=== PATIENT | female | born 1955 | race Caucasian/White ===

== ENCOUNTER → 2019-01-05 | Outpatient (CLI) | payer MEDICARE, OTHER ==
[2016-03-03 14:31] VITALS: BP 160/85
[~2019-01-05] MED LIST: ACET325T9 PO; ALBU2.5V8 IH; ALPR1TAB2 PO; BUSP15TA PO; CARV6.25 PO; CHOL2000 PO; CLIN300C8 PO; COLE3.753 PO; FAMO20TA5 PO; FLUT9.9S NS; FURO-68 PO; HALO0.5T PO; HALO1TAB PO; IBUP800T19 PO; INSU100I11 SQ; IRBE300T PO; IRBE300T3 PO; LANS30CA66 PO; LEVO125T5 PO; LIDO700A4 TP; MAG360OR24 PO; MAGN400T3 PO; METO10TA PO; METO2.5T PO; MIRT15TA3 PO; NEBI10TA3 PO; NYST15CR TP; OXCA300T3 PO; OXYC10TA PO; OXYC10TA46 PO; OXYC20TA35 PO; PARO20TA99 PO; POLY17PO5 PO; POTA10CA PO; POTA20LI14 PO; PROP10TA PO; SENN8.6T99 PO; TOPI100T42 PO; TRIA10.8 NS; ZIPR20CA3 PO; ZOLP10TA4 PO; ZOLP5TAB5 PO
--- NOTE | 2019-01-05 09:35 | RAD ---
Examination: CT lumbar spine without contrast HISTORY: History of low back pain COMPARISON: 06/30/2014 TECHNIQUE: Axial CT images of the lumbar spine were performed without contrast. Coronal and sagittal reformats are performed Exposure: One or more of the following individualized dose reduction techniques were utilized for this examination: 1. Automated exposure control 2. Adjustment of the mA and/or kV according to patient size 3. Use of iterative reconstruction technique FINDINGS: Gastric lap band partially visualized. Moderate intervertebral disc height loss identified throughout the visualized thoracolumbar spine likely degenerative changes. T12-L1: Diffuse disc bulge identified with posterior disc protrusion causing extending into a left paracentral spinal canal. Moderate spinal canal stenosis. Mild bilateral neural foraminal narrowing L1-L2: Diffuse disc bulge identified causing moderate spinal canal stenosis. Mild bilateral neural foraminal narrowing. L2-L3: Diffuse disc bulge identified at this level. Mild posterior disc bulge causing mild spinal canal stenosis. Mild bilateral neural foraminal narrowing. L3-L4: Diffuse disc bulge causing moderate spinal canal stenosis. Mild bilateral neural foraminal narrowing L4-L5: Diffuse disc bulge causing moderate to severe spinal canal stenosis. Moderate bilateral neural foraminal narrowing L5-S1: Diffuse disc bulge causing moderate spinal canal stenosis. Mild bilateral neural foraminal narrowing Mild retrolisthesis of L1 on L2 and L2 on L3. IMPRESSION: 1. Multilevel degenerative changes lumbar spine as described above most at L4-L5 vertebral level. If pain persists recommend MRI for further evaluation. Electronically signed by: Karthikeyan Saeed MD (01/05/2019 9:32 AM) [place] [id number]
== END | disposition home or self-care (01) ==
LOC: CT 07:50
PROVIDERS: ATTEND Family Medicine
DX: M51.27 Other intervertebral disc displacement, lumbosacral region (principal); M47.816 Spondylosis without myelopathy or radiculopathy, lumbar region; M48.07 Spinal stenosis, lumbosacral region; M51.25 Other intervertebral disc displacement, thoracolumbar region; M53.86 Other specified dorsopathies, lumbar region
CPT/HCPCS: 72131

== ENCOUNTER 2019-02-02 15:26 | Inpatient (IN) | payer MEDICARE, OTHER ==
[~2019-02-02] VITALS: Ht 176.5 cm; Wt 95.9 kg
[~2019-02-02 15:26] MED LIST changes: -MAGN400T3 PO; +MAGN400T5 PO
[2019-02-02 15:54] VITALS: BP 139/79
[2019-02-02] MEDS ORDERED: ACETAMINOPHEN 325 MG TABLET PO PRN (17:45)
[2019-02-02] MEDS ORDERED: oxyCODONE ER 10 MG TAB.ER.12H PO PRN (17:45)
[2019-02-02] MEDS ORDERED: INSULIN LISPRO 300 UNITS/3 ML VIAL. SQ PRN (17:45)
[2019-02-02] MEDS ORDERED: SENNOSIDES 8.6 MG TABLET PO PRN (17:45)
[2019-02-02] MEDS ORDERED: MAG HYDROX/AL HYDROX/SIMETH 30 ML ORAL.SUSP PO PRN (18:30)
[2019-02-02] MEDS ORDERED: DEXTROSE 50% 25 GM / 50ML DISP.SYRIN. IV PRN (18:45)
[2019-02-02] MEDS ORDERED: VANCOMYCIN 2 GM in IV NORMAL SALINE 500ML 500 ML IV ONE (19:00)
[2019-02-02 19:40] VITALS: BP 146/91
--- NOTE | 2019-02-02 19:42 | PN ---
DATE: 02/02/2019 SUBJECTIVE: The patient is a 63-year-old female patient, a long term resident, who was seen by her primary care physician, Dr. Patel who contacted me as she has had cellulitis of the anterior chest wall that apparently has not responded to oral antibiotic and was admitted directly to start her on IV antibiotic. The patient herself denied any complaint, particular denied any chest pain, denied any chills, rigors, or fever. On examining her, she has what seems to be an abscess that has already opened and surrounding erythema involving the anterior chest wall on the right side. There is no involvement of the breast itself noted in the axillary or cervical lymph nodes. PAST MEDICAL HISTORY: Significant for chronic low back pain, hypothyroidism. She has diabetes and hypothyroidism. 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 PAST SURGICAL HISTORY: Significant for cholecystectomy, hysterectomy, lap band gastric surgery, carpal tunnel syndrome, right knee surgery, and right below-knee amputation. ALLERGIES: SHE IS ALLERGIC TO PENICILLIN, SULFA DRUGS, ARIPIPRAZOLE, ASPIRIN, ATORVASTATIN, WELLBUTRIN, CELEBREX, CETIRIZINE, DIVALPROEX, HYDROCHLOROTHIAZIDE, HYDROCODONE, IRBESARTAN, IRON, METAXALONE, MONTELUKAST, PRAVASTATIN, RISPERIDONE, VIOXX, AND VENLAFAXINE. FAMILY HISTORY: Her father at age of 41 years in a motorcycle accident and mother at 64 years of breast and bone cancer. She has 4 brothers who are all healthy and 3 daughters and 1 son that are healthy. Older brother at age of 56 from cardiac arrest. SOCIAL HISTORY: The patient currently lives in a care [facility]. She apparently does not smoke, drink alcohol, or use any recreational drugs. PHYSICAL EXAMINATION: GENERAL: On examining her, the patient was resting slightly propped up in bed, in no apparent respiratory distress, slightly pale, but not jaundiced, cyanosis or thyromegaly. No jugular venous distention. No limb edema. VITAL SIGNS: Her heart rate was 73, blood pressure was 139/79, temperature was 99.4, respiratory rate 20, and oxygen saturation was 93%. HEAD, EYES, EARS, NOSE, AND THROAT: Normocephalic, atraumatic. NECK: Supple. HEART: Showed normal first and second heart sounds with no gallop, rub, or murmur. CHEST: Clear to auscultation. No crepitation or rhonchi. ABDOMEN: Distended, soft, and nontender. No guarding or rigidity. No organomegaly. All hernial orifice intact. Bowel sounds normal. NEUROLOGIC: She was awake, alert, responding appropriately. All cranial nerves intact. EXTREMITIES: She moves extremities without difficulty. She has right below-knee amputation. She has severe neuropathic arthropathy of her left ankle joint. ASSESSMENT AND PLAN: So, in summary, this is a 63-year-old female patient, a resident at [facility], who was admitted with anterior chest wall cellulitis and seemed to have an abscess opened up and she has surrounding cellulitis. Plan is to start her on IV antibiotic in the form of vancomycin. We will send blood for CBC and a CMP and resume all her medications and start her on vancomycin as per pharmacy adjustment. BJORN MORALES MD DR: ROSS/madeline JOB#: [id number] / [id number]
[2019-02-02 20:08] LABS: HEMATOCRIT 39.8 % (36.0-47.0); HEMOGLOBIN 13.3 g/dL (12.0-15.5); RED BLOOD COUNT 4.28 x10^6/uL (3.50-5.40); RED CELL DISTRIBUTION WIDTH 12.6 % (11.5-14.5); WHITE BLOOD COUNT 9.9 x10^3/uL (4.0-11.0)
[2019-02-02 20:26] LABS: ALBUMIN 3.3 g/dL (3.4-5.0); ALBUMIN/GLOBULIN RATIO 0.8 (1.0-1.7); CALCIUM 9.5 mg/dL (8.5-10.1); CREATININE 0.8 mg/dL (0.6-1.0); GFR 72.4; POTASSIUM 3.4 mmol/L (3.5-5.1); TOTAL BILIRUBIN 0.2 mg/dL (0.2-1.0); TOTAL PROTEIN 7.7 g/dL (6.4-8.2)
[2019-02-02] MEDS ORDERED: oxyCODONE ER 10 MG TAB.ER.12H PO SCH (21:00)
[2019-02-02] MEDS: FLUTICASONE 50MCG/NASAL SPRAY 16GM BOTTLE. NS SCH (21:36)
[2019-02-02] MEDS: ZIPRASIDONE 20 MG CAPSULE. PO SCH (21:36)
[2019-02-02] MEDS: POTASSIUM CHLORIDE 20 MEQ TABLET.ER. PO SCH (21:37)
[2019-02-02] MEDS: FUROSEMIDE 40 MG TABLET PO SCH (21:37)
[2019-02-02] MEDS: PARoxetine 20 MG TABLET PO SCH (21:38)
[2019-02-02] MEDS: FAMOTIDINE 20 MG TABLET PO SCH (21:38)
[2019-02-02] MEDS: METOCLOPRAMIDE 10 MG TABLET PO SCH (21:38)
[2019-02-02] MEDS: MIRTAZAPINE 7.5 MG TABLET. PO SCH (21:38)
[2019-02-02] MEDS: TOPIRAMATE 100 MG TABLET. PO SCH (21:38)
[2019-02-02] MEDS: oxyCODONE/APAP 7.5/325 1 TAB TABLET PO SCH (21:38)
[2019-02-02] MEDS: SENNOSIDES 8.6 MG TABLET PO SCH (21:38)
[2019-02-02] MEDS: ALPRAZolam 0.5 MG TABLET PO SCH (21:39)
[2019-02-02] MEDS: VANCOMYCIN PER PHARMACY MC PRN (21:59)
[2019-02-02 22:33] VITALS: BP 138/84
[2019-02-03] MEDS: LEVOTHYROXINE 100 MCG TABLET PO SCH (05:56)
[2019-02-03 06:27] VITALS: BP 117/78
[2019-02-03] MEDS: CHOLECALCIFEROL (VITAMIN D3) 1,000 UNIT TABLET PO SCH (08:17)
[2019-02-03] MEDS: INSULIN LISPRO 300 UNITS/3 ML VIAL. SQ SCH ×3 (08:17→17:00)
[2019-02-03] MEDS: FAMOTIDINE 20 MG TABLET PO SCH ×2 (08:17→21:26)
[2019-02-03] MEDS: ALPRAZolam 0.5 MG TABLET PO SCH ×3 (08:17→21:26)
[2019-02-03] MEDS: METOCLOPRAMIDE 10 MG TABLET PO SCH ×4 (08:17→21:26)
[2019-02-03] MEDS: oxyCODONE/APAP 7.5/325 1 TAB TABLET PO SCH ×3 (08:18→21:25)
[2019-02-03] MEDS: POTASSIUM CHLORIDE 20 MEQ TABLET.ER. PO SCH ×2 (08:18→21:29)
[2019-02-03] MEDS: PROPRANOLOL 10 MG TABLET. PO SCH ×2 (08:19→14:09)
[2019-02-03] MEDS: FUROSEMIDE 40 MG TABLET PO SCH ×2 (08:19→21:26)
[2019-02-03] MEDS: ZIPRASIDONE 20 MG CAPSULE. PO SCH ×2 (08:20→21:29)
[2019-02-03] MEDS: POLYETHYLENE GLYCOL 3350 17 GM PACKET. PO SCH (08:20)
[2019-02-03] MEDS: MAGNESIUM OXIDE 400 MG TABLET PO SCH (08:21)
[2019-02-03] MEDS: TOPIRAMATE 100 MG TABLET. PO SCH ×2 (08:21→21:25)
[2019-02-03] MEDS: LIDOCAINE (700MG/PATCH) PATCH. TP SCH (08:22)
[2019-02-03] MEDS: VANCOMYCIN 1.5 GM in IV NORMAL SALINE 500ML 500 ML IV SCH ×2 (08:49→21:22)
[2019-02-03 11:02] VITALS: BP 122/78
[2019-02-03] MEDS: metOLazone 2.5 MG TABLET PO SCH (12:25)
[2019-02-03 14:44] VITALS: BP 120/81
[2019-02-03 19:36] VITALS: BP 111/72
[2019-02-03] MEDS: MIRTAZAPINE 7.5 MG TABLET. PO SCH (21:25)
[2019-02-03] MEDS: LACTOBACILLUS RHAMNOSUS GG 1 CAPSULE. PO SCH (21:25)
[2019-02-03] MEDS: SENNOSIDES 8.6 MG TABLET PO SCH (21:26)
[2019-02-03] MEDS: PARoxetine 20 MG TABLET PO SCH (21:26)
[2019-02-03] MEDS: FLUTICASONE 50MCG/NASAL SPRAY 16GM BOTTLE. NS SCH (21:27)
[2019-02-03 22:22] VITALS: BP 114/74
--- NOTE | 2019-02-04 00:01 | PN ---
DATE: 02/03/2019 SUBJECTIVE: The patient is resting, slightly propped up in bed, in no apparent distress, awake, and alert. On questioning her, she denied any complaint. Nursing staff stated that the wound in her chest wall is tunneling and was packed with iodoform gauze, covered with dressing. PHYSICAL EXAMINATION: GENERAL: When I saw her this afternoon, she looked well and was clearly in no apparent respiratory distress, pale, but no jaundice, cyanosis or thyromegaly. No jugular venous distention or limb edema. VITAL SIGNS: Her heart rate was 66, blood pressure was 120/81, temperature was 97.8, respiratory rate 20, and oxygen saturation was 93%. HEAD, EYES, EARS, NOSE AND THROAT: Showed normocephalic, atraumatic. NECK: Supple. HEART: Showed normal first and second heart sounds. No gallop or murmur. CHEST: Clear to auscultation. No crepitation or rhonchi. ABDOMEN: Distended, soft, nontender. NEUROLOGIC: She is awake, alert, and responding appropriately. All cranial nerves intact. She moves upper extremities without difficulty. She has right below knee amputation, has marked neuropathic arthropathy, her left ankle joint. The wound in the right-sided chest wall is covered with dressing. Her intake was 1280, no output was recorded. LABORATORY DATA: Showed a white cell count 9900, hemoglobin 13, hematocrit 39, MCV 93, and platelet count 289,000. Serum sodium 137, potassium 3.4, chloride 101, bicarbonate 24, anion gap of 8, BUN 8, and creatinine 0.8. ASSESSMENT: 1. A 63-year-old female patient, a resident of [facility], who was admitted with anterior chest wall cellulitis/with an abscess that opened up spontaneously. 2. The patient has multiple other medical problems including: A. Type 2 diabetes mellitus. B. Hypothyroidism. C. Chronic low back pain and the neuropathic arthropathy involving both ankle joints. PLAN: To continue with wound care. Continue with IV vancomycin. Continue with pain management. Continue to monitor her blood sugar and adjust insulin as needed. BJORN MORALES MD DR: ROSS/madeline JOB#: [id number] / [id number]
[2019-02-04 05:17] VITALS: BP 120/78
[2019-02-04] MEDS: LEVOTHYROXINE 100 MCG TABLET PO SCH (06:23)
[2019-02-04] MEDS: INSULIN LISPRO 300 UNITS/3 ML VIAL. SQ SCH ×3 (08:00→17:00)
[2019-02-04 08:27] LABS: HEMATOCRIT 40.6 % (36.0-47.0); HEMOGLOBIN 13.4 g/dL (12.0-15.5); RED BLOOD COUNT 4.31 x10^6/uL (3.50-5.40); WHITE BLOOD COUNT 6.3 x10^3/uL (4.0-11.0)
[2019-02-04] MEDS: LIDOCAINE (700MG/PATCH) PATCH. TP SCH (08:33)
[2019-02-04] MEDS: POLYETHYLENE GLYCOL 3350 17 GM PACKET. PO SCH (08:33)
[2019-02-04] MEDS: POTASSIUM CHLORIDE 20 MEQ TABLET.ER. PO SCH ×2 (08:34→20:57)
[2019-02-04] MEDS: LACTOBACILLUS RHAMNOSUS GG 1 CAPSULE. PO SCH ×2 (08:34→20:48)
[2019-02-04] MEDS: VANCOMYCIN 1.5 GM in IV NORMAL SALINE 500ML 500 ML IV SCH (08:34)
[2019-02-04] MEDS: MAGNESIUM OXIDE 400 MG TABLET PO SCH (08:34)
[2019-02-04] MEDS: METOCLOPRAMIDE 10 MG TABLET PO SCH ×4 (08:34→20:48)
[2019-02-04] MEDS: CHOLECALCIFEROL (VITAMIN D3) 1,000 UNIT TABLET PO SCH (08:34)
[2019-02-04] MEDS: FAMOTIDINE 20 MG TABLET PO SCH ×2 (08:34→20:48)
[2019-02-04] MEDS: TOPIRAMATE 100 MG TABLET. PO SCH ×2 (08:35→20:53)
[2019-02-04] MEDS: oxyCODONE/APAP 7.5/325 1 TAB TABLET PO SCH ×3 (08:35→20:53)
[2019-02-04] MEDS: ALPRAZolam 0.5 MG TABLET PO SCH ×3 (08:35→20:48)
[2019-02-04] MEDS: FUROSEMIDE 40 MG TABLET PO SCH ×2 (08:35→20:48)
[2019-02-04] MEDS: ZIPRASIDONE 20 MG CAPSULE. PO SCH (08:37)
[2019-02-04] MEDS: PROPRANOLOL 10 MG TABLET. PO SCH ×2 (08:38→14:00)
[2019-02-04 08:40] LABS: ALBUMIN 3.1 g/dL (3.4-5.0); ALBUMIN/GLOBULIN RATIO 0.8 (1.0-1.7); CALCIUM 9.3 mg/dL (8.5-10.1); CREATININE 0.8 mg/dL (0.6-1.0); GFR 72.4; TOTAL BILIRUBIN 0.2 mg/dL (0.2-1.0); TOTAL PROTEIN 7.1 g/dL (6.4-8.2)
[2019-02-04 08:59] LABS: VANC TR 29.4 mcg/mL (10.0-20.0)
[2019-02-04 09:03] LABS: POTASSIUM 2.8 mmol/L (3.5-5.1)
[2019-02-04] MEDS: POTASSIUM BICARB 20 MEQ EFFERVESCENT TABLET. FT SCH ×2 (09:54→13:16)
[2019-02-04 10:37] VITALS: BP 119/77
[2019-02-04] MEDS: VANCOMYCIN PER PHARMACY MC PRN (11:18)
--- NOTE | 2019-02-04 12:37 | PN ---
DATE: 02/04/2019 SUBJECTIVE: The patient is resting, slightly propped up in bed, in no apparent respiratory distress. She is awake and alert. On questioning her, she denied any complaint. Nursing staff did not voice any concern except that her potassium is low at 2.8 and her vancomycin trough level was high at 29.4. OBJECTIVE GENERAL: On examining her, she looked pale, but no jaundice, cyanosis or thyromegaly. No jugular venous distention. No limb edema. VITAL SIGNS: Her heart rate was 55, blood pressure was 120/78, and temperature was . HEAD, EYES, EARS, NOSE AND THROAT: Showed normocephalic, atraumatic. NECK: Supple. HEART: Showed normal first and second heart sounds. No gallop or murmur. CHEST: Clear to auscultation. No crepitation or rhonchi. ABDOMEN: Distended, soft, and nontender. NEUROLOGIC: She is awake, alert, has very flat affect, but all her cranial nerves are intact. She moves upper extremities without difficulty. She has right below knee amputation, left robotic arthropathy. Her wounds in the anterior chest wall are covered with dressing. Her intake was 1300, no output was recorded. LABORATORY DATA: Her white cell count was 6300, hemoglobin 13, hematocrit 40, MCV 94 and platelet count 253,000. Her chemistry showed a serum sodium 139, potassium 3.8, chloride 101, bicarbonate 29, anion gap of 9, BUN 10, and creatinine 0.8. ASSESSMENT: A 63-year-old female patient, resident at [facility], who was admitted due to chest wall cellulitis with an abscess that has opened up spontaneously. 1. The patient has multiple other medical problems including: A. Type 2 diabetes mellitus. B. Diabetic peripheral neuropathy and neuropathic arthropathy. C. Hypothyroidism. D. Chronic low back pain. PLAN: Continue with wound care. Continue IV vancomycin. Continue pain management. Continue to monitor blood sugar and adjust insulin as needed. BJORN MORALES MD DR: ROSS/madeline JOB#: [id number] / [id number]
[2019-02-04 15:55] VITALS: BP 112/79
[2019-02-04 19:00] VITALS: BP 96/67
[2019-02-04] MEDS: MIRTAZAPINE 7.5 MG TABLET. PO SCH (20:48)
[2019-02-04] MEDS: PARoxetine 20 MG TABLET PO SCH (20:49)
[2019-02-04] MEDS: SENNOSIDES 8.6 MG TABLET PO SCH (20:49)
[2019-02-04] MEDS: FLUTICASONE 50MCG/NASAL SPRAY 16GM BOTTLE. NS SCH (20:54)
[2019-02-04] MEDS: ZIPRASIDONE 60 MG CAPSULE. PO SCH (20:55)
[2019-02-05] MEDS: LEVOTHYROXINE 100 MCG TABLET PO SCH (05:44)
[2019-02-05 06:32] LABS: CALCIUM 9.4 mg/dL (8.5-10.1); CREATININE 0.8 mg/dL (0.6-1.0); GFR 72.4; POTASSIUM 3.2 mmol/L (3.5-5.1)
[2019-02-05 06:54] VITALS: BP 124/70
[2019-02-05] MEDS ORDERED: VANCOMYCIN RANDOM LEVEL. MC ONE (07:30)
[2019-02-05] MEDS: INSULIN LISPRO 300 UNITS/3 ML VIAL. SQ SCH ×3 (08:00→17:00)
[2019-02-05] MEDS: LIDOCAINE (700MG/PATCH) PATCH. TP SCH (08:47)
[2019-02-05] MEDS: POLYETHYLENE GLYCOL 3350 17 GM PACKET. PO SCH (08:47)
[2019-02-05] MEDS: LACTOBACILLUS RHAMNOSUS GG 1 CAPSULE. PO SCH ×2 (08:47→20:44)
[2019-02-05] MEDS: POTASSIUM CHLORIDE 20 MEQ TABLET.ER. PO SCH ×2 (08:48→20:44)
[2019-02-05] MEDS: FAMOTIDINE 20 MG TABLET PO SCH ×2 (08:48→20:44)
[2019-02-05] MEDS: oxyCODONE/APAP 7.5/325 1 TAB TABLET PO SCH ×3 (08:48→20:43)
[2019-02-05] MEDS: ALPRAZolam 0.5 MG TABLET PO SCH ×3 (08:48→20:44)
[2019-02-05] MEDS: CHOLECALCIFEROL (VITAMIN D3) 1,000 UNIT TABLET PO SCH (08:49)
[2019-02-05] MEDS: MAGNESIUM OXIDE 400 MG TABLET PO SCH (08:49)
[2019-02-05] MEDS: METOCLOPRAMIDE 10 MG TABLET PO SCH ×4 (08:49→20:44)
[2019-02-05] MEDS: FUROSEMIDE 40 MG TABLET PO SCH ×2 (08:49→20:44)
[2019-02-05] MEDS: TOPIRAMATE 100 MG TABLET. PO SCH ×2 (08:49→20:43)
[2019-02-05] MEDS: PROPRANOLOL 20 MG TABLET. PO SCH ×2 (08:50→16:21)
[2019-02-05] MEDS: ZIPRASIDONE 60 MG CAPSULE. PO SCH ×2 (08:51→20:44)
[2019-02-05] MEDS ORDERED: POTASSIUM CHLORIDE 20 MEQ TABLET.ER. PO ONE (09:00)
[2019-02-05] MEDS ORDERED: VANCOMYCIN 1.25 GM in IV NORMAL SALINE 250ML 250 ML IV SCH (10:00)
--- NOTE | 2019-02-05 10:01 | HP ---
ADMIT DATE: 02/02/2019 SUBJECTIVE: The patient is a 63-year-old female patient, a correction resident, who was seen by her primary care physician, Dr. Patel who contacted me as she has had cellulitis of the anterior chest wall that apparently has not responded to oral antibiotic and was admitted directly to start her on IV antibiotic. The patient herself denied any complaint, particular denied any chest pain, denied any chills, rigors, or fever. On examining her, she has what seems to be an abscess that has already opened and surrounding erythema involving the anterior chest wall on the right side. There is no involvement of the breast itself noted in the axillary or cervical lymph nodes. PAST MEDICAL HISTORY: Significant for chronic low back pain, hypothyroidism. She has diabetes and hypothyroidism. 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 PAST SURGICAL HISTORY: Significant for cholecystectomy, hysterectomy, lap band gastric surgery, carpal tunnel syndrome, right knee surgery, and right below-knee amputation. ALLERGIES: SHE IS ALLERGIC TO PENICILLIN, SULFA DRUGS, ARIPIPRAZOLE, ASPIRIN, ATORVASTATIN, WELLBUTRIN, CELEBREX, CETIRIZINE, DIVALPROEX, HYDROCHLOROTHIAZIDE, HYDROCODONE, IRBESARTAN, IRON, METAXALONE, MONTELUKAST, PRAVASTATIN, RISPERIDONE, VIOXX, AND VENLAFAXINE. FAMILY HISTORY: Her father at age of 41 years in a motorcycle accident and mother at 64 years of breast and bone cancer. She has 4 brothers who are all healthy and 3 daughters and 1 son that are healthy. Older brother at age of 56 from cardiac arrest. SOCIAL HISTORY: The patient currently [facility] a [facility] She apparently does not smoke, drink alcohol, or use any recreational drugs. PHYSICAL EXAMINATION: GENERAL: On examining her, the patient was resting slightly propped up in bed, in no apparent respiratory distress, slightly pale, but not jaundiced, cyanosis or thyromegaly. No jugular venous distention. No limb edema. VITAL SIGNS: Her heart rate was 73, blood pressure was 139/79, temperature was 99.4, respiratory rate 20, and oxygen saturation was 93%. HEAD, EYES, EARS, NOSE, AND THROAT: Normocephalic, atraumatic. NECK: Supple. HEART: Showed normal first and second heart sounds with no gallop, rub, or murmur. CHEST: Clear to auscultation. No crepitation or rhonchi. ABDOMEN: Distended, soft, and nontender. No guarding or rigidity. No organomegaly. All hernial orifice intact. Bowel sounds normal. NEUROLOGIC: She was awake, alert, responding appropriately. All cranial nerves intact. EXTREMITIES: She moves extremities without difficulty. She has right below-knee amputation. She has severe neuropathic arthropathy of her left ankle joint. ASSESSMENT AND PLAN: So, in summary, this is a 63-year-old female patient, a resident at [facility], who was admitted with anterior chest wall cellulitis and seemed to have an abscess opened up and she has surrounding cellulitis. Plan is to start her on IV antibiotic in the form of vancomycin. We will send blood for CBC and a CMP and resume all her medications and start her on vancomycin as per pharmacy adjustment. BJORN MORALES MD DR: ROSS/madeline JOB#: [id number] / [id number]
[2019-02-05] MEDS: VANCOMYCIN PER PHARMACY MC PRN (10:11)
[2019-02-05] MEDS ORDERED: ONDANSETRON PF 4 MG/2 ML VIAL. IVP PRN (13:00)
[2019-02-05 18:34] VITALS: BP 123/77
[2019-02-05] MEDS: FLUTICASONE 50MCG/NASAL SPRAY 16GM BOTTLE. NS SCH (20:42)
[2019-02-05] MEDS: SENNOSIDES 8.6 MG TABLET PO SCH (20:42)
[2019-02-05] MEDS: PARoxetine 20 MG TABLET PO SCH (20:43)
[2019-02-05] MEDS: MIRTAZAPINE 7.5 MG TABLET. PO SCH (20:44)
--- NOTE | 2019-02-05 21:39 | PN ---
DATE: SUBJECTIVE: The patient is resting flat, sleeping comfortably, in no apparent distress. On questioning her, denied any complaint. Erythema around her wound is much improved as well as the swelling. PHYSICAL EXAMINATION: GENERAL: When I examined her, she was pale, but no jaundice, cyanosis or thyromegaly. No jugular venous distention. No limb edema. VITAL SIGNS: Her heart rate was 55, blood pressure was 124/70, temperature was 97.9, respiratory rate was 16, and oxygen saturation was 93% on room air. The rest of clinical exam stable, has not really changed. Her intake was 1200, no output was recorded. LABORATORY DATA: As of yesterday, her white cell count was 6300, hemoglobin 13, hematocrit 40, MCV 94 and platelet count 253,000. Her chemistry showed a serum sodium 139, potassium 3.2, chloride 98, bicarbonate 33, anion gap of 8, BUN 9, creatinine 0.8, estimated GFR was 72 mL per minute. Her glucose 110, calcium was 9.4. Tox screen yesterday showed vancomycin trough level was high at 29.4. So far, the wound culture results are still pending. ASSESSMENT: 1. Chest wall cellulitis and abscess that has opened up spontaneously. Erythema and swelling has almost completely subsided. 2. The patient has multiple other medical problems including: A. Type 2 diabetes mellitus, seems to be well controlled. B. Diabetic peripheral neuropathy and neuropathic arthropathy. C. Hypothyroidism. D. Chronic low back pain. PLAN: To continue with wound care. Continue with IV vancomycin. Continue pain management. Continue to monitor blood sugar and adjust insulin as needed. BJORN MORALES MD DR: ROSS/madeline JOB#: [id number] / [id number]
[2019-02-06] MEDS: LEVOTHYROXINE 100 MCG TABLET PO SCH (06:15)
[2019-02-06 06:30] VITALS: BP 134/78
[2019-02-06] MEDS: ZIPRASIDONE 60 MG CAPSULE. PO SCH (07:46)
[2019-02-06] MEDS: FAMOTIDINE 20 MG TABLET PO SCH (07:46)
[2019-02-06] MEDS: MAGNESIUM OXIDE 400 MG TABLET PO SCH (07:46)
[2019-02-06] MEDS: PROPRANOLOL 20 MG TABLET. PO SCH ×2 (07:46→13:45)
[2019-02-06] MEDS: POTASSIUM CHLORIDE 20 MEQ TABLET.ER. PO SCH (07:46)
[2019-02-06] MEDS: FUROSEMIDE 40 MG TABLET PO SCH (07:47)
[2019-02-06] MEDS: CHOLECALCIFEROL (VITAMIN D3) 1,000 UNIT TABLET PO SCH (07:47)
[2019-02-06] MEDS: oxyCODONE/APAP 7.5/325 1 TAB TABLET PO SCH ×2 (07:47→13:45)
[2019-02-06] MEDS: ALPRAZolam 0.5 MG TABLET PO SCH ×2 (07:47→13:45)
[2019-02-06] MEDS: TOPIRAMATE 100 MG TABLET. PO SCH (07:47)
[2019-02-06] MEDS: METOCLOPRAMIDE 10 MG TABLET PO SCH ×3 (07:48→16:39)
[2019-02-06] MEDS: POLYETHYLENE GLYCOL 3350 17 GM PACKET. PO SCH (07:48)
[2019-02-06] MEDS: LACTOBACILLUS RHAMNOSUS GG 1 CAPSULE. PO SCH (07:48)
[2019-02-06] MEDS: LIDOCAINE (700MG/PATCH) PATCH. TP SCH (07:48)
[2019-02-06] MEDS: INSULIN LISPRO 300 UNITS/3 ML VIAL. SQ SCH ×3 (08:00→17:15)
[2019-02-06 11:37] LABS: CALCIUM 9.7 mg/dL (8.5-10.1); CREATININE 0.8 mg/dL (0.6-1.0); GFR 72.4; POTASSIUM 3.3 mmol/L (3.5-5.1)
[2019-02-06 11:42] LABS: VANC TR 12.5 mcg/mL (10.0-20.0)
[2019-02-06] MEDS: metOLazone 2.5 MG TABLET PO SCH (11:59)
--- NOTE | 2019-02-06 13:15 | DISCH ---
DISCHARGE ORDERS DISCHARGE DATE: Feb 06, 2019 FINAL DIAGNOSIS CHEST WALL CELLULITIS CONDITION AT DISCHARGE: Stable Code Status: Full SNF STAY <30 DAYS: Yes POST DISCHARGE ORDERS: ACTIVITY ORDERS: Resume previous activity DIET AFTER DISCHARGE: ADA DISCHARGE MEDICATIONS: Home Meds Reported Medications Fluticasone Propionate (Flonase Allergy Relief) 9.9 Ml [place].susp, 2 SPRAYS NS HS, BOTTLE 02/28/16 Sennosides (SENOKOT) 8.6 Mg Tablet, 2 TAB PO Q12HR PRN for CONSTIPATION 02/28/16 Sennosides (SENOKOT) 8.6 Mg Tablet, 8.6 MG PO HS for constipation 02/28/16 Oxycodone Hcl (OXYCONTIN) 10 Mg Tab.er.12h, 5 MG PO BID PRN for PAIN, TAB 02/28/16 Mirtazapine (MIRTAZAPINE) 15 Mg Tablet, 0.5 TAB PO QHS for major depressive disorder, #30 TAB 3 Refills 02/28/16 Metoclopramide Hcl (METOCLOPRAMIDE HCL) 10 Mg Tablet, 10 MG PO QIDACHS for esop hagitis 02/28/16 Lidocaine (LIDODERM) 700 Mg Adh..patch, 1 PATCH TP DAILY for PAIN, #30 PATCH 02/28/16 Insulin Lispro (HUMALOG) 100 Unit/1 Ml Insuln.pen, 100 UNIT SQ TIDAC PRN for hyperglycemia Sliding scale 151-200 = 4 units 201-250 = 6 units 251-300 = 10 units 301-350 = 12 units 351-400 = 16 units 02/28/16 Famotidine (FAMOTIDINE) 20 Mg Tablet, 1 TAB PO BID for acid Reflux, #60 TAB 5 Refills 02/28/16 Mag Hydrox/Al Hydrox/Simeth (ALUM-MAG HYDROXIDE-SIMETH LIQ) 360 Ml Oral.susp, 30 ML PO Q4HRS PRN for INDIGESTION 02/28/16 Acetaminophen (TYLENOL) 325 Mg Tablet, 2 TAB PO Q8HRS PRN for PAIN, #30 TAB 02/28/16 Polyethylene Glycol 3350 (MIRALAX) 17 Gm Powd.pack, 1 PACKET PO DAILY 01/10/16 Oxycodone Hcl (OXYCODONE HCL EXTEND.RELEASE ) 10 Mg Tablet, 1 TAB PO BID for PAIN 01/10/16 Propranolol Hcl (PROPRANOLOL HCL) 10 Mg Tablet, 2 TAB PO BID92 01/10/16 Ziprasidone Hcl (ZIPRASIDONE HCL) 20 Mg Capsule, 60 MG PO BID 01/10/16 Potassium Chloride (POTASSIUM CHLORIDE ORAL LIQUID) 20 Meq/15 Ml Liquid, 40 MEQ PO BID 01/10/16 Metolazone (METOLAZONE) 2.5 Mg Tablet, 2.5 MG PO m, w, f at noon for htn 02/24/15 Furosemide (LASIX) 40 Mg Tablet, 1 TAB PO BID 11/05/14 Magnesium Oxide (MAGNESIUM OXIDE) 400 Mg Tablet, 400 MG PO DAILY for supplement 11/05/14 Cholecalciferol (Vitamin D3) (VITAMIN D) 2,000 Unit Capsule, 0.5 CAP PO DAILY for Supplement 11/05/14 Alprazolam (XANAX) 1 Mg Tablet, 0.5 MG PO TID for ANXIETY 08/08/14 Topiramate (TOPAMAX) 100 Mg Tablet, 1 TAB PO BID for bipolar 08/08/14 Paroxetine Hcl (PAXIL) 20 Mg Tablet, 20 MG PO HS for major depressive disorder 08/08/14 Levothyroxine Sodium (LEVOTHYROXINE SODIUM) 125 Mcg Tablet, 100 MCG PO DAILY06 for THYROID SUPPLEMENT 08/08/14 BJORN MORALES MD Feb 06, 2019 13:15
[2019-02-06 13:45] VITALS: BP 134/78
--- NOTE | 2019-02-06 21:39 | DS ---
DATE OF DISCHARGE: 02/06/2019 HOSPITAL COURSE: The patient is a 63-year-old female patient, a resident at [facility], who was admitted for treatment of her chest wall cellulitis that has failed outpatient oral treatment. She was started on IV vancomycin and did very well that most of the erythema and swelling has largely subsided. She continued to have wound that is packed with iodoform gauze and getting smaller. A decision was made to discharge her back to [facility] to continue with oral Zyvox. Continue with wound care. On questioning her today, she denied any complaint. The nursing staff did not voice any concerns that she had an uneventful night. PHYSICAL EXAMINATION: GENERAL: When I examined her, she looked pale, but no jaundice, cyanosis or thyromegaly. No jugular venous distension. No lower limb edema. VITAL SIGNS: His heart rate was 54, blood pressure was 134/78, temperature was 97.4, respiratory rate was 16, and oxygen saturation was 97%. HEAD, EYES, EARS, NOSE AND THROAT: Showed normocephalic, atraumatic. NECK: Supple. HEART: Showed normal first and second heart sounds. No gallop or murmur. CHEST: Clear to auscultation. No crepitation or rhonchi. ABDOMEN: Distended, soft, tender. No guarding or rigidity. No organomegaly. All hernial orifice intact. Bowel sounds normal. NEUROLOGIC: She was awake, alert, responding appropriately. All cranial nerves intact. She moves upper extremities without difficulty. She has right below-knee amputation. She has severe neuropathic arthropathy of her left ankle joint. She is mostly bedbound, chair bound. She does have a prosthesis. Her intake over the last 24 hours was 900, no output was recorded. LABORATORY DATA: White cell count was 6300, hemoglobin 13, hematocrit 41, MCV 94 and platelet count 253,000. His serum sodium this morning was 141, potassium 3.3, chloride 100, bicarbonate 34, anion gap of 7, BUN 14, creatinine 0.8, estimated GFR was 72 mL per minute. Her glucose was 133 and calcium was 9.7. So far the wound culture has showed no growth. DISCHARGE MEDICATIONS: The patient will be discharged back to [facility] to continue on oral Zyvox 600 mg twice a day for 7 more days. Continue with Tylenol 650 mg every 8 hours, alprazolam 0.5 mg 3 times a day, ergocalciferol vitamin D3 2000 international unit once a day, famotidine 20 mg twice a day, Flonase 2 sprays to each nostril once a day, furosemide 40 mg twice a day, Humalog insulin as insulin sliding scale before meals, levothyroxine sodium 100 mcg once a day, Lidoderm patch 1 patch topically on for 12 hours and off for 12 hours, milk of magnesia 30 mL p.o. daily p.r.n. for constipation, magnesium oxide 400 mg daily, metoclopramide 10 mg before meals and bedtime, metolazone 2.5 mg once a day, mirtazapine 7.5 mg at bedtime, oxycodone extended release 10 mg twice a day, paroxetine for Paxil 20 mg at bedtime, polyethylene glycol 17 grams daily, potassium chloride 20 mEq in 15 mL liquid, 40 mEq twice a day, propranolol 20 mg twice a day, senna 1 tablet once a day, topiramate for Topamax 100 mg twice a day and ziprasidone 60 mg twice a day. FINAL DISCHARGE DIAGNOSES: 1. Chest wall abscess and cellulitis, resolving. The erythema and redness has disappeared. 2. The patient has multiple other medical problems including: A. Type 2 diabetes mellitus, seems to be well controlled. B. Diabetic peripheral neuropathy and neuropathic arthropathy. C. Hypothyroidism. D. Chronic low back pain. BJORN MORALES MD DR: ROSS/madeline JOB#: [id number] / [id number]
== END 2019-02-06 17:30 | DRG 603 ==
LOC: 1 SOUTH 15:26
PROVIDERS: ADMIT Internal Medicine; ATTEND Internal Medicine
DX: L03.313 Cellulitis of chest wall (principal); E44.0 Moderate protein-calorie malnutrition; E11.42 Type 2 diabetes mellitus with diabetic polyneuropathy; E11.610 Type 2 diabetes mellitus with diabetic neuropathic arthropathy; E03.9 Hypothyroidism, unspecified; G89.29 Other chronic pain; Z90.710 Acquired absence of both cervix and uterus; Z90.49 Acquired absence of other specified parts of digestive tract; Z89.511 Acquired absence of right leg below knee; Z88.0 Allergy status to penicillin; Z88.8 Allergy status to other drugs, medicaments and biological substances; Z82.41 Family history of sudden cardiac death; L02.213 Cutaneous abscess of chest wall; K59.00 Constipation, unspecified; Z68.30 Body mass index [BMI] 30.0-30.9, adult
CPT/HCPCS: 36415; 36600; 80048; 80053; 80202; 82947; 84132; 85027; 87070; 87186; 87641; J1815; J3370; J7040; J7050; J8597

== ENCOUNTER → 2019-04-04 | Outpatient (CLI) | payer MEDICARE, OTHER ==
--- NOTE | 2019-04-05 16:54 | RAD ---
Bone Densitometry -left forearm Clinical history: 63-year-old female with history of tobacco smoking and thyroid disease presents for bone density screening. History of prior fractures during adult life. Dual energy x-ray absorptiometry of the forearm at the distal radius reveals a bone mineral density of 0.624 gm/cm2. This value is 99 % of the bone density which would have been predicted for this 63-year-old female , based on age and weight regression equations. Today's measurement is also 87 % of the peak bone density usually attained by the third decade. It is 1.3 standard deviations below the expected young adult normal value (T-score = -1.3 ). At this bone density level, there is osteopenia of the forearm. Impression: 1. Osteopenia of the forearm. Note: Definitions established by the World Health Organization: 1. Normal: T-score is -1.0 or above. 2. Osteopenia: T-score is between -1.0 and -2.5. 3. Osteoporosis: T-score is -2.5 or below. Electronically signed by: Sukumar Galan MD (04/05/2019 4:51 PM) [id number]
== END | disposition home or self-care (01) ==
LOC: DXRAD 11:29
PROVIDERS: ATTEND Family Medicine
DX: Z13.820 Encounter for screening for osteoporosis (principal); M85.88 Other specified disorders of bone density and structure, other site; Z87.891 Personal history of nicotine dependence
CPT/HCPCS: 77081

== ENCOUNTER 2020-08-16 10:37 | Emergency (ER) | payer MEDICARE, OTHER ==
[~2020-08-16] VITALS: Ht 175.3 cm; Wt 100.9 kg
[~2020-08-16 10:37] MED LIST changes: -CLIN300C8 PO; +CLIN300C9 PO; +IRBE300T23 PO; -IRBE300T3 PO
--- NOTE | 2020-08-16 10:44 | PHYS DOC ---
Past History Past Medical History: Depression, Hypothyroid, Other Additional Past Medical Histor: chronic hyponatremia Past Surgical History: Cholecystectomy, , Hysterectomy, Other Smoking: Less than 1pk/day Alcohol Use: Sober Drug Use: None Adult General Chief Complaint Chief Complaint: ABDOMINAL PAIN HPI HPI Patient is a 64-year-old female who presents with lower abdominal/pelvic pain and low back pain. She reports the pain began several months ago and acutely worsened today. She reports that the onset of pain she has had trouble starting her urination and reports that once she starts urinating does not have a consistent stream and consistently dribbles throughout the day. She reports no pain on urination/no burning or stinging on urination and denies foul odor upon urination, her PCP recently performed a urinalysis and it was unremarkable for acute infection. She reports she feels like there is something in between her legs and it is uncomfortable. She reports past hysterectomy with ovary removal however denies previous bladder sling surgery or previous prolapse surgery. She denies fevers, nausea, vomiting, diarrhea, vaginal discharge, and being sexually active. Review of Systems Review of Systems Fourteen body systems of review of systems have been reviewed. See HPI for pertinent positives and negative responses, other ugalde all other systems are negative, non-pertinent or non-contributory Allergies Allergies Allergies Coded Allergies Type Severity Reaction Last Updated Verified Penicillins Allergy Intermediate Hives 11/06/14 Yes Sulfa (Sulfonamide Antibiotics) Allergy Intermediate 11/06/14 Yes aripiprazole Allergy Intermediate 11/06/14 Yes aspirin Allergy Intermediate 11/06/14 Yes atorvastatin Allergy Intermediate 11/06/14 Yes bupropion Allergy Intermediate 11/06/14 Yes celecoxib Allergy Intermediate 11/06/14 Yes cetirizine Allergy Intermediate 11/06/14 Yes divalproex sodium Allergy Intermediate 11/06/14 Yes hydrochlorothiazide Allergy Intermediate 11/06/14 Yes hydrocodone Allergy Intermediate 11/06/14 Yes irbesartan Allergy Intermediate 11/06/14 Yes iron Allergy Intermediate 11/06/14 Yes metaxalone Allergy Intermediate 11/06/14 Yes montelukast Allergy Intermediate 11/06/14 Yes pravastatin Allergy Intermediate 11/06/14 Yes risperidone Allergy Intermediate 11/06/14 Yes rofecoxib Allergy Intermediate 11/06/14 Yes venlafaxine Allergy Intermediate 11/06/14 Yes Physical Exam Physical Exam Constitutional: Well developed, well nourished, no acute distress, non-toxic appearance. HENT: Normocephalic, atraumatic, bilateral external ears normal, oropharynx moist, no oral exudates, nose normal. Eyes: PERRLA, EOMI, conjunctiva normal, no discharge. Neck: Normal range of motion, no tenderness, supple, no stridor. Cardiovascular: Heart rate regular, sinus rhythm, no murmurs rubs or gallops Lungs & Thorax: Bilateral breath sounds clear to auscultation Abdomen: Bowel sounds normal, soft, no tenderness, no masses, no pulsatile masses. Nonsurgical abdomen, no peritoneal signs : No extravaginal sores or rash, pelvic exam revealed scant yellow discharge in the vaginal vault, no erythema in the vaginal vault, concern for nonobstructing prolapse of bladder on examination Skin: Warm, dry, no erythema, no rash. Back: No tenderness, no CVA tenderness. Extremities: No tenderness, no cyanosis, no clubbing, ROM intact, no edema. Neurologic: Alert and oriented X 3, grossly normal motor & sensory function, no focal deficits noted. Psychologic: Flat affect, depressed mood Current Patient Data Vital Signs Vital Signs Date Time Temp Pulse Resp B/P (MAP) Pulse Ox O2 Delivery O2 Flow Rate FiO2 08/16/20 10:40 98.2 86 16 128/73 (91) 98 Room Air Vital Signs Date Time Temp Pulse Resp B/P (MAP) Pulse Ox O2 Delivery O2 Flow Rate FiO2 08/16/20 10:40 98.2 86 16 128/73 (91) 98 Room Air Lab Results Microbiology 08/16/20 Wet Prep - Final, Complete Current Medications Medications (Trade) Dose Ordered Sig/Mathieu Route PRN Reason Start Time Stop Time Status Last Admin Dose Admin Acetaminophen (Tylenol) 500 mg 1X ONCE PO 08/16/20 11:30 08/16/20 11:31 EKG EKG [] Radiology/Procedures Radiology/Procedures [] Heart Score C/O Chest Pain: No HEART Score for Chest Pain: HEART Score for Chest Pain Response (Comments) Value History Slighlty/Non-Suspicious 0 Age >45 - < 65 1 Risk Factors >3 Risk Factors or Hx CAD 2 Total 3 Risk Factors: Risk Factors: DM, Current or recent (<one month) smoker, HTN, HLP, family histo ry of CAD, obesity. Risk Scores: Risk Factors: DM, Current or recent (<one month) smoker, HTN, HLP, family history of CAD, obesity. Course & Med Decision Making Course & Med Decision Making Patient is a 64-year-old female presenting for concerns of bladder prolapse. Vitals were normal on exam, pelvic exam revealed scant nonodorous discharge within the vaginal vault and findings of suspect bladder prolapse. Gonorrhea, chlamydia, wet mount swabs were sent to lab, negative wet prep, pending gonorrhea and chlamydia. Patient adamantly denies any sexual activity or risk for gonorrhea or chlamydia, as such, joint decision was made to defer prophylactic treatment and instead wait for results to pend. I am fine with this as patient is HPI and physical exam most consistent with symptomatic bladder prolapse. Patient has good access to care with primary care physician on discharge home back to retirement, physician will be notified results of recent gonorrhea and Chlamydia testing today. Patient also advised to follow-up with [facility] regarding concern for bladder prolapse, this is not emergent and so, continued outpatient work-up is advised. Patient was advised to continue supportive care for pain management, she is currently on routine narcotics at retirement. Patient was given return precautions and vocalized agreement with the plan of care and understanding of the return cautions provided, all questions and concerns addressed prior to your departure Dragon Disclaimer Dragon Disclaimer This electronic medical record was generated, in whole or in part, using a voice recognition dictation system. Departure Departure: Impression: Primary Impression: Prolapse of bladder Disposition: MD HOME SELF CARE/HOMELESS Condition: STABLE Referrals: FATOUMATA FORD MD (PCP) Additional Instructions: As discussed prior to ER departure, there was no emergent or surgical findings. Your vitals were within normal limits, pelvic examination showed scant discharge that was tested and noninfectious. As disclose, we tested you for gonorrhea and chlamydia despite your sexual and activity, these results will pend and be communicated to your retirement physician. Your presenting symptoms and physical exam is likely due to bladder prolapse. I advise you to seek outpatient follow-up with [facility] for further assessment and intervention as indicated. There is no need for further diagnostic work-up or transfer to other facility from our ER today. If any concerning signs or symptoms present please do not hesitate to raise your concerns to nurses at your home, your PCP and/or request to come back for repeat evaluation. It was a pleasure to take care of you and I wish you the best going forward VIRIDIANA MOULTON DO Aug 16, 2020 10:44
[2020-08-16] MEDS ORDERED: ACETAMINOPHEN 500 MG TABLET PO ONE (11:30)
[2020-08-16] MEDS ORDERED: oxyCODONE/APAP 7.5/325 1 TAB TABLET PO ONE (11:45)
[2020-08-16 12:00] VITALS: BP 151/72
[2020-08-19 19:16] LABS: CHLAMYDIA PROBE Negative (Negative)
== END 2020-08-16 12:02 | disposition home or self-care (01) ==
LOC: ER 10:37
DX: N81.10 Cystocele, unspecified (principal); E03.9 Hypothyroidism, unspecified; F17.200 Nicotine dependence, unspecified, uncomplicated; Z90.49 Acquired absence of other specified parts of digestive tract; Z90.710 Acquired absence of both cervix and uterus; Z88.0 Allergy status to penicillin; Z88.2 Allergy status to sulfonamides; Z88.5 Allergy status to narcotic agent; Z88.6 Allergy status to analgesic agent; Z88.8 Allergy status to other drugs, medicaments and biological substances
CPT/HCPCS: 87491; 87591; 99284; Q0111

== ENCOUNTER 2020-09-26 14:02 | Inpatient (IN) | payer MEDICARE, OTHER ==
[~2020-09-26] VITALS: Ht 176.5 cm; Wt 104.9 kg
[~2020-09-26 14:02] MED LIST changes: +MIRT-7 PO; -MIRT15TA3 PO
--- NOTE | 2020-09-26 14:14 | PHYS DOC ---
Past History Past Medical History: Anxiety, Bipolar, Diabetes, Hypothyroid, Other Additional Past Medical Histor: COVID [place] 04/28, MDD (PALMER ALLAN MD) Past Surgical History: , Hysterectomy, Other Additional Past Surgical Histo: R BKA, CTR BILAT (PALMER ALLAN MD) Smoking: Less than 1pk/day Alcohol Use: Sober Drug Use: None (PALMER ALLAN MD) General Adult EDM: Chief Complaint: CHEST PAIN HPI: HPI: Patient is a 64-year-old female brought in by EMS from nursing facility for sharp substernal chest pain. Patient also states she feels sweaty. Has a history of MD, but states this pain is different. States she otherwise has been feeling well off today but denies any cough, shortness of breath, vomiting or diarrhea. Per EMS pain started after she was told he needed to consult [facility]. Patient had Covid approximately 6 months ago and received her vaccines a couple of months ago, patient unsure of exactly what month (PALMER ALLAN MD) Review of Systems: Review of Systems: Constitutional: Denies fever or chills Eyes: Denies change in visual acuity HENT: Denies nasal congestion or sore throat Respiratory: Denies cough or shortness of breath Cardiovascular: Denies chest pain or edema GI: Denies abdominal pain, nausea, vomiting, bloody stools or diarrhea : Denies dysuria Musculoskeletal: Denies back pain or joint pain Integument: Denies rash Neurologic: Denies headache, focal weakness or sensory changes Endocrine: Denies polyuria or polydipsia Lymphatic: Denies swollen glands Psychiatric: Denies depression or anxiety (PALMER ALLAN MD) Allergies: Allergies: Allergies Coded Allergies Type Severity Reaction Last Updated Verified Penicillins Allergy Intermediate Hives 11/06/14 Yes Sulfa (Sulfonamide Antibiotics) Allergy Intermediate 11/06/14 Yes aripiprazole Allergy Intermediate 11/06/14 Yes aspirin Allergy Intermediate 11/06/14 Yes atorvastatin Allergy Intermediate 11/06/14 Yes bupropion Allergy Intermediate 11/06/14 Yes celecoxib Allergy Intermediate 11/06/14 Yes cetirizine Allergy Intermediate 11/06/14 Yes divalproex sodium Allergy Intermediate 11/06/14 Yes hydrochlorothiazide Allergy Intermediate 11/06/14 Yes hydrocodone Allergy Intermediate 11/06/14 Yes irbesartan Allergy Intermediate 11/06/14 Yes iron Allergy Intermediate 11/06/14 Yes metaxalone Allergy Intermediate 11/06/14 Yes montelukast Allergy Intermediate 11/06/14 Yes pravastatin Allergy Intermediate 11/06/14 Yes risperidone Allergy Intermediate 11/06/14 Yes rofecoxib Allergy Intermediate 11/06/14 Yes venlafaxine Allergy Intermediate 11/06/14 Yes (PALMER ALLAN MD) Physical Exam: PE: Constitutional: Well developed, well nourished, no acute distress, non-toxic appearance. [] HENT: Normocephalic, atraumatic, bilateral external ears normal, oropharynx moist, no oral exudates, nose normal. [] Eyes: PERRLA, EOMI, conjunctiva normal, no discharge. [] Neck: Normal range of motion, no tenderness, supple, no stridor. [] Cardiovascular:Heart rate regular rhythm, no murmur [] Lungs & Thorax: Bilateral breath sounds clear to auscultation [] Abdomen: Bowel sounds normal, soft, no tenderness, no masses, no pulsatile masses. [] Skin: Warm, dry, no erythema, no rash. [] Back: No tenderness, no CVA tenderness. [] Extremities: No tenderness, no cyanosis, no clubbing, ROM intact, no edema. [] Neurologic: Alert and oriented X 3, normal motor function, normal sensory function, no focal deficits noted. [] Psychologic: Affect normal, judgement normal, mood normal. [] (PALMER ALLAN MD) EKG: EKG: Sinus rhythm, heart rate 80 beats per minute, normal axis, no ST elevation or depression, no ectopy. Normal intervals. [] (PALMER ALLAN MD) Radiology/Procedures: Radiology/Procedures: [] (PALMER ALLAN MD) Heart Score: C/O Chest Pain: Yes HEART Score for Chest Pain: HEART Score for Chest Pain Response (Comments) Value History Slighlty/Non-Suspicious 0 ECG Normal 0 Age >45 - < 65 1 Risk Factors 1 or 2 Risk Factors 1 Troponin < Normal Limit 0 Total 2 Risk Factors: Risk Factors: DM, Current or recent (<one month) smoker, HTN, HLP, family history of CAD, obesity. Risk Scores: Score 0 - 3: 2.5% MACE over next 6 weeks - Discharge Home Score 4 - 6: 20.3% MACE over next 6 weeks - Admit for Clinical Observation Score 7 - 10: 72.7% MACE over next 6 weeks - Early Invasive Strategies (PALMER ALLAN MD) Course & Med Decision Making: Course & Med Decision Making Pertinent Labs and Imaging studies reviewed. (See chart for details) Chest pain resolves approximately 30-45 min after arrival Patient is made statements that she wants to kill herself, does not have a plan. PAT consult initiated, pending PAT evaluation and repeat troponin at shift change. (PALMER ALLAN MD) Course & Med Decision Making The patient's labs are essentially unremarkable. EKG does not show any ST elevation or other concerning findings. Initial troponin is negative. Repeat troponin is negative. The patient has expressed some suicidal ideation. She will be evaluated by behavioral health professional. The patient does meet criteria for behavioral admission. She is willing to be admitted. There was a long drawn out discussion about power of assistant county attorney and whether not the patient can agree to admission herself. After several hours, it was finally determined that the patient could be admitted. (JACKELYN RYAN DO) Dragon Disclaimer: Dragon Disclaimer: This electronic medical record was generated, in whole or in part, using a voice recognition dictation system. (PALMER ALLAN MD) Departure Departure: Impression: Primary Impression: Chest pain Additional Impressions: Suicidal ideations Medical clearance for psychiatric admission Disposition: ADMITTED INPATIENT Condition: STABLE Referrals: FATOUMATA FORD MD (PCP) PALMER ALLAN MD September 26, 2020 14:14 JACKELYN RYAN DO September 26, 2020 18:35
[2020-09-26 14:49] LABS: BASO # 0.1 x10^3/uL (0.0-0.2); BASO % 1 % (0-3); EOS % 0 % (0-3); HEMATOCRIT 39.6 % (36.0-47.0); HEMOGLOBIN 13.7 g/dL (12.0-15.5); LYMPH # 2.1 x10^3/uL (1.0-4.8); LYMPH % 23 % (24-48); MEAN CORPUSCULAR HEMOGLOBIN 33 pg (25-35); MEAN CORPUSCULAR HGB CONC 35 g/dL (31-37); MEAN CORPUSCULAR VOLUME 94 fL (79-100); MONO # 0.7 x10^3/uL (0.0-1.1); MONO % 7 % (0-9); NEUT # 6.5 x10^3uL (1.8-7.7); NEUT % 69 % (31-73); PLATELET COUNT 417 x10^3/uL (140-400); RED CELL DISTRIBUTION WIDTH 12.4 % (11.5-14.5); WHITE BLOOD COUNT 9.4 x10^3/uL (4.0-11.0)
[2020-09-26] MEDS ORDERED: oxyCODONE/APAP 5/325 1 TAB TABLET PO ONE (15:00)
[2020-09-26 15:37] LABS: CALCIUM 10.1 mg/dL (8.5-10.1); CREATININE 0.8 mg/dL (0.6-1.0); GFR 72.2; POTASSIUM 4.1 mmol/L (3.5-5.1)
--- NOTE | 2020-09-26 15:40 | RAD ---
EXAMINATION: XR CHEST 1V CLINICAL HISTORY: Chest pain EXAM DATE/TIME: 09/26/2020 3:28 PM COMPARISON: 01/13/2016 FINDINGS: Lines, Tubes, and Devices: None. Cardiomediastinal Silhouette: Normal heart size. Aortic atherosclerotic calcification. Lungs and Pleura: No evidence of focal airspace consolidation or pleural effusion. Pulmonary vasculat ure unremarkable. Bones and Soft Tissues: No acute osseous abnormality. Cholecystectomy clips. IMPRESSION: No evidence of acute cardiopulmonary abnormality or significant interval change. Electronically signed by: Alonzo Moreno DO (09/26/2020 3:38 PM) AMY
[2020-09-26 15:50] LABS: ALBUMIN 3.1 g/dL (3.4-5.0); ALBUMIN/GLOBULIN RATIO 0.7 (1.0-1.7); TOTAL BILIRUBIN 0.2 mg/dL (0.2-1.0); TOTAL PROTEIN 7.4 g/dL (6.4-8.2)
--- NOTE | 2020-09-26 16:48 | EKG ---
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
[2020-09-26] MEDS ORDERED: diphenhydrAMINE 50 MG/ML VIAL ONE (19:41)
[2020-09-26] MEDS ORDERED: diphenhydrAMINE 50 MG/ML VIAL IVP ONE (19:45)
[2020-09-26] MEDS ORDERED: MORPHINE SULFATE 4 MG/ML DISP.SYRIN. IV ONE (19:45)
[2020-09-26 23:05] LABS: BACTERIA,URINE QNS /HPF (0-FEW); BILIRUBIN,URINE NEG (NEG); CLARITY,URINE HAZY; COLOR,URINE YELLOW; GLUCOSE,URINE NEG (NEG); NITRITE,URINE NEG (NEG); SQUAMOUS EPITHELIAL CELL,UR QNS /LPF; UROBILINOGEN,URINE 0.2 mg/dL (0.2 mg/dL); WBC,URINE QNS /HPF (0-4)
[2020-09-26 23:06] LABS: RBC,URINE QNS /HPF (0-2)
[2020-09-27] MEDS ORDERED: diphenhydrAMINE 50 MG/ML VIAL IVP ONE (01:00)
[2020-09-27] MEDS ORDERED: MAG HYDROX/AL HYDROX/SIMETH 30 ML ORAL.SUSP PO PRN (01:30)
[2020-09-27] MEDS ORDERED: MAGNESIUM HYDROXIDE 2,400 MG/30 ML ORAL.SUSP. PO PRN (01:30)
[2020-09-27] MEDS ORDERED: ACETAMINOPHEN 325 MG TABLET PO PRN (01:30)
[2020-09-27 01:45] VITALS: BP 125/65
[2020-09-27] MEDS ORDERED: LOPERAMIDE 2 MG CAPSULE PO PRN (01:45)
[2020-09-27] MEDS ORDERED: SENNOSIDES 8.6 MG TABLET PO PRN (01:45)
[2020-09-27] MEDS ORDERED: DEXTROSE ORAL GEL 15 GM TUBE. PO PRN (01:45)
[2020-09-27] MEDS ORDERED: NON FORMULARY ITEM (Mag Hydrox/Al Hydrox/Simeth (Alum-Mag Hydroxide-Simeth Liq) 30 ML) PO PRN (01:45)
[2020-09-27] MEDS ORDERED: POTA20TA4 PO (01:54)
[2020-09-27] MEDS ORDERED: PARO25TA4 PO (01:54)
[2020-09-27] MEDS ORDERED: CALC500T31 PO (02:08)
[2020-09-27] MEDS ORDERED: OXYC1TAB15 PO (02:08)
[2020-09-27] MEDS ORDERED: GABA-586 PO (02:08)
[2020-09-27] MEDS ORDERED: ROPI1TAB4 PO (02:08)
[2020-09-27] MEDS ORDERED: ACET500T68 PO (02:08)
[2020-09-27] MEDS ORDERED: HYDR25TA PO (02:08)
[2020-09-27] MEDS ORDERED: TROL35.4 TP (02:08)
[2020-09-27] MEDS ORDERED: LOPE-101 PO (02:08)
[2020-09-27] MEDS ORDERED: DOCU100C28 PO (02:08)
[2020-09-27] MEDS ORDERED: GABA-585 PO (02:08)
[2020-09-27] MEDS ORDERED: SPIR25TA5 PO (02:08)
[2020-09-27] MEDS ORDERED: OXYC5TAB4 PO (02:08)
[2020-09-27] MEDS ORDERED: GLUC1KIT IM (02:08)
[2020-09-27] MEDS ORDERED: DEXT38GE2 PO (02:08)
[2020-09-27] MEDS ORDERED: METF500T16 PO (02:08)
[2020-09-27] MEDS ORDERED: MULT-114 PO (02:08)
[2020-09-27] MEDS ORDERED: HYDR25CA PO (02:15)
[2020-09-27] MEDS ORDERED: CALCIUM CARBONATE 500 MG TAB.CHEW PO PRN (02:30)
--- NOTE | 2020-09-27 02:41 | NUR ---
Admission Note with Justification for Admission to [facility] Patient admitted to [facility] for protective oversight for emergency stabilization of acute psychiatric crisis. Pt admitted from: [facility] Facility Mode of arrival: EMS Accompanied By: [facility] Staff Precipitating behaviors that initiated intake and admission: Pt was yelling at staff cussing and throwing things. Description of failure of out patient attempts at stabilization in previous setting list behavior and medication trials: Med adjustments and 1-1 Behaviors and assessment findings upon admission: Pt complains of back pain, states that the NH doesn't take good care of their residents. States she gets mad because she has significant back pain. Plan: Admit for protective oversight for adjustment and stabilization of medications, behaviors and mood. Intense treatment regimen including groups, medication adjustments, therapy, consistent regimen for ADL's, self care, and sleep hygiene. Daily monitoring by Inpatient staff, Psychiatry, and Medical Physician.
[2020-09-27] MEDS ORDERED: GLUCAGON,HUMAN RECOMBINANT 1 MG KIT. IM PRN (02:45)
[2020-09-27] MEDS ORDERED: METHYL SALICYLATE/MENTHOL TOPICAL OINTMENT 57GM TUBE. TP PRN (02:45)
[2020-09-27] MEDS: oxyCODONE/APAP 5/325 1 TAB TABLET PO PRN (02:56)
[2020-09-27] MEDS: ACETAMINOPHEN 500 MG TABLET PO PRN (02:57)
[2020-09-27] MEDS: ALPRAZolam 0.5 MG TABLET PO SCH ×4 (03:40→20:48)
[2020-09-27] MEDS: oxyCODONE IR 5 MG TABLET PO SCH ×4 (03:41→20:50)
[2020-09-27] MEDS: POTASSIUM CHLORIDE 20 MEQ TABLET.ER. PO SCH ×3 (03:41→20:48)
[2020-09-27] MEDS ORDERED: LEVOTHYROXINE 125 MCG TABLET PO SCH (06:00)
[2020-09-27 06:09] VITALS: BP 128/75
[2020-09-27] MEDS: GABAPENTIN 100 MG CAPSULE. PO SCH ×2 (08:00→10:35)
[2020-09-27] MEDS: MAGNESIUM OXIDE 400 MG TABLET PO SCH (09:00)
[2020-09-27] MEDS ORDERED: POTASSIUM CHLORIDE 20 MEQ TABLET.ER. PO SCH (09:00)
[2020-09-27] MEDS: LIDOCAINE (700MG/PATCH) PATCH. TP SCH (09:00)
[2020-09-27] MEDS ORDERED: oxyCODONE IR 5 MG TABLET PO SCH (09:00)
[2020-09-27] MEDS ORDERED: ALPRAZolam 0.5 MG TABLET PO SCH (09:00)
[2020-09-27] MEDS: POLYETHYLENE GLYCOL 3350 17 GM PACKET. PO SCH (09:00)
[2020-09-27] MEDS: SPIRONOLACTONE 25 MG TABLET PO SCH ×2 (10:33→20:50)
[2020-09-27] MEDS: TOPIRAMATE 100 MG TABLET. PO SCH ×2 (10:34→20:49)
[2020-09-27] MEDS: PROPRANOLOL 10 MG TABLET. PO SCH ×2 (10:34→17:39)
[2020-09-27] MEDS: CHOLECALCIFEROL (VITAMIN D3) 1,000 UNIT TABLET PO SCH (10:34)
[2020-09-27] MEDS: ZIPRASIDONE 20 MG CAPSULE. PO SCH ×2 (10:35→20:50)
[2020-09-27] MEDS: MULTIVITAMIN with MINERAL TABLET. PO SCH (10:35)
[2020-09-27] MEDS: metFORMIN 500 MG TABLET PO SCH (10:35)
[2020-09-27] MEDS: DOCUSATE SODIUM 100 MG CAPSULE PO SCH (10:35)
[2020-09-27] MEDS: PARoxetine 20 MG TABLET PO SCH (10:36)
--- NOTE | 2020-09-27 11:10 | NUR ---
ACTIVITY THERAPY ASSESSMENT completed based on notes, observation and interview. Pt was sitting in her wheelchair in the hallway by the [facility] nurse's station. Pt was looking out the window. During time of assessment pt appears to be paranoid of staff and reluctant to answer questions. AT introduced self and pt stared at AT and did not respond. AT asked pt what activities she enjoyed and pt said "I don't like doing anything." With prompting from AT pt said that she likes to watch TV. Pt does not like exercise, spirituality, or music. Pt is aware and oriented, she is able to recall her birthday, year and location. Pt said that she was admitted here for chest pain and back pain. Pt then said that her legs and arms are asleep and numb. AT said that she would report this to her nurse. AT then asked pt if she was and had children. Pt said that she was not and had four children but does not have contact with any of her family. AT asked pt where she came from prior to admission and she said [place]. AT asked pt if she came from home or a facility and pt said that she came from her own home. Per notes pt lives in [facility]. Pt then stated "I wish the doctors would listen." Pt then spoke about her pain again and said that her face was so numb she could pinch is and not feel it. Pt proceeded to show AT by pinching her face. AT said that she would go report this to her nurse. AT reported this with RN and she is aware of pt's pain. Pt reported pain to nurse but then declined a pain patch. Initial goal aimed to increase time management and relaxation skills. Pt will participate in at least three individual or group Activity Therapy sessions before discharge.
--- NOTE | 2020-09-27 11:28 | NUR ---
Pt began the day late, sleeping in until after breakfast d/t a late admission onto the unit around 0100. Upon waking PT/OT attempted to work with pt with difficulty; pt had multiple somatic complaints (back pain, leg numbness, arms unable to move, arms and legs feeling weak, face/arms feeling tingly). Per PT/OT, pt's facility states that pt is able to perform most if not all ADLs independent/min assist when behaviors are not impacting ability. Pt is compliant with medications whole. Absent of SI/HI/VH/AH at this time. She reports 10/10 pain in the lower back, but denies offers of scheduled Lidocaine patch when offered. Pt appears suspicious of staff, not answering some questions and being distant in her interactions. Plan of care continues, will pass to next shift.
[2020-09-27 15:44] VITALS: BP 117/79
[2020-09-27] MEDS: metOLazone 2.5 MG TABLET PO SCH (17:40)
[2020-09-27 20:06] LABS: THYROID STIM HORMONE (TSH) 1.034 uIU/mL (0.358-3.740)
[2020-09-27] MEDS: GABAPENTIN 300 MG CAPSULE. PO SCH (20:47)
[2020-09-27] MEDS: SENNOSIDES 8.6 MG TABLET PO SCH (20:48)
[2020-09-27] MEDS: rOPINIRole 1 MG TABLET. PO SCH (20:49)
[2020-09-27] MEDS: FLUTICASONE 50MCG/NASAL SPRAY 16GM BOTTLE. NS SCH (20:50)
[2020-09-27] MEDS: PATCH REMOVAL. MC SCH (20:51)
--- NOTE | 2020-09-27 23:57 | PSYEV ---
DATE OF SERVICE: 09/27/2020 REASON FOR ADMISSION: This 64-year-old single female was admitted [facility] from [facility] because of increasing behavior problems, seeing beach balls everywhere. Also, she hears people calling her name, disorganized with her thinking. The patient apparently has been throwing things. The patient apparently failed outpatient treatment. The patient mainly focused on her back pain and also not feeling any sensation on her extremities. The patient admits she is irritable, crespo because of the chronic pain. The patient also made statement that she wanted to and the patient did not have any plans. The patient admits she had problems with depression in the past including suicidal thoughts, but never attempted suicide. The patient admits she thought about cutting her wrist. HISTORY OF PRESENT ILLNESS: The patient has been at the [facility] for the past 3 years. The patient apparently had a below-knee amputation on the right lower extremity and she was not able to take care of herself. The patient also admits she had problems with alcohol, started drinking at the age of 18, became a problem when she was 23 years, she was averaging more than a fifth of whiskey a day and apparently she stopped drinking about 20 years ago because her third told her that she cannot drink. The patient admits she has been in treatment for the past 25 years, but denies of being hospitalized and she has been taking medications for her bipolar disorder. The patient also admits she has seen a therapist in the past. PAST MEDICAL HISTORY: The patient has a history of spinal stenosis, radiculopathy, history of cellulitis. The patient also has diabetes mellitus type 2, cardiovascular disease, hypothyroidism, GERD. The patient apparently had an MRA of the lumbar spine in the past. PAST PSYCHIATRIC HISTORY: The patient denies of any inpatient treatment. She has been all in the outpatient treatment. She has been tried on several medications. ALLERGIES: The patient also states she is allergic to some medications, but she cannot remember the name. CURRENT MEDICATIONS: Include ropinirole 1 mg at night; Flonase 2 sprays at night; gabapentin 300 mg at night; Zaroxolyn 2.5 mg on Wednesday, Wednesday and Wednesday p.o.; Paxil 50 mg daily; Zyprexa 60 mg b.i.d.; vitamin D 1000 units daily; Topamax 100 mg twice a day; spironolactone 25 mg twice a day; propranolol 20 mg twice a day; metformin 500 mg daily; lidocaine patch daily; gabapentin 100 mg twice a day; levothyroxine 100 mcg daily; potassium chloride 40 mEq twice a day; oxycodone 5 mg t.i.d.; Xanax 0.5 mg t.i.d. She is also on glucagon, also on oxycodone 1 tablet q. 6 hours p.r.n. for pain. PSYCHOSOCIAL HISTORY: The patient has adult ____ education. The patient was 3 times, has 4 children. 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 The patient went on disability. The patient denies of any physical, emotional, or sexual abuse. The patient admits she had problems with alcohol, started drinking at the age of 18, became a problem at age 23 and was drinking daily more than fifth of whiskey and stopped drinking about 20 years ago. The patient denies of any DTs or seizures following withdrawal in the past, but admits to having had 2 seizures while coming off the alcohol in the past. The patient also admits to smoking marijuana. Denies of any intravenous use of drugs. MENTAL STATUS EXAMINATION: The patient appeared to be of her stated age, withdrawn, mainly focusing on a chronic pain. The patient has difficulty with ambulation because of right below-knee amputation. The patient uses wheelchair. The patient since admission has been irritable, crespo, focusing on chronic pain, wanting to get help. The patient able to make eye contact, but she appeared to be confused while she was talking. Speech clear, monosyllabic, hesitant, but coherent. Affect and mood showed she is depressed. Also admits to angry at times. Admits to having thoughts of suicide, including thought about cutting her wrist. The patient states all of her problems stemming from her chronic pain. The patient also admits to visual hallucinations, seeing beach balls all over the place moving around. The patient also hear her name being called. The patient also appeared to be suspicious, paranoid and exhibiting disorganized thinking and also some thought blocking. The patient denies of any other psychotic symptoms. The patient is known to have aggressive behaviors in the past. She is oriented to time, place and person. Her memory is fairly intact for both past and present. The patient's judgment impaired. Insight limited. The patient appears to be functioning on an average level of intelligence. STRENGTH: The patient seems to be motivated for treatment. WEAKNESSES: The patient has chronic pain and also a long history of alcoholism and also bipolar disorder and apparently she is having problems with the medications. DIAGNOSTIC IMPRESSION: AXIS I: 1. Bipolar disorder, mixed with psychotic symptoms. 2. History of alcohol dependence. 3. Generalized anxiety disorder. AXIS II: None. AXIS III: As listed above. INITIAL TREATMENT PLAN: The patient is [facility]. The patient will be seen by the psychiatrist daily and also will be seen by primary care doctor. The patient also had a lab work, part of the admission, the patient's blood alcohol level was 121, alkaline phosphatase is 127. Sodium 131. Urinalysis was within normal range. The patient will be involved with the program including individual therapy, group therapy and activity therapy. The patient will continue on her current medications. We will consider changing the dose because she is taking fairly high dose of Paxil 50 mg. Apparently, she is also dependent on Xanax. ESTIMATED LENGTH OF STAY: 10 to [address]: Chip TID: [id number]
--- NOTE | 2020-09-27 23:59 | NUR ---
Patient is located in her room on assumption of care, awake in bed. She flat, depressed. Compliant with medications whole. Compliant with assessment, though she will only answer questions with one word responses. Rates lower back pain at a 10/10, scheduled pain medication given. No agitation. Patient denies SI. Has not voiced any delusions or hallucinations so far this shift. Patient appears to be sleeping comfortably at present time. Will continue to monitor.
[2020-09-28 00:14] LABS: HEMOGLOBIN A1C 5.7 % (4.8-5.6)
[2020-09-28] MEDS: LEVOTHYROXINE 100 MCG TABLET PO SCH (06:07)
[2020-09-28 06:17] VITALS: BP 118/68
[2020-09-28] MEDS: LIDOCAINE (700MG/PATCH) PATCH. TP SCH (08:42)
[2020-09-28] MEDS: POLYETHYLENE GLYCOL 3350 17 GM PACKET. PO SCH (08:42)
[2020-09-28] MEDS: metFORMIN 500 MG TABLET PO SCH (08:43)
[2020-09-28] MEDS: MULTIVITAMIN with MINERAL TABLET. PO SCH (08:43)
[2020-09-28] MEDS: ZIPRASIDONE 20 MG CAPSULE. PO SCH ×2 (08:43→20:33)
[2020-09-28] MEDS: SPIRONOLACTONE 25 MG TABLET PO SCH ×2 (08:44→20:32)
[2020-09-28] MEDS: DOCUSATE SODIUM 100 MG CAPSULE PO SCH (08:44)
[2020-09-28] MEDS: PROPRANOLOL 10 MG TABLET. PO SCH ×2 (08:44→12:52)
[2020-09-28] MEDS: PARoxetine 20 MG TABLET PO SCH (08:45)
[2020-09-28] MEDS: CHOLECALCIFEROL (VITAMIN D3) 1,000 UNIT TABLET PO SCH (08:45)
[2020-09-28] MEDS: ALPRAZolam 0.5 MG TABLET PO SCH ×3 (08:45→20:32)
[2020-09-28] MEDS: POTASSIUM CHLORIDE 20 MEQ TABLET.ER. PO SCH ×2 (08:45→20:30)
[2020-09-28] MEDS: GABAPENTIN 100 MG CAPSULE. PO SCH ×2 (08:46→12:50)
[2020-09-28] MEDS: oxyCODONE IR 5 MG TABLET PO SCH ×3 (08:46→20:31)
[2020-09-28] MEDS: MAGNESIUM OXIDE 400 MG TABLET PO SCH (08:46)
[2020-09-28] MEDS: TOPIRAMATE 100 MG TABLET. PO SCH ×2 (08:46→20:32)
--- NOTE | 2020-09-28 11:06 | NUR ---
Patient is calm and cooperative during medication pass. patient yelling an frustrated when she is encouraged to stay out of bed until lunch. Patient will be laid down after lunch per her request but morning mobility is encouraged at this time.
[2020-09-28 16:14] VITALS: BP 111/73
[2020-09-28] MEDS: PATCH REMOVAL. MC SCH (20:30)
[2020-09-28] MEDS: SENNOSIDES 8.6 MG TABLET PO SCH (20:32)
[2020-09-28] MEDS: rOPINIRole 1 MG TABLET. PO SCH (20:32)
[2020-09-28] MEDS: GABAPENTIN 300 MG CAPSULE. PO SCH (20:32)
[2020-09-28] MEDS: FLUTICASONE 50MCG/NASAL SPRAY 16GM BOTTLE. NS SCH (20:33)
--- NOTE | 2020-09-28 22:52 | CONS ---
DATE OF CONSULTATION: 09/28/2020 HISTORY OF PRESENT ILLNESS: The patient is a 64-year-old who was [facility] because of increasing behavioral problems. She apparently has been seeing Beat [employer]alls everywhere. She hears people calling her name, disorganized with her thinking. The patient apparently has been too intense. She has failed outpatient treatment. She also has been focused in her back pain and also not feeling any sensation in her extremities. The patient admits that she is very irritable and crespo because of chronic pain. She has also made statements that she wanted to and the patient did not have any plans. However, she does admit that she had problems with depression in the past including suicidal thoughts, but never attempted suicide. She admits that she has thoughts about cutting her wrist. She apparently has been at [facility] in the past 3 years and does have right below-knee amputation and was not able to take care of herself. The patient stated that she is able to feed herself, can wheel herself around, but uses mostly a Cash lift. She did admit that she has a problem with alcohol, started drinking at the age of 18, and became a problem when she was 23 years old. She was averaging more than a fifth of whiskey a day, apparently she had stopped drinking about 20 years ago because her third told her that she cannot drink. PAST MEDICAL HISTORY: Significant for spinal stenosis, radiculopathy, type 2 diabetes mellitus, hypothyroidism, gastroesophageal reflux disease. She stated that she did have an MRI of the lumbar spine in the past. PAST PSYCHIATRIC HISTORY: The patient denied any inpatient treatment before. PAST SURGICAL HISTORY: Significant for right below-knee amputation. She also had cholecystectomy, hysterectomy, lap band gastric surgery, carpal tunnel syndrome release, right knee surgery and right below-knee amputation. ALLERGIES: SHE IS ALLERGIC TO PENICILLIN, SULFA DRUGS, ARIPIPRAZOLE, ASPIRIN, ATORVASTATIN, WELLBUTRIN, CELEBREX, CETIRIZINE, DIVALPROEX, HYDROCHLOROTHIAZIDE, HYDROCODONE, IRBESARTAN, IRON, METAXALONE, MONTELUKAST, PRAVASTATIN, RISPERIDONE, VIOXX, AND VENLAFAXINE. FAMILY HISTORY: Her father at age of 41 years in a motorcycle accident. Her mother at age of 64-year-old with breast and bone cancer. She has 4 brothers who are all healthy and 3 daughters and 1 son that are healthy. Older brother at the age of 56 from cardiac arrest. SOCIAL HISTORY: The patient is [facility]. She does not smoke, drink alcohol or use recreational drugs. PHYSICAL EXAMINATION: GENERAL: When I saw her this afternoon, she was resting flat in bed, in no apparent respiratory distress. On questioning her, she stated that she is feeling numb from head to toe, did not describe any particular radicular pain and on objective testing there is no evidence of any anesthesia or spinal cord level. When I examined her, she looked well and was clearly in no apparent respiratory distress. There was no pallor, jaundice, or cyanosis from thyromegaly. No jugular distention. No limb edema. VITAL SIGNS: Her heart rate was 54, blood pressure is 134/78, temperature was 97.4, respiratory rate was 16, and oxygen saturation was 97% on room air. HEENT: Examination of the head, eyes, ears, nose, and throat: Normocephalic, atraumatic. NECK: Supple. HEART: Showed normal first and second heart sounds, no gallop or murmur. CHEST: Clear to auscultation. No crepitation or rhonchi. ABDOMEN: Distended, soft, nontender. NEUROLOGIC: She is awake, alert, responding appropriately. All cranial nerves intact. She moves upper extremities without difficulty. She has right below-knee amputation. LABORATORY DATA: On admission showed a white cell count of 9400, hemoglobin 14, hematocrit 39, MCV 94 and platelet count 417,000 with normal manual differential. His serum sodium 131, potassium 4.1, chloride 98, bicarbonate 23, anion gap of 10, BUN 10, creatinine 0.8. Estimated GFR was 72 mL per minute. His glucose was 121, calcium was 10.1. Total bilirubin, AST, ALT were normal. Alkaline phosphatase slightly elevated. Her BNP was 92, total protein 7.4, albumin was 3.1. Her serum lipase was 88. His magnesium was 1.7. Serum iron 81, TIBC was 308, and iron saturation was 26%. Her triglycerides was 66, total cholesterol 193, LDL cholesterol 124, VLDL was 13, and HDL cholesterol was 56, ratio was 3. Her TSH was 1.034. Her total T4 and total T3 were within normal range. Her vitamin B12 was 476 picograms per mL and 25-hydroxy vitamin D was 40, which is well within normal range. Her D-dimer was 1.23. Urinalysis was essentially unremarkable and her Treponema pallidum antibodies were nonreactive and her coronavirus by PCR was negative. ASSESSMENT AND PLAN: In summary, this is a 64-year-old female patient who was admitted because she is hearing people calling her names, markedly disorganized with her thinking. She has been throwing things, and apparently failed outpatient treatment. She is focused in her low back pain, although her complaint does not make any sense as she is stating that she is numb from head to toe. There was no sensory deficit or perhaps a spinal cord level that the patient feeling numb. She stated that she has had an MRI done and unless it is done in another hospital I do not see any evidence of it done here in the [facility]. My recommendation is to consult Dr. Hadley as to help us with the management of her low back pain due to spinal stenosis. However, from medical point of view, the patient seems to be all in all stable. Thank you again for allowing me to participate in the care of this patient. EBENEZER FRIEDMAN: Aguilar TID: [id number]
--- NOTE | 2020-09-28 22:54 | PN ---
DATE: 09/28/2020 SUBJECTIVE: The patient was seen today, met with the staff, chart was reviewed, and also covering for Dr. Burch. The patient continues to have problems staying in bed, multiple physical complaints. The patient is also complaining of generalized numbness from head to toes. The patient apparently not participating in activities and likes to be left alone. OBSERVATION: VITAL SIGNS: Temperature 97.9, blood pressure 118/68, pulse 70, respirations 14, O2 sat 96%. GENERAL: Slept about 8 hours last night. Her appetite has improved. CURRENT MEDICATIONS: The patient's medications reviewed, not having any side effects. LABORATORY DATA: Reviewed. ASSESSMENT: 1. Bipolar disorder, mixed with psychotic symptoms. 2. History of alcohol dependence. 3. Generalized anxiety disorder. PLAN: Continue with the current treatment plan. LENGTH OF STAY: Eight to ten days. PAULA DR: Chip TID: [id number]
--- NOTE | 2020-09-28 23:11 | NUR ---
Patient is located in her room on assumption of care, awake in bed. She is flat, depressed. Compliant with medications whole. Compliant with assessment, though she will only answer questions with one word responses. Rates lower back pain at a 10/10, scheduled pain medication given. No agitation. Patient denies SI. Has not voiced any delusions or hallucinations so far this shift. Patient appears to be sleeping comfortably at present time. Will continue to monitor.
[2020-09-29] MEDS: LEVOTHYROXINE 100 MCG TABLET PO SCH (05:40)
[2020-09-29 06:01] VITALS: BP 122/79
[2020-09-29] MEDS: oxyCODONE/APAP 5/325 1 TAB TABLET PO PRN (06:27)
[2020-09-29] MEDS: POLYETHYLENE GLYCOL 3350 17 GM PACKET. PO SCH (08:15)
[2020-09-29] MEDS: LIDOCAINE (700MG/PATCH) PATCH. TP SCH (08:15)
[2020-09-29] MEDS: ZIPRASIDONE 20 MG CAPSULE. PO SCH ×2 (08:15→20:22)
[2020-09-29] MEDS: CHOLECALCIFEROL (VITAMIN D3) 1,000 UNIT TABLET PO SCH (08:15)
[2020-09-29] MEDS: DOCUSATE SODIUM 100 MG CAPSULE PO SCH (08:15)
[2020-09-29] MEDS: ALPRAZolam 0.5 MG TABLET PO SCH ×3 (08:16→20:23)
[2020-09-29] MEDS: PARoxetine 20 MG TABLET PO SCH (08:16)
[2020-09-29] MEDS: SPIRONOLACTONE 25 MG TABLET PO SCH ×2 (08:16→20:22)
[2020-09-29] MEDS: POTASSIUM CHLORIDE 20 MEQ TABLET.ER. PO SCH ×2 (08:16→20:23)
[2020-09-29] MEDS: TOPIRAMATE 100 MG TABLET. PO SCH ×2 (08:17→20:23)
[2020-09-29] MEDS: MULTIVITAMIN with MINERAL TABLET. PO SCH (08:17)
[2020-09-29] MEDS: GABAPENTIN 100 MG CAPSULE. PO SCH ×2 (08:17→12:13)
[2020-09-29] MEDS: oxyCODONE IR 5 MG TABLET PO SCH ×3 (08:17→20:24)
[2020-09-29] MEDS: metFORMIN 500 MG TABLET PO SCH (08:17)
[2020-09-29] MEDS: PROPRANOLOL 10 MG TABLET. PO SCH ×2 (08:17→12:14)
[2020-09-29] MEDS: MAGNESIUM OXIDE 400 MG TABLET PO SCH (08:18)
--- NOTE | 2020-09-29 09:09 | NUR ---
Patient is calm and cooperative during medication pass. patient willing to wait till luch before lying down.
[2020-09-29 15:28] VITALS: BP 107/72
[2020-09-29] MEDS: SENNOSIDES 8.6 MG TABLET PO SCH (20:23)
[2020-09-29] MEDS: rOPINIRole 1 MG TABLET. PO SCH (20:23)
[2020-09-29] MEDS: GABAPENTIN 300 MG CAPSULE. PO SCH (20:24)
[2020-09-29] MEDS: PATCH REMOVAL. MC SCH (20:24)
[2020-09-29] MEDS: FLUTICASONE 50MCG/NASAL SPRAY 16GM BOTTLE. NS SCH (20:24)
[2020-09-30] MEDS: oxyCODONE/APAP 5/325 1 TAB TABLET PO PRN (00:27)
--- NOTE | 2020-09-30 01:04 | PN ---
DATE: 09/29/2020 SUBJECTIVE: The patient was seen today, met with the staff, and chart reviewed. Staff reports she is very needy, helpless, stays in bed most of the time, not motivated and also focused on her chronic pain. She was seen by Dr. Hadley today. OBSERVATION: VITAL SIGNS: Temperature 97.9, blood pressure 122/79, pulse 66, respirations 16, O2 sat 100 percent. GENERAL: Slept about 7 hours last night. The patient's appetite good. MEDICATIONS: Patient is not showing any side effects to medications. LABORATORY DATA: The patient's lab reviewed. ASSESSMENT: 1. Bipolar disorder, mixed with psychotic symptoms. 2. History of alcohol dependence. 3. Generalized anxiety disorder. PLAN: To continue with the treatment. LENGTH OF STAY: Seven to ten days. DYAN DR: ULISES/madeline TID: [id number]
--- NOTE | 2020-09-30 04:54 | NUR ---
Nursing Note Pt complains of pain with or without pain meds. Makes gun signs with her hands over her head. When I asked what that was she states "I'm in pain and I would blow my head off if I could." I asked her if she were truly SI, she said she was just in pain. Very somatic in her complaints. Irritable angry and depressed.
[2020-09-30 05:39] VITALS: BP 107/71
[2020-09-30] MEDS: LEVOTHYROXINE 100 MCG TABLET PO SCH (05:52)
[2020-09-30] MEDS: MULTIVITAMIN with MINERAL TABLET. PO SCH (08:23)
[2020-09-30] MEDS: PARoxetine 20 MG TABLET PO SCH (08:24)
[2020-09-30] MEDS: DOCUSATE SODIUM 100 MG CAPSULE PO SCH (08:24)
[2020-09-30] MEDS: oxyCODONE IR 5 MG TABLET PO SCH ×3 (08:24→20:56)
[2020-09-30] MEDS: ZIPRASIDONE 20 MG CAPSULE. PO SCH ×2 (08:24→20:55)
[2020-09-30] MEDS: metFORMIN 500 MG TABLET PO SCH (08:25)
[2020-09-30] MEDS: CHOLECALCIFEROL (VITAMIN D3) 1,000 UNIT TABLET PO SCH (08:25)
[2020-09-30] MEDS: SPIRONOLACTONE 25 MG TABLET PO SCH ×2 (08:25→20:55)
[2020-09-30] MEDS: PROPRANOLOL 10 MG TABLET. PO SCH ×2 (08:25→14:00)
[2020-09-30] MEDS: POTASSIUM CHLORIDE 20 MEQ TABLET.ER. PO SCH ×2 (08:26→20:56)
[2020-09-30] MEDS: POLYETHYLENE GLYCOL 3350 17 GM PACKET. PO SCH (08:26)
[2020-09-30] MEDS: ALPRAZolam 0.5 MG TABLET PO SCH ×3 (08:26→20:55)
[2020-09-30] MEDS: GABAPENTIN 100 MG CAPSULE. PO SCH ×2 (08:26→12:55)
[2020-09-30] MEDS: MAGNESIUM OXIDE 400 MG TABLET PO SCH (08:26)
[2020-09-30] MEDS: TOPIRAMATE 100 MG TABLET. PO SCH ×2 (08:26→20:56)
[2020-09-30] MEDS: LIDOCAINE (700MG/PATCH) PATCH. TP SCH (08:27)
[2020-09-30] MEDS: metOLazone 2.5 MG TABLET PO SCH (08:27)
--- NOTE | 2020-09-30 10:21 | NUR ---
Pt is visible on the unit today and has been appropriate with her interactions with others. She does not engage in conversation with others, and will only answer assessment questions with one word answers (barely above a whisper). She reports 10/10 pain in the lower back, she accepted scheduled pain medications and Lidocaine patch. Pt confirms SI, but will not answer followup questions concerning a plan or intensity of SI. She is absent of SI/HI behaviors this shift, absent VH/AH/delusions at this time. A&0x4. Plan of care continues, will pass to next shift.
--- NOTE | 2020-09-30 13:38 | NUR ---
WEEKLY ACTIVITY THERAPY NOTE Date of Admission:09/27/20 Date of AT Assessment: TBD Precipitating behaviors that initiated intake and admission:agitation, pulling hair and hitting staff, yelling, grabbed peer's arm, name calling Goal aimed:TBD Initial Goal: TBD Weekly progress towards goal: NA Group participation level: NA Weekly highlights: arrived on [facility] Behaviors observed: Plan: meet/assess pt Beneficial adaptations:
[2020-09-30 15:42] VITALS: BP 95/62
[2020-09-30] MEDS: PATCH REMOVAL. MC SCH (20:54)
[2020-09-30] MEDS: GABAPENTIN 300 MG CAPSULE. PO SCH (20:55)
[2020-09-30] MEDS: rOPINIRole 1 MG TABLET. PO SCH (20:55)
[2020-09-30] MEDS: FLUTICASONE 50MCG/NASAL SPRAY 16GM BOTTLE. NS SCH (20:56)
[2020-09-30] MEDS: SENNOSIDES 8.6 MG TABLET PO SCH (20:56)
[2020-09-30] MEDS: NYSTATIN TOPICAL POWDER 15GM BOTTLE. TP SCH (20:57)
--- NOTE | 2020-09-30 21:59 | PDOC ---
Exam Note: [place] Note: Please also refer to the separate dictated note~for this date of service dictated separately.~Patient seen individually. Discussed the patient with Nursing staff reviewed the chart.~Reviewed interim history and current functioning. Reviewed vital signs,~Labs/ Radiology~and current medications noted below. Continue current treatment with the changes noted in the dictated addendum note Assessment: Vital Signs/I&O: Vital Signs Date Time Temp Pulse Resp B/P (MAP) Pulse Ox O2 Delivery O2 Flow Rate FiO2 09/30/20 20:56 98 09/30/20 16:10 Room Air 09/30/20 15:42 96.7 75 18 95/62 (73) I & O 09/29/20 09/29/20 09/30/20 15:00 23:00 07:00 Intake Total 880 ml 360 ml Balance 880 ml 360 ml Labs: Laboratory Tests Test 09/30/20 07:36 Glucose (Fingerstick) 125 mg/dL (70-99) H Current Medications: Meds: Laboratory Tests Test 09/30/20 07:36 Glucose (Fingerstick) 125 mg/dL Current Medications Medications (Trade) Dose Ordered Sig/Mathieu Route PRN Reason Start Time Stop Time Status Last Admin Dose Admin Oxycodone/ Acetaminophen (Percocet 5/325) 1 tab 1X ONCE PO 09/26/20 15:00 09/26/20 15:01 DC 09/26/20 15:25 Morphine Sulfate (Morphine 4mg Syringe) 4 mg 1X ONCE IV 09/26/20 19:45 09/26/20 19:46 DC 09/26/20 19:44 Diphenhydramine HCl (Benadryl) 25 mg 1X ONCE IVP 09/26/20 19:45 09/26/20 19:46 DC 09/26/20 19:47 Diphenhydramine HCl (Benadryl) 50 mg STK-MED ONCE .ROUTE 09/26/20 19:41 09/26/20 19:42 DC Fentanyl Citrate (Fentanyl 2ml Vial) 75 mcg 1X ONCE IVP 09/27/20 00:15 09/27/20 00:21 DC 09/27/20 00:17 Diphenhydramine HCl (Benadryl) 50 mg 1X ONCE IVP 09/27/20 01:00 09/27/20 01:01 DC 09/27/20 00:40 Acetaminophen (Tylenol) 650 mg PRN Q6HRS PRN PO MILD PAIN / TEMP > 100.3'F 09/27/20 01:30 09/28/20 07:34 DC Al Hydroxide/Mg Hydroxide (Mylanta Plus Xs) 15 ml PRN AFTMEALHC PRN PO 2ND CHOICE DYSPEPSIA 09/27/20 01:30 Magnesium Hydroxide (Milk Of Magnesia) 2,400 mg PRN QHS PRN PO 1st choice CONSTIPATION 09/27/20 01:30 Acetaminophen (Tylenol) 500 mg PRN Q8HRS PRN PO mild PAIN 09/27/20 01:45 09/27/20 02:57 Calcium Carbonate/ Glycine (Tums) 500 mg PRN Q3HRS PRN PO 1ST CHOICE DYSPEPSIA 09/27/20 02:30 Glucose (Insta-Glucose) 15 gm PRN Q1HR PRN PO LOW BLOOD SUGAR 09/27/20 01:45 Docusate Sodium (Colace) 100 mg DAILY PO 09/27/20 09:00 09/30/20 08:24 Gabapentin (Neurontin) 100 mg BIDWBKFT/CHERYL PO 09/27/20 08:00 09/30/20 12:55 Gabapentin (Neurontin) 300 mg HS PO 09/27/20 21:00 09/30/20 20:55 Levothyroxine Sodium (Synthroid) 100 mcg DAILY06 PO 09/27/20 06:00 09/28/20 03:07 DC 09/27/20 05:52 Lidocaine (Lidoderm) 1 patch DAILY TP 09/27/20 09:00 09/30/20 08:27 Loperamide HCl (Imodium) 2 mg PRN Q6HRS PRN PO DIARRHEA 09/27/20 01:45 Magnesium Oxide (Magnesium Oxide) 400 mg DAILY PO 09/27/20 09:00 09/30/20 08:26 Metformin HCl (Glucophage) 500 mg DAILY PO 09/27/20 09:00 09/30/20 08:25 Metolazone (Zaroxolyn) 2.5 mg QMWF PO 09/27/20 16:00 09/30/20 08:27 Oxycodone HCl (Roxicodone) 5 mg TID PO 09/27/20 09:00 09/27/20 03:06 DC Oxycodone/ Acetaminophen (Percocet 5/325) 1 tab PRN Q6HRS PRN PO MOD-SEV PAIN 09/27/20 01:45 09/30/20 00:27 Polyethylene Glycol (miraLAX) 17 gm DAILY PO 09/27/20 09:00 09/30/20 08:26 Potassium Chloride (Klor-Con) 40 meq BID PO 09/27/20 09:00 09/27/20 03:06 DC Propranolol HCl (Inderal) 20 mg BID92 PO 09/27/20 09:00 09/30/20 08:25 Sennosides (Senna) 17.2 mg PRN Q12HR PRN PO 2nd choice CONSTIPATION 09/27/20 01:45 Sennosides (Senna) 8.6 mg HS PO 09/27/20 21:00 09/30/20 20:56 Spironolactone (Aldactone) 25 mg BID PO 09/27/20 09:00 09/30/20 20:55 Topiramate (Topamax) 100 mg BID PO 09/27/20 09:00 09/30/20 20:56 Vitamin D (Vitamin D3) 1,000 unit DAILY PO 09/27/20 09:00 09/30/20 08:25 Fluticasone Propionate (Flonase) 2 spray HS NS 09/27/20 21:00 09/30/20 20:56 Glucagon (Glucagen Kit) 1 mg 1X PRN PRN IM LOW BLOOD SUGAR 09/27/20 02:45 Non-Formulary Medication (Mag Hydrox/Al Hydrox/Simeth (Alum-Mag Hydroxide-Simeth Liq)) 30 ml Q4HRS PRN PO INDIGESTION 09/27/20 01:45 09/27/20 02:34 DC Multivitamins/ Calcium (Thera-M Plus) 1 tab DAILY PO 09/27/20 09:00 09/30/20 08:23 Multi-Ingredient Ointment (Analgesic Turpin) 1 mello PRN Q4HRS PRN TP MUSCLE PAIN 09/27/20 02:45 Hydroxyzine Pamoate (Vistaril) 25 mg PRN Q6HRS PRN PO ITCHING 09/27/20 02:15 Ropinirole HCl (Requip) 1 mg HS PO 09/27/20 21:00 09/30/20 20:55 Ziprasidone (Geodon) 60 mg BID PO 09/27/20 09:00 09/30/20 20:55 Alprazolam (Xanax) 0.5 mg TID PO 09/27/20 09:00 09/27/20 03:06 DC Paroxetine HCl (Paxil) 50 mg DAILY PO 09/27/20 09:00 09/30/20 13:56 DC 09/30/20 08:24 Miscellaneous (Lidoderm Patch Removal) 1 ea QHS MC 09/27/20 21:00 09/30/20 20:54 Alprazolam (Xanax) 0.5 mg TID PO 09/27/20 03:15 09/30/20 20:55 Oxycodone HCl (Roxicodone) 5 mg TID PO 09/27/20 03:15 09/30/20 20:56 Potassium Chloride (Klor-Con) 40 meq BID PO 09/27/20 03:15 09/30/20 20:56 Levothyroxine Sodium (Synthroid) 100 mcg DAILY06 PO 09/28/20 06:00 09/30/20 05:52 Duloxetine HCl (Cymbalta) 30 mg DAILY PO 10/01/20 09:00 10/02/20 21:00 Duloxetine HCl (Cymbalta) 60 mg DAILY PO 10/03/20 09:00 Nystatin (Nystop) 1 mello BID TP 09/30/20 21:00 09/30/20 20:57 Current Medications Medications (Trade) Dose Ordered Sig/Mathieu Route PRN Reason Start Time Stop Time Status Last Admin Dose Admin Nystatin (Nystop) 1 mello BID TP 09/30/20 21:00 09/30/20 20:57 I have reviewed the current psychotropics carefully including drug interactions. Risk benefit ratio favors no change other than as noted in my dictated progress note. Diagnosis: Problems: (1) Bipolar disorder, curr episode mixed, severe, with psychotic features (2) Anxiety disorder, unspecified PAMELA RAMOS MD September 30, 2020 21:59
--- NOTE | 2020-09-30 23:50 | NUR ---
Nursing Note Pt answers in one word responses, stares at staff with a strange look. Very strange affect blunted and slow to respond. Denies SI but states pain is never less than 10/10. Asks for pain meds at all interactions, has scheduled pain meds. Depressed and withdrawn in general.
[2020-10-01] MEDS: LEVOTHYROXINE 100 MCG TABLET PO SCH (05:16)
[2020-10-01 05:44] VITALS: BP 106/72
[2020-10-01] MEDS: oxyCODONE/APAP 5/325 1 TAB TABLET PO PRN ×2 (06:43→12:14)
[2020-10-01] MEDS: POTASSIUM CHLORIDE 20 MEQ TABLET.ER. PO SCH ×2 (08:06→20:24)
[2020-10-01] MEDS: ALPRAZolam 0.5 MG TABLET PO SCH ×3 (08:06→20:22)
[2020-10-01] MEDS: oxyCODONE IR 5 MG TABLET PO SCH ×3 (08:07→20:23)
[2020-10-01] MEDS: LIDOCAINE (700MG/PATCH) PATCH. TP SCH ×2 (08:08→12:15)
[2020-10-01] MEDS: DULoxetine HCL 30 MG CAPSULE.DR PO SCH (08:15)
[2020-10-01] MEDS: metFORMIN 500 MG TABLET PO SCH (08:15)
[2020-10-01] MEDS: GABAPENTIN 100 MG CAPSULE. PO SCH ×2 (08:16→12:14)
[2020-10-01] MEDS: ZIPRASIDONE 20 MG CAPSULE. PO SCH (08:17)
[2020-10-01] MEDS: SPIRONOLACTONE 25 MG TABLET PO SCH ×2 (09:00→20:23)
[2020-10-01] MEDS: DOCUSATE SODIUM 100 MG CAPSULE PO SCH (09:00)
[2020-10-01] MEDS: CHOLECALCIFEROL (VITAMIN D3) 1,000 UNIT TABLET PO SCH (09:00)
[2020-10-01] MEDS: POLYETHYLENE GLYCOL 3350 17 GM PACKET. PO SCH ×2 (09:00→12:12)
[2020-10-01] MEDS: TOPIRAMATE 100 MG TABLET. PO SCH ×2 (09:00→20:24)
[2020-10-01] MEDS: PROPRANOLOL 10 MG TABLET. PO SCH ×2 (09:00→14:00)
[2020-10-01] MEDS: MULTIVITAMIN with MINERAL TABLET. PO SCH (09:00)
[2020-10-01] MEDS: MAGNESIUM OXIDE 400 MG TABLET PO SCH (09:00)
--- NOTE | 2020-10-01 09:32 | CONS ---
DATE OF CONSULTATION: 09/29/2020 NEURO CONSULT REFERRING PHYSICIAN: Ansley Parra MD REASON FOR CONSULTATION: Numbness and paresthesia of the arms and hands. HISTORY OF PRESENT ILLNESS: This is a 64-year-old right-handed female who was admitted to [facility] on 09/27/2020 on account of increased symptoms of depression and recurrent suicidal ideations. The patient was transferred from [facility] because of behavioral disturbances. The patient has had a longstanding history of depression complicated with recurrent suicidal thoughts, but never had any suicidal attempt over the last 3 years. She also complains of localized neck pain and weakness of the upper extremities. She is confined to a wheelchair due to a right below-knee amputation. Neuro consult was requested because the patient had intermittent numbness and paresthesia of the upper extremities and she concerns about having stroke or TIA. PAST MEDICAL HISTORY: Significant for spinal stenosis and radiculopathy, diabetes mellitus type 2, GERD, hypothyroidism. PAST SURGICAL HISTORY: Significant for a right below-knee amputation, cholecystectomy, hysterectomy, gastric surgery, lap band, carpal tunnel syndrome release, right knee surgery. FAMILY HISTORY: Father at age of 41 secondary to myocardial infarction. Mother at age of 64 with breast cancer and bone metastasis. She has about four healthy brothers, the oldest brother of coronary artery disease and myocardial infarction at age of 56. SOCIAL HISTORY: The patient is a [facility] at [facility]. She denies smoking. She used to be a heavy drinker, but she quit drinking 20 years ago. CURRENT MEDICATIONS: Include Cymbalta, Synthroid, allopurinol 1 mg at bedtime, Flonase nasal spray, ____ for anxiety, gabapentin 300 mg at bedtime, ____ 60 mg b.i.d., multivitamin and calcium, vitamin D, topiramate 100 mg twice daily, spironolactone 25 mg twice daily, propranolol 25 mg twice daily, metformin 500 mg p.o. daily, lidocaine patch for chronic low back pain, potassium chloride and oxycodone, alprazolam, multivitamins, glucagon, calcium, ____. ALLERGIES: PENICILLIN, SULFA DRUGS, ARIPIPRAZOLE, ASPIRIN, LIPITOR, BUPROPION, CELECOXIB, CETIRIZINE, VALPROIC ACID, HYDROCHLOROTHIAZIDE, HYDROCODONE, IRON, METAXALONE, SINGULAIR, PRAVASTATIN, RISPERIDONE. REVIEW OF SYSTEMS: A 12-point review of system was performed as mentioned above, history of present illness, otherwise unremarkable. PHYSICAL EXAMINATION: GENERAL: Obese female in no acute distress. She weighs 100.9 kilos. VITAL SIGNS: Blood pressure 122/79, respiratory rate 20, pulse is 66, temperature is afebrile, oxygen saturation is 100% on room air. HEENT: Normocephalic, atraumatic, otherwise unremarkable. NECK: Supple. Negative for carotid bruit, lymphadenopathy or thyromegaly. LUNGS: Diminished breath sounds, but no wheezing or rales. CARDIOVASCULAR: Regular rate and rhythm, normal S1, S2. There is no S3, S4 or murmur. ABDOMEN: Soft. Bowel sounds positive. EXTREMITIES: Right below-knee amputation and swelling of the left ankle and foot in general. NEUROLOGICAL: Mental status: The patient is alert and oriented x2. The speech is fluent. There is no language dysfunction. Memory, judgment and abstracting thinkings are fair. The patient denies hallucination at this time. Cranial nerves: Visual hussein are full. The pupils are reactive to light and accommodation. The extraocular movements are intact. There is no nystagmus. There is no facial motor or sensory deficit. Hearing appeared to be intact. The palate is elevated symmetrically. Sternocleidomastoid muscles are powerful bilaterally. The patient shrugs her shoulders symmetrically, protrudes her tongue in the midline without fasciculation or atrophy. Motor: No focal muscle bulk was seen. The tone is normal. The strength is 4/5 throughout. However, the patient is confined to a wheelchair. The patient has a postural and kinetic tremors of both upper extremities. Sensory examination: Revealed a diminished pinprick and light touch senses in patchy distributions in both upper extremities. Deep tendon reflexes were symmetric and hypoactive with absent Achilles responses. GAIT: Not tested. LABORATORY DATA: From 09/26/2020 reveal white blood cells of 9.4 thousand, hemoglobin is 13.7, hematocrit 39.6, platelet count 417,000. Chemistry reveals a sodium of 131, potassium 4.1, chloride 98, CO2 23, BUN 10, creatinine 0.8, glucose 125 and hemoglobin A1c is 5.7. Lactic acid is normal at 1.7. Calcium is 10.1. Iron is normal. Troponin level is normal. C-reactive protein is high at 9.5. Lipid profile revealed a high LDL at 124 with HDL is high at 137. Normal vitamin B12 and lipase. Normal thyroid profile. Urinalysis showed trace urinary leukocyte esterase. DIAGNOSTIC DATA: Chest x-ray revealed no evidence of acute cardiopulmonary process. IMPRESSION: 1. Numbness and paresthesia of the upper extremities probably due to peripheral neuropathy versus entrapment neuropathy versus cervical radiculopathy. 2. Chronic lower back pain, probably due to a lumbosacral radiculopathy. 3. Multiple medical problems including obesity, diabetes mellitus, hypothyroidism, chronic low back pain due to spinal stenosis and degenerative disk disease, GERD, and hypothyroidism. 4. Multiple psychiatric problems, rule out bipolar disorder with psychotic symptoms, history of alcohol dependency, generalized anxiety disorder. RECOMMENDATION: 1. We will arrange for EMG/NCS of the upper and lower extremities to rule out entrapment neuropathy versus peripheral neuropathy versus radiculopathy. 2. Continue with current medical and psychiatric care. 3. We will continue with current home medications. ESVIN/ASHLEY/EGNIE DR: ESVIN/madeline TID: [id number]
[2020-10-01] MEDS: NYSTATIN TOPICAL POWDER 15GM BOTTLE. TP SCH ×2 (09:46→20:23)
[2020-10-01 15:43] VITALS: BP 98/62
--- NOTE | 2020-10-01 17:17 | NUR ---
Wound Care: Patient seen per wound care consult. There are no open wounds at this time. Patient has scab to left BKA but this area is not open. Skin prep applied for protection. Wound care will sign off at this time. Please re consult regarding any changes per wound care.
--- NOTE | 2020-10-01 17:25 | NUR ---
[facility] NOTE; SHIFT SUMMARY JADA CAME TO THE DINING ROOM THIS AM IN HER W/C. SHE NEEDS THE GWYN FOR TRANSFERS. SHE WOULD LOOK AT ME INTENTLY WITH NARROWED EYES WHEN I WOULD ASK HER QUESTIONS OR TRY TO TALK TO HER. SHE WOULD SOMETIMES ANSWER WITH ONE WORD, BUT MOSTLY REFUSED TO ANSWER. SHE WAS CONTROLLING WITH HER MEDS TODAY, ONLY TAKING SELECT MEDS. I WAS ABLE TO ABLE TO HIDE SEVERAL OF HER AM MEDS IN FOOD. SHE COMPLAINS OF 02/16 O Addendum: 10/01/20 at 1733 by GRUPO HORTON RN 10/10 CHONIC LOWER BACK PAIN FOR WHICH SHE GETS SCHEDULED AND PRN MEDS. ON REASSESSMENT, HER PAIN IS STILL 10/10. SHE ALSO REFUSED THE LIDODERM PATCH AND GABAPENTIN. SHE DID TAKE THE MIRALAX AFTER I EXPLAINED THE NEED FOR IT BECAUSE OF THE OPIOID PAIN MEDS BUT REFUSED THE COLACE. SHE WAS IN HER W/C ALL MORNING UNTIL AFTER LUNCH, AND DEMANDED TO BE PUT TO BED. AT ONE POINT THIS AFTERNOON, SHE REMOVED HER BRIEF THEN URINATED ALL OVER THE BED. SHE REFUSED TO COME TO THE DINING ROOM FOR DINNER STATING THAT SHE IS TIRED. Addendum: 10/01/20 at [address] by [address] RAMOS WAS INFORMED OF PT'S REFUSAL TO TAKE SOME OF HER MEDS. NO ORDERS RECEIVED
[2020-10-01] MEDS: FLUTICASONE 50MCG/NASAL SPRAY 16GM BOTTLE. NS SCH (20:23)
[2020-10-01] MEDS: GABAPENTIN 300 MG CAPSULE. PO SCH (20:23)
[2020-10-01] MEDS: rOPINIRole 1 MG TABLET. PO SCH (20:23)
[2020-10-01] MEDS: SENNOSIDES 8.6 MG TABLET PO SCH (20:23)
[2020-10-01] MEDS: PATCH REMOVAL. MC SCH (20:24)
[2020-10-01] MEDS ORDERED: ZIPRASIDONE 60 MG CAPSULE. PO SCH (21:00)
--- NOTE | 2020-10-01 21:44 | PDOC ---
Exam Note: [place] Note: Please also refer to the separate dictated note~for this date of service dictated separately.~Patient seen individually. Discussed the patient with Nursing staff reviewed the chart.~Reviewed interim history and current functioning. Reviewed vital signs,~Labs/ Radiology~and current medications noted below. Continue current treatment with the changes noted in the dictated addendum note Assessment: Vital Signs/I&O: Vital Signs Date Time Temp Pulse Resp B/P (MAP) Pulse Ox O2 Delivery O2 Flow Rate FiO2 10/01/20 20:23 96 10/01/20 15:43 96.8 93 16 98/62 (74) 09/30/20 16:10 Room Air I & O 09/30/20 09/30/20 10/01/20 15:00 23:00 07:00 Intake Total 720 ml 320 ml Balance 720 ml 320 ml Labs: Laboratory Tests Test 10/01/20 07:16 Glucose (Fingerstick) 119 mg/dL (70-99) H Current Medications: Meds: Laboratory Tests Test 10/01/20 07:16 Glucose (Fingerstick) 119 mg/dL Current Medications Medications (Trade) Dose Ordered Sig/Mathieu Route PRN Reason Start Time Stop Time Status Last Admin Dose Admin Oxycodone/ Acetaminophen (Percocet 5/325) 1 tab 1X ONCE PO 09/26/20 15:00 09/26/20 15:01 DC 09/26/20 15:25 Morphine Sulfate (Morphine 4mg Syringe) 4 mg 1X ONCE IV 09/26/20 19:45 09/26/20 19:46 DC 09/26/20 19:44 Diphenhydramine HCl (Benadryl) 25 mg 1X ONCE IVP 09/26/20 19:45 09/26/20 19:46 DC 09/26/20 19:47 Diphenhydramine HCl (Benadryl) 50 mg STK-MED ONCE .ROUTE 09/26/20 19:41 09/26/20 19:42 DC Fentanyl Citrate (Fentanyl 2ml Vial) 75 mcg 1X ONCE IVP 09/27/20 00:15 09/27/20 00:21 DC 09/27/20 00:17 Diphenhydramine HCl (Benadryl) 50 mg 1X ONCE IVP 09/27/20 01:00 09/27/20 01:01 DC 09/27/20 00:40 Acetaminophen (Tylenol) 650 mg PRN Q6HRS PRN PO MILD PAIN / TEMP > 100.3'F 09/27/20 01:30 09/28/20 07:34 DC Al Hydroxide/Mg Hydroxide (Mylanta Plus Xs) 15 ml PRN AFTMEALHC PRN PO 2ND CHOICE DYSPEPSIA 09/27/20 01:30 Magnesium Hydroxide (Milk Of Magnesia) 2,400 mg PRN QHS PRN PO 1st choice CONSTIPATION 09/27/20 01:30 Acetaminophen (Tylenol) 500 mg PRN Q8HRS PRN PO mild PAIN 09/27/20 01:45 09/27/20 02:57 Calcium Carbonate/ Glycine (Tums) 500 mg PRN Q3HRS PRN PO 1ST CHOICE DYSPEPSIA 09/27/20 02:30 Glucose (Insta-Glucose) 15 gm PRN Q1HR PRN PO LOW BLOOD SUGAR 09/27/20 01:45 Docusate Sodium (Colace) 100 mg DAILY PO 09/27/20 09:00 09/30/20 08:24 Gabapentin (Neurontin) 100 mg BIDWBKFT/CHERYL PO 09/27/20 08:00 10/01/20 12:14 Gabapentin (Neurontin) 300 mg HS PO 09/27/20 21:00 10/01/20 20:23 Levothyroxine Sodium (Synthroid) 100 mcg DAILY06 PO 09/27/20 06:00 09/28/20 03:07 DC 09/27/20 05:52 Lidocaine (Lidoderm) 1 patch DAILY TP 09/27/20 09:00 09/30/20 08:27 Loperamide HCl (Imodium) 2 mg PRN Q6HRS PRN PO DIARRHEA 09/27/20 01:45 Magnesium Oxide (Magnesium Oxide) 400 mg DAILY PO 09/27/20 09:00 09/30/20 08:26 Metformin HCl (Glucophage) 500 mg DAILY PO 09/27/20 09:00 10/01/20 08:15 Metolazone (Zaroxolyn) 2.5 mg QMWF PO 09/27/20 16:00 09/30/20 08:27 Oxycodone HCl (Roxicodone) 5 mg TID PO 09/27/20 09:00 09/27/20 03:06 DC Oxycodone/ Acetaminophen (Percocet 5/325) 1 tab PRN Q6HRS PRN PO MOD-SEV PAIN 09/27/20 01:45 10/01/20 12:14 Polyethylene Glycol (miraLAX) 17 gm DAILY PO 09/27/20 09:00 10/01/20 12:12 Potassium Chloride (Klor-Con) 40 meq BID PO 09/27/20 09:00 09/27/20 03:06 DC Propranolol HCl (Inderal) 20 mg BID92 PO 09/27/20 09:00 09/30/20 08:25 Sennosides (Senna) 17.2 mg PRN Q12HR PRN PO 2nd choice CONSTIPATION 09/27/20 01:45 Sennosides (Senna) 8.6 mg HS PO 09/27/20 21:00 10/01/20 20:23 Spironolactone (Aldactone) 25 mg BID PO 09/27/20 09:00 10/01/20 20:23 Topiramate (Topamax) 100 mg BID PO 09/27/20 09:00 10/01/20 20:24 Vitamin D (Vitamin D3) 1,000 unit DAILY PO 09/27/20 09:00 09/30/20 08:25 Fluticasone Propionate (Flonase) 2 spray HS NS 09/27/20 21:00 10/01/20 20:23 Glucagon (Glucagen Kit) 1 mg 1X PRN PRN IM LOW BLOOD SUGAR 09/27/20 02:45 Non-Formulary Medication (Mag Hydrox/Al Hydrox/Simeth (Alum-Mag Hydroxide-Simeth Liq)) 30 ml Q4HRS PRN PO INDIGESTION 09/27/20 01:45 09/27/20 02:34 DC Multivitamins/ Calcium (Thera-M Plus) 1 tab DAILY PO 09/27/20 09:00 09/30/20 08:23 Multi-Ingredient Ointment (Analgesic [place]) 1 mello PRN Q4HRS PRN TP MUSCLE PAIN 09/27/20 02:45 Hydroxyzine Pamoate (Vistaril) 25 mg PRN Q6HRS PRN PO ITCHING 09/27/20 02:15 Ropinirole HCl (Requip) 1 mg HS PO 09/27/20 21:00 10/01/20 20:23 Ziprasidone (Geodon) 60 mg BID PO 09/27/20 09:00 10/01/20 16:52 DC 10/01/20 08:17 Alprazolam (Xanax) 0.5 mg TID PO 09/27/20 09:00 09/27/20 03:06 DC Paroxetine HCl (Paxil) 50 mg DAILY PO 09/27/20 09:00 09/30/20 13:56 DC 09/30/20 08:24 Miscellaneous (Lidoderm Patch Removal) 1 ea QHS 09/27/20 21:00 10/01/20 20:24 Alprazolam (Xanax) 0.5 mg TID PO 09/27/20 03:15 10/01/20 20:22 Oxycodone HCl (Roxicodone) 5 mg TID PO 09/27/20 03:15 10/01/20 20:23 Potassium Chloride (Klor-Con) 40 meq BID PO 09/27/20 03:15 10/01/20 20:24 Levothyroxine Sodium (Synthroid) 100 mcg DAILY06 PO 09/28/20 06:00 10/01/20 05:16 Duloxetine HCl (Cymbalta) 30 mg DAILY PO 10/01/20 09:00 10/02/20 21:00 10/01/20 08:15 Duloxetine HCl (Cymbalta) 60 mg DAILY PO 10/03/20 09:00 Nystatin (Nystop) 1 mello BID TP 09/30/20 21:00 10/01/20 20:23 Ziprasidone (Geodon) 80 mg BID PO 10/02/20 09:00 Ziprasidone (Geodon) 60 mg BID PO 10/01/20 21:00 10/01/20 21:01 DC 10/01/20 20:24 Current Medications Medications (Trade) Dose Ordered Sig/Mathieu Route PRN Reason Start Time Stop Time Status Last Admin Dose Admin Duloxetine HCl (Cymbalta) 30 mg DAILY PO 10/01/20 09:00 10/02/20 21:00 10/01/20 08:15 Ziprasidone (Geodon) 60 mg BID PO 10/01/20 21:00 10/01/20 21:01 DC 10/01/20 20:24 I have reviewed the current psychotropics carefully including drug interactions. Risk benefit ratio favors no change other than as noted in my dictated progress note. Diagnosis: Problems: (1) Bipolar disorder, curr episode mixed, severe, with psychotic features (2) Anxiety disorder, unspecified PAMELA RAMOS MD October 01, 2020 21:44
--- NOTE | 2020-10-02 00:16 | NUR ---
Pt withdrawn to her room, lying in bed awake when approached. Pt with a flat affect, slow to respond to questions giving only short, one word answers. Pt cooperative with assessment but resistive with medications. Pt attempted to refuse to take her Geodon and Neurontin this evening by removing them from the medication cup and sitting them on her chest. When I asked her why she had sone that, pt stated "'cause I'm not taking those". I then told pt that she needed to take all of her medications or none of them, but that she cannot pick and choose what she is going to take. I took the medication cup from her and told her that she could have all of her medications, including her pain meds, when she is agreeable to taking those that she was trying to refuse. After a brief moment, pt said, "Okay, I'll take 'em". Pt then compliant with all of her medications administered whole.
[2020-10-02] MEDS: LEVOTHYROXINE 100 MCG TABLET PO SCH (05:17)
[2020-10-02 05:31] VITALS: BP 138/81
[2020-10-02] MEDS: oxyCODONE/APAP 5/325 1 TAB TABLET PO PRN ×2 (06:32→17:08)
--- NOTE | 2020-10-02 08:25 | PDOC ---
Exam Note: [place] Note: This note is a late entry for 09/30/2020 covers elements not covered in my initial note. Subjective: The patient was reviewed in the morning of 09/30/2020 for a treatment team meeting with Shea Garcia, Juanita Sepulveda and Kamila (social work therapist), Shira, activity therapy and Alisa ROYAL, discussed and reviewed the chart. The patient slept 6 hours previous night. She has been needy, helpless, compliant with medications, somewhat somatically preoccupied. She is complaining of tingling in her face and has made statements in the recent past of wanting to shoot herself. 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 Review of Systems: Ambulation impaired in wheelchair and has vague somatic symptoms as noted above. No CV, , pulmonary, eye system symptoms on review. Mental Status Exam: The patient is oriented to herself and situation. Speech has some latency, often response is monosyllabic. Abstraction is fair. Computation impaired. Language function intact. Mood and affect somewhat anxious, labile. Laboratory Data: Reviewed. Impression: Bipolar disorder mixed with psychotic features. Anxiety disorder unspecified. Mild cognitive impairment. Plan: I have carefully reviewed the patients current psychotropics and reviewed information with Dr. Reilly who had covered for me for the past 2 weeks. Change Paxil 50 mg a day to Cymbalta 30 mg a day for 2 days, then 60 mg a day. Maintain rest of the psychotropics unchanged. We will check an EKG if this is unremarkable. We will increase Geodon from 60 mg b.i.d. to 80 mg b.i.d. Adjust further as clinically indicated. Assessment: Vital Signs/I&O: Vital Signs Date Time Temp Pulse Resp B/P (MAP) Pulse Ox O2 Delivery O2 Flow Rate FiO2 10/02/20 05:31 97.1 96 16 138/81 (100) 97 Room Air I & O 10/01/20 10/01/20 10/02/20 14:59 22:59 06:59 Intake Total 560 ml 120 ml Balance 560 ml 120 ml Labs: Laboratory Tests Test 10/02/20 07:57 Glucose (Fingerstick) 134 mg/dL (70-99) H Current Medications: Meds: Laboratory Tests Test 10/02/20 07:57 Glucose (Fingerstick) 134 mg/dL Current Medications Medications (Trade) Dose Ordered Sig/Mathieu Route PRN Reason Start Time Stop Time Status Last Admin Dose Admin Oxycodone/ Acetaminophen (Percocet 5/325) 1 tab 1X ONCE PO 09/26/20 15:00 09/26/20 15:01 DC 09/26/20 15:25 Morphine Sulfate (Morphine 4mg Syringe) 4 mg 1X ONCE IV 09/26/20 19:45 09/26/20 19:46 DC 09/26/20 19:44 Diphenhydramine HCl (Benadryl) 25 mg 1X ONCE IVP 09/26/20 19:45 09/26/20 19:46 DC 09/26/20 19:47 Diphenhydramine HCl (Benadryl) 50 mg STK-MED ONCE .ROUTE 09/26/20 19:41 09/26/20 19:42 DC Fentanyl Citrate (Fentanyl 2ml Vial) 75 mcg 1X ONCE IVP 09/27/20 00:15 09/27/20 00:21 DC 09/27/20 00:17 Diphenhydramine HCl (Benadryl) 50 mg 1X ONCE IVP 09/27/20 01:00 09/27/20 01:01 DC 09/27/20 00:40 Acetaminophen (Tylenol) 650 mg PRN Q6HRS PRN PO MILD PAIN / TEMP > 100.3'F 09/27/20 01:30 09/28/20 07:34 DC Al Hydroxide/Mg Hydroxide (Mylanta Plus Xs) 15 ml PRN AFTMEALHC PRN PO 2ND CHOICE DYSPEPSIA 09/27/20 01:30 Magnesium Hydroxide (Milk Of Magnesia) 2,400 mg PRN QHS PRN PO 1st choice CONSTIPATION 09/27/20 01:30 Acetaminophen (Tylenol) 500 mg PRN Q8HRS PRN PO mild PAIN 09/27/20 01:45 09/27/20 02:57 Calcium Carbonate/ Glycine (Tums) 500 mg PRN Q3HRS PRN PO 1ST CHOICE DYSPEPSIA 09/27/20 02:30 Glucose (Insta-Glucose) 15 gm PRN Q1HR PRN PO LOW BLOOD SUGAR 09/27/20 01:45 Docusate Sodium (Colace) 100 mg DAILY PO 09/27/20 09:00 09/30/20 08:24 Gabapentin (Neurontin) 100 mg BIDWBKFT/CHERYL PO 09/27/20 08:00 10/01/20 12:14 Gabapentin (Neurontin) 300 mg HS PO 09/27/20 21:00 10/01/20 20:23 Levothyroxine Sodium (Synthroid) 100 mcg DAILY06 PO 09/27/20 06:00 09/28/20 03:07 DC 09/27/20 05:52 Lidocaine (Lidoderm) 1 patch DAILY TP 09/27/20 09:00 09/30/20 08:27 Loperamide HCl (Imodium) 2 mg PRN Q6HRS PRN PO DIARRHEA 09/27/20 01:45 Magnesium Oxide (Magnesium Oxide) 400 mg DAILY PO 09/27/20 09:00 09/30/20 08:26 Metformin HCl (Glucophage) 500 mg DAILY PO 09/27/20 09:00 10/01/20 08:15 Metolazone (Zaroxolyn) 2.5 mg QMWF PO 09/27/20 16:00 09/30/20 08:27 Oxycodone HCl (Roxicodone) 5 mg TID PO 09/27/20 09:00 09/27/20 03:06 DC Oxycodone/ Acetaminophen (Percocet 5/325) 1 tab PRN Q6HRS PRN PO MOD-SEV PAIN 09/27/20 01:45 10/02/20 06:32 Polyethylene Glycol (miraLAX) 17 gm DAILY PO 09/27/20 09:00 10/01/20 12:12 Potassium Chloride (Klor-Con) 40 meq BID PO 09/27/20 09:00 09/27/20 03:06 DC Propranolol HCl (Inderal) 20 mg BID92 PO 09/27/20 09:00 09/30/20 08:25 Sennosides (Senna) 17.2 mg PRN Q12HR PRN PO 2nd choice CONSTIPATION 09/27/20 01:45 Sennosides (Senna) 8.6 mg HS PO 09/27/20 21:00 10/01/20 20:23 Spironolactone (Aldactone) 25 mg BID PO 09/27/20 09:00 10/01/20 20:23 Topiramate (Topamax) 100 mg BID PO 09/27/20 09:00 10/01/20 20:24 Vitamin D (Vitamin D3) 1,000 unit DAILY PO 09/27/20 09:00 09/30/20 08:25 Fluticasone Propionate (Flonase) 2 spray HS NS 09/27/20 21:00 10/01/20 20:23 Glucagon (Glucagen Kit) 1 mg 1X PRN PRN IM LOW BLOOD SUGAR 09/27/20 02:45 Non-Formulary Medication (Mag Hydrox/Al Hydrox/Simeth (Alum-Mag Hydroxide-Simeth Liq)) 30 ml Q4HRS PRN PO INDIGESTION 09/27/20 01:45 09/27/20 02:34 DC Multivitamins/ Calcium (Thera-M Plus) 1 tab DAILY PO 09/27/20 09:00 09/30/20 08:23 Multi-Ingredient Ointment (Analgesic [place]) 1 mello PRN Q4HRS PRN TP MUSCLE PAIN 09/27/20 02:45 Hydroxyzine Pamoate (Vistaril) 25 mg PRN Q6HRS PRN PO ITCHING 09/27/20 02:15 Ropinirole HCl (Requip) 1 mg HS PO 09/27/20 21:00 10/01/20 20:23 Ziprasidone (Geodon) 60 mg BID PO 09/27/20 09:00 10/01/20 16:52 DC 10/01/20 08:17 Alprazolam (Xanax) 0.5 mg TID PO 09/27/20 09:00 09/27/20 03:06 DC Paroxetine HCl (Paxil) 50 mg DAILY PO 09/27/20 09:00 09/30/20 13:56 DC 09/30/20 08:24 Miscellaneous (Lidoderm Patch Removal) 1 ea QHS MC 09/27/20 21:00 10/01/20 20:24 Alprazolam (Xanax) 0.5 mg TID PO 09/27/20 03:15 10/01/20 20:22 Oxycodone HCl (Roxicodone) 5 mg TID PO 09/27/20 03:15 10/01/20 20:23 Potassium Chloride (Klor-Con) 40 meq BID PO 09/27/20 03:15 10/01/20 20:24 Levothyroxine Sodium (Synthroid) 100 mcg DAILY06 PO 09/28/20 06:00 10/02/20 05:17 Duloxetine HCl (Cymbalta) 30 mg DAILY PO 10/01/20 09:00 10/02/20 21:00 10/01/20 08:15 Duloxetine HCl (Cymbalta) 60 mg DAILY PO 10/03/20 09:00 Nystatin (Nystop) 1 mello BID TP 09/30/20 21:00 10/01/20 20:23 Ziprasidone (Geodon) 80 mg BID PO 10/02/20 09:00 Ziprasidone (Geodon) 60 mg BID PO 10/01/20 21:00 10/01/20 21:01 DC 10/01/20 20:24 Current Medications Medications (Trade) Dose Ordered Sig/Mathieu Route PRN Reason Start Time Stop Time Status Last Admin Dose Admin Duloxetine HCl (Cymbalta) 30 mg DAILY PO 10/01/20 09:00 10/02/20 21:00 10/01/20 08:15 Ziprasidone (Geodon) 60 mg BID PO 10/01/20 21:00 10/01/20 21:01 DC 10/01/20 20:24 I have reviewed the current psychotropics carefully including drug interactions. Risk benefit ratio favors no change other than as noted in my dictated progress note. Diagnosis: Problems: (1) Bipolar disorder, curr episode mixed, severe, with psychotic features (2) Anxiety disorder, unspecified (3) Mild cognitive impairment PAMELA RAMOS MD October 02, 2020 08:25
[2020-10-02] MEDS: GABAPENTIN 100 MG CAPSULE. PO SCH ×2 (08:40→12:09)
[2020-10-02] MEDS: ZIPRASIDONE 80 MG CAPSULE. PO SCH ×2 (08:40→19:58)
[2020-10-02] MEDS: CHOLECALCIFEROL (VITAMIN D3) 1,000 UNIT TABLET PO SCH (08:40)
[2020-10-02] MEDS: ALPRAZolam 0.5 MG TABLET PO SCH ×3 (08:40→19:58)
[2020-10-02] MEDS: oxyCODONE IR 5 MG TABLET PO SCH ×3 (08:41→19:58)
[2020-10-02] MEDS: POTASSIUM CHLORIDE 20 MEQ TABLET.ER. PO SCH ×2 (08:41→19:58)
[2020-10-02] MEDS: DULoxetine HCL 30 MG CAPSULE.DR PO SCH (08:42)
[2020-10-02] MEDS: PROPRANOLOL 10 MG TABLET. PO SCH ×2 (08:42→14:21)
[2020-10-02] MEDS: TOPIRAMATE 100 MG TABLET. PO SCH ×2 (08:42→19:59)
[2020-10-02] MEDS: metFORMIN 500 MG TABLET PO SCH (08:42)
[2020-10-02] MEDS: DOCUSATE SODIUM 100 MG CAPSULE PO SCH (08:42)
[2020-10-02] MEDS: MULTIVITAMIN with MINERAL TABLET. PO SCH (08:42)
[2020-10-02] MEDS: SPIRONOLACTONE 25 MG TABLET PO SCH ×2 (08:42→19:59)
[2020-10-02] MEDS: NYSTATIN TOPICAL POWDER 15GM BOTTLE. TP SCH ×2 (08:43→19:59)
[2020-10-02] MEDS: MAGNESIUM OXIDE 400 MG TABLET PO SCH (08:43)
--- NOTE | 2020-10-02 08:52 | PDOC ---
Exam Note: [place] Note: This note is a late entry for 10/01/2020 covers elements not covered in my initial note. Subjective: The patient was seen individually in the evening of 10/01/2020 with Marisa ROYAL, discussed and reviewed the chart. The patient slept 7 hours previous night. She remains somewhat withdrawn, paranoid, glaring at staff, not very verbal. She took off her brief today and urinated in her beds. She is very selective of what medication she takes. She refused her BP medications. We are checking her EKG and if QTC is unremarkable we will increase the Geodon from 60 mg b.i.d. to 80 mg b.i.d. given her ongoing psychosis. Continue rest of the psychotropics unchanged. Review of Systems: Ambulation impaired in wheelchair and has vague somatic symptoms as noted above. No CV, , pulmonary, eye system symptoms on review. Mental Status Exam: The patient is oriented to herself and situation. Speech has some latency, often response is monosyllabic. Abstraction is fair. Computation impaired. Language function intact. Mood and affect somewhat anxious, labile. Laboratory Data: Reviewed. Impression: Bipolar disorder mixed with psychotic features. Anxiety disorder unspecified. Mild cognitive impairment. Plan: Continue as mentioned above. Assessment: Vital Signs/I&O: Vital Signs Date Time Temp Pulse Resp B/P (MAP) Pulse Ox O2 Delivery O2 Flow Rate FiO2 10/02/20 08:42 96 138/81 10/02/20 08:41 NonRebreather Mask 10/02/20 05:31 97.1 16 97 I & O 10/01/20 10/01/20 10/02/20 15:00 23:00 07:00 Intake Total 560 ml 120 ml Balance 560 ml 120 ml Labs: Laboratory Tests Test 10/02/20 07:57 Glucose (Fingerstick) 134 mg/dL (70-99) H Current Medications: Meds: Laboratory Tests Test 10/02/20 07:57 Glucose (Fingerstick) 134 mg/dL Current Medications Medications (Trade) Dose Ordered Sig/Mathieu Route PRN Reason Start Time Stop Time Status Last Admin Dose Admin Oxycodone/ Acetaminophen (Percocet 5/325) 1 tab 1X ONCE PO 09/26/20 15:00 09/26/20 15:01 DC 09/26/20 15:25 Morphine Sulfate (Morphine 4mg Syringe) 4 mg 1X ONCE IV 09/26/20 19:45 09/26/20 19:46 DC 09/26/20 19:44 Diphenhydramine HCl (Benadryl) 25 mg 1X ONCE IVP 09/26/20 19:45 09/26/20 19:46 DC 09/26/20 19:47 Diphenhydramine HCl (Benadryl) 50 mg STK-MED ONCE .ROUTE 09/26/20 19:41 09/26/20 19:42 DC Fentanyl Citrate (Fentanyl 2ml Vial) 75 mcg 1X ONCE IVP 09/27/20 00:15 09/27/20 00:21 DC 09/27/20 00:17 Diphenhydramine HCl (Benadryl) 50 mg 1X ONCE IVP 09/27/20 01:00 09/27/20 01:01 DC 09/27/20 00:40 Acetaminophen (Tylenol) 650 mg PRN Q6HRS PRN PO MILD PAIN / TEMP > 100.3'F 09/27/20 01:30 09/28/20 07:34 DC Al Hydroxide/Mg Hydroxide (Mylanta Plus Xs) 15 ml PRN AFTMEALHC PRN PO 2ND CHOICE DYSPEPSIA 09/27/20 01:30 Magnesium Hydroxide (Milk Of Magnesia) 2,400 mg PRN QHS PRN PO 1st choice CONSTIPATION 09/27/20 01:30 Acetaminophen (Tylenol) 500 mg PRN Q8HRS PRN PO mild PAIN 09/27/20 01:45 09/27/20 02:57 Calcium Carbonate/ Glycine (Tums) 500 mg PRN Q3HRS PRN PO 1ST CHOICE DYSPEPSIA 09/27/20 02:30 Glucose (Insta-Glucose) 15 gm PRN Q1HR PRN PO LOW BLOOD SUGAR 09/27/20 01:45 Docusate Sodium (Colace) 100 mg DAILY PO 09/27/20 09:00 10/02/20 08:42 Gabapentin (Neurontin) 100 mg BIDWBKFT/CHERYL PO 09/27/20 08:00 10/02/20 08:40 Gabapentin (Neurontin) 300 mg HS PO 09/27/20 21:00 10/01/20 20:23 Levothyroxine Sodium (Synthroid) 100 mcg DAILY06 PO 09/27/20 06:00 09/28/20 03:07 DC 09/27/20 05:52 Lidocaine (Lidoderm) 1 patch DAILY TP 09/27/20 09:00 09/30/20 08:27 Loperamide HCl (Imodium) 2 mg PRN Q6HRS PRN PO DIARRHEA 09/27/20 01:45 Magnesium Oxide (Magnesium Oxide) 400 mg DAILY PO 09/27/20 09:00 10/02/20 08:43 Metformin HCl (Glucophage) 500 mg DAILY PO 09/27/20 09:00 10/02/20 08:42 Metolazone (Zaroxolyn) 2.5 mg QMWF PO 09/27/20 16:00 09/30/20 08:27 Oxycodone HCl (Roxicodone) 5 mg TID PO 09/27/20 09:00 09/27/20 03:06 DC Oxycodone/ Acetaminophen (Percocet 5/325) 1 tab PRN Q6HRS PRN PO MOD-SEV PAIN 09/27/20 01:45 10/02/20 06:32 Polyethylene Glycol (miraLAX) 17 gm DAILY PO 09/27/20 09:00 10/01/20 12:12 Potassium Chloride (Klor-Con) 40 meq BID PO 09/27/20 09:00 09/27/20 03:06 DC Propranolol HCl (Inderal) 20 mg BID92 PO 09/27/20 09:00 10/02/20 08:42 Sennosides (Senna) 17.2 mg PRN Q12HR PRN PO 2nd choice CONSTIPATION 09/27/20 01:45 Sennosides (Senna) 8.6 mg HS PO 09/27/20 21:00 10/01/20 20:23 Spironolactone (Aldactone) 25 mg BID PO 09/27/20 09:00 10/02/20 08:42 Topiramate (Topamax) 100 mg BID PO 09/27/20 09:00 10/02/20 08:42 Vitamin D (Vitamin D3) 1,000 unit DAILY PO 09/27/20 09:00 10/02/20 08:40 Fluticasone Propionate (Flonase) 2 spray HS NS 09/27/20 21:00 10/01/20 20:23 Glucagon (Glucagen Kit) 1 mg 1X PRN PRN IM LOW BLOOD SUGAR 09/27/20 02:45 Non-Formulary Medication (Mag Hydrox/Al Hydrox/Simeth (Alum-Mag Hydroxide-Simeth Liq)) 30 ml Q4HRS PRN PO INDIGESTION 09/27/20 01:45 09/27/20 02:34 DC Multivitamins/ Calcium (Thera-M Plus) 1 tab DAILY PO 09/27/20 09:00 10/02/20 08:42 Multi-Ingredient Ointment (Analgesic [place]) 1 mello PRN Q4HRS PRN TP MUSCLE PAIN 09/27/20 02:45 Hydroxyzine Pamoate (Vistaril) 25 mg PRN Q6HRS PRN PO ITCHING 09/27/20 02:15 Ropinirole HCl (Requip) 1 mg HS PO 09/27/20 21:00 10/01/20 20:23 Ziprasidone (Geodon) 60 mg BID PO 09/27/20 09:00 10/01/20 16:52 DC 10/01/20 08:17 Alprazolam (Xanax) 0.5 mg TID PO 09/27/20 09:00 09/27/20 03:06 DC Paroxetine HCl (Paxil) 50 mg DAILY PO 09/27/20 09:00 09/30/20 13:56 DC 09/30/20 08:24 Miscellaneous (Lidoderm Patch Removal) 1 ea QHS MC 09/27/20 21:00 10/01/20 20:24 Alprazolam (Xanax) 0.5 mg TID PO 09/27/20 03:15 10/02/20 08:40 Oxycodone HCl (Roxicodone) 5 mg TID PO 09/27/20 03:15 10/02/20 08:41 Potassium Chloride (Klor-Con) 40 meq BID PO 09/27/20 03:15 10/02/20 08:41 Levothyroxine Sodium (Synthroid) 100 mcg DAILY06 PO 09/28/20 06:00 10/02/20 05:17 Duloxetine HCl (Cymbalta) 30 mg DAILY PO 10/01/20 09:00 10/02/20 21:00 10/02/20 08:42 Duloxetine HCl (Cymbalta) 60 mg DAILY PO 10/03/20 09:00 Nystatin (Nystop) 1 mello BID TP 09/30/20 21:00 10/02/20 08:43 Ziprasidone (Geodon) 80 mg BID PO 10/02/20 09:00 10/02/20 08:40 Ziprasidone (Geodon) 60 mg BID PO 10/01/20 21:00 10/01/20 21:01 DC 10/01/20 20:24 Current Medications Medications (Trade) Dose Ordered Sig/Mathieu Route PRN Reason Start Time Stop Time Status Last Admin Dose Admin Duloxetine HCl (Cymbalta) 30 mg DAILY PO 10/01/20 09:00 10/02/20 21:00 10/02/20 08:42 Ziprasidone (Geodon) 80 mg BID PO 10/02/20 09:00 10/02/20 08:40 Ziprasidone (Geodon) 60 mg BID PO 10/01/20 21:00 10/01/20 21:01 DC 10/01/20 20:24 I have reviewed the current psychotropics carefully including drug interactions. Risk benefit ratio favors no change other than as noted in my dictated progress note. Diagnosis: Problems: (1) Bipolar disorder, curr episode mixed, severe, with psychotic features (2) Anxiety disorder, unspecified (3) Mild cognitive impairment PAMELA RAMOS MD October 02, 2020 08:52
[2020-10-02 09:20] LABS: BASO % 1 % (0-3); EOS % 1 % (0-3); HEMATOCRIT 43.1 % (36.0-47.0); HEMOGLOBIN 14.3 g/dL (12.0-15.5); LYMPH # 1.5 x10^3/uL (1.0-4.8); LYMPH % 19 % (24-48); MEAN CORPUSCULAR HEMOGLOBIN 32 pg (25-35); MEAN CORPUSCULAR HGB CONC 33 g/dL (31-37); MEAN CORPUSCULAR VOLUME 96 fL (79-100); MONO # 0.4 x10^3/uL (0.0-1.1); MONO % 5 % (0-9); NEUT # 5.9 x10^3uL (1.8-7.7); NEUT % 75 % (31-73); PLATELET COUNT 381 x10^3/uL (140-400); RED BLOOD COUNT 4.48 x10^6/uL (3.50-5.40); RED CELL DISTRIBUTION WIDTH 12.8 % (11.5-14.5); WHITE BLOOD COUNT 7.8 x10^3/uL (4.0-11.0)
[2020-10-02 09:46] LABS: ALBUMIN 3.6 g/dL (3.4-5.0); ALBUMIN/GLOBULIN RATIO 0.8 (1.0-1.7); CALCIUM 10.2 mg/dL (8.5-10.1); GFR 55.8; TOTAL BILIRUBIN 0.4 mg/dL (0.2-1.0); TOTAL PROTEIN 8.1 g/dL (6.4-8.2)
--- NOTE | 2020-10-02 13:56 | NUR ---
ZAIN received a call from pt dtr, Brittany, who wanted to schedule a visit for pt tomorrow. ZAIN was able to get her on the schedule for [id number]. Brittany reports that she has attempted to talk to pt over the phone; however, she wonders if she would talk more or be more interactive in person. ZAIN confirmed with Brittany that she will call her on Wednesday for treatment team as discussed with GENNY Cuellar.
--- NOTE | 2020-10-02 15:26 | NUR ---
Shift Summary Patient has been withdrawn from peers and staff, takes medications with encouragement. Patient answers questions with one word answers and has poor eye contact.
[2020-10-02 16:00] VITALS: BP 88/61
[2020-10-02] MEDS: metOLazone 2.5 MG TABLET PO SCH (16:32)
[2020-10-02] MEDS: SENNOSIDES 8.6 MG TABLET PO SCH (19:58)
[2020-10-02] MEDS: CYPROHEPTADINE 4 MG TABLET. PO SCH (19:58)
[2020-10-02] MEDS: rOPINIRole 1 MG TABLET. PO SCH (19:58)
[2020-10-02] MEDS: GABAPENTIN 300 MG CAPSULE. PO SCH (19:58)
[2020-10-02] MEDS: PATCH REMOVAL. MC SCH (19:59)
[2020-10-02] MEDS: FLUTICASONE 50MCG/NASAL SPRAY 16GM BOTTLE. NS SCH (19:59)
--- NOTE | 2020-10-02 22:08 | PDOC ---
Exam Note: [place] Note: Please also refer to the separate dictated note~for this date of service dictated separately.~Patient seen individually. Discussed the patient with Nursing staff reviewed the chart.~Reviewed interim history and current functioning. Reviewed vital signs,~Labs/ Radiology~and current medications noted below. Continue current treatment with the changes noted in the dictated addendum note Assessment: Vital Signs/I&O: Vital Signs Date Time Temp Pulse Resp B/P (MAP) Pulse Ox O2 Delivery O2 Flow Rate FiO2 10/02/20 20:28 94 10/02/20 16:00 97.0 65 18 88/61 (70) 10/02/20 08:41 NonRebreather Mask I & O0 10/01/20 10/01/20 10/02/20 15:00 23:00 07:00 Intake Total 560 ml 120 ml Balance 560 ml 120 ml Labs: Laboratory Tests Test 10/02/20 07:57 10/02/20 09:10 Glucose (Fingerstick) 134 mg/dL (70-99) H White Blood Count 7.8 x10^3/uL (4.0-11.0) Red Blood Count 4.48 x10^6/uL (3.50-5.40) Hemoglobin 14.3 g/dL (12.0-15.5) Hematocrit 43.1 % (36.0-47.0) Mean Corpuscular Volume 96 fL (79-100) Mean Corpuscular Hemoglobin 32 pg (25-35) Mean Corpuscular Hemoglobin Concent 33 g/dL (31-37) Red Cell Distribution Width 12.8 % (11.5-14.5) Platelet Count 381 x10^3/uL (140-400) Neutrophils (%) (Auto) 75 % (31-73) H Lymphocytes (%) (Auto) 19 % (24-48) L Monocytes (%) (Auto) 5 % (0-9) Eosinophils (%) (Auto) 1 % (0-3) Basophils (%) (Auto) 1 % (0-3) Neutrophils # (Auto) 5.9 x10^3uL (1.8-7.7) Lymphocytes # (Auto) 1.5 x10^3/uL (1.0-4.8) Monocytes # (Auto) 0.4 x10^3/uL (0.0-1.1) Eosinophils # (Auto) 0.0 x10^3/uL (0.0-0.7) Basophils # (Auto) 0.0 x10^3/uL (0.0-0.2) Sodium Level 140 mmol/L (136-145) Potassium Level 4.0 mmol/L (3.5-5.1) Chloride Level 101 mmol/L (98-107) Carbon Dioxide Level 26 mmol/L (21-32) Anion Gap 13 (6-14) Blood Urea Nitrogen 21 mg/dL (7-20) H Creatinine 1.0 mg/dL (0.6-1.0) Estimated GFR (Cockcroft-Gault) 55.8 BUN/Creatinine Ratio 21 (6-20) H Glucose Level 182 mg/dL (70-99) H Calcium Level 10.2 mg/dL (8.5-10.1) H Total Bilirubin 0.4 mg/dL (0.2-1.0) Aspartate Amino Transferase (AST) 15 U/L (15-37) Alanine Aminotransferase (ALT) 21 U/L (14-59) Alkaline Phosphatase 135 U/L (46-116) H Total Protein 8.1 g/dL (6.4-8.2) Albumin 3.6 g/dL (3.4-5.0) Albumin/Globulin Ratio 0.8 (1.0-1.7) L Current Medications: Meds: Laboratory Tests Test 10/02/20 07:57 10/02/20 09:10 Glucose (Fingerstick) 134 mg/dL White Blood Count 7.8 x10^3/uL Red Blood Count 4.48 x10^6/uL Hemoglobin 14.3 g/dL Hematocrit 43.1 % Mean Corpuscular Volume 96 fL Mean Corpuscular Hemoglobin 32 pg Mean Corpuscular Hemoglobin Concent 33 g/dL Red Cell Distribution Width 12.8 % Platelet Count 381 x10^3/uL Neutrophils (%) (Auto) 75 % Lymphocytes (%) (Auto) 19 % Monocytes (%) (Auto) 5 % Eosinophils (%) (Auto) 1 % Basophils (%) (Auto) 1 % Neutrophils # (Auto) 5.9 x10^3uL Lymphocytes # (Auto) 1.5 x10^3/uL Monocytes # (Auto) 0.4 x10^3/uL Eosinophils # (Auto) 0.0 x10^3/uL Basophils # (Auto) 0.0 x10^3/uL Sodium Level 140 mmol/L Potassium Level 4.0 mmol/L Chloride Level 101 mmol/L Carbon Dioxide Level 26 mmol/L Anion Gap 13 Blood Urea Nitrogen 21 mg/dL Creatinine 1.0 mg/dL Estimated GFR (Cockcroft-Gault) 55.8 BUN/Creatinine Ratio 21 Glucose Level 182 mg/dL Calcium Level 10.2 mg/dL Total Bilirubin 0.4 mg/dL Aspartate Amino Transf (AST/SGOT) 15 U/L Alanine Aminotransferase (ALT/SGPT) 21 U/L Alkaline Phosphatase 135 U/L Total Protein 8.1 g/dL Albumin 3.6 g/dL Albumin/Globulin Ratio 0.8 Current Medications Medications (Trade) Dose Ordered Sig/Mathieu Route PRN Reason Start Time Stop Time Status Last Admin Dose Admin Oxycodone/ Acetaminophen (Percocet 5/325) 1 tab 1X ONCE PO 09/26/20 15:00 09/26/20 15:01 DC 09/26/20 15:25 Morphine Sulfate (Morphine 4mg Syringe) 4 mg 1X ONCE IV 09/26/20 19:45 09/26/20 19:46 DC 09/26/20 19:44 Diphenhydramine HCl (Benadryl) 25 mg 1X ONCE IVP 09/26/20 19:45 09/26/20 19:46 DC 09/26/20 19:47 Diphenhydramine HCl (Benadryl) 50 mg STK-MED ONCE .ROUTE 09/26/20 19:41 09/26/20 19:42 DC Fentanyl Citrate (Fentanyl 2ml Vial) 75 mcg 1X ONCE IVP 09/27/20 00:15 09/27/20 00:21 DC 09/27/20 00:17 Diphenhydramine HCl (Benadryl) 50 mg 1X ONCE IVP 09/27/20 01:00 09/27/20 01:01 DC 09/27/20 00:40 Acetaminophen (Tylenol) 650 mg PRN Q6HRS PRN PO MILD PAIN / TEMP > 100.3'F 09/27/20 01:30 09/28/20 07:34 DC Al Hydroxide/Mg Hydroxide (Mylanta Plus Xs) 15 ml PRN AFTMEALHC PRN PO 2ND CHOICE DYSPEPSIA 09/27/20 01:30 Magnesium Hydroxide (Milk Of Magnesia) 2,400 mg PRN QHS PRN PO 1st choice CONSTIPATION 09/27/20 01:30 Acetaminophen (Tylenol) 500 mg PRN Q8HRS PRN PO mild PAIN 09/27/20 01:45 09/27/20 02:57 Calcium Carbonate/ Glycine (Tums) 500 mg PRN Q3HRS PRN PO 1ST CHOICE DYSPEPSIA 09/27/20 02:30 Glucose (Insta-Glucose) 15 gm PRN Q1HR PRN PO LOW BLOOD SUGAR 09/27/20 01:45 Docusate Sodium (Colace) 100 mg DAILY PO 09/27/20 09:00 10/02/20 08:42 Gabapentin (Neurontin) 100 mg BIDWBKFT/CHERYL PO 09/27/20 08:00 10/02/20 12:09 Gabapentin (Neurontin) 300 mg HS PO 09/27/20 21:00 10/02/20 19:58 Levothyroxine Sodium (Synthroid) 100 mcg DAILY06 PO 09/27/20 06:00 09/28/20 03:07 DC 09/27/20 05:52 Lidocaine (Lidoderm) 1 patch DAILY TP 09/27/20 09:00 09/30/20 08:27 Loperamide HCl (Imodium) 2 mg PRN Q6HRS PRN PO DIARRHEA 09/27/20 01:45 Magnesium Oxide (Magnesium Oxide) 400 mg DAILY PO 09/27/20 09:00 10/02/20 08:43 Metformin HCl (Glucophage) 500 mg DAILY PO 09/27/20 09:00 10/02/20 08:42 Metolazone (Zaroxolyn) 2.5 mg QMWF PO 09/27/20 16:00 10/02/20 16:32 Oxycodone HCl (Roxicodone) 5 mg TID PO 09/27/20 09:00 09/27/20 03:06 DC Oxycodone/ Acetaminophen (Percocet 5/325) 1 tab PRN Q6HRS PRN PO MOD-SEV PAIN 09/27/20 01:45 10/02/20 17:08 Polyethylene Glycol (miraLAX) 17 gm DAILY PO 09/27/20 09:00 10/01/20 12:12 Potassium Chloride (Klor-Con) 40 meq BID PO 09/27/20 09:00 09/27/20 03:06 DC Propranolol HCl (Inderal) 20 mg BID92 PO 09/27/20 09:00 10/02/20 14:21 Sennosides (Senna) 17.2 mg PRN Q12HR PRN PO 2nd choice CONSTIPATION 09/27/20 01:45 Sennosides (Senna) 8.6 mg HS PO 09/27/20 21:00 10/02/20 19:58 Spironolactone (Aldactone) 25 mg BID PO 09/27/20 09:00 10/02/20 19:59 Topiramate (Topamax) 100 mg BID PO 09/27/20 09:00 10/02/20 19:59 Vitamin D (Vitamin D3) 1,000 unit DAILY PO 09/27/20 09:00 10/02/20 08:40 Fluticasone Propionate (Flonase) 2 spray HS NS 09/27/20 21:00 10/01/20 20:23 Glucagon (Glucagen Kit) 1 mg 1X PRN PRN IM LOW BLOOD SUGAR 09/27/20 02:45 Non-Formulary Medication (Mag Hydrox/Al Hydrox/Simeth (Alum-Mag Hydroxide-Simeth Liq)) 30 ml Q4HRS PRN PO INDIGESTION 09/27/20 01:45 09/27/20 02:34 DC Multivitamins/ Calcium (Thera-M Plus) 1 tab DAILY PO 09/27/20 09:00 10/02/20 08:42 Multi-Ingredient Ointment (Analgesic [place]) 1 mello PRN Q4HRS PRN TP MUSCLE PAIN 09/27/20 02:45 Hydroxyzine Pamoate (Vistaril) 25 mg PRN Q6HRS PRN PO ITCHING 09/27/20 02:15 Ropinirole HCl (Requip) 1 mg HS PO 09/27/20 21:00 10/02/20 19:58 Ziprasidone (Geodon) 60 mg BID PO 09/27/20 09:00 10/01/20 16:52 DC 10/01/20 08:17 Alprazolam (Xanax) 0.5 mg TID PO 09/27/20 09:00 09/27/20 03:06 DC Paroxetine HCl (Paxil) 50 mg DAILY PO 09/27/20 09:00 09/30/20 13:56 DC 09/30/20 08:24 Miscellaneous (Lidoderm Patch Removal) 1 ea QHS 09/27/20 21:00 10/01/20 20:24 Alprazolam (Xanax) 0.5 mg TID PO 09/27/20 03:15 10/02/20 19:58 Oxycodone HCl (Roxicodone) 5 mg TID PO 09/27/20 03:15 10/02/20 19:58 Potassium Chloride (Klor-Con) 40 meq BID PO 09/27/20 03:15 10/02/20 19:58 Levothyroxine Sodium (Synthroid) 100 mcg DAILY06 PO 09/28/20 06:00 10/02/20 05:17 Duloxetine HCl (Cymbalta) 30 mg DAILY PO 10/01/20 09:00 10/02/20 21:01 DC 10/02/20 08:42 Duloxetine HCl (Cymbalta) 60 mg DAILY PO 10/03/20 09:00 Nystatin (Nystop) 1 mello BID TP 09/30/20 21:00 10/02/20 19:59 Ziprasidone (Geodon) 80 mg BID PO 10/02/20 09:00 10/02/20 19:58 Ziprasidone (Geodon) 60 mg BID PO 10/01/20 21:00 10/01/20 21:01 DC 10/01/20 20:24 Cyproheptadine HCl (Periactin) 2 mg HS PO 10/02/20 21:00 10/02/20 19:58 Current Medications Medications (Trade) Dose Ordered Sig/Mathieu Route PRN Reason Start Time Stop Time Status Last Admin Dose Admin Ziprasidone (Geodon) 80 mg BID PO 10/02/20 09:00 10/02/20 19:58 Cyproheptadine HCl (Periactin) 2 mg HS PO 10/02/20 21:00 10/02/20 19:58 I have reviewed the current psychotropics carefully including drug interactions. Risk benefit ratio favors no change other than as noted in my dictated progress note. Diagnosis: Problems: (1) Mild cognitive impairment (2) Bipolar disorder, curr episode mixed, severe, with psychotic features (3) Anxiety disorder, unspecified PAMELA RAMOS MD October 02, 2020 22:08
--- NOTE | 2020-10-03 03:03 | NUR ---
Pt sitting up in w/c in the day room when approached. Pt with a flat affect, withdrawn to herself but does answer questions with short, one word answers. Pt cooperative with assessment and compliant with medications administered whole.
[2020-10-03] MEDS: LEVOTHYROXINE 100 MCG TABLET PO SCH (05:51)
[2020-10-03 06:18] VITALS: BP 99/65
[2020-10-03] MEDS: oxyCODONE/APAP 5/325 1 TAB TABLET PO PRN (06:35)
--- NOTE | 2020-10-03 06:50 | PDOC ---
Exam Note: [place] Note: This note is a late entry for 10/02/2020 covers elements not covered in my initial note. Subjective: The patient was seen individually in the evening of 10/02/2020 with Gordon ROYAL, discussed and reviewed the chart. The patient slept 7-1/4 hours previous night. Overall the patient remains somewhat paranoid, suspicious. Verbal responses are monosyllabic. She is compliant with medications. Appetite is very poor. Dietary consult is looking at options around this. She is on Topamax and this could be suppressing her appetite. We will check with Dr. Otero/Dr. Álvarez. Review of Systems: Ambulation impaired in wheelchair. No CV, , pulmonary, eye system symptoms on review. Mental Status Exam: The patient is oriented to herself and situation. She was somewhat staring as I met with her. Speech verbal response is monosyllabic and she has rather tense expression about her face, quite paranoid. Abstraction is fair. Computation impaired. Attention span short. Language function intact. Mood and affect somewhat paranoid. No active suicidal or homicidal ideation. Laboratory Data: Reviewed. Impression: Bipolar disorder mixed with psychotic features. Anxiety disorder unspecified. Mild cognitive impairment. Plan: Continue as mentioned above. Start Periactin 2 mg h.s. to help stimulate appetite. Check with Dr. Otero/Dr. Álvarez about tapering Topamax which could be suppressing her appetite. Maintain Geodon at current dosage along with Neuron tin, Cymbalta and Vistaril. Assessment: Vital Signs/I&O: Vital Signs Date Time Temp Pulse Resp B/P (MAP) Pulse Ox O2 Delivery O2 Flow Rate FiO2 10/03/20 06:35 96 10/03/20 06:18 96.5 69 18 99/65 (76) Room Air I & O 10/02/20 10/02/20 10/03/20 15:00 23:00 07:00 Intake Total 360 ml 920 ml Balance 360 ml 920 ml Labs: Laboratory Tests Test 10/02/20 07:57 10/02/20 09:10 Glucose (Fingerstick) 134 mg/dL (70-99) H White Blood Count 7.8 x10^3/uL (4.0-11.0) Red Blood Count 4.48 x10^6/uL (3.50-5.40) Hemoglobin 14.3 g/dL (12.0-15.5) Hematocrit 43.1 % (36.0-47.0) Mean Corpuscular Volume 96 fL (79-100) Mean Corpuscular Hemoglobin 32 pg (25-35) Mean Corpuscular Hemoglobin Concent 33 g/dL (31-37) Red Cell Distribution Width 12.8 % (11.5-14.5) Platelet Count 381 x10^3/uL (140-400) Neutrophils (%) (Auto) 75 % (31-73) H Lymphocytes (%) (Auto) 19 % (24-48) L Monocytes (%) (Auto) 5 % (0-9) Eosinophils (%) (Auto) 1 % (0-3) Basophils (%) (Auto) 1 % (0-3) Neutrophils # (Auto) 5.9 x10^3uL (1.8-7.7) Lymphocytes # (Auto) 1.5 x10^3/uL (1.0-4.8) Monocytes # (Auto) 0.4 x10^3/uL (0.0-1.1) Eosinophils # (Auto) 0.0 x10^3/uL (0.0-0.7) Basophils # (Auto) 0.0 x10^3/uL (0.0-0.2) Sodium Level 140 mmol/L (136-145) Potassium Level 4.0 mmol/L (3.5-5.1) Chloride Level 101 mmol/L (98-107) Carbon Dioxide Level 26 mmol/L (21-32) Anion Gap 13 (6-14) Blood Urea Nitrogen 21 mg/dL (7-20) H Creatinine 1.0 mg/dL (0.6-1.0) Estimated GFR (Cockcroft-Gault) 55.8 BUN/Creatinine Ratio 21 (6-20) H Glucose Level 182 mg/dL (70-99) H Calcium Level 10.2 mg/dL (8.5-10.1) H Total Bilirubin 0.4 mg/dL (0.2-1.0) Aspartate Amino Transferase (AST) 15 U/L (15-37) Alanine Aminotransferase (ALT) 21 U/L (14-59) Alkaline Phosphatase 135 U/L (46-116) H Total Protein 8.1 g/dL (6.4-8.2) Albumin 3.6 g/dL (3.4-5.0) Albumin/Globulin Ratio 0.8 (1.0-1.7) L Current Medications: Meds: Laboratory Tests Test 10/02/20 07:57 10/02/20 09:10 Glucose (Fingerstick) 134 mg/dL White Blood Count 7.8 x10^3/uL Red Blood Count 4.48 x10^6/uL Hemoglobin 14.3 g/dL Hematocrit 43.1 % Mean Corpuscular Volume 96 fL Mean Corpuscular Hemoglobin 32 pg Mean Corpuscular Hemoglobin Concent 33 g/dL Red Cell Distribution Width 12.8 % Platelet Count 381 x10^3/uL Neutrophils (%) (Auto) 75 % Lymphocytes (%) (Auto) 19 % Monocytes (%) (Auto) 5 % Eosinophils (%) (Auto) 1 % Basophils (%) (Auto) 1 % Neutrophils # (Auto) 5.9 x10^3uL Lymphocytes # (Auto) 1.5 x10^3/uL Monocytes # (Auto) 0.4 x10^3/uL Eosinophils # (Auto) 0.0 x10^3/uL Basophils # (Auto) 0.0 x10^3/uL Sodium Level 140 mmol/L Potassium Level 4.0 mmol/L Chloride Level 101 mmol/L Carbon Dioxide Level 26 mmol/L Anion Gap 13 Blood Urea Nitrogen 21 mg/dL Creatinine 1.0 mg/dL Estimated GFR (Cockcroft-Gault) 55.8 BUN/Creatinine Ratio 21 Glucose Level 182 mg/dL Calcium Level 10.2 mg/dL Total Bilirubin 0.4 mg/dL Aspartate Amino Transf (AST/SGOT) 15 U/L Alanine Aminotransferase (ALT/SGPT) 21 U/L Alkaline Phosphatase 135 U/L Total Protein 8.1 g/dL Albumin 3.6 g/dL Albumin/Globulin Ratio 0.8 Current Medications Medications (Trade) Dose Ordered Sig/Mathieu Route PRN Reason Start Time Stop Time Status Last Admin Dose Admin Oxycodone/ Acetaminophen (Percocet 5/325) 1 tab 1X ONCE PO 09/26/20 15:00 09/26/20 15:01 DC 09/26/20 15:25 Morphine Sulfate (Morphine 4mg Syringe) 4 mg 1X ONCE IV 09/26/20 19:45 09/26/20 19:46 DC 09/26/20 19:44 Diphenhydramine HCl (Benadryl) 25 mg 1X ONCE IVP 09/26/20 19:45 09/26/20 19:46 DC 09/26/20 19:47 Diphenhydramine HCl (Benadryl) 50 mg STK-MED ONCE .ROUTE 09/26/20 19:41 09/26/20 19:42 DC Fentanyl Citrate (Fentanyl 2ml Vial) 75 mcg 1X ONCE IVP 09/27/20 00:15 09/27/20 00:21 DC 09/27/20 00:17 Diphenhydramine HCl (Benadryl) 50 mg 1X ONCE IVP 09/27/20 01:00 09/27/20 01:01 DC 09/27/20 00:40 Acetaminophen (Tylenol) 650 mg PRN Q6HRS PRN PO MILD PAIN / TEMP > 100.3'F 09/27/20 01:30 09/28/20 07:34 DC Al Hydroxide/Mg Hydroxide (Mylanta Plus Xs) 15 ml PRN AFTMEALHC PRN PO 2ND CHOICE DYSPEPSIA 09/27/20 01:30 Magnesium Hydroxide (Milk Of Magnesia) 2,400 mg PRN QHS PRN PO 1st choice CONSTIPATION 09/27/20 01:30 Acetaminophen (Tylenol) 500 mg PRN Q8HRS PRN PO mild PAIN 09/27/20 01:45 09/27/20 02:57 Calcium Carbonate/ Glycine (Tums) 500 mg PRN Q3HRS PRN PO 1ST CHOICE DYSPEPSIA 09/27/20 02:30 Glucose (Insta-Glucose) 15 gm PRN Q1HR PRN PO LOW BLOOD SUGAR 09/27/20 01:45 Docusate Sodium (Colace) 100 mg DAILY PO 09/27/20 09:00 10/02/20 08:42 Gabapentin (Neurontin) 100 mg BIDWBKFT/CHERYL PO 09/27/20 08:00 10/02/20 12:09 Gabapentin (Neurontin) 300 mg HS PO 09/27/20 21:00 10/02/20 19:58 Levothyroxine Sodium (Synthroid) 100 mcg DAILY06 PO 09/27/20 06:00 09/28/20 03:07 DC 09/27/20 05:52 Lidocaine (Lidoderm) 1 patch DAILY TP 09/27/20 09:00 09/30/20 08:27 Loperamide HCl (Imodium) 2 mg PRN Q6HRS PRN PO DIARRHEA 09/27/20 01:45 Magnesium Oxide (Magnesium Oxide) 400 mg DAILY PO 09/27/20 09:00 10/02/20 08:43 Metformin HCl (Glucophage) 500 mg DAILY PO 09/27/20 09:00 10/02/20 08:42 Metolazone (Zaroxolyn) 2.5 mg QMWF PO 09/27/20 16:00 10/02/20 16:32 Oxycodone HCl (Roxicodone) 5 mg TID PO 09/27/20 09:00 09/27/20 03:06 DC Oxycodone/ Acetaminophen (Percocet 5/325) 1 tab PRN Q6HRS PRN PO MOD-SEV PAIN 09/27/20 01:45 10/03/20 06:35 Polyethylene Glycol (miraLAX) 17 gm DAILY PO 09/27/20 09:00 10/01/20 12:12 Potassium Chloride (Klor-Con) 40 meq BID PO 09/27/20 09:00 09/27/20 03:06 DC Propranolol HCl (Inderal) 20 mg BID92 PO 09/27/20 09:00 10/02/20 14:21 Sennosides (Senna) 17.2 mg PRN Q12HR PRN PO 2nd choice CONSTIPATION 09/27/20 01:45 Sennosides (Senna) 8.6 mg HS PO 09/27/20 21:00 10/02/20 19:58 Spironolactone (Aldactone) 25 mg BID PO 09/27/20 09:00 10/02/20 19:59 Topiramate (Topamax) 100 mg BID PO 09/27/20 09:00 10/02/20 19:59 Vitamin D (Vitamin D3) 1,000 unit DAILY PO 09/27/20 09:00 10/02/20 08:40 Fluticasone Propionate (Flonase) 2 spray HS NS 09/27/20 21:00 10/01/20 20:23 Glucagon (Glucagen Kit) 1 mg 1X PRN PRN IM LOW BLOOD SUGAR 09/27/20 02:45 Non-Formulary Medication (Mag Hydrox/Al Hydrox/Simeth (Alum-Mag Hydroxide-Simeth Liq)) 30 ml Q4HRS PRN PO INDIGESTION 09/27/20 01:45 09/27/20 02:34 DC Multivitamins/ Calcium (Thera-M Plus) 1 tab DAILY PO 09/27/20 09:00 10/02/20 08:42 Multi-Ingredient Ointment (Analgesic [place]) 1 mello PRN Q4HRS PRN TP MUSCLE PAIN 09/27/20 02:45 Hydroxyzine Pamoate (Vistaril) 25 mg PRN Q6HRS PRN PO ITCHING 09/27/20 02:15 Ropinirole HCl (Requip) 1 mg HS PO 09/27/20 21:00 10/02/20 19:58 Ziprasidone (Geodon) 60 mg BID PO 09/27/20 09:00 10/01/20 16:52 DC 10/01/20 08:17 Alprazolam (Xanax) 0.5 mg TID PO 09/27/20 09:00 09/27/20 03:06 DC Paroxetine HCl (Paxil) 50 mg DAILY PO 09/27/20 09:00 09/30/20 13:56 DC 09/30/20 08:24 Miscellaneous (Lidoderm Patch Removal) 1 ea QHS MC 09/27/20 21:00 10/01/20 20:24 Alprazolam (Xanax) 0.5 mg TID PO 09/27/20 03:15 10/02/20 19:58 Oxycodone HCl (Roxicodone) 5 mg TID PO 09/27/20 03:15 10/02/20 19:58 Potassium Chloride (Klor-Con) 40 meq BID PO 09/27/20 03:15 10/02/20 19:58 Levothyroxine Sodium (Synthroid) 100 mcg DAILY06 PO 09/28/20 06:00 10/03/20 05:51 Duloxetine HCl (Cymbalta) 30 mg DAILY PO 10/01/20 09:00 10/02/20 21:01 DC 10/02/20 08:42 Duloxetine HCl (Cymbalta) 60 mg DAILY PO 10/03/20 09:00 Nystatin (Nystop) 1 mello BID TP 09/30/20 21:00 10/02/20 19:59 Ziprasidone (Geodon) 80 mg BID PO 10/02/20 09:00 10/02/20 19:58 Ziprasidone (Geodon) 60 mg BID PO 10/01/20 21:00 10/01/20 21:01 DC 10/01/20 20:24 Cyproheptadine HCl (Periactin) 2 mg HS PO 10/02/20 21:00 10/02/20 19:58 Current Medications Medications (Trade) Dose Ordered Sig/Mathieu Route PRN Reason Start Time Stop Time Status Last Admin Dose Admin Ziprasidone (Geodon) 80 mg BID PO 10/02/20 09:00 10/02/20 19:58 Cyproheptadine HCl (Periactin) 2 mg HS PO 10/02/20 21:00 10/02/20 19:58 I have reviewed the current psychotropics carefully including drug interactions. Risk benefit ratio favors no change other than as noted in my dictated progress note. Diagnosis: Problems: (1) Bipolar disorder, curr episode mixed, severe, with psychotic features (2) Anxiety disorder, unspecified (3) Mild cognitive impairment PAMELA RAMOS MD October 03, 2020 06:50
--- NOTE | 2020-10-03 06:51 | EKG ---
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
[2020-10-03] MEDS: MULTIVITAMIN with MINERAL TABLET. PO SCH (08:26)
[2020-10-03] MEDS: oxyCODONE IR 5 MG TABLET PO SCH ×3 (08:26→20:11)
[2020-10-03] MEDS: SPIRONOLACTONE 25 MG TABLET PO SCH ×2 (08:26→20:10)
[2020-10-03] MEDS: ZIPRASIDONE 80 MG CAPSULE. PO SCH ×2 (08:26→20:11)
[2020-10-03] MEDS: ALPRAZolam 0.5 MG TABLET PO SCH ×3 (08:26→20:10)
[2020-10-03] MEDS: DOCUSATE SODIUM 100 MG CAPSULE PO SCH (08:26)
[2020-10-03] MEDS: DULoxetine HCL 60 MG CAPSULE.DR PO SCH (08:26)
[2020-10-03] MEDS: GABAPENTIN 100 MG CAPSULE. PO SCH ×2 (08:27→13:35)
[2020-10-03] MEDS: TOPIRAMATE 100 MG TABLET. PO SCH ×2 (08:27→20:10)
[2020-10-03] MEDS: CHOLECALCIFEROL (VITAMIN D3) 1,000 UNIT TABLET PO SCH (08:27)
[2020-10-03] MEDS: POTASSIUM CHLORIDE 20 MEQ TABLET.ER. PO SCH ×2 (08:27→20:11)
[2020-10-03] MEDS: metFORMIN 500 MG TABLET PO SCH (08:27)
[2020-10-03] MEDS: POLYETHYLENE GLYCOL 3350 17 GM PACKET. PO SCH (08:27)
[2020-10-03] MEDS: MAGNESIUM OXIDE 400 MG TABLET PO SCH (08:27)
[2020-10-03] MEDS: FLUTICASONE 50MCG/NASAL SPRAY 16GM BOTTLE. NS SCH (08:28)
[2020-10-03] MEDS: LIDOCAINE (700MG/PATCH) PATCH. TP SCH (08:28)
[2020-10-03] MEDS: PROPRANOLOL 10 MG TABLET. PO SCH ×2 (08:31→13:34)
[2020-10-03] MEDS: NYSTATIN TOPICAL POWDER 15GM BOTTLE. TP SCH ×2 (09:00→20:14)
[2020-10-03 15:52] VITALS: BP 98/56
--- NOTE | 2020-10-03 17:51 | NUR ---
Patient withdrawn very quiet and soft spoken, she is slightly resistive with medication administration however after handing patient her med cup and advising her what all her pills were for she took them all. Patient does complain of chronic pain anywhere from 7-10 which she has scheduled pain meds and was given a prn just before the start of the shift this morning. Patient does request to be put in bed after every meal and staff gets her up to the dining room table for meals. Patient alert and oriented but just does not speak much however she is able to voice her needs and wants. Patient does have swelling on her left foot and leg per patient she is unable to self propel to the dining room or around the unit and requires assistance. Patient incontinent of both bowel and bladder. Patient vitals stable and wnl of baseline, patient daughter came to visit at dinner tonight. Will continue to monitor patient.
[2020-10-03 18:03] VITALS: BP 109/76
[2020-10-03] MEDS: rOPINIRole 1 MG TABLET. PO SCH (20:11)
[2020-10-03] MEDS: SENNOSIDES 8.6 MG TABLET PO SCH (20:11)
[2020-10-03] MEDS: GABAPENTIN 300 MG CAPSULE. PO SCH (20:11)
[2020-10-03] MEDS: CYPROHEPTADINE 4 MG TABLET. PO SCH (20:12)
[2020-10-03] MEDS: PATCH REMOVAL. MC SCH (20:13)
--- NOTE | 2020-10-03 22:02 | PDOC ---
Exam Note: [place] Note: Please also refer to the separate dictated note~for this date of service dictated separately.~Patient seen individually. Discussed the patient with Nursing staff reviewed the chart.~Reviewed interim history and current functioning. Reviewed vital signs,~Labs/ Radiology~and current medications noted below. Continue current treatment with the changes noted in the dictated addendum note Assessment: Vital Signs/I&O: Vital Signs Date Time Temp Pulse Resp B/P (MAP) Pulse Ox O2 Delivery O2 Flow Rate FiO2 10/03/20 20:41 95 10/03/20 18:03 78 109/76 (87) 10/03/20 15:52 97.0 20 10/03/20 07:27 Room Air I & O 10/02/20 10/02/20 10/03/20 15:00 23:00 07:00 Intake Total 360 ml 920 ml Balance 360 ml 920 ml Labs: Laboratory Tests Test 10/03/20 07:26 Glucose (Fingerstick) 125 mg/dL (70-99) H Current Medications: Meds: Laboratory Tests Test 10/03/20 07:26 Glucose (Fingerstick) 125 mg/dL Current Medications Medications (Trade) Dose Ordered Sig/Mathieu Route PRN Reason Start Time Stop Time Status Last Admin Dose Admin Oxycodone/ Acetaminophen (Percocet 5/325) 1 tab 1X ONCE PO 09/26/20 15:00 09/26/20 15:01 DC 09/26/20 15:25 Morphine Sulfate (Morphine 4mg Syringe) 4 mg 1X ONCE IV 09/26/20 19:45 09/26/20 19:46 DC 09/26/20 19:44 Diphenhydramine HCl (Benadryl) 25 mg 1X ONCE IVP 09/26/20 19:45 09/26/20 19:46 DC 09/26/20 19:47 Diphenhydramine HCl (Benadryl) 50 mg STK-MED ONCE .ROUTE 09/26/20 19:41 09/26/20 19:42 DC Fentanyl Citrate (Fentanyl 2ml Vial) 75 mcg 1X ONCE IVP 09/27/20 00:15 09/27/20 00:21 DC 09/27/20 00:17 Diphenhydramine HCl (Benadryl) 50 mg 1X ONCE IVP 09/27/20 01:00 09/27/20 01:01 DC 09/27/20 00:40 Acetaminophen (Tylenol) 650 mg PRN Q6HRS PRN PO MILD PAIN / TEMP > 100.3'F 09/27/20 01:30 09/28/20 07:34 DC Al Hydroxide/Mg Hydroxide (Mylanta Plus Xs) 15 ml PRN AFTMEALHC PRN PO 2ND CHOICE DYSPEPSIA 09/27/20 01:30 Magnesium Hydroxide (Milk Of Magnesia) 2,400 mg PRN QHS PRN PO 1st choice CONSTIPATION 09/27/20 01:30 Acetaminophen (Tylenol) 500 mg PRN Q8HRS PRN PO mild PAIN 09/27/20 01:45 09/27/20 02:57 Calcium Carbonate/ Glycine (Tums) 500 mg PRN Q3HRS PRN PO 1ST CHOICE DYSPEPSIA 09/27/20 02:30 Glucose (Insta-Glucose) 15 gm PRN Q1HR PRN PO LOW BLOOD SUGAR 09/27/20 01:45 Docusate Sodium (Colace) 100 mg DAILY PO 09/27/20 09:00 10/03/20 08:26 Gabapentin (Neurontin) 100 mg BIDWBKFT/CHERYL PO 09/27/20 08:00 10/03/20 13:35 Gabapentin (Neurontin) 300 mg HS PO 09/27/20 21:00 10/03/20 20:11 Levothyroxine Sodium (Synthroid) 100 mcg DAILY06 PO 09/27/20 06:00 09/28/20 03:07 DC 09/27/20 05:52 Lidocaine (Lidoderm) 1 patch DAILY TP 09/27/20 09:00 10/03/20 08:28 Loperamide HCl (Imodium) 2 mg PRN Q6HRS PRN PO DIARRHEA 09/27/20 01:45 Magnesium Oxide (Magnesium Oxide) 400 mg DAILY PO 09/27/20 09:00 10/03/20 08:27 Metformin HCl (Glucophage) 500 mg DAILY PO 09/27/20 09:00 10/03/20 08:27 Metolazone (Zaroxolyn) 2.5 mg QMWF PO 09/27/20 16:00 10/02/20 16:32 Oxycodone HCl (Roxicodone) 5 mg TID PO 09/27/20 09:00 09/27/20 03:06 DC Oxycodone/ Acetaminophen (Percocet 5325) 1 tab PRN Q6HRS PRN PO MOD-SEV PAIN 09/27/20 01:45 10/03/20 06:35 Polyethylene Glycol (miraLAX) 17 gm DAILY PO 09/27/20 09:00 10/03/20 08:27 Potassium Chloride (Klor-Con) 40 meq BID PO 09/27/20 09:00 09/27/20 03:06 DC Propranolol HCl (Inderal) 20 mg BID92 PO 09/27/20 09:00 10/03/20 13:34 Sennosides (Senna) 17.2 mg PRN Q12HR PRN PO 2nd choice CONSTIPATION 09/27/20 01:45 Sennosides (Senna) 8.6 mg HS PO 09/27/20 21:00 10/03/20 20:11 Spironolactone (Aldactone) 25 mg BID PO 09/27/20 09:00 10/03/20 20:10 Topiramate (Topamax) 100 mg BID PO 09/27/20 09:00 10/03/20 20:10 Vitamin D (Vitamin D3) 1,000 unit DAILY PO 09/27/20 09:00 10/03/20 08:27 Fluticasone Propionate (Flonase) 2 spray HS NS 09/27/20 21:00 10/03/20 08:28 Glucagon (Glucagen Kit) 1 mg 1X PRN PRN IM LOW BLOOD SUGAR 09/27/20 02:45 Non-Formulary Medication (Mag Hydrox/Al Hydrox/Simeth (Alum-Mag Hydroxide-Simeth Liq)) 30 ml Q4HRS PRN PO INDIGESTION 09/27/20 01:45 09/27/20 02:34 DC Multivitamins/ Calcium (Thera-M Plus) 1 tab DAILY PO 09/27/20 09:00 10/03/20 08:26 Multi-Ingredient Ointment (Analgesic [place]) 1 mello PRN Q4HRS PRN TP MUSCLE PAIN 09/27/20 02:45 Hydroxyzine Pamoate (Vistaril) 25 mg PRN Q6HRS PRN PO ITCHING 09/27/20 02:15 Ropinirole HCl (Requip) 1 mg HS PO 09/27/20 21:00 10/03/20 20:11 Ziprasidone (Geodon) 60 mg BID PO 09/27/20 09:00 10/01/20 16:52 DC 10/01/20 08:17 Alprazolam (Xanax) 0.5 mg TID PO 09/27/20 09:00 09/27/20 03:06 DC Paroxetine HCl (Paxil) 50 mg DAILY PO 09/27/20 09:00 09/30/20 13:56 DC 09/30/20 08:24 Miscellaneous (Lidoderm Patch Removal) 1 ea QHS MC 09/27/20 21:00 10/03/20 20:13 Alprazolam (Xanax) 0.5 mg TID PO 09/27/20 03:15 10/03/20 20:10 Oxycodone HCl (Roxicodone) 5 mg TID PO 09/27/20 03:15 10/03/20 20:11 Potassium Chloride (Klor-Con) 40 meq BID PO 09/27/20 03:15 10/03/20 20:11 Levothyroxine Sodium (Synthroid) 100 mcg DAILY06 PO 09/28/20 06:00 10/03/20 05:51 Duloxetine HCl (Cymbalta) 30 mg DAILY PO 10/01/20 09:00 10/02/20 21:01 DC 10/02/20 08:42 Duloxetine HCl (Cymbalta) 60 mg DAILY PO 10/03/20 09:00 10/03/20 08:26 Nystatin (Nystop) 1 mello BID TP 09/30/20 21:00 10/03/20 20:14 Ziprasidone (Geodon) 80 mg BID PO 10/02/20 09:00 10/03/20 20:11 Ziprasidone (Geodon) 60 mg BID PO 10/01/20 21:00 10/01/20 21:01 DC 10/01/20 20:24 Cyproheptadine HCl (Periactin) 2 mg HS PO 10/02/20 21:00 10/03/20 20:12 Current Medications Medications (Trade) Dose Ordered Sig/Mathieu Route PRN Reason Start Time Stop Time Status Last Admin Dose Admin Duloxetine HCl (Cymbalta) 60 mg DAILY PO 10/03/20 09:00 10/03/20 08:26 I have reviewed the current psychotropics carefully including drug interactions. Risk benefit ratio favors no change other than as noted in my dictated progress note. Diagnosis: Problems: (1) Mild cognitive impairment (2) Suicidal ideations (3) Bipolar disorder, curr episode mixed, severe, with psychotic features (4) Anxiety disorder, unspecified PAMELA RAMOS MD October 03, 2020 22:02
--- NOTE | 2020-10-03 22:44 | NUR ---
Pt sitting up in w/c in the day room when approached. Pt calm with flat affect, minimal interaction but answers with one/two word answers. Pt cooperative with assessment and compliant with medications administered whole. No yelling out or AH/VH noted thus far this shift.
[2020-10-04] MEDS: oxyCODONE/APAP 5/325 1 TAB TABLET PO PRN (05:40)
[2020-10-04] MEDS: LEVOTHYROXINE 100 MCG TABLET PO SCH (05:40)
[2020-10-04 06:13] VITALS: BP 127/67
[2020-10-04] MEDS: MULTIVITAMIN with MINERAL TABLET. PO SCH (08:29)
[2020-10-04] MEDS: CHOLECALCIFEROL (VITAMIN D3) 1,000 UNIT TABLET PO SCH (08:29)
[2020-10-04] MEDS: TOPIRAMATE 100 MG TABLET. PO SCH ×2 (08:29→20:50)
[2020-10-04] MEDS: LIDOCAINE (700MG/PATCH) PATCH. TP SCH (08:29)
[2020-10-04] MEDS: SPIRONOLACTONE 25 MG TABLET PO SCH ×2 (08:29→20:52)
[2020-10-04] MEDS: metFORMIN 500 MG TABLET PO SCH (08:29)
[2020-10-04] MEDS: ALPRAZolam 0.5 MG TABLET PO SCH ×3 (08:30→20:50)
[2020-10-04] MEDS: GABAPENTIN 100 MG CAPSULE. PO SCH ×2 (08:30→12:34)
[2020-10-04] MEDS: ZIPRASIDONE 80 MG CAPSULE. PO SCH ×2 (08:30→20:53)
[2020-10-04] MEDS: oxyCODONE IR 5 MG TABLET PO SCH ×3 (08:30→20:51)
[2020-10-04] MEDS: PROPRANOLOL 10 MG TABLET. PO SCH ×2 (08:30→12:35)
[2020-10-04] MEDS: POTASSIUM CHLORIDE 20 MEQ TABLET.ER. PO SCH ×2 (08:30→20:53)
[2020-10-04] MEDS: POLYETHYLENE GLYCOL 3350 17 GM PACKET. PO SCH (08:30)
[2020-10-04] MEDS: MAGNESIUM OXIDE 400 MG TABLET PO SCH (08:30)
[2020-10-04] MEDS: DOCUSATE SODIUM 100 MG CAPSULE PO SCH (08:30)
[2020-10-04] MEDS: NYSTATIN TOPICAL POWDER 15GM BOTTLE. TP SCH ×2 (08:31→20:52)
[2020-10-04] MEDS: DULoxetine HCL 60 MG CAPSULE.DR PO SCH (08:31)
--- NOTE | 2020-10-04 10:24 | PDOC ---
Exam Note: [place] Note: This note is a late entry for 10/03/2020 covers elements not covered in my initial note. Subjective: The patient was seen individually in the evening of 10/03/2020 with Sunil ROYAL, discussed and reviewed the chart. The patient slept 7-3/4 hours previous night. She refused meds in the morning, took it later, somewhat quiet, purses her lips when talking to her otherwise, soft spoken. No active hallucinations. She was being taken to the shower, stated she was not well, hurting all over. We will defer to Dr. Álvarez. Review of Systems: Ambulation impaired in wheelchair. No CV, , pulmonary, eye, ENT system symptoms on review. She does have vague somatic symptoms. Mental Status Exam: The patient is oriented to herself and situation. Speech verbal response is monosyllabic. Abstraction is fair. Computation impaired. Attention span short. Language function intact. Mood and affect somewhat paranoid. No active suicidal or homicidal ideation. Laboratory Data: Reviewed. Impression: Bipolar disorder mixed with psychotic features. Anxiety disorder unspecified. Mild cognitive impairment. Plan: No change from initial note. Assessment: Vital Signs/I&O: Vital Signs Date Time Temp Pulse Resp B/P (MAP) Pulse Ox O2 Delivery O2 Flow Rate FiO2 10/04/20 08:30 98 10/04/20 08:30 70 127/67 10/04/20 06:13 96.7 16 10/03/20 07:27 Room Air I & O 10/03/20 10/03/20 10/04/20 15:00 23:00 07:00 Intake Total 560 ml 520 ml Balance 560 ml 520 ml Labs: Laboratory Tests Test 10/04/20 07:46 Glucose (Fingerstick) 96 mg/dL (70-99) Current Medications: Meds: Laboratory Tests Test 10/04/20 07:46 Glucose (Fingerstick) 96 mg/dL Current Medications Medications (Trade) Dose Ordered Sig/Mathieu Route PRN Reason Start Time Stop Time Status Last Admin Dose Admin Oxycodone/ Acetaminophen (Percocet 5/325) 1 tab 1X ONCE PO 09/26/20 15:00 09/26/20 15:01 DC 09/26/20 15:25 Morphine Sulfate (Morphine 4mg Syringe) 4 mg 1X ONCE IV 09/26/20 19:45 09/26/20 19:46 DC 09/26/20 19:44 Diphenhydramine HCl (Benadryl) 25 mg 1X ONCE IVP 09/26/20 19:45 09/26/20 19:46 DC 09/26/20 19:47 Diphenhydramine HCl (Benadryl) 50 mg STK-MED ONCE .ROUTE 09/26/20 19:41 09/26/20 19:42 DC Fentanyl Citrate (Fentanyl 2ml Vial) 75 mcg 1X ONCE IVP 09/27/20 00:15 09/27/20 00:21 DC 09/27/20 00:17 Diphenhydramine HCl (Benadryl) 50 mg 1X ONCE IVP 09/27/20 01:00 09/27/20 01:01 DC 09/27/20 00:40 Acetaminophen (Tylenol) 650 mg PRN Q6HRS PRN PO MILD PAIN / TEMP > 100.3'F 09/27/20 01:30 09/28/20 07:34 DC Al Hydroxide/Mg Hydroxide (Mylanta Plus Xs) 15 ml PRN AFTMEALHC PRN PO 2ND CHOICE DYSPEPSIA 09/27/20 01:30 Magnesium Hydroxide (Milk Of Magnesia) 2,400 mg PRN QHS PRN PO 1st choice CONSTIPATION 09/27/20 01:30 Acetaminophen (Tylenol) 500 mg PRN Q8HRS PRN PO mild PAIN 09/27/20 01:45 09/27/20 02:57 Calcium Carbonate/ Glycine (Tums) 500 mg PRN Q3HRS PRN PO 1ST CHOICE DYSPEPSIA 09/27/20 02:30 Glucose (Insta-Glucose) 15 gm PRN Q1HR PRN PO LOW BLOOD SUGAR 09/27/20 01:45 Docusate Sodium (Colace) 100 mg DAILY PO 09/27/20 09:00 10/04/20 08:30 Gabapentin (Neurontin) 100 mg BIDWBKFT/CHERYL PO 09/27/20 08:00 10/04/20 08:30 Gabapentin (Neurontin) 300 mg HS PO 09/27/20 21:00 10/03/20 20:11 Levothyroxine Sodium (Synthroid) 100 mcg DAILY06 PO 09/27/20 06:00 09/28/20 03:07 DC 09/27/20 05:52 Lidocaine (Lidoderm) 1 patch DAILY TP 09/27/20 09:00 10/04/20 08:29 Loperamide HCl (Imodium) 2 mg PRN Q6HRS PRN PO DIARRHEA 09/27/20 01:45 Magnesium Oxide (Magnesium Oxide) 400 mg DAILY PO 09/27/20 09:00 10/04/20 08:30 Metformin HCl (Glucophage) 500 mg DAILY PO 09/27/20 09:00 10/04/20 08:29 Metolazone (Zaroxolyn) 2.5 mg QMWF PO 09/27/20 16:00 10/02/20 16:32 Oxycodone HCl (Roxicodone) 5 mg TID PO 09/27/20 09:00 09/27/20 03:06 DC Oxycodone/ Acetaminophen (Percocet 5/325) 1 tab PRN Q6HRS PRN PO MOD-SEV PAIN 09/27/20 01:45 10/04/20 05:40 Polyethylene Glycol (miraLAX) 17 gm DAILY PO 09/27/20 09:00 10/04/20 08:30 Potassium Chloride (Klor-Con) 40 meq BID PO 09/27/20 09:00 09/27/20 03:06 DC Propranolol HCl (Inderal) 20 mg BID92 PO 09/27/20 09:00 10/04/20 08:30 Sennosides (Senna) 17.2 mg PRN Q12HR PRN PO 2nd choice CONSTIPATION 09/27/20 01:45 Sennosides (Senna) 8.6 mg HS PO 09/27/20 21:00 10/03/20 20:11 Spironolactone (Aldactone) 25 mg BID PO 09/27/20 09:00 10/04/20 08:29 Topiramate (Topamax) 100 mg BID PO 09/27/20 09:00 10/04/20 08:29 Vitamin D (Vitamin D3) 1,000 unit DAILY PO 09/27/20 09:00 10/04/20 08:29 Fluticasone Propionate (Flonase) 2 spray HS NS 09/27/20 21:00 10/03/20 08:28 Glucagon (Glucagen Kit) 1 mg 1X PRN PRN IM LOW BLOOD SUGAR 09/27/20 02:45 Non-Formulary Medication (Mag Hydrox/Al Hydrox/Simeth (Alum-Mag Hydroxide-Simeth Liq)) 30 ml Q4HRS PRN PO INDIGESTION 09/27/20 01:45 09/27/20 02:34 DC Multivitamins/ Calcium (Thera-M Plus) 1 tab DAILY PO 09/27/20 09:00 10/04/20 08:29 Multi-Ingredient Ointment (Analgesic [place]) 1 mello PRN Q4HRS PRN TP MUSCLE PAIN 09/27/20 02:45 Hydroxyzine Pamoate (Vistaril) 25 mg PRN Q6HRS PRN PO ITCHING 09/27/20 02:15 Ropinirole HCl (Requip) 1 mg HS PO 09/27/20 21:00 10/03/20 20:11 Ziprasidone (Geodon) 60 mg BID PO 09/27/20 09:00 10/01/20 16:52 DC 10/01/20 08:17 Alprazolam (Xanax) 0.5 mg TID PO 09/27/20 09:00 09/27/20 03:06 DC Paroxetine HCl (Paxil) 50 mg DAILY PO 09/27/20 09:00 09/30/20 13:56 DC 09/30/20 08:24 Miscellaneous (Lidoderm Patch Removal) 1 ea QHS MC 09/27/20 21:00 10/03/20 20:13 Alprazolam (Xanax) 0.5 mg TID PO 09/27/20 03:15 10/04/20 08:30 Oxycodone HCl (Roxicodone) 5 mg TID PO 09/27/20 03:15 10/04/20 08:30 Potassium Chloride (Klor-Con) 40 meq BID PO 09/27/20 03:15 10/04/20 08:30 Levothyroxine Sodium (Synthroid) 100 mcg DAILY06 PO 09/28/20 06:00 10/04/20 05:40 Duloxetine HCl (Cymbalta) 30 mg DAILY PO 10/01/20 09:00 10/02/20 21:01 DC 10/02/20 08:42 Duloxetine HCl (Cymbalta) 60 mg DAILY PO 10/03/20 09:00 10/04/20 08:31 Nystatin (Nystop) 1 mello BID TP 09/30/20 21:00 10/04/20 08:31 Ziprasidone (Geodon) 80 mg BID PO 10/02/20 09:00 10/04/20 08:30 Ziprasidone (Geodon) 60 mg BID PO 10/01/20 21:00 10/01/20 21:01 DC 10/01/20 20:24 Cyproheptadine HCl (Periactin) 2 mg HS PO 10/02/20 21:00 10/03/20 20:12 I have reviewed the current psychotropics carefully including drug interactions. Risk benefit ratio favors no change other than as noted in my dictated progress note. Diagnosis: Problems: (1) Bipolar disorder, curr episode mixed, severe, with psychotic features (2) Mild cognitive impairment (3) Anxiety disorder, unspecified PAMELA RAMOS MD October 04, 2020 10:24
--- NOTE | 2020-10-04 14:09 | NUR ---
Nurse note Patient has had an uneventful shift, taking medications well. No acute events, still answers questions one wordingly. Patient withdrawn to self/room throughout shift.
[2020-10-04 16:02] VITALS: BP 104/69
[2020-10-04] MEDS: metOLazone 2.5 MG TABLET PO SCH (17:00)
[2020-10-04] MEDS: rOPINIRole 1 MG TABLET. PO SCH (20:50)
[2020-10-04] MEDS: SENNOSIDES 8.6 MG TABLET PO SCH (20:51)
[2020-10-04] MEDS: CYPROHEPTADINE 4 MG TABLET. PO SCH (20:51)
[2020-10-04] MEDS: GABAPENTIN 300 MG CAPSULE. PO SCH (20:52)
[2020-10-04] MEDS: FLUTICASONE 50MCG/NASAL SPRAY 16GM BOTTLE. NS SCH (20:53)
[2020-10-04] MEDS: PATCH REMOVAL. MC SCH (20:54)
--- NOTE | 2020-10-04 21:52 | PDOC ---
Exam Note: [place] Note: Please also refer to the separate dictated note~for this date of service dictated separately.~Patient seen individually. Discussed the patient with Nursing staff reviewed the chart.~Reviewed interim history and current functioning. Reviewed vital signs,~Labs/ Radiology~and current medications noted below. Continue current treatment with the changes noted in the dictated addendum note Assessment: Vital Signs/I&O: Vital Signs Date Time Temp Pulse Resp B/P (MAP) Pulse Ox O2 Delivery O2 Flow Rate FiO2 10/04/20 20:51 Room Air 10/04/20 16:02 97.2 64 18 104/69 (81) 99 I & O 10/03/20 10/03/20 10/04/20 15:00 23:00 07:00 Intake Total 560 ml 520 ml Balance 560 ml 520 ml Labs: Laboratory Tests Test 10/04/20 07:46 Glucose (Fingerstick) 96 mg/dL (70-99) Current Medications: Meds: Laboratory Tests Test 10/04/20 07:46 Glucose (Fingerstick) 96 mg/dL Current Medications Medications (Trade) Dose Ordered Sig/Mathieu Route PRN Reason Start Time Stop Time Status Last Admin Dose Admin Oxycodone/ Acetaminophen (Percocet 5/325) 1 tab 1X ONCE PO 09/26/20 15:00 09/26/20 15:01 DC 09/26/20 15:25 Morphine Sulfate (Morphine 4mg Syringe) 4 mg 1X ONCE IV 09/26/20 19:45 09/26/20 19:46 DC 09/26/20 19:44 Diphenhydramine HCl (Benadryl) 25 mg 1X ONCE IVP 09/26/20 19:45 09/26/20 19:46 DC 09/26/20 19:47 Diphenhydramine HCl (Benadryl) 50 mg STK-MED ONCE .ROUTE 09/26/20 19:41 09/26/20 19:42 DC Fentanyl Citrate (Fentanyl 2ml Vial) 75 mcg 1X ONCE IVP 09/27/20 00:15 09/27/20 00:21 DC 09/27/20 00:17 Diphenhydramine HCl (Benadryl) 50 mg 1X ONCE IVP 09/27/20 01:00 09/27/20 01:01 DC 09/27/20 00:40 Acetaminophen (Tylenol) 650 mg PRN Q6HRS PRN PO MILD PAIN / TEMP > 100.3'F 09/27/20 01:30 09/28/20 07:34 DC Al Hydroxide/Mg Hydroxide (Mylanta Plus Xs) 15 ml PRN AFTMEALHC PRN PO 2ND CHOICE DYSPEPSIA 09/27/20 01:30 Magnesium Hydroxide (Milk Of Magnesia) 2,400 mg PRN QHS PRN PO 1st choice CONSTIPATION 09/27/20 01:30 Acetaminophen (Tylenol) 500 mg PRN Q8HRS PRN PO mild PAIN 09/27/20 01:45 09/27/20 02:57 Calcium Carbonate/ Glycine (Tums) 500 mg PRN Q3HRS PRN PO 1ST CHOICE DYSPEPSIA 09/27/20 02:30 Glucose (Insta-Glucose) 15 gm PRN Q1HR PRN PO LOW BLOOD SUGAR 09/27/20 01:45 Docusate Sodium (Colace) 100 mg DAILY PO 09/27/20 09:00 10/04/20 08:30 Gabapentin (Neurontin) 100 mg BIDWBKFT/CHERYL PO 09/27/20 08:00 10/04/20 12:34 Gabapentin (Neurontin) 300 mg HS PO 09/27/20 21:00 10/04/20 20:52 Levothyroxine Sodium (Synthroid) 100 mcg DAILY06 PO 09/27/20 06:00 09/28/20 03:07 DC 09/27/20 05:52 Lidocaine (Lidoderm) 1 patch DAILY TP 09/27/20 09:00 10/04/20 08:29 Loperamide HCl (Imodium) 2 mg PRN Q6HRS PRN PO DIARRHEA 09/27/20 01:45 Magnesium Oxide (Magnesium Oxide) 400 mg DAILY PO 09/27/20 09:00 10/04/20 08:30 Metformin HCl (Glucophage) 500 mg DAILY PO 09/27/20 09:00 10/04/20 08:29 Metolazone (Zaroxolyn) 2.5 mg QMWF PO 09/27/20 16:00 10/04/20 17:00 Oxycodone HCl (Roxicodone) 5 mg TID PO 09/27/20 09:00 09/27/20 03:06 DC Oxycodone/ Acetaminophen (Percocet 5/325) 1 tab PRN Q6HRS PRN PO MOD-SEV PAIN 09/27/20 01:45 10/04/20 05:40 Polyethylene Glycol (miraLAX) 17 gm DAILY PO 09/27/20 09:00 10/04/20 08:30 Potassium Chloride (Klor-Con) 40 meq BID PO 09/27/20 09:00 09/27/20 03:06 DC Propranolol HCl (Inderal) 20 mg BID92 PO 09/27/20 09:00 10/04/20 12:35 Sennosides (Senna) 17.2 mg PRN Q12HR PRN PO 2nd choice CONSTIPATION 09/27/20 01:45 Sennosides (Senna) 8.6 mg HS PO 09/27/20 21:00 10/04/20 20:51 Spironolactone (Aldactone) 25 mg BID PO 09/27/20 09:00 10/04/20 20:52 Topiramate (Topamax) 100 mg BID PO 09/27/20 09:00 10/04/20 20:50 Vitamin D (Vitamin D3) 1,000 unit DAILY PO 09/27/20 09:00 10/04/20 08:29 Fluticasone Propionate (Flonase) 2 spray HS NS 09/27/20 21:00 10/04/20 20:53 Glucagon (Glucagen Kit) 1 mg 1X PRN PRN IM LOW BLOOD SUGAR 09/27/20 02:45 Non-Formulary Medication (Mag Hydrox/Al Hydrox/Simeth (Alum-Mag Hydroxide-Simeth Liq)) 30 ml Q4HRS PRN PO INDIGESTION 09/27/20 01:45 09/27/20 02:34 DC Multivitamins/ Calcium (Thera-M Plus) 1 tab DAILY PO 09/27/20 09:00 10/04/20 08:29 Multi-Ingredient Ointment (Analgesic [place]) 1 mello PRN Q4HRS PRN TP MUSCLE PAIN 09/27/20 02:45 Hydroxyzine Pamoate (Vistaril) 25 mg PRN Q6HRS PRN PO ITCHING 09/27/20 02:15 Ropinirole HCl (Requip) 1 mg HS PO 09/27/20 21:00 10/04/20 20:50 Ziprasidone (Geodon) 60 mg BID PO 09/27/20 09:00 10/01/20 16:52 DC 10/01/20 08:17 Alprazolam (Xanax) 0.5 mg TID PO 09/27/20 09:00 09/27/20 03:06 DC Paroxetine HCl (Paxil) 50 mg DAILY PO 09/27/20 09:00 09/30/20 13:56 DC 09/30/20 08:24 Miscellaneous (Lidoderm Patch Removal) 1 ea QHS MC 09/27/20 21:00 10/04/20 20:54 Alprazolam (Xanax) 0.5 mg TID PO 09/27/20 03:15 10/04/20 20:50 Oxycodone HCl (Roxicodone) 5 mg TID PO 09/27/20 03:15 10/04/20 20:51 Potassium Chloride (Klor-Con) 40 meq BID PO 09/27/20 03:15 10/04/20 20:53 Levothyroxine Sodium (Synthroid) 100 mcg DAILY06 PO 09/28/20 06:00 10/04/20 05:40 Duloxetine HCl (Cymbalta) 30 mg DAILY PO 10/01/20 09:00 10/02/20 21:01 DC 10/02/20 08:42 Duloxetine HCl (Cymbalta) 60 mg DAILY PO 10/03/20 09:00 10/04/20 08:31 Nystatin (Nystop) 1 mello BID TP 09/30/20 21:00 10/04/20 20:52 Ziprasidone (Geodon) 80 mg BID PO 10/02/20 09:00 10/04/20 20:53 Ziprasidone (Geodon) 60 mg BID PO 10/01/20 21:00 10/01/20 21:01 DC 10/01/20 20:24 Cyproheptadine HCl (Periactin) 2 mg HS PO 10/02/20 21:00 10/04/20 20:51 I have reviewed the current psychotropics carefully including drug interactions. Risk benefit ratio favors no change other than as noted in my dictated progress note. Diagnosis: Problems: (1) Bipolar disorder, curr episode mixed, severe, with psychotic features (2) Anxiety disorder, unspecified (3) Mild cognitive impairment RACHEL,MAN M MD October 04, 2020 21:52
--- NOTE | 2020-10-05 02:14 | NUR ---
Pt has been in her bed tonight she took HS meds whole without difficulty. She is very slow to respond to questions with a brief response. When asked why she is here she raised her left arm and with her right index made a cutting motion across her wrist.. When asked about SI she nodded yes. When asked if she has a plan she said yes but she would not discuss what it is. A USER SUPPORT ANALYST SUPERVISOR reported that last evening when asked if she needed anything she asked him to kill her.
[2020-10-05] MEDS: LEVOTHYROXINE 100 MCG TABLET PO SCH (05:41)
[2020-10-05 06:12] VITALS: BP 100/68
[2020-10-05] MEDS: DOCUSATE SODIUM 100 MG CAPSULE PO SCH (08:33)
[2020-10-05] MEDS: CHOLECALCIFEROL (VITAMIN D3) 1,000 UNIT TABLET PO SCH (08:34)
[2020-10-05] MEDS: POLYETHYLENE GLYCOL 3350 17 GM PACKET. PO SCH (08:34)
[2020-10-05] MEDS: LIDOCAINE (700MG/PATCH) PATCH. TP SCH (08:34)
[2020-10-05] MEDS: MULTIVITAMIN with MINERAL TABLET. PO SCH (08:34)
[2020-10-05] MEDS: TOPIRAMATE 100 MG TABLET. PO SCH ×2 (08:34→20:47)
[2020-10-05] MEDS: GABAPENTIN 100 MG CAPSULE. PO SCH ×2 (08:35→12:43)
[2020-10-05] MEDS: ZIPRASIDONE 80 MG CAPSULE. PO SCH ×2 (08:35→20:47)
[2020-10-05] MEDS: ALPRAZolam 0.5 MG TABLET PO SCH ×3 (08:35→20:47)
[2020-10-05] MEDS: MAGNESIUM OXIDE 400 MG TABLET PO SCH (08:35)
[2020-10-05] MEDS: SPIRONOLACTONE 25 MG TABLET PO SCH ×2 (08:35→20:48)
[2020-10-05] MEDS: oxyCODONE IR 5 MG TABLET PO SCH ×3 (08:35→20:48)
[2020-10-05] MEDS: DULoxetine HCL 60 MG CAPSULE.DR PO SCH (08:35)
[2020-10-05] MEDS: metFORMIN 500 MG TABLET PO SCH (08:35)
[2020-10-05] MEDS: PROPRANOLOL 10 MG TABLET. PO SCH ×2 (08:36→13:50)
[2020-10-05] MEDS: NYSTATIN TOPICAL POWDER 15GM BOTTLE. TP SCH ×2 (08:36→20:46)
[2020-10-05] MEDS: POTASSIUM CHLORIDE 20 MEQ TABLET.ER. PO SCH ×2 (08:36→20:47)
--- NOTE | 2020-10-05 10:25 | NUR ---
At 0830 patient was in the dining room at the table with her breakfast in front of her, I stood beside her and was preparing her morning medication when I saw the patient take the plastic knife with her right and and press firmly against the inside of her left wrist. I removed the knife from her hand and assessed the left inner wrist which was red-blood tinged indentation non-draining top layer of skin broken injury was left open to air. I asked patient was the intent to harm herself with the action she shook her head yes, I asked why she wanted to harm herself and she did not answer verbally or non-verbally. Notified charge nurse Elizabeth, yard warehouse worker Chasity, Dr Burch and Patient daughter Christine. Patient daughter stated that when she was her visiting her mother stated she just wished she was but did not report that statement to the nursing staff. Dr Burch ordered patient to be a 1:1. Patient did not complain or pain or discomfort from the injury. Verge form completed. Addendum: 10/05/20 at 1834 by JOSHUA ROJAS RN Patient complained of back pain and was given prn percocet which was slightly effective, patient in the dining room for lunch and dinner and had a good appetite new orders for wellbutrin XL 150mg daily starting tomorrow am. Patient continues to be quiet with fixed look on face, patient left wrist still red no draining from site or swelling. Vitals stable and wnl of baseline will continue to monitor patient.
[2020-10-05 15:51] VITALS: BP 111/78
[2020-10-05] MEDS: oxyCODONE/APAP 5/325 1 TAB TABLET PO PRN (17:35)
[2020-10-05] MEDS: FLUTICASONE 50MCG/NASAL SPRAY 16GM BOTTLE. NS SCH (20:46)
[2020-10-05] MEDS: CYPROHEPTADINE 4 MG TABLET. PO SCH (20:47)
[2020-10-05] MEDS: SENNOSIDES 8.6 MG TABLET PO SCH (20:47)
[2020-10-05] MEDS: rOPINIRole 1 MG TABLET. PO SCH (20:48)
[2020-10-05] MEDS: GABAPENTIN 300 MG CAPSULE. PO SCH (20:48)
[2020-10-05] MEDS: PATCH REMOVAL. MC SCH (20:52)
--- NOTE | 2020-10-05 22:18 | PDOC ---
Exam Note: [place] Note: Please also refer to the separate dictated note~for this date of service dictated separately.~Patient seen individually. Discussed the patient with Nursing staff reviewed the chart.~Reviewed interim history and current functioning. Reviewed vital signs,~Labs/ Radiology~and current medications noted below. Continue current treatment with the changes noted in the dictated addendum note Assessment: Vital Signs/I&O: Vital Signs Date Time Temp Pulse Resp B/P (MAP) Pulse Ox O2 Delivery O2 Flow Rate FiO2 10/05/20 20:48 Room Air 10/05/20 18:47 18 10/05/20 15:51 97.3 77 111/78 (89) 97 I & O 10/04/20 10/04/20 10/05/20 15:00 23:00 07:00 Intake Total 480 ml 240 ml Balance 480 ml 240 ml Labs: Laboratory Tests Test 10/05/20 08:10 Glucose (Fingerstick) 96 mg/dL (70-99) Current Medications: Meds: Laboratory Tests Test 10/05/20 08:10 Glucose (Fingerstick) 96 mg/dL Current Medications Medications (Trade) Dose Ordered Sig/Mathieu Route PRN Reason Start Time Stop Time Status Last Admin Dose Admin Oxycodone/ Acetaminophen (Percocet 5/325) 1 tab 1X ONCE PO 09/26/20 15:00 09/26/20 15:01 DC 09/26/20 15:25 Morphine Sulfate (Morphine 4mg Syringe) 4 mg 1X ONCE IV 09/26/20 19:45 09/26/20 19:46 DC 09/26/20 19:44 Diphenhydramine HCl (Benadryl) 25 mg 1X ONCE IVP 09/26/20 19:45 09/26/20 19:46 DC 09/26/20 19:47 Diphenhydramine HCl (Benadryl) 50 mg STK-MED ONCE .ROUTE 09/26/20 19:41 09/26/20 19:42 DC Fentanyl Citrate (Fentanyl 2ml Vial) 75 mcg 1X ONCE IVP 09/27/20 00:15 09/27/20 00:21 DC 09/27/20 00:17 Diphenhydramine HCl (Benadryl) 50 mg 1X ONCE IVP 09/27/20 01:00 09/27/20 01:01 DC 09/27/20 00:40 Acetaminophen (Tylenol) 650 mg PRN Q6HRS PRN PO MILD PAIN / TEMP > 100.3'F 09/27/20 01:30 09/28/20 07:34 DC Al Hydroxide/Mg Hydroxide (Mylanta Plus Xs) 15 ml PRN AFTMEALHC PRN PO 2ND CHOICE DYSPEPSIA 09/27/20 01:30 Magnesium Hydroxide (Milk Of Magnesia) 2,400 mg PRN QHS PRN PO 1st choice CONSTIPATION 09/27/20 01:30 Acetaminophen (Tylenol) 500 mg PRN Q8HRS PRN PO mild PAIN 09/27/20 01:45 09/27/20 02:57 Calcium Carbonate/ Glycine (Tums) 500 mg PRN Q3HRS PRN PO 1ST CHOICE DYSPEPSIA 09/27/20 02:30 Glucose (Insta-Glucose) 15 gm PRN Q1HR PRN PO LOW BLOOD SUGAR, 1ST CHOICE 09/27/20 01:45 Docusate Sodium (Colace) 100 mg DAILY PO 09/27/20 09:00 10/05/20 08:33 Gabapentin (Neurontin) 100 mg BIDWBKFT/CHERYL PO 09/27/20 08:00 10/05/20 12:43 Gabapentin (Neurontin) 300 mg HS PO 09/27/20 21:00 10/05/20 20:48 Levothyroxine Sodium (Synthroid) 100 mcg DAILY06 PO 09/27/20 06:00 09/28/20 03:07 DC 09/27/20 05:52 Lidocaine (Lidoderm) 1 patch DAILY TP 09/27/20 09:00 10/05/20 08:34 Loperamide HCl (Imodium) 2 mg PRN Q6HRS PRN PO DIARRHEA 09/27/20 01:45 Magnesium Oxide (Magnesium Oxide) 400 mg DAILY PO 09/27/20 09:00 10/05/20 08:35 Metformin HCl (Glucophage) 500 mg DAILY PO 09/27/20 09:00 10/05/20 08:35 Metolazone (Zaroxolyn) 2.5 mg QMWF PO 09/27/20 16:00 10/04/20 17:00 Oxycodone HCl (Roxicodone) 5 mg TID PO 09/27/20 09:00 09/27/20 03:06 DC Oxycodone/ Acetaminophen (Percocet 5/325) 1 tab PRN Q6HRS PRN PO MOD-SEV PAIN 09/27/20 01:45 10/05/20 17:35 Polyethylene Glycol (miraLAX) 17 gm DAILY PO 09/27/20 09:00 10/05/20 08:34 Potassium Chloride (Klor-Con) 40 meq BID PO 09/27/20 09:00 09/27/20 03:06 DC Propranolol HCl (Inderal) 20 mg BID92 PO 09/27/20 09:00 10/05/20 13:50 Sennosides (Senna) 17.2 mg PRN Q12HR PRN PO 2nd choice CONSTIPATION 09/27/20 01:45 Sennosides (Senna) 8.6 mg HS PO 09/27/20 21:00 10/05/20 20:47 Spironolactone (Aldactone) 25 mg BID PO 09/27/20 09:00 10/05/20 20:48 Topiramate (Topamax) 100 mg BID PO 09/27/20 09:00 10/05/20 20:47 Vitamin D (Vitamin D3) 1,000 unit DAILY PO 09/27/20 09:00 10/05/20 08:34 Fluticasone Propionate (Flonase) 2 spray HS NS 09/27/20 21:00 10/05/20 20:46 Glucagon (Glucagen Kit) 1 mg 1X PRN PRN IM LOW BLOOD SUGAR, 2ND CHOICE 09/27/20 02:45 Non-Formulary Medication (Mag Hydrox/Al Hydrox/Simeth (Alum-Mag Hydroxide-Simeth Liq)) 30 ml Q4HRS PRN PO INDIGESTION 09/27/20 01:45 09/27/20 02:34 DC Multivitamins/ Calcium (Thera-M Plus) 1 tab DAILY PO 09/27/20 09:00 10/05/20 08:34 Multi-Ingredient Ointment (Analgesic [place]) 1 mello PRN Q4HRS PRN TP MUSCLE PAIN 09/27/20 02:45 Hydroxyzine Pamoate (Vistaril) 25 mg PRN Q6HRS PRN PO ITCHING 09/27/20 02:15 Ropinirole HCl (Requip) 1 mg HS PO 09/27/20 21:00 10/05/20 20:48 Ziprasidone (Geodon) 60 mg BID PO 09/27/20 09:00 10/01/20 16:52 DC 10/01/20 08:17 Alprazolam (Xanax) 0.5 mg TID PO 09/27/20 09:00 09/27/20 03:06 DC Paroxetine HCl (Paxil) 50 mg DAILY PO 09/27/20 09:00 09/30/20 13:56 DC 09/30/20 08:24 Miscellaneous (Lidoderm Patch Removal) 1 ea QHS MC 09/27/20 21:00 10/05/20 20:52 Alprazolam (Xanax) 0.5 mg TID PO 09/27/20 03:15 10/05/20 20:47 Oxycodone HCl (Roxicodone) 5 mg TID PO 09/27/20 03:15 10/05/20 20:48 Potassium Chloride (Klor-Con) 40 meq BID PO 09/27/20 03:15 10/05/20 20:47 Levothyroxine Sodium (Synthroid) 100 mcg DAILY06 PO 09/28/20 06:00 10/05/20 05:41 Duloxetine HCl (Cymbalta) 30 mg DAILY PO 10/01/20 09:00 10/02/20 21:01 DC 10/02/20 08:42 Duloxetine HCl (Cymbalta) 60 mg DAILY PO 10/03/20 09:00 10/05/20 08:35 Nystatin (Nystop) 1 mello BID TP 09/30/20 21:00 10/05/20 20:46 Ziprasidone (Geodon) 80 mg BID PO 10/02/20 09:00 10/05/20 20:47 Ziprasidone (Geodon) 60 mg BID PO 10/01/20 21:00 10/01/20 21:01 DC 10/01/20 20:24 Cyproheptadine HCl (Periactin) 2 mg HS PO 10/02/20 21:00 10/05/20 20:47 Bupropion HCl (Wellbutrin Xl) 150 mg DAILY PO 10/06/20 09:00 I have reviewed the current psychotropics carefully including drug interactions. Risk benefit ratio favors no change other than as noted in my dictated progress note. Diagnosis: Problems: (1) Mild cognitive impairment (2) Bipolar disorder, curr episode mixed, severe, with psychotic features (3) Anxiety disorder, unspecified PAMELA RAMOS MD October 05, 2020 22:18
--- NOTE | 2020-10-06 02:29 | NUR ---
Last evening pt sat quietly in dayroom with 1:1 observation. She was cooperative with cares and took meds whole. When asked questions she would just stare at speaker and not speak. Since going to bed she has been sleeping.
[2020-10-06] MEDS: LEVOTHYROXINE 100 MCG TABLET PO SCH (05:12)
[2020-10-06] MEDS: oxyCODONE/APAP 5/325 1 TAB TABLET PO PRN ×2 (05:12→12:08)
--- NOTE | 2020-10-06 05:14 | NUR ---
PRN med given for c/o back pain.
[2020-10-06 05:34] VITALS: BP 110/77
[2020-10-06] MEDS: LIDOCAINE (700MG/PATCH) PATCH. TP SCH (08:28)
[2020-10-06] MEDS: SPIRONOLACTONE 25 MG TABLET PO SCH ×2 (08:29→20:49)
[2020-10-06] MEDS: POLYETHYLENE GLYCOL 3350 17 GM PACKET. PO SCH (08:29)
[2020-10-06] MEDS: buPROPion XL 150 MG TAB.ER.24H PO SCH (08:29)
[2020-10-06] MEDS: DOCUSATE SODIUM 100 MG CAPSULE PO SCH (08:29)
[2020-10-06] MEDS: ZIPRASIDONE 80 MG CAPSULE. PO SCH ×2 (08:30→20:50)
[2020-10-06] MEDS: TOPIRAMATE 100 MG TABLET. PO SCH ×2 (08:30→20:49)
[2020-10-06] MEDS: GABAPENTIN 100 MG CAPSULE. PO SCH ×2 (08:30→12:08)
[2020-10-06] MEDS: ALPRAZolam 0.5 MG TABLET PO SCH ×3 (08:30→20:50)
[2020-10-06] MEDS: metFORMIN 500 MG TABLET PO SCH (08:30)
[2020-10-06] MEDS: MULTIVITAMIN with MINERAL TABLET. PO SCH (08:30)
[2020-10-06] MEDS: oxyCODONE IR 5 MG TABLET PO SCH ×3 (08:30→20:49)
[2020-10-06] MEDS: CHOLECALCIFEROL (VITAMIN D3) 1,000 UNIT TABLET PO SCH (08:30)
[2020-10-06] MEDS: DULoxetine HCL 60 MG CAPSULE.DR PO SCH (08:30)
[2020-10-06] MEDS: POTASSIUM CHLORIDE 20 MEQ TABLET.ER. PO SCH ×2 (08:31→20:50)
[2020-10-06] MEDS: PROPRANOLOL 10 MG TABLET. PO SCH ×2 (08:31→13:47)
[2020-10-06] MEDS: MAGNESIUM OXIDE 400 MG TABLET PO SCH (08:34)
[2020-10-06] MEDS: NYSTATIN TOPICAL POWDER 15GM BOTTLE. TP SCH ×2 (08:35→20:47)
--- NOTE | 2020-10-06 09:01 | PDOC ---
Exam Note: [place] Note: This note is a late entry for 10/04/2020 covers elements not covered in my initial note. Subjective: The patient was seen individually in the evening of 10/04/2020 with Gordon ROYAL, discussed and reviewed the chart. The patient slept 7 hours previous night. She remains withdrawn. Verbal response is one word answers. She is compliant with medications. Appetite is fair. She is trying to kick out her prosthetic leg. Review of Systems: Ambulation impaired in wheelchair. No CV, , pulmonary, eye, ENT system symptoms on review. Mental Status Exam: The patient is oriented to herself and situation. She has a glaring look about her and purses her lips as she talks, paranoid. Speech ve rbal response is monosyllabic. Abstraction is fair. Computation impaired. Attention span short. Language function intact. Mood and affect somewhat paranoid. No active suicidal or homicidal ideation. Laboratory Data: Reviewed. Impression: Bipolar disorder mixed with psychotic features. Anxiety disorder unspecified. Mild cognitive impairment. Plan: No change from initial note. Assessment: Vital Signs/I&O: Vital Signs Date Time Temp Pulse Resp B/P (MAP) Pulse Ox O2 Delivery O2 Flow Rate FiO2 10/06/20 08:31 69 110/77 10/06/20 08:30 18 10/06/20 05:54 Room Air 10/06/20 05:34 96.9 98 I & O 10/05/20 10/05/20 10/06/20 15:00 23:00 07:00 Intake Total 680 ml 480 ml Balance 680 ml 480 ml Labs: Laboratory Tests Test 10/06/20 07:24 Glucose (Fingerstick) 105 mg/dL (70-99) H Current Medications: Meds: Laboratory Tests Test 10/06/20 07:24 Glucose (Fingerstick) 105 mg/dL Current Medications Medications (Trade) Dose Ordered Sig/Mathieu Route PRN Reason Start Time Stop Time Status Last Admin Dose Admin Oxycodone/ Acetaminophen (Percocet 5/325) 1 tab 1X ONCE PO 09/26/20 15:00 09/26/20 15:01 DC 09/26/20 15:25 Morphine Sulfate (Morphine 4mg Syringe) 4 mg 1X ONCE IV 09/26/20 19:45 09/26/20 19:46 DC 09/26/20 19:44 Diphenhydramine HCl (Benadryl) 25 mg 1X ONCE IVP 09/26/20 19:45 09/26/20 19:46 DC 09/26/20 19:47 Diphenhydramine HCl (Benadryl) 50 mg STK-MED ONCE .ROUTE 09/26/20 19:41 09/26/20 19:42 DC Fentanyl Citrate (Fentanyl 2ml Vial) 75 mcg 1X ONCE IVP 09/27/20 00:15 09/27/20 00:21 DC 09/27/20 00:17 Diphenhydramine HCl (Benadryl) 50 mg 1X ONCE IVP 09/27/20 01:00 09/27/20 01:01 DC 09/27/20 00:40 Acetaminophen (Tylenol) 650 mg PRN Q6HRS PRN PO MILD PAIN / TEMP > 100.3'F 09/27/20 01:30 09/28/20 07:34 DC Al Hydroxide/Mg Hydroxide (Mylanta Plus Xs) 15 ml PRN AFTMEALHC PRN PO 2ND CHOICE DYSPEPSIA 09/27/20 01:30 Magnesium Hydroxide (Milk Of Magnesia) 2,400 mg PRN QHS PRN PO 1st choice CONSTIPATION 09/27/20 01:30 Acetaminophen (Tylenol) 500 mg PRN Q8HRS PRN PO mild PAIN 09/27/20 01:45 09/27/20 02:57 Calcium Carbonate/ Glycine (Tums) 500 mg PRN Q3HRS PRN PO 1ST CHOICE DYSPEPSIA 09/27/20 02:30 Glucose (Insta-Glucose) 15 gm PRN Q1HR PRN PO LOW BLOOD SUGAR, 1ST CHOICE 09/27/20 01:45 Docusate Sodium (Colace) 100 mg DAILY PO 09/27/20 09:00 10/06/20 08:29 Gabapentin (Neurontin) 100 mg BIDWBKFT/CHERYL PO 09/27/20 08:00 10/06/20 08:30 Gabapentin (Neurontin) 300 mg HS PO 09/27/20 21:00 10/05/20 20:48 Levothyroxine Sodium (Synthroid) 100 mcg DAILY06 PO 09/27/20 06:00 09/28/20 03:07 DC 09/27/20 05:52 Lidocaine (Lidoderm) 1 patch DAILY TP 09/27/20 09:00 10/06/20 08:28 Loperamide HCl (Imodium) 2 mg PRN Q6HRS PRN PO DIARRHEA 09/27/20 01:45 Magnesium Oxide (Magnesium Oxide) 400 mg DAILY PO 09/27/20 09:00 10/06/20 08:34 Metformin HCl (Glucophage) 500 mg DAILY PO 09/27/20 09:00 10/06/20 08:30 Metolazone (Zaroxolyn) 2.5 mg QMWF PO 09/27/20 16:00 10/04/20 17:00 Oxycodone HCl (Roxicodone) 5 mg TID PO 09/27/20 09:00 09/27/20 03:06 DC Oxycodone/ Acetaminophen (Percocet 5/325) 1 tab PRN Q6HRS PRN PO MOD-SEV PAIN 09/27/20 01:45 10/06/20 05:12 Polyethylene Glycol (miraLAX) 17 gm DAILY PO 09/27/20 09:00 10/06/20 08:29 Potassium Chloride (Klor-Con) 40 meq BID PO 09/27/20 09:00 09/27/20 03:06 DC Propranolol HCl (Inderal) 20 mg BID92 PO 09/27/20 09:00 10/06/20 08:31 Sennosides (Senna) 17.2 mg PRN Q12HR PRN PO 2nd choice CONSTIPATION 09/27/20 01:45 Sennosides (Senna) 8.6 mg HS PO 09/27/20 21:00 10/05/20 20:47 Spironolactone (Aldactone) 25 mg BID PO 09/27/20 09:00 10/06/20 08:29 Topiramate (Topamax) 100 mg BID PO 09/27/20 09:00 10/06/20 08:30 Vitamin D (Vitamin D3) 1,000 unit DAILY PO 09/27/20 09:00 10/06/20 08:30 Fluticasone Propionate (Flonase) 2 spray HS NS 09/27/20 21:00 10/05/20 20:46 Glucagon (Glucagen Kit) 1 mg 1X PRN PRN IM LOW BLOOD SUGAR, 2ND CHOICE 09/27/20 02:45 Non-Formulary Medication (Mag Hydrox/Al Hydrox/Simeth (Alum-Mag Hydroxide-Simeth Liq)) 30 ml Q4HRS PRN PO INDIGESTION 09/27/20 01:45 09/27/20 02:34 DC Multivitamins/ Calcium (Thera-M Plus) 1 tab DAILY PO 09/27/20 09:00 10/06/20 08:30 Multi-Ingredient Ointment (Analgesic [place]) 1 mello PRN Q4HRS PRN TP MUSCLE PAIN 09/27/20 02:45 Hydroxyzine Pamoate (Vistaril) 25 mg PRN Q6HRS PRN PO ITCHING 09/27/20 02:15 Ropinirole HCl (Requip) 1 mg HS PO 09/27/20 21:00 10/05/20 20:48 Ziprasidone (Geodon) 60 mg BID PO 09/27/20 09:00 10/01/20 16:52 DC 10/01/20 08:17 Alprazolam (Xanax) 0.5 mg TID PO 09/27/20 09:00 09/27/20 03:06 DC Paroxetine HCl (Paxil) 50 mg DAILY PO 09/27/20 09:00 09/30/20 13:56 DC 09/30/20 08:24 Miscellaneous (Lidoderm Patch Removal) 1 ea QHS MC 09/27/20 21:00 10/05/20 20:52 Alprazolam (Xanax) 0.5 mg TID PO 09/27/20 03:15 10/06/20 08:30 Oxycodone HCl (Roxicodone) 5 mg TID PO 09/27/20 03:15 10/06/20 08:30 Potassium Chloride (Klor-Con) 40 meq BID PO 09/27/20 03:15 10/06/20 08:31 Levothyroxine Sodium (Synthroid) 100 mcg DAILY06 PO 09/28/20 06:00 10/06/20 05:12 Duloxetine HCl (Cymbalta) 30 mg DAILY PO 10/01/20 09:00 10/02/20 21:01 DC 10/02/20 08:42 Duloxetine HCl (Cymbalta) 60 mg DAILY PO 10/03/20 09:00 10/06/20 08:30 Nystatin (Nystop) 1 mello BID TP 09/30/20 21:00 10/06/20 08:35 Ziprasidone (Geodon) 80 mg BID PO 10/02/20 09:00 10/06/20 08:30 Ziprasidone (Geodon) 60 mg BID PO 10/01/20 21:00 10/01/20 21:01 DC 10/01/20 20:24 Cyproheptadine HCl (Periactin) 2 mg HS PO 10/02/20 21:00 10/05/20 20:47 Bupropion HCl (Wellbutrin Xl) 150 mg DAILY PO 10/06/20 09:00 10/06/20 08:29 Current Medications Medications (Trade) Dose Ordered Sig/Mathieu Route PRN Reason Start Time Stop Time Status Last Admin Dose Admin Bupropion HCl (Wellbutrin Xl) 150 mg DAILY PO 10/06/20 09:00 10/06/20 08:29 I have reviewed the current psychotropics carefully including drug interactions. Risk benefit ratio favors no change other than as noted in my dictated progress note. Diagnosis: Problems: (1) Mild cognitive impairment (2) Bipolar disorder, curr episode mixed, severe, with psychotic features (3) Anxiety disorder, unspecified PAMELA RAMOS MD October 06, 2020 09:01
--- NOTE | 2020-10-06 09:23 | PDOC ---
Exam Note: [place] Note: This note is a late entry for 10/05/2020 covers elements not covered in my initial note. Subjective: The patient was seen individually in the evening of 10/05/2020 with Sunil ROYAL, discussed and reviewed the chart. The patient slept 7 hours previous night. I had been called as an emergency in the morning. While in the dining room, the patient had tried to cut her wrist with a plastic fork. She has been placed on one-on-one status since then. She admits to being depressed, wanting to . Denies active suicidal ideation as I questioned her closely this evening. Review of Systems: Ambulation impaired in wheelchair. No CV, , pulmonary, eye, ENT system symptoms on review. Mental Status Exam: The patient is oriented to herself and situation, still continues to glare and has a paranoid presentation. Abstraction is fair. Computation impaired. Attention span short. Language function intact. Mood and affect depressed. No active suicidal or homicidal ideation. Laboratory Data: Reviewed. Impression: Bipolar disorder mixed with psychotic features. Anxiety disorder unspecified. Mild cognitive impairment. Plan: Appetite is better. She remains depressed. We will add Wellbutrin XL 150 mg in the morning. Continue one-on-one status. Assessment: Vital Signs/I&O: Vital Signs Date Time Temp Pulse Resp B/P (MAP) Pulse Ox O2 Delivery O2 Flow Rate FiO2 10/06/20 09:07 18 10/06/20 08:31 69 110/77 10/06/20 05:54 Room Air 10/06/20 05:34 96.9 98 I & O 10/05/20 10/05/20 10/06/20 15:00 23:00 07:00 Intake Total 680 ml 480 ml Balance 680 ml 480 ml Labs: Laboratory Tests Test 10/06/20 07:24 Glucose (Fingerstick) 105 mg/dL (70-99) H Current Medications: Meds: Laboratory Tests Test 10/06/20 07:24 Glucose (Fingerstick) 105 mg/dL Current Medications Medications (Trade) Dose Ordered Sig/Mathieu Route PRN Reason Start Time Stop Time Status Last Admin Dose Admin Oxycodone/ Acetaminophen (Percocet 5/325) 1 tab 1X ONCE PO 09/26/20 15:00 09/26/20 15:01 DC 09/26/20 15:25 Morphine Sulfate (Morphine 4mg Syringe) 4 mg 1X ONCE IV 09/26/20 19:45 09/26/20 19:46 DC 09/26/20 19:44 Diphenhydramine HCl (Benadryl) 25 mg 1X ONCE IVP 09/26/20 19:45 09/26/20 19:46 DC 09/26/20 19:47 Diphenhydramine HCl (Benadryl) 50 mg STK-MED ONCE .ROUTE 09/26/20 19:41 09/26/20 19:42 DC Fentanyl Citrate (Fentanyl 2ml Vial) 75 mcg 1X ONCE IVP 09/27/20 00:15 09/27/20 00:21 DC 09/27/20 00:17 Diphenhydramine HCl (Benadryl) 50 mg 1X ONCE IVP 09/27/20 01:00 09/27/20 01:01 DC 09/27/20 00:40 Acetaminophen (Tylenol) 650 mg PRN Q6HRS PRN PO MILD PAIN / TEMP > 100.3'F 09/27/20 01:30 09/28/20 07:34 DC Al Hydroxide/Mg Hydroxide (Mylanta Plus Xs) 15 ml PRN AFTMEALHC PRN PO 2ND CHOICE DYSPEPSIA 09/27/20 01:30 Magnesium Hydroxide (Milk Of Magnesia) 2,400 mg PRN QHS PRN PO 1st choice CONSTIPATION 09/27/20 01:30 Acetaminophen (Tylenol) 500 mg PRN Q8HRS PRN PO mild PAIN 09/27/20 01:45 09/27/20 02:57 Calcium Carbonate/ Glycine (Tums) 500 mg PRN Q3HRS PRN PO 1ST CHOICE DYSPEPSIA 09/27/20 02:30 Glucose (Insta-Glucose) 15 gm PRN Q1HR PRN PO LOW BLOOD SUGAR, 1ST CHOICE 09/27/20 01:45 Docusate Sodium (Colace) 100 mg DAILY PO 09/27/20 09:00 10/06/20 08:29 Gabapentin (Neurontin) 100 mg BIDWBKFT/CHERYL PO 09/27/20 08:00 10/06/20 08:30 Gabapentin (Neurontin) 300 mg HS PO 09/27/20 21:00 10/05/20 20:48 Levothyroxine Sodium (Synthroid) 100 mcg DAILY06 PO 09/27/20 06:00 09/28/20 03:07 DC 09/27/20 05:52 Lidocaine (Lidoderm) 1 patch DAILY TP 09/27/20 09:00 10/06/20 08:28 Loperamide HCl (Imodium) 2 mg PRN Q6HRS PRN PO DIARRHEA 09/27/20 01:45 Magnesium Oxide (Magnesium Oxide) 400 mg DAILY PO 09/27/20 09:00 10/06/20 08:34 Metformin HCl (Glucophage) 500 mg DAILY PO 09/27/20 09:00 10/06/20 08:30 Metolazone (Zaroxolyn) 2.5 mg QMWF PO 09/27/20 16:00 10/04/20 17:00 Oxycodone HCl (Roxicodone) 5 mg TID PO 09/27/20 09:00 09/27/20 03:06 DC Oxycodone/ Acetaminophen (Percocet 5/325) 1 tab PRN Q6HRS PRN PO MOD-SEV PAIN 09/27/20 01:45 10/06/20 05:12 Polyethylene Glycol (miraLAX) 17 gm DAILY PO 09/27/20 09:00 10/06/20 08:29 Potassium Chloride (Klor-Con) 40 meq BID PO 09/27/20 09:00 09/27/20 03:06 DC Propranolol HCl (Inderal) 20 mg BID92 PO 09/27/20 09:00 10/06/20 08:31 Sennosides (Senna) 17.2 mg PRN Q12HR PRN PO 2nd choice CONSTIPATION 09/27/20 01:45 Sennosides (Senna) 8.6 mg HS PO 09/27/20 21:00 10/05/20 20:47 Spironolactone (Aldactone) 25 mg BID PO 09/27/20 09:00 10/06/20 08:29 Topiramate (Topamax) 100 mg BID PO 09/27/20 09:00 10/06/20 08:30 Vitamin D (Vitamin D3) 1,000 unit DAILY PO 09/27/20 09:00 10/06/20 08:30 Fluticasone Propionate (Flonase) 2 spray HS NS 09/27/20 21:00 10/05/20 20:46 Glucagon (Glucagen Kit) 1 mg 1X PRN PRN IM LOW BLOOD SUGAR, 2ND CHOICE 09/27/20 02:45 Non-Formulary Medication (Mag Hydrox/Al Hydrox/Simeth (Alum-Mag Hydroxide-Simeth Liq)) 30 ml Q4HRS PRN PO INDIGESTION 09/27/20 01:45 09/27/20 02:34 DC Multivitamins/ Calcium (Thera-M Plus) 1 tab DAILY PO 09/27/20 09:00 10/06/20 08:30 Multi-Ingredient Ointment (Analgesic [place]) 1 mello PRN Q4HRS PRN TP MUSCLE PAIN 09/27/20 02:45 Hydroxyzine Pamoate (Vistaril) 25 mg PRN Q6HRS PRN PO ITCHING 09/27/20 02:15 Ropinirole HCl (Requip) 1 mg HS PO 09/27/20 21:00 10/05/20 20:48 Ziprasidone (Geodon) 60 mg BID PO 09/27/20 09:00 10/01/20 16:52 DC 10/01/20 08:17 Alprazolam (Xanax) 0.5 mg TID PO 09/27/20 09:00 09/27/20 03:06 DC Paroxetine HCl (Paxil) 50 mg DAILY PO 09/27/20 09:00 09/30/20 13:56 DC 09/30/20 08:24 Miscellaneous (Lidoderm Patch Removal) 1 ea QHS MC 09/27/20 21:00 10/05/20 20:52 Alprazolam (Xanax) 0.5 mg TID PO 09/27/20 03:15 10/06/20 08:30 Oxycodone HCl (Roxicodone) 5 mg TID PO 09/27/20 03:15 10/06/20 08:30 Potassium Chloride (Klor-Con) 40 meq BID PO 09/27/20 03:15 10/06/20 08:31 Levothyroxine Sodium (Synthroid) 100 mcg DAILY06 PO 09/28/20 06:00 10/06/20 05:12 Duloxetine HCl (Cymbalta) 30 mg DAILY PO 10/01/20 09:00 10/02/20 21:01 DC 10/02/20 08:42 Duloxetine HCl (Cymbalta) 60 mg DAILY PO 10/03/20 09:00 10/06/20 08:30 Nystatin (Nystop) 1 mello BID TP 09/30/20 21:00 10/06/20 08:35 Ziprasidone (Geodon) 80 mg BID PO 10/02/20 09:00 10/06/20 08:30 Ziprasidone (Geodon) 60 mg BID PO 10/01/20 21:00 10/01/20 21:01 DC 10/01/20 20:24 Cyproheptadine HCl (Periactin) 2 mg HS PO 10/02/20 21:00 10/05/20 20:47 Bupropion HCl (Wellbutrin Xl) 150 mg DAILY PO 10/06/20 09:00 10/06/20 08:29 Current Medications Medications (Trade) Dose Ordered Sig/Mathieu Route PRN Reason Start Time Stop Time Status Last Admin Dose Admin Bupropion HCl (Wellbutrin Xl) 150 mg DAILY PO 10/06/20 09:00 10/06/20 08:29 I have reviewed the current psychotropics carefully including drug interactions. Risk benefit ratio favors no change other than as noted in my dictated progress note. Diagnosis: Problems: (1) Mild cognitive impairment (2) Bipolar disorder, curr episode mixed, severe, with psychotic features (3) Anxiety disorder, unspecified PAMELA RAMOS MD October 06, 2020 09:23
[2020-10-06 15:44] VITALS: BP 95/65
--- NOTE | 2020-10-06 17:27 | NUR ---
Patient continues on 1:1 when asked if she is having any thoughts of harming herself she stated no, patient is more verbal she is able to make needs known but she is very slow to speak. Patient complained of lower back pain after breakfast and was given a prn which was effective. Patient alert and oriented vitals stable and wnl of baseline. Patient layed down in bed after lunch with legs elevated with 1:1 sitter present. Patient appetite good she is in the dining room table for all meals eating close to 100% of meals. Patient continues to appear withdrawn and quiet, med compliant and cooperative with cares. Patient would like me to discuss with Dr Burch taking her off the 1:1 I advised it has only been 24 hours and we must observe longer than 24 hours but I will discuss with Dr Burch. Patient tray does not include plastic knives or forks or spoons. Will continue to monitor patient.
[2020-10-06] MEDS: FLUTICASONE 50MCG/NASAL SPRAY 16GM BOTTLE. NS SCH (20:48)
[2020-10-06] MEDS: CYPROHEPTADINE 4 MG TABLET. PO SCH (20:49)
[2020-10-06] MEDS: rOPINIRole 1 MG TABLET. PO SCH (20:49)
[2020-10-06] MEDS: PATCH REMOVAL. MC SCH (20:50)
[2020-10-06] MEDS: SENNOSIDES 8.6 MG TABLET PO SCH (20:50)
[2020-10-06] MEDS: GABAPENTIN 300 MG CAPSULE. PO SCH (20:50)
--- NOTE | 2020-10-06 22:14 | PDOC ---
Exam Note: [place] Note: Please also refer to the separate dictated note~for this date of service dictated separately.~Patient seen individually. Discussed the patient with Nursing staff reviewed the chart.~Reviewed interim history and current functioning. Reviewed vital signs,~Labs/ Radiology~and current medications noted below. Continue current treatment with the changes noted in the dictated addendum note Assessment: Vital Signs/I&O: Vital Signs Date Time Temp Pulse Resp B/P (MAP) Pulse Ox O2 Delivery O2 Flow Rate FiO2 10/06/20 21:30 Room Air 10/06/20 16:03 18 10/06/20 15:44 97.6 61 95/65 (75) 98 I & O 10/05/20 10/05/20 10/06/20 15:00 23:00 07:00 Intake Total 680 ml 480 ml Balance 680 ml 480 ml Labs: Laboratory Tests Test 10/06/20 07:24 Glucose (Fingerstick) 105 mg/dL (70-99) H Current Medications: Meds: Laboratory Tests Test 10/06/20 07:24 Glucose (Fingerstick) 105 mg/dL Current Medications Medications (Trade) Dose Ordered Sig/Mathieu Route PRN Reason Start Time Stop Time Status Last Admin Dose Admin Oxycodone/ Acetaminophen (Percocet 5/325) 1 tab 1X ONCE PO 09/26/20 15:00 09/26/20 15:01 DC 09/26/20 15:25 Morphine Sulfate (Morphine 4mg Syringe) 4 mg 1X ONCE IV 09/26/20 19:45 09/26/20 19:46 DC 09/26/20 19:44 Diphenhydramine HCl (Benadryl) 25 mg 1X ONCE IVP 09/26/20 19:45 09/26/20 19:46 DC 09/26/20 19:47 Diphenhydramine HCl (Benadryl) 50 mg STK-MED ONCE .ROUTE 09/26/20 19:41 09/26/20 19:42 DC Fentanyl Citrate (Fentanyl 2ml Vial) 75 mcg 1X ONCE IVP 09/27/20 00:15 09/27/20 00:21 DC 09/27/20 00:17 Diphenhydramine HCl (Benadryl) 50 mg 1X ONCE IVP 09/27/20 01:00 09/27/20 01:01 DC 09/27/20 00:40 Acetaminophen (Tylenol) 650 mg PRN Q6HRS PRN PO MILD PAIN / TEMP > 100.3'F 09/27/20 01:30 09/28/20 07:34 DC Al Hydroxide/Mg Hydroxide (Mylanta Plus Xs) 15 ml PRN AFTMEALHC PRN PO 2ND CHOICE DYSPEPSIA 09/27/20 01:30 Magnesium Hydroxide (Milk Of Magnesia) 2,400 mg PRN QHS PRN PO 1st choice CONSTIPATION 09/27/20 01:30 Acetaminophen (Tylenol) 500 mg PRN Q8HRS PRN PO mild PAIN 09/27/20 01:45 09/27/20 02:57 Calcium Carbonate/ Glycine (Tums) 500 mg PRN Q3HRS PRN PO 1ST CHOICE DYSPEPSIA 09/27/20 02:30 Glucose (Insta-Glucose) 15 gm PRN Q1HR PRN PO LOW BLOOD SUGAR, 1ST CHOICE 09/27/20 01:45 Docusate Sodium (Colace) 100 mg DAILY PO 09/27/20 09:00 10/06/20 08:29 Gabapentin (Neurontin) 100 mg BIDWBKFT/CHERYL PO 09/27/20 08:00 10/06/20 12:08 Gabapentin (Neurontin) 300 mg HS PO 09/27/20 21:00 10/06/20 20:50 Levothyroxine Sodium (Synthroid) 100 mcg DAILY06 PO 09/27/20 06:00 09/28/20 03:07 DC 09/27/20 05:52 Lidocaine (Lidoderm) 1 patch DAILY TP 09/27/20 09:00 10/06/20 08:28 Loperamide HCl (Imodium) 2 mg PRN Q6HRS PRN PO DIARRHEA 09/27/20 01:45 Magnesium Oxide (Magnesium Oxide) 400 mg DAILY PO 09/27/20 09:00 10/06/20 08:34 Metformin HCl (Glucophage) 500 mg DAILY PO 09/27/20 09:00 10/06/20 08:30 Metolazone (Zaroxolyn) 2.5 mg QMWF PO 09/27/20 16:00 10/04/20 17:00 Oxycodone HCl (Roxicodone) 5 mg TID PO 09/27/20 09:00 09/27/20 03:06 DC Oxycodone/ Acetaminophen (Percocet 5/325) 1 tab PRN Q6HRS PRN PO MOD-SEV PAIN 09/27/20 01:45 10/06/20 12:08 Polyethylene Glycol (miraLAX) 17 gm DAILY PO 09/27/20 09:00 10/06/20 08:29 Potassium Chloride (Klor-Con) 40 meq BID PO 09/27/20 09:00 09/27/20 03:06 DC Propranolol HCl (Inderal) 20 mg BID92 PO 09/27/20 09:00 10/06/20 13:47 Sennosides (Senna) 17.2 mg PRN Q12HR PRN PO 2nd choice CONSTIPATION 09/27/20 01:45 Sennosides (Senna) 8.6 mg HS PO 09/27/20 21:00 10/06/20 20:50 Spironolactone (Aldactone) 25 mg BID PO 09/27/20 09:00 10/06/20 20:49 Topiramate (Topamax) 100 mg BID PO 09/27/20 09:00 10/06/20 20:49 Vitamin D (Vitamin D3) 1,000 unit DAILY PO 09/27/20 09:00 10/06/20 08:30 Fluticasone Propionate (Flonase) 2 spray HS NS 09/27/20 21:00 10/06/20 20:48 Glucagon (Glucagen Kit) 1 mg 1X PRN PRN IM LOW BLOOD SUGAR, 2ND CHOICE 09/27/20 02:45 Non-Formulary Medication (Mag Hydrox/Al Hydrox/Simeth (Alum-Mag Hydroxide-Simeth Liq)) 30 ml Q4HRS PRN PO INDIGESTION 09/27/20 01:45 09/27/20 02:34 DC Multivitamins/ Calcium (Thera-M Plus) 1 tab DAILY PO 09/27/20 09:00 10/06/20 08:30 Multi-Ingredient Ointment (Analgesic [place]) 1 mello PRN Q4HRS PRN TP MUSCLE PAIN 09/27/20 02:45 Hydroxyzine Pamoate (Vistaril) 25 mg PRN Q6HRS PRN PO ITCHING 09/27/20 02:15 Ropinirole HCl (Requip) 1 mg HS PO 09/27/20 21:00 10/06/20 20:49 Ziprasidone (Geodon) 60 mg BID PO 09/27/20 09:00 10/01/20 16:52 DC 10/01/20 08:17 Alprazolam (Xanax) 0.5 mg TID PO 09/27/20 09:00 09/27/20 03:06 DC Paroxetine HCl (Paxil) 50 mg DAILY PO 09/27/20 09:00 09/30/20 13:56 DC 09/30/20 08:24 Miscellaneous (Lidoderm Patch Removal) 1 ea QHS 09/27/20 21:00 10/06/20 20:50 Alprazolam (Xanax) 0.5 mg TID PO 09/27/20 03:15 10/06/20 20:50 Oxycodone HCl (Roxicodone) 5 mg TID PO 09/27/20 03:15 10/06/20 20:49 Potassium Chloride (Klor-Con) 40 meq BID PO 09/27/20 03:15 10/06/20 20:50 Levothyroxine Sodium (Synthroid) 100 mcg DAILY06 PO 09/28/20 06:00 10/06/20 05:12 Duloxetine HCl (Cymbalta) 30 mg DAILY PO 10/01/20 09:00 10/02/20 21:01 DC 10/02/20 08:42 Duloxetine HCl (Cymbalta) 60 mg DAILY PO 10/03/20 09:00 10/06/20 08:30 Nystatin (Nystop) 1 mello BID TP 09/30/20 21:00 10/06/20 20:47 Ziprasidone (Geodon) 80 mg BID PO 10/02/20 09:00 10/06/20 20:50 Ziprasidone (Geodon) 60 mg BID PO 10/01/20 21:00 10/01/20 21:01 DC 10/01/20 20:24 Cyproheptadine HCl (Periactin) 2 mg HS PO 10/02/20 21:00 10/06/20 20:49 Bupropion HCl (Wellbutrin Xl) 150 mg DAILY PO 10/06/20 09:00 10/06/20 08:29 Current Medications Medications (Trade) Dose Ordered Sig/Mathieu Route PRN Reason Start Time Stop Time Status Last Admin Dose Admin Bupropion HCl (Wellbutrin Xl) 150 mg DAILY PO 10/06/20 09:00 10/06/20 08:29 I have reviewed the current psychotropics carefully including drug interactions. Risk benefit ratio favors no change other than as noted in my dictated progress note. Diagnosis: Problems: (1) Anxiety disorder, unspecified (2) Bipolar disorder, curr episode mixed, severe, with psychotic features (3) Mild cognitive impairment PAMELA RAMOS MD October 06, 2020 22:14
[2020-10-07] MEDS: LEVOTHYROXINE 100 MCG TABLET PO SCH (05:35)
[2020-10-07 06:25] VITALS: BP 115/78
--- NOTE | 2020-10-07 07:15 | PDOC ---
Exam Note: [place] Note: This note is a late entry for 10/06/2020 covers elements not covered in my initial note. Subjective: The patient was seen individually in the evening of 10/06/2020 with Sunil ROYAL, discussed and reviewed the chart. The patient slept 7 hours previous night. QTC on EKG is 454 unremarkable. She is compliant with her medications. Denies suicidal ideation this evening as i questioned her. Review of Systems: Ambulation impaired in wheelchair. No CV, , pulmonary, eye, ENT system symptoms on review. Mental Status Exam: The patient is oriented to herself and situation. Speech has some latency. Often response is monosyllabic. She has a rather ferrara paranoid expression about her. Abstraction is fair. Computation impaired. Attention span short. Mood and affect depressed. No active suicidal or homicidal ideation. Laboratory Data: Reviewed. Impression: Bipolar disorder mixed with psychotic features. Anxiety disorder unspecified. Mild cognitive impairment. Plan: We have added Wellbutrin XL 150 mg a day to augment Cymbalta 60 mg a day. Appetite is improved on Periactin 2 mg h.s. Rest unchanged for now. Assessment: Vital Signs/I&O: Vital Signs Date Time Temp Pulse Resp B/P (MAP) Pulse Ox O2 Delivery O2 Flow Rate FiO2 10/07/20 06:25 96.8 68 16 115/78 (90) 97 10/06/20 21:30 Room Air I & O 10/06/20 10/06/20 10/07/20 15:00 23:00 07:00 Intake Total 480 ml 480 ml Balance 480 ml 480 ml Labs: Laboratory Tests Test 10/06/20 07:24 Glucose (Fingerstick) 105 mg/dL (70-99) H Current Medications: Meds: Laboratory Tests Test 10/06/20 07:24 Glucose (Fingerstick) 105 mg/dL Current Medications Medications (Trade) Dose Ordered Sig/Mathieu Route PRN Reason Start Time Stop Time Status Last Admin Dose Admin Oxycodone/ Acetaminophen (Percocet 5/325) 1 tab 1X ONCE PO 09/26/20 15:00 09/26/20 15:01 DC 09/26/20 15:25 Morphine Sulfate (Morphine 4mg Syringe) 4 mg 1X ONCE IV 09/26/20 19:45 09/26/20 19:46 DC 09/26/20 19:44 Diphenhydramine HCl (Benadryl) 25 mg 1X ONCE IVP 09/26/20 19:45 09/26/20 19:46 DC 09/26/20 19:47 Diphenhydramine HCl (Benadryl) 50 mg STK-MED ONCE .ROUTE 09/26/20 19:41 09/26/20 19:42 DC Fentanyl Citrate (Fentanyl 2ml Vial) 75 mcg 1X ONCE IVP 09/27/20 00:15 09/27/20 00:21 DC 09/27/20 00:17 Diphenhydramine HCl (Benadryl) 50 mg 1X ONCE IVP 09/27/20 01:00 09/27/20 01:01 DC 09/27/20 00:40 Acetaminophen (Tylenol) 650 mg PRN Q6HRS PRN PO MILD PAIN / TEMP > 100.3'F 09/27/20 01:30 09/28/20 07:34 DC Al Hydroxide/Mg Hydroxide (Mylanta Plus Xs) 15 ml PRN AFTMEALHC PRN PO 2ND CHOICE DYSPEPSIA 09/27/20 01:30 Magnesium Hydroxide (Milk Of Magnesia) 2,400 mg PRN QHS PRN PO 1st choice CONSTIPATION 09/27/20 01:30 Acetaminophen (Tylenol) 500 mg PRN Q8HRS PRN PO mild PAIN 09/27/20 01:45 09/27/20 02:57 Calcium Carbonate/ Glycine (Tums) 500 mg PRN Q3HRS PRN PO 1ST CHOICE DYSPEPSIA 09/27/20 02:30 Glucose (Insta-Glucose) 15 gm PRN Q1HR PRN PO LOW BLOOD SUGAR, 1ST CHOICE 09/27/20 01:45 Docusate Sodium (Colace) 100 mg DAILY PO 09/27/20 09:00 10/06/20 08:29 Gabapentin (Neurontin) 100 mg BIDWBKFT/CHERYL PO 09/27/20 08:00 10/06/20 12:08 Gabapentin (Neurontin) 300 mg HS PO 09/27/20 21:00 10/06/20 20:50 Levothyroxine Sodium (Synthroid) 100 mcg DAILY06 PO 09/27/20 06:00 09/28/20 03:07 DC 09/27/20 05:52 Lidocaine (Lidoderm) 1 patch DAILY TP 09/27/20 09:00 10/06/20 08:28 Loperamide HCl (Imodium) 2 mg PRN Q6HRS PRN PO DIARRHEA 09/27/20 01:45 Magnesium Oxide (Magnesium Oxide) 400 mg DAILY PO 09/27/20 09:00 10/06/20 08:34 Metformin HCl (Glucophage) 500 mg DAILY PO 09/27/20 09:00 10/06/20 08:30 Metolazone (Zaroxolyn) 2.5 mg QMWF PO 09/27/20 16:00 10/04/20 17:00 Oxycodone HCl (Roxicodone) 5 mg TID PO 09/27/20 09:00 09/27/20 03:06 DC Oxycodone/ Acetaminophen (Percocet 5/325) 1 tab PRN Q6HRS PRN PO MOD-SEV PAIN 09/27/20 01:45 10/06/20 12:08 Polyethylene Glycol (miraLAX) 17 gm DAILY PO 09/27/20 09:00 10/06/20 08:29 Potassium Chloride (Klor-Con) 40 meq BID PO 09/27/20 09:00 09/27/20 03:06 DC Propranolol HCl (Inderal) 20 mg BID92 PO 09/27/20 09:00 10/06/20 13:47 Sennosides (Senna) 17.2 mg PRN Q12HR PRN PO 2nd choice CONSTIPATION 09/27/20 01:45 Sennosides (Senna) 8.6 mg HS PO 09/27/20 21:00 10/06/20 20:50 Spironolactone (Aldactone) 25 mg BID PO 09/27/20 09:00 10/06/20 20:49 Topiramate (Topamax) 100 mg BID PO 09/27/20 09:00 10/06/20 20:49 Vitamin D (Vitamin D3) 1,000 unit DAILY PO 09/27/20 09:00 10/06/20 08:30 Fluticasone Propionate (Flonase) 2 spray HS NS 09/27/20 21:00 10/06/20 20:48 Glucagon (Glucagen Kit) 1 mg 1X PRN PRN IM LOW BLOOD SUGAR, 2ND CHOICE 09/27/20 02:45 Non-Formulary Medication (Mag Hydrox/Al Hydrox/Simeth (Alum-Mag Hydroxide-Simeth Liq)) 30 ml Q4HRS PRN PO INDIGESTION 09/27/20 01:45 09/27/20 02:34 DC Multivitamins/ Calcium (Thera-M Plus) 1 tab DAILY PO 09/27/20 09:00 10/06/20 08:30 Multi-Ingredient Ointment (Analgesic [place]) 1 mello PRN Q4HRS PRN TP MUSCLE PAIN 09/27/20 02:45 Hydroxyzine Pamoate (Vistaril) 25 mg PRN Q6HRS PRN PO ITCHING 09/27/20 02:15 Ropinirole HCl (Requip) 1 mg HS PO 09/27/20 21:00 10/06/20 20:49 Ziprasidone (Geodon) 60 mg BID PO 09/27/20 09:00 10/01/20 16:52 DC 10/01/20 08:17 Alprazolam (Xanax) 0.5 mg TID PO 09/27/20 09:00 09/27/20 03:06 DC Paroxetine HCl (Paxil) 50 mg DAILY PO 09/27/20 09:00 09/30/20 13:56 DC 09/30/20 08:24 Miscellaneous (Lidoderm Patch Removal) 1 ea QHS MC 09/27/20 21:00 10/06/20 20:50 Alprazolam (Xanax) 0.5 mg TID PO 09/27/20 03:15 10/06/20 20:50 Oxycodone HCl (Roxicodone) 5 mg TID PO 09/27/20 03:15 10/06/20 20:49 Potassium Chloride (Klor-Con) 40 meq BID PO 09/27/20 03:15 10/06/20 20:50 Levothyroxine Sodium (Synthroid) 100 mcg DAILY06 PO 09/28/20 06:00 10/07/20 05:35 Duloxetine HCl (Cymbalta) 30 mg DAILY PO 10/01/20 09:00 10/02/20 21:01 DC 10/02/20 08:42 Duloxetine HCl (Cymbalta) 60 mg DAILY PO 10/03/20 09:00 5/30/21 08:30 Nystatin (Nystop) 1 mello BID TP 09/30/20 21:00 10/06/20 20:47 Ziprasidone (Geodon) 80 mg BID PO 10/02/20 09:00 10/06/20 20:50 Ziprasidone (Geodon) 60 mg BID PO 10/01/20 21:00 10/01/20 21:01 DC 10/01/20 20:24 Cyproheptadine HCl (Periactin) 2 mg HS PO 10/02/20 21:00 10/06/20 20:49 Bupropion HCl (Wellbutrin Xl) 150 mg DAILY PO 10/06/20 09:00 10/06/20 08:29 Current Medications Medications (Trade) Dose Ordered Sig/Mathieu Route PRN Reason Start Time Stop Time Status Last Admin Dose Admin Bupropion HCl (Wellbutrin Xl) 150 mg DAILY PO 10/06/20 09:00 10/06/20 08:29 I have reviewed the current psychotropics carefully including drug interactions. Risk benefit ratio favors no change other than as noted in my dictated progress note. Diagnosis: Problems: (1) Mild cognitive impairment (2) Bipolar disorder, curr episode mixed, severe, with psychotic features (3) Anxiety disorder, unspecified PAMELA RAMOS MD October 07, 2020 07:15
[2020-10-07] MEDS: oxyCODONE IR 5 MG TABLET PO SCH ×3 (08:04→20:00)
[2020-10-07] MEDS: buPROPion XL 150 MG TAB.ER.24H PO SCH (08:04)
[2020-10-07] MEDS: ALPRAZolam 0.5 MG TABLET PO SCH ×3 (08:05→20:00)
[2020-10-07] MEDS: LIDOCAINE (700MG/PATCH) PATCH. TP SCH (08:05)
[2020-10-07] MEDS: NYSTATIN TOPICAL POWDER 15GM BOTTLE. TP SCH ×2 (08:05→20:01)
[2020-10-07] MEDS: TOPIRAMATE 100 MG TABLET. PO SCH ×2 (08:06→19:59)
[2020-10-07] MEDS: DOCUSATE SODIUM 100 MG CAPSULE PO SCH (08:06)
[2020-10-07] MEDS: CHOLECALCIFEROL (VITAMIN D3) 1,000 UNIT TABLET PO SCH (08:06)
[2020-10-07] MEDS: DULoxetine HCL 60 MG CAPSULE.DR PO SCH (08:06)
[2020-10-07] MEDS: SPIRONOLACTONE 25 MG TABLET PO SCH ×2 (08:06→20:00)
[2020-10-07] MEDS: POTASSIUM CHLORIDE 20 MEQ TABLET.ER. PO SCH ×2 (08:06→20:00)
[2020-10-07] MEDS: PROPRANOLOL 10 MG TABLET. PO SCH ×2 (08:07→14:38)
[2020-10-07] MEDS: GABAPENTIN 100 MG CAPSULE. PO SCH ×2 (08:07→14:37)
[2020-10-07] MEDS: metFORMIN 500 MG TABLET PO SCH (08:07)
[2020-10-07] MEDS: ZIPRASIDONE 80 MG CAPSULE. PO SCH ×2 (08:07→20:00)
[2020-10-07] MEDS: POLYETHYLENE GLYCOL 3350 17 GM PACKET. PO SCH (08:08)
[2020-10-07] MEDS: MAGNESIUM OXIDE 400 MG TABLET PO SCH (08:08)
[2020-10-07] MEDS: MULTIVITAMIN with MINERAL TABLET. PO SCH (08:08)
[2020-10-07 16:08] VITALS: BP 110/62
[2020-10-07] MEDS: metOLazone 2.5 MG TABLET PO SCH (17:15)
--- NOTE | 2020-10-07 17:46 | NUR ---
NSG NOTE; SHIFT SUMMARY Varsha has been more compliant today, taking all her meds without resistance. She states her pain level is 10/10, even one hour after a pain med. According to the PAINAD pain scale, her pain level is lower. She has stayed in the dayroom between meals, sitting in a wheelchair. After cutting her wrist with a plastic knife on 10/05/20, she remains a one-on-one sitter to maintain her safety.
[2020-10-07] MEDS: SENNOSIDES 8.6 MG TABLET PO SCH (20:00)
[2020-10-07] MEDS: GABAPENTIN 300 MG CAPSULE. PO SCH (20:00)
[2020-10-07] MEDS: CYPROHEPTADINE 4 MG TABLET. PO SCH (20:01)
[2020-10-07] MEDS: rOPINIRole 1 MG TABLET. PO SCH (20:01)
[2020-10-07] MEDS: PATCH REMOVAL. MC SCH (20:41)
[2020-10-07] MEDS: FLUTICASONE 50MCG/NASAL SPRAY 16GM BOTTLE. NS SCH (20:41)
--- NOTE | 2020-10-07 22:16 | PDOC ---
Exam Note: [place] Note: Please also refer to the separate dictated note~for this date of service dictated separately.~Patient seen individually. Discussed the patient with Nursing staff reviewed the chart.~Reviewed interim history and current functioning. Reviewed vital signs,~Labs/ Radiology~and current medications noted below. Continue current treatment with the changes noted in the dictated addendum note Assessment: Vital Signs/I&O: Vital Signs Date Time Temp Pulse Resp B/P (MAP) Pulse Ox O2 Delivery O2 Flow Rate FiO2 10/07/20 20:30 98 10/07/20 16:08 97.2 74 22 110/62 (78) 10/06/20 21:30 Room Air I & O 10/06/20 10/06/20 10/07/20 15:00 23:00 07:00 Intake Total 480 ml 480 ml Balance 480 ml 480 ml Labs: Laboratory Tests Test 10/07/20 08:00 Glucose (Fingerstick) 112 mg/dL (70-99) H Current Medications: Meds: Laboratory Tests Test 10/07/20 08:00 Glucose (Fingerstick) 112 mg/dL Current Medications Medications (Trade) Dose Ordered Sig/Mathieu Route PRN Reason Start Time Stop Time Status Last Admin Dose Admin Oxycodone/ Acetaminophen (Percocet 5/325) 1 tab 1X ONCE PO 09/26/20 15:00 09/26/20 15:01 DC 09/26/20 15:25 Morphine Sulfate (Morphine 4mg Syringe) 4 mg 1X ONCE IV 09/26/20 19:45 09/26/20 19:46 DC 09/26/20 19:44 Diphenhydramine HCl (Benadryl) 25 mg 1X ONCE IVP 09/26/20 19:45 09/26/20 19:46 DC 09/26/20 19:47 Diphenhydramine HCl (Benadryl) 50 mg STK-MED ONCE .ROUTE 09/26/20 19:41 09/26/20 19:42 DC Fentanyl Citrate (Fentanyl 2ml Vial) 75 mcg 1X ONCE IVP 09/27/20 00:15 09/27/20 00:21 DC 09/27/20 00:17 Diphenhydramine HCl (Benadryl) 50 mg 1X ONCE IVP 09/27/20 01:00 09/27/20 01:01 DC 09/27/20 00:40 Acetaminophen (Tylenol) 650 mg PRN Q6HRS PRN PO MILD PAIN / TEMP > 100.3'F 09/27/20 01:30 09/28/20 07:34 DC Al Hydroxide/Mg Hydroxide (Mylanta Plus Xs) 15 ml PRN AFTMEALHC PRN PO 2ND CHOICE DYSPEPSIA 09/27/20 01:30 Magnesium Hydroxide (Milk Of Magnesia) 2,400 mg PRN QHS PRN PO 1st choice CONSTIPATION 09/27/20 01:30 Acetaminophen (Tylenol) 500 mg PRN Q8HRS PRN PO mild PAIN 09/27/20 01:45 09/27/20 02:57 Calcium Carbonate/ Glycine (Tums) 500 mg PRN Q3HRS PRN PO 1ST CHOICE DYSPEPSIA 09/27/20 02:30 Glucose (Insta-Glucose) 15 gm PRN Q1HR PRN PO LOW BLOOD SUGAR, 1ST CHOICE 09/27/20 01:45 Docusate Sodium (Colace) 100 mg DAILY PO 09/27/20 09:00 10/07/20 08:06 Gabapentin (Neurontin) 100 mg BIDWBKFT/CHERYL PO 09/27/20 08:00 10/07/20 14:37 Gabapentin (Neurontin) 300 mg HS PO 09/27/20 21:00 10/07/20 20:00 Levothyroxine Sodium (Synthroid) 100 mcg DAILY06 PO 09/27/20 06:00 09/28/20 03:07 DC 09/27/20 05:52 Lidocaine (Lidoderm) 1 patch DAILY TP 09/27/20 09:00 10/07/20 08:05 Loperamide HCl (Imodium) 2 mg PRN Q6HRS PRN PO DIARRHEA 09/27/20 01:45 Magnesium Oxide (Magnesium Oxide) 400 mg DAILY PO 09/27/20 09:00 10/07/20 08:08 Metformin HCl (Glucophage) 500 mg DAILY PO 09/27/20 09:00 10/07/20 08:07 Metolazone (Zaroxolyn) 2.5 mg QMWF PO 09/27/20 16:00 10/07/20 17:15 Oxycodone HCl (Roxicodone) 5 mg TID PO 09/27/20 09:00 09/27/20 03:06 DC Oxycodone/ Acetaminophen (Percocet 5/325) 1 tab PRN Q6HRS PRN PO MOD-SEV PAIN 09/27/20 01:45 10/06/20 12:08 Polyethylene Glycol (miraLAX) 17 gm DAILY PO 09/27/20 09:00 10/07/20 08:08 Potassium Chloride (Klor-Con) 40 meq BID PO 09/27/20 09:00 09/27/20 03:06 DC Propranolol HCl (Inderal) 20 mg BID92 PO 09/27/20 09:00 10/07/20 14:38 Sennosides (Senna) 17.2 mg PRN Q12HR PRN PO 2nd choice CONSTIPATION 09/27/20 01:45 Sennosides (Senna) 8.6 mg HS PO 09/27/20 21:00 10/07/20 20:00 Spironolactone (Aldactone) 25 mg BID PO 09/27/20 09:00 10/07/20 20:00 Topiramate (Topamax) 100 mg BID PO 09/27/20 09:00 10/07/20 19:59 Vitamin D (Vitamin D3) 1,000 unit DAILY PO 09/27/20 09:00 10/07/20 08:06 Fluticasone Propionate (Flonase) 2 spray HS NS 09/27/20 21:00 10/06/20 20:48 Glucagon (Glucagen Kit) 1 mg 1X PRN PRN IM LOW BLOOD SUGAR, 2ND CHOICE 09/27/20 02:45 Non-Formulary Medication (Mag Hydrox/Al Hydrox/Simeth (Alum-Mag Hydroxide-Simeth Liq)) 30 ml Q4HRS PRN PO INDIGESTION 09/27/20 01:45 09/27/20 02:34 DC Multivitamins/ Calcium (Thera-M Plus) 1 tab DAILY PO 09/27/20 09:00 10/07/20 08:08 Multi-Ingredient Ointment (Analgesic [place]) 1 mello PRN Q4HRS PRN TP MUSCLE PAIN 09/27/20 02:45 Hydroxyzine Pamoate (Vistaril) 25 mg PRN Q6HRS PRN PO ITCHING 09/27/20 02:15 Ropinirole HCl (Requip) 1 mg HS PO 09/27/20 21:00 10/07/20 20:01 Ziprasidone (Geodon) 60 mg BID PO 09/27/20 09:00 10/01/20 16:52 DC 10/01/20 08:17 Alprazolam (Xanax) 0.5 mg TID PO 09/27/20 09:00 09/27/20 03:06 DC Paroxetine HCl (Paxil) 50 mg DAILY PO 09/27/20 09:00 09/30/20 13:56 DC 09/30/20 08:24 Miscellaneous (Lidoderm Patch Removal) 1 ea QHS 09/27/20 21:00 10/07/20 20:41 Alprazolam (Xanax) 0.5 mg TID PO 09/27/20 03:15 10/07/20 20:00 Oxycodone HCl (Roxicodone) 5 mg TID PO 09/27/20 03:15 10/07/20 20:00 Potassium Chloride (Klor-Con) 40 meq BID PO 09/27/20 03:15 10/07/20 20:00 Levothyroxine Sodium (Synthroid) 100 mcg DAILY06 PO 09/28/20 06:00 10/07/20 05:35 Duloxetine HCl (Cymbalta) 30 mg DAILY PO 10/01/20 09:00 10/02/20 21:01 DC 10/02/20 08:42 Duloxetine HCl (Cymbalta) 60 mg DAILY PO 10/03/20 09:00 10/07/20 08:06 Nystatin (Nystop) 1 mello BID TP 09/30/20 21:00 10/07/20 20:01 Ziprasidone (Geodon) 80 mg BID PO 10/02/20 09:00 10/07/20 20:00 Ziprasidone (Geodon) 60 mg BID PO 10/01/20 21:00 10/01/20 21:01 DC 10/01/20 20:24 Cyproheptadine HCl (Periactin) 2 mg HS PO 10/02/20 21:00 10/07/20 20:01 Bupropion HCl (Wellbutrin Xl) 150 mg DAILY PO 10/06/20 09:00 10/07/20 08:04 I have reviewed the current psychotropics carefully including drug interactions. Risk benefit ratio favors no change other than as noted in my dictated progress note. Diagnosis: Problems: (1) Anxiety disorder, unspecified (2) Bipolar disorder, curr episode mixed, severe, with psychotic features (3) Mild cognitive impairment PAMELA RAMOS MD October 07, 2020 22:16
--- NOTE | 2020-10-07 23:46 | NUR ---
Pt sitting in day room when approached. Pt calm with a flat, depressed affect. Pt denies SI when asked. Pt cooperative with assessment and compliant with medications administered whole.
[2020-10-08] MEDS: LEVOTHYROXINE 100 MCG TABLET PO SCH (05:16)
[2020-10-08] MEDS: oxyCODONE/APAP 5/325 1 TAB TABLET PO PRN (05:17)
--- NOTE | 2020-10-08 06:31 | NUR ---
Pt sitting up in day room at the table. Pt remains 1:1 for safety. Pt has been re-directed several times after staff observed her to push herself away from the table and at one point slid herself down in her chair and onto the floor. Staff unable to prevent her from putting herself on the floor. Pt refused to answer when asked why she slid down to the floor. Pt assisted back into her hair using the Cash lift. 1:1 staff remains at her side and personal alarm placed on chair and staff re-educated. Pt has attempted to push herself away from the table several times but staff has been able to stop her.
[2020-10-08 07:00] VITALS: BP 107/71
[2020-10-08] MEDS: DOCUSATE SODIUM 100 MG CAPSULE PO SCH (08:37)
[2020-10-08] MEDS: GABAPENTIN 100 MG CAPSULE. PO SCH ×2 (08:38→13:52)
[2020-10-08] MEDS: POTASSIUM CHLORIDE 20 MEQ TABLET.ER. PO SCH ×2 (08:38→21:06)
[2020-10-08] MEDS: oxyCODONE IR 5 MG TABLET PO SCH ×3 (08:38→21:06)
[2020-10-08] MEDS: ALPRAZolam 0.5 MG TABLET PO SCH ×3 (08:38→21:05)
[2020-10-08] MEDS: PROPRANOLOL 10 MG TABLET. PO SCH ×2 (08:39→13:50)
[2020-10-08] MEDS: MULTIVITAMIN with MINERAL TABLET. PO SCH (08:39)
[2020-10-08] MEDS: TOPIRAMATE 100 MG TABLET. PO SCH ×2 (08:39→21:05)
[2020-10-08] MEDS: DULoxetine HCL 60 MG CAPSULE.DR PO SCH (08:39)
[2020-10-08] MEDS: SPIRONOLACTONE 25 MG TABLET PO SCH ×2 (08:39→21:05)
[2020-10-08] MEDS: CHOLECALCIFEROL (VITAMIN D3) 1,000 UNIT TABLET PO SCH (08:39)
[2020-10-08] MEDS: buPROPion XL 150 MG TAB.ER.24H PO SCH (08:39)
[2020-10-08] MEDS: POLYETHYLENE GLYCOL 3350 17 GM PACKET. PO SCH (08:40)
[2020-10-08] MEDS: metFORMIN 500 MG TABLET PO SCH (08:40)
[2020-10-08] MEDS: ZIPRASIDONE 80 MG CAPSULE. PO SCH ×2 (08:40→21:04)
[2020-10-08] MEDS: NYSTATIN TOPICAL POWDER 15GM BOTTLE. TP SCH ×2 (08:41→21:06)
[2020-10-08] MEDS: LIDOCAINE (700MG/PATCH) PATCH. TP SCH (08:41)
[2020-10-08] MEDS: MAGNESIUM OXIDE 400 MG TABLET PO SCH (08:41)
--- NOTE | 2020-10-08 13:11 | NUR ---
WEEKLY ACTIVITY THERAPY NOTE Date of Admission:09/27/20 Date of AT Assessment: 09/27 Precipitating behaviors that initiated intake and admission:Pt was yelling at staff cussing and throwing things. Goal aimed:increase time management and relaxation skills Initial Goal:Pt will participate in at least three individual or group Activity Therapy sessions before discharge. Weekly progress towards goal: on track (09/30-flexibility and music) Group participation level: 1 min Weekly highlights: participated in one exercise Wednesday Behaviors observed: limited interest in groups, does not speak to respond but just shakes her head Plan: no change to goal Beneficial adaptations:
[2020-10-08 15:57] VITALS: BP 83/54
--- NOTE | 2020-10-08 17:59 | NUR ---
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 she required a jonathan lift to get her back in to her w/c upon which she retreated in to her room. she refused breakfast but took all her meds today without difficulty. she did not say a single word to me today, just glaring at me when i asked her questions. she states her pain is always 10/10 by showing all ten fingers, even after pain medications.
[2020-10-08] MEDS: PATCH REMOVAL. MC SCH (21:00)
[2020-10-08] MEDS: FLUTICASONE 50MCG/NASAL SPRAY 16GM BOTTLE. NS SCH (21:00)
[2020-10-08] MEDS: SENNOSIDES 8.6 MG TABLET PO SCH (21:04)
[2020-10-08] MEDS: rOPINIRole 1 MG TABLET. PO SCH (21:05)
[2020-10-08] MEDS: CYPROHEPTADINE 4 MG TABLET. PO SCH (21:05)
[2020-10-08] MEDS: GABAPENTIN 300 MG CAPSULE. PO SCH (21:05)
[2020-10-08] MEDS: lamoTRIgine 25 MG TABLET. PO SCH (21:05)
--- NOTE | 2020-10-08 21:57 | PDOC ---
Exam Note: [place] Note: Please also refer to the separate dictated note~for this date of service dictated separately.~Patient seen individually. Discussed the patient with Nursing staff reviewed the chart.~Reviewed interim history and current functioning. Reviewed vital signs,~Labs/ Radiology~and current medications noted below. Continue current treatment with the changes noted in the dictated addendum note Assessment: Vital Signs/I&O: Vital Signs Date Time Temp Pulse Resp B/P (MAP) Pulse Ox O2 Delivery O2 Flow Rate FiO2 10/08/20 21:06 95 10/08/20 15:57 97.1 78 20 83/54 (64) 10/06/20 21:30 Room Air I & O 10/07/20 10/07/20 10/08/20 15:00 23:00 07:00 Intake Total 480 ml 360 ml Balance 480 ml 360 ml Labs: Laboratory Tests Test 10/08/20 07:25 Glucose (Fingerstick) 102 mg/dL (70-99) H Current Medications: Meds: Laboratory Tests Test 10/08/20 07:25 Glucose (Fingerstick) 102 mg/dL Current Medications Medications (Trade) Dose Ordered Sig/Mathieu Route PRN Reason Start Time Stop Time Status Last Admin Dose Admin Oxycodone/ Acetaminophen (Percocet 5/325) 1 tab 1X ONCE PO 09/26/20 15:00 09/26/20 15:01 DC 09/26/20 15:25 Morphine Sulfate (Morphine 4mg Syringe) 4 mg 1X ONCE IV 09/26/20 19:45 09/26/20 19:46 DC 09/26/20 19:44 Diphenhydramine HCl (Benadryl) 25 mg 1X ONCE IVP 09/26/20 19:45 09/26/20 19:46 DC 09/26/20 19:47 Diphenhydramine HCl (Benadryl) 50 mg STK-MED ONCE .ROUTE 09/26/20 19:41 09/26/20 19:42 DC Fentanyl Citrate (Fentanyl 2ml Vial) 75 mcg 1X ONCE IVP 09/27/20 00:15 09/27/20 00:21 DC 09/27/20 00:17 Diphenhydramine HCl (Benadryl) 50 mg 1X ONCE IVP 09/27/20 01:00 09/27/20 01:01 DC 09/27/20 00:40 Acetaminophen (Tylenol) 650 mg PRN Q6HRS PRN PO MILD PAIN / TEMP > 100.3'F 09/27/20 01:30 09/28/20 07:34 DC Al Hydroxide/Mg Hydroxide (Mylanta Plus Xs) 15 ml PRN AFTMEALHC PRN PO 2ND CHOICE DYSPEPSIA 09/27/20 01:30 Magnesium Hydroxide (Milk Of Magnesia) 2,400 mg PRN QHS PRN PO 1st choice CONSTIPATION 09/27/20 01:30 Acetaminophen (Tylenol) 500 mg PRN Q8HRS PRN PO mild PAIN 09/27/20 01:45 09/27/20 02:57 Calcium Carbonate/ Glycine (Tums) 500 mg PRN Q3HRS PRN PO 1ST CHOICE DYSPEPSIA 09/27/20 02:30 Glucose (Insta-Glucose) 15 gm PRN Q1HR PRN PO LOW BLOOD SUGAR, 1ST CHOICE 09/27/20 01:45 Docusate Sodium (Colace) 100 mg DAILY PO 09/27/20 09:00 10/08/20 08:37 Gabapentin (Neurontin) 100 mg BIDWBKFT/CHERYL PO 09/27/20 08:00 10/08/20 13:52 Gabapentin (Neurontin) 300 mg HS PO 09/27/20 21:00 10/08/20 21:05 Levothyroxine Sodium (Synthroid) 100 mcg DAILY06 PO 09/27/20 06:00 09/28/20 03:07 DC 09/27/20 05:52 Lidocaine (Lidoderm) 1 patch DAILY TP 09/27/20 09:00 10/08/20 08:41 Loperamide HCl (Imodium) 2 mg PRN Q6HRS PRN PO DIARRHEA 09/27/20 01:45 Magnesium Oxide (Magnesium Oxide) 400 mg DAILY PO 09/27/20 09:00 10/08/20 08:41 Metformin HCl (Glucophage) 500 mg DAILY PO 09/27/20 09:00 10/08/20 08:40 Metolazone (Zaroxolyn) 2.5 mg QMWF PO 09/27/20 16:00 10/07/20 17:15 Oxycodone HCl (Roxicodone) 5 mg TID PO 09/27/20 09:00 09/27/20 03:06 DC Oxycodone/ Acetaminophen (Percocet 5/325) 1 tab PRN Q6HRS PRN PO MOD-SEV PAIN 09/27/20 01:45 10/08/20 05:17 Polyethylene Glycol (miraLAX) 17 gm DAILY PO 09/27/20 09:00 10/08/20 08:40 Potassium Chloride (Klor-Con) 40 meq BID PO 09/27/20 09:00 09/27/20 03:06 DC Propranolol HCl (Inderal) 20 mg BID92 PO 09/27/20 09:00 10/08/20 08:39 Sennosides (Senna) 17.2 mg PRN Q12HR PRN PO 2nd choice CONSTIPATION 09/27/20 01:45 Sennosides (Senna) 8.6 mg HS PO 09/27/20 21:00 10/08/20 21:04 Spironolactone (Aldactone) 25 mg BID PO 09/27/20 09:00 10/08/20 21:05 Topiramate (Topamax) 100 mg BID PO 09/27/20 09:00 10/08/20 21:05 Vitamin D (Vitamin D3) 1,000 unit DAILY PO 09/27/20 09:00 10/08/20 08:39 Fluticasone Propionate (Flonase) 2 spray HS NS 09/27/20 21:00 10/06/20 20:48 Glucagon (Glucagen Kit) 1 mg 1X PRN PRN IM LOW BLOOD SUGAR, 2ND CHOICE 09/27/20 02:45 Non-Formulary Medication (Mag Hydrox/Al Hydrox/Simeth (Alum-Mag Hydroxide-Simeth Liq)) 30 ml Q4HRS PRN PO INDIGESTION 09/27/20 01:45 09/27/20 02:34 DC Multivitamins/ Calcium (Thera-M Plus) 1 tab DAILY PO 09/27/20 09:00 10/08/20 08:39 Multi-Ingredient Ointment (Analgesic [place]) 1 mello PRN Q4HRS PRN TP MUSCLE PAIN 09/27/20 02:45 Hydroxyzine Pamoate (Vistaril) 25 mg PRN Q6HRS PRN PO ITCHING 09/27/20 02:15 Ropinirole HCl (Requip) 1 mg HS PO 09/27/20 21:00 10/08/20 21:05 Ziprasidone (Geodon) 60 mg BID PO 09/27/20 09:00 10/01/20 16:52 DC 10/01/20 08:17 Alprazolam (Xanax) 0.5 mg TID PO 09/27/20 09:00 09/27/20 03:06 DC Paroxetine HCl (Paxil) 50 mg DAILY PO 09/27/20 09:00 09/30/20 13:56 DC 09/30/20 08:24 Miscellaneous (Lidoderm Patch Removal) 1 ea QHS 09/27/20 21:00 10/08/20 21:00 Alprazolam (Xanax) 0.5 mg TID PO 09/27/20 03:15 10/08/20 21:05 Oxycodone HCl (Roxicodone) 5 mg TID PO 09/27/20 03:15 10/08/20 21:06 Potassium Chloride (Klor-Con) 40 meq BID PO 09/27/20 03:15 10/08/20 21:06 Levothyroxine Sodium (Synthroid) 100 mcg DAILY06 PO 09/28/20 06:00 10/08/20 05:16 Duloxetine HCl (Cymbalta) 30 mg DAILY PO 10/01/20 09:00 10/02/20 21:01 DC 10/02/20 08:42 Duloxetine HCl (Cymbalta) 60 mg DAILY PO 10/03/20 09:00 10/08/20 08:39 Nystatin (Nystop) 1 mello BID TP 09/30/20 21:00 10/08/20 21:06 Ziprasidone (Geodon) 80 mg BID PO 10/02/20 09:00 10/08/20 21:04 Ziprasidone (Geodon) 60 mg BID PO 10/01/20 21:00 10/01/20 21:01 DC 10/01/20 20:24 Cyproheptadine HCl (Periactin) 2 mg HS PO 10/02/20 21:00 10/08/20 21:05 Bupropion HCl (Wellbutrin Xl) 150 mg DAILY PO 10/06/20 09:00 10/08/20 08:39 Lamotrigine (LaMICtal) 25 mg HS PO 10/08/20 21:00 10/10/20 22:00 10/08/20 21:05 Lamotrigine (LaMICtal) 50 mg HS PO 10/11/20 21:00 10/13/20 22:00 Lamotrigine (LaMICtal) 75 mg HS PO 10/14/20 21:00 Current Medications Medications (Trade) Dose Ordered Sig/Mathieu Route PRN Reason Start Time Stop Time Status Last Admin Dose Admin Lamotrigine (LaMICtal) 25 mg HS PO 10/08/20 21:00 10/10/20 22:00 10/08/20 21:05 I have reviewed the current psychotropics carefully including drug interactions. Risk benefit ratio favors no change other than as noted in my dictated progress note. Diagnosis: Problems: (1) Mild cognitive impairment (2) Bipolar disorder, curr episode mixed, severe, with psychotic features (3) Anxiety disorder, unspecified PAMELA RAMOS MD Oct 08, 2020 21:57
--- NOTE | 2020-10-09 00:47 | NUR ---
Pt withdrawn to room, lying in bed awake when approached. Pt with a flat, depressed affect, withdrawn to herself. Pt cooperative with assessment and compliant with medications administered whole. Pt remains 1:1 for safety.
[2020-10-09] MEDS: LEVOTHYROXINE 100 MCG TABLET PO SCH (05:37)
[2020-10-09] MEDS: oxyCODONE/APAP 5/325 1 TAB TABLET PO PRN ×2 (05:37→22:06)
[2020-10-09 06:14] VITALS: BP 102/68
--- NOTE | 2020-10-09 06:56 | PDOC ---
Exam Note: [place] Note: This note is a late entry for 10/07/2020 covers elements not covered in my initial note. Subjective: The patient was seen individually in the evening of 10/07/2020 with Gulshan ROYAL, discussed and reviewed the chart. The patient slept 7 hours previous night. As I met with her she was staring and glaring, did come out of the dayroom. Appetite is fair, somewhat sedated. No more threats to hurt herself. She remains on one-on-one status. Review of Systems: Ambulation impaired in wheelchair. Positive for vague pain, which is fairly persistent, chronic on a scale of 9 from 0 to 10. No CV, , pulmonary, eye, ENT system symptoms on review. Mental Status Exam: The patient is oriented to herself and situation. Speech has some latency. Often response is monosyllabic. Abstraction is fair. Computation impaired. Attention span short. Mood and affect depressed. No active suicidal or homicidal ideation. Laboratory Data: Reviewed. Impression: Bipolar disorder mixed with psychotic features. Anxiety disorder unspecified. Mild cognitive impairment. Plan: No change from initial note. Assessment: Vital Signs/I&O: Vital Signs Date Time Temp Pulse Resp B/P (MAP) Pulse Ox O2 Delivery O2 Flow Rate FiO2 10/09/20 06:14 97.9 81 20 102/68 (79) 96 Room Air I & O 10/08/20 10/08/20 10/09/20 15:00 23:00 07:00 Intake Total 360 ml 360 ml 120 ml Balance 360 ml 360 ml 120 ml Labs: Laboratory Tests Test 10/08/20 07:25 Glucose (Fingerstick) 102 mg/dL (70-99) H Current Medications: Meds: Laboratory Tests Test 10/08/20 07:25 Glucose (Fingerstick) 102 mg/dL Current Medications Medications (Trade) Dose Ordered Sig/Mathieu Route PRN Reason Start Time Stop Time Status Last Admin Dose Admin Oxycodone/ Acetaminophen (Percocet 5/325) 1 tab 1X ONCE PO 09/26/20 15:00 09/26/20 15:01 DC 09/26/20 15:25 Morphine Sulfate (Morphine 4mg Syringe) 4 mg 1X ONCE IV 09/26/20 19:45 09/26/20 19:46 DC 09/26/20 19:44 Diphenhydramine HCl (Benadryl) 25 mg 1X ONCE IVP 09/26/20 19:45 09/26/20 19:46 DC 09/26/20 19:47 Diphenhydramine HCl (Benadryl) 50 mg STK-MED ONCE .ROUTE 09/26/20 19:41 09/26/20 19:42 DC Fentanyl Citrate (Fentanyl 2ml Vial) 75 mcg 1X ONCE IVP 09/27/20 00:15 09/27/20 00:21 DC 09/27/20 00:17 Diphenhydramine HCl (Benadryl) 50 mg 1X ONCE IVP 09/27/20 01:00 09/27/20 01:01 DC 09/27/20 00:40 Acetaminophen (Tylenol) 650 mg PRN Q6HRS PRN PO MILD PAIN / TEMP > 100.3'F 09/27/20 01:30 09/28/20 07:34 DC Al Hydroxide/Mg Hydroxide (Mylanta Plus Xs) 15 ml PRN AFTMEALHC PRN PO 2ND CHOICE DYSPEPSIA 09/27/20 01:30 Magnesium Hydroxide (Milk Of Magnesia) 2,400 mg PRN QHS PRN PO 1st choice CONSTIPATION 09/27/20 01:30 Acetaminophen (Tylenol) 500 mg PRN Q8HRS PRN PO mild PAIN 09/27/20 01:45 09/27/20 02:57 Calcium Carbonate/ Glycine (Tums) 500 mg PRN Q3HRS PRN PO 1ST CHOICE DYSPEPSIA 09/27/20 02:30 Glucose (Insta-Glucose) 15 gm PRN Q1HR PRN PO LOW BLOOD SUGAR, 1ST CHOICE 09/27/20 01:45 Docusate Sodium (Colace) 100 mg DAILY PO 09/27/20 09:00 10/08/20 08:37 Gabapentin (Neurontin) 100 mg BIDWBKFT/CHERYL PO 09/27/20 08:00 10/08/20 13:52 Gabapentin (Neurontin) 300 mg HS PO 09/27/20 21:00 10/08/20 21:05 Levothyroxine Sodium (Synthroid) 100 mcg DAILY06 PO 09/27/20 06:00 09/28/20 03:07 DC 09/27/20 05:52 Lidocaine (Lidoderm) 1 patch DAILY TP 09/27/20 09:00 6/1/21 08:41 Loperamide HCl (Imodium) 2 mg PRN Q6HRS PRN PO DIARRHEA 09/27/20 01:45 Magnesium Oxide (Magnesium Oxide) 400 mg DAILY PO 09/27/20 09:00 10/08/20 08:41 Metformin HCl (Glucophage) 500 mg DAILY PO 09/27/20 09:00 10/08/20 08:40 Metolazone (Zaroxolyn) 2.5 mg QMWF PO 09/27/20 16:00 10/07/20 17:15 Oxycodone HCl (Roxicodone) 5 mg TID PO 09/27/20 09:00 09/27/20 03:06 DC Oxycodone/ Acetaminophen (Percocet 5/325) 1 tab PRN Q6HRS PRN PO MOD-SEV PAIN 09/27/20 01:45 10/09/20 05:37 Polyethylene Glycol (miraLAX) 17 gm DAILY PO 09/27/20 09:00 10/08/20 08:40 Potassium Chloride (Klor-Con) 40 meq BID PO 09/27/20 09:00 09/27/20 03:06 DC Propranolol HCl (Inderal) 20 mg BID92 PO 09/27/20 09:00 10/08/20 08:39 Sennosides (Senna) 17.2 mg PRN Q12HR PRN PO 2nd choice CONSTIPATION 09/27/20 01:45 Sennosides (Senna) 8.6 mg HS PO 09/27/20 21:00 10/08/20 21:04 Spironolactone (Aldactone) 25 mg BID PO 09/27/20 09:00 10/08/20 21:05 Topiramate (Topamax) 100 mg BID PO 09/27/20 09:00 10/08/20 21:05 Vitamin D (Vitamin D3) 1,000 unit DAILY PO 09/27/20 09:00 10/08/20 08:39 Fluticasone Propionate (Flonase) 2 spray HS NS 09/27/20 21:00 10/06/20 20:48 Glucagon (Glucagen Kit) 1 mg 1X PRN PRN IM LOW BLOOD SUGAR, 2ND CHOICE 09/27/20 02:45 Non-Formulary Medication (Mag Hydrox/Al Hydrox/Simeth (Alum-Mag Hydroxide-Simeth Liq)) 30 ml Q4HRS PRN PO INDIGESTION 09/27/20 01:45 09/27/20 02:34 DC Multivitamins/ Calcium (Thera-M Plus) 1 tab DAILY PO 09/27/20 09:00 10/08/20 08:39 Multi-Ingredient Ointment (Analgesic [place]) 1 mello PRN Q4HRS PRN TP MUSCLE PAIN 09/27/20 02:45 Hydroxyzine Pamoate (Vistaril) 25 mg PRN Q6HRS PRN PO ITCHING 09/27/20 02:15 Ropinirole HCl (Requip) 1 mg HS PO 09/27/20 21:00 10/08/20 21:05 Ziprasidone (Geodon) 60 mg BID PO 09/27/20 09:00 10/01/20 16:52 DC 10/01/20 08:17 Alprazolam (Xanax) 0.5 mg TID PO 09/27/20 09:00 09/27/20 03:06 DC Paroxetine HCl (Paxil) 50 mg DAILY PO 09/27/20 09:00 09/30/20 13:56 DC 09/30/20 08:24 Miscellaneous (Lidoderm Patch Removal) 1 ea QHS MC 09/27/20 21:00 10/08/20 21:00 Alprazolam (Xanax) 0.5 mg TID PO 09/27/20 03:15 10/08/20 21:05 Oxycodone HCl (Roxicodone) 5 mg TID PO 09/27/20 03:15 10/08/20 21:06 Potassium Chloride (Klor-Con) 40 meq BID PO 09/27/20 03:15 10/08/20 21:06 Levothyroxine Sodium (Synthroid) 100 mcg DAILY06 PO 09/28/20 06:00 10/09/20 05:37 Duloxetine HCl (Cymbalta) 30 mg DAILY PO 10/01/20 09:00 10/02/20 21:01 DC 10/02/20 08:42 Duloxetine HCl (Cymbalta) 60 mg DAILY PO 10/03/20 09:00 10/08/20 08:39 Nystatin (Nystop) 1 mello BID TP 09/30/20 21:00 10/08/20 21:06 Ziprasidone (Geodon) 80 mg BID PO 10/02/20 09:00 10/08/20 21:04 Ziprasidone (Geodon) 60 mg BID PO 10/01/20 21:00 10/01/20 21:01 DC 10/01/20 20:24 Cyproheptadine HCl (Periactin) 2 mg HS PO 10/02/20 21:00 10/08/20 21:05 Bupropion HCl (Wellbutrin Xl) 150 mg DAILY PO 10/06/20 09:00 10/08/20 08:39 Lamotrigine (LaMICtal) 25 mg HS PO 10/08/20 21:00 10/10/20 22:00 10/08/20 21:05 Lamotrigine (LaMICtal) 50 mg HS PO 10/11/20 21:00 10/13/20 22:00 Lamotrigine (LaMICtal) 75 mg HS PO 10/14/20 21:00 Current Medications Medications (Trade) Dose Ordered Sig/Mathieu Route PRN Reason Start Time Stop Time Status Last Admin Dose Admin Lamotrigine (LaMICtal) 25 mg HS PO 10/08/20 21:00 10/10/20 22:00 10/08/20 21:05 I have reviewed the current psychotropics carefully including drug interactions. Risk benefit ratio favors no change other than as noted in my dictated progress note. Diagnosis: Problems: (1) Mild cognitive impairment (2) Bipolar disorder, curr episode mixed, severe, with psychotic features (3) Anxiety disorder, unspecified PAMELA RAMOS MD Oct 09, 2020 06:55
--- NOTE | 2020-10-09 07:31 | PDOC ---
Exam Note: [place] Note: This note is a late entry for 10/08/2020 covers elements not covered in my initial note. Subjective: The patient was reviewed in the morning of 10/08/2020 for a treatment team meeting with Shea Garcia, Juanita Sepulveda and Kamila (social media sr strategy manager), Shira, activity therapy and Marisa ROYAL, discussed and reviewed the chart. The patient slept 8 hours previous night. Her daughter Leela was at the treatment team meeting. We had a lengthy discussion about her diagnoses, progress. She continues to be demanding on opioids and always states her pain is 9 on a scale of 0 to 10. Blood sugar has been 102. Leela described her childhood that the patient was fairly compromised from a psychiatric standpoint even then. Review of Systems: Ambulation impaired in wheelchair. No CV, , pulmonary, eye, ENT system symptoms on review. Mental Status Exam: The patient is oriented to herself and situation. I met with her in her room at length. She remains on one-on-one status but has denied any active suicidal ideation. Speech has some latency. Abstraction is fair. Computation impaired. Attention span short. Mood and affect depressed. Laboratory Data: Reviewed. Impression: Bipolar disorder depressed with psychotic features. Anxiety disorder unspecified. Impulse control disorder unspecified. Plan: Maintain Geodon, Cymbalta, Neurontin, Xanax, Vistaril p.r.n., Topamax, ReQuip, Periactin to stimulate her appetite, Wellbutrin 150 mg p.o. daily. She has an allergy to Depakote. We are unable to use this as a mood stabilizer but given her depressive symptoms as part of her bipolar disorder, we will initiate Lamictal 25 mg a day for 3 days, then 50 mg a day for 3 days, and 75 mg a day thereafter. We will make further adjustments as clinically indicated. Assessment: Vital Signs/I&O: Vital Signs Date Time Temp Pulse Resp B/P (MAP) Pulse Ox O2 Delivery O2 Flow Rate FiO2 10/09/20 06:14 97.9 81 20 102/68 (79) 96 Room Air I & O 10/08/20 10/08/20 10/09/20 15:00 23:00 07:00 Intake Total 360 ml 360 ml 120 ml Balance 360 ml 360 ml 120 ml Labs: Laboratory Tests Test 10/09/20 07:11 Glucose (Fingerstick) 100 mg/dL (70-99) H Current Medications: Meds: Laboratory Tests Test 10/09/20 07:11 Glucose (Fingerstick) 100 mg/dL Current Medications Medications (Trade) Dose Ordered Sig/Mathieu Route PRN Reason Start Time Stop Time Status Last Admin Dose Admin Oxycodone/ Acetaminophen (Percocet 5/325) 1 tab 1X ONCE PO 09/26/20 15:00 09/26/20 15:01 DC 09/26/20 15:25 Morphine Sulfate (Morphine 4mg Syringe) 4 mg 1X ONCE IV 09/26/20 19:45 09/26/20 19:46 DC 09/26/20 19:44 Diphenhydramine HCl (Benadryl) 25 mg 1X ONCE IVP 09/26/20 19:45 09/26/20 19:46 DC 09/26/20 19:47 Diphenhydramine HCl (Benadryl) 50 mg STK-MED ONCE .ROUTE 09/26/20 19:41 09/26/20 19:42 DC Fentanyl Citrate (Fentanyl 2ml Vial) 75 mcg 1X ONCE IVP 09/27/20 00:15 09/27/20 00:21 DC 09/27/20 00:17 Diphenhydramine HCl (Benadryl) 50 mg 1X ONCE IVP 09/27/20 01:00 09/27/20 01:01 DC 09/27/20 00:40 Acetaminophen (Tylenol) 650 mg PRN Q6HRS PRN PO MILD PAIN / TEMP > 100.3'F 09/27/20 01:30 09/28/20 07:34 DC Al Hydroxide/Mg Hydroxide (Mylanta Plus Xs) 15 ml PRN AFTMEALHC PRN PO 2ND CHOICE DYSPEPSIA 09/27/20 01:30 Magnesium Hydroxide (Milk Of Magnesia) 2,400 mg PRN QHS PRN PO 1st choice CONSTIPATION 09/27/20 01:30 Acetaminophen (Tylenol) 500 mg PRN Q8HRS PRN PO mild PAIN 09/27/20 01:45 09/27/20 02:57 Calcium Carbonate/ Glycine (Tums) 500 mg PRN Q3HRS PRN PO 1ST CHOICE DYSPEPSIA 09/27/20 02:30 Glucose (Insta-Glucose) 15 gm PRN Q1HR PRN PO LOW BLOOD SUGAR, 1ST CHOICE 09/27/20 01:45 Docusate Sodium (Colace) 100 mg DAILY PO 09/27/20 09:00 10/08/20 08:37 Gabapentin (Neurontin) 100 mg BIDWBKFT/CHERYL PO 09/27/20 08:00 10/08/20 13:52 Gabapentin (Neurontin) 300 mg HS PO 09/27/20 21:00 10/08/20 21:05 Levothyroxine Sodium (Synthroid) 100 mcg DAILY06 PO 09/27/20 06:00 09/28/20 03:07 DC 09/27/20 05:52 Lidocaine (Lidoderm) 1 patch DAILY TP 09/27/20 09:00 10/08/20 08:41 Loperamide HCl (Imodium) 2 mg PRN Q6HRS PRN PO DIARRHEA 09/27/20 01:45 Magnesium Oxide (Magnesium Oxide) 400 mg DAILY PO 09/27/20 09:00 10/08/20 08:41 Metformin HCl (Glucophage) 500 mg DAILY PO 09/27/20 09:00 10/08/20 08:40 Metolazone (Zaroxolyn) 2.5 mg QMWF PO 09/27/20 16:00 10/07/20 17:15 Oxycodone HCl (Roxicodone) 5 mg TID PO 09/27/20 09:00 09/27/20 03:06 DC Oxycodone/ Acetaminophen (Percocet 5/325) 1 tab PRN Q6HRS PRN PO MOD-SEV PAIN 09/27/20 01:45 10/09/20 05:37 Polyethylene Glycol (miraLAX) 17 gm DAILY PO 09/27/20 09:00 10/08/20 08:40 Potassium Chloride (Klor-Con) 40 meq BID PO 09/27/20 09:00 09/27/20 03:06 DC Propranolol HCl (Inderal) 20 mg BID92 PO 09/27/20 09:00 10/08/20 08:39 Sennosides (Senna) 17.2 mg PRN Q12HR PRN PO 2nd choice CONSTIPATION 09/27/20 01:45 Sennosides (Senna) 8.6 mg HS PO 09/27/20 21:00 10/08/20 21:04 Spironolactone (Aldactone) 25 mg BID PO 09/27/20 09:00 10/08/20 21:05 Topiramate (Topamax) 100 mg BID PO 09/27/20 09:00 10/08/20 21:05 Vitamin D (Vitamin D3) 1,000 unit DAILY PO 09/27/20 09:00 10/08/20 08:39 Fluticasone Propionate (Flonase) 2 spray HS NS 09/27/20 21:00 10/06/20 20:48 Glucagon (Glucagen Kit) 1 mg 1X PRN PRN IM LOW BLOOD SUGAR, 2ND CHOICE 09/27/20 02:45 Non-Formulary Medication (Mag Hydrox/Al Hydrox/Simeth (Alum-Mag Hydroxide-Simeth Liq)) 30 ml Q4HRS PRN PO INDIGESTION 09/27/20 01:45 09/27/20 02:34 DC Multivitamins/ Calcium (Thera-M Plus) 1 tab DAILY PO 09/27/20 09:00 10/08/20 08:39 Multi-Ingredient Ointment (Analgesic [place]) 1 mello PRN Q4HRS PRN TP MUSCLE PAIN 09/27/20 02:45 Hydroxyzine Pamoate (Vistaril) 25 mg PRN Q6HRS PRN PO ITCHING 09/27/20 02:15 Ropinirole HCl (Requip) 1 mg HS PO 09/27/20 21:00 10/08/20 21:05 Ziprasidone (Geodon) 60 mg BID PO 09/27/20 09:00 10/01/20 16:52 DC 10/01/20 08:17 Alprazolam (Xanax) 0.5 mg TID PO 09/27/20 09:00 09/27/20 03:06 DC Paroxetine HCl (Paxil) 50 mg DAILY PO 09/27/20 09:00 09/30/20 13:56 DC 09/30/20 08:24 Miscellaneous (Lidoderm Patch Removal) 1 ea QHS MC 09/27/20 21:00 10/08/20 21:00 Alprazolam (Xanax) 0.5 mg TID PO 09/27/20 03:15 10/08/20 21:05 Oxycodone HCl (Roxicodone) 5 mg TID PO 09/27/20 03:15 10/08/20 21:06 Potassium Chloride (Klor-Con) 40 meq BID PO 09/27/20 03:15 10/08/20 21:06 Levothyroxine Sodium (Synthroid) 100 mcg DAILY06 PO 09/28/20 06:00 10/09/20 05:37 Duloxetine HCl (Cymbalta) 30 mg DAILY PO 10/01/20 09:00 10/02/20 21:01 DC 10/02/20 08:42 Duloxetine HCl (Cymbalta) 60 mg DAILY PO 10/03/20 09:00 10/08/20 08:39 Nystatin (Nystop) 1 mello BID TP 09/30/20 21:00 10/08/20 21:06 Ziprasidone (Geodon) 80 mg BID PO 10/02/20 09:00 10/08/20 21:04 Ziprasidone (Geodon) 60 mg BID PO 10/01/20 21:00 10/01/20 21:01 DC 10/01/20 20:24 Cyproheptadine HCl (Periactin) 2 mg HS PO 10/02/20 21:00 10/08/20 21:05 Bupropion HCl (Wellbutrin Xl) 150 mg DAILY PO 10/06/20 09:00 10/08/20 08:39 Lamotrigine (LaMICtal) 25 mg HS PO 10/08/20 21:00 10/10/20 22:00 10/08/20 21:05 Lamotrigine (LaMICtal) 50 mg HS PO 10/11/20 21:00 10/13/20 22:00 Lamotrigine (LaMICtal) 75 mg HS PO 10/14/20 21:00 Current Medications Medications (Trade) Dose Ordered Sig/Mathieu Route PRN Reason Start Time Stop Time Status Last Admin Dose Admin Lamotrigine (LaMICtal) 25 mg HS PO 10/08/20 21:00 10/10/20 22:00 10/08/20 21:05 I have reviewed the current psychotropics carefully including drug interactions. Risk benefit ratio favors no change other than as noted in my dictated progress note. Diagnosis: Problems: (1) Bipolar disorder, curr episode mixed, severe, with psychotic features (2) Anxiety disorder, unspecified (3) Mild cognitive impairment PAMELA RAMOS MD Oct 09, 2020 07:31
[2020-10-09 07:40] LABS: BASO % 1 % (0-3); EOS # 0.3 x10^3/uL (0.0-0.7); EOS % 3 % (0-3); HEMATOCRIT 39.8 % (36.0-47.0); HEMOGLOBIN 13.1 g/dL (12.0-15.5); LYMPH % 26 % (24-48); MEAN CORPUSCULAR HEMOGLOBIN 32 pg (25-35); MEAN CORPUSCULAR HGB CONC 33 g/dL (31-37); MEAN CORPUSCULAR VOLUME 96 fL (79-100); MONO # 0.5 x10^3/uL (0.0-1.1); MONO % 7 % (0-9); NEUT # 4.7 x10^3uL (1.8-7.7); NEUT % 63 % (31-73); PLATELET COUNT 288 x10^3/uL (140-400); RED BLOOD COUNT 4.14 x10^6/uL (3.50-5.40); RED CELL DISTRIBUTION WIDTH 12.6 % (11.5-14.5); WHITE BLOOD COUNT 7.4 x10^3/uL (4.0-11.0)
[2020-10-09 07:56] LABS: ALBUMIN 3.2 g/dL (3.4-5.0); ALBUMIN/GLOBULIN RATIO 0.8 (1.0-1.7); CALCIUM 9.8 mg/dL (8.5-10.1); CREATININE 0.9 mg/dL (0.6-1.0); TOTAL BILIRUBIN 0.2 mg/dL (0.2-1.0); TOTAL PROTEIN 7.3 g/dL (6.4-8.2)
[2020-10-09] MEDS: POLYETHYLENE GLYCOL 3350 17 GM PACKET. PO SCH (08:24)
[2020-10-09] MEDS: LIDOCAINE (700MG/PATCH) PATCH. TP SCH (08:25)
[2020-10-09] MEDS: ALPRAZolam 0.5 MG TABLET PO SCH ×3 (08:26→20:57)
[2020-10-09] MEDS: DOCUSATE SODIUM 100 MG CAPSULE PO SCH (08:26)
[2020-10-09] MEDS: DULoxetine HCL 60 MG CAPSULE.DR PO SCH (08:26)
[2020-10-09] MEDS: ZIPRASIDONE 80 MG CAPSULE. PO SCH ×2 (08:26→20:57)
[2020-10-09] MEDS: SPIRONOLACTONE 25 MG TABLET PO SCH ×2 (08:27→20:58)
[2020-10-09] MEDS: MAGNESIUM OXIDE 400 MG TABLET PO SCH (08:27)
[2020-10-09] MEDS: buPROPion XL 150 MG TAB.ER.24H PO SCH (08:27)
[2020-10-09] MEDS: MULTIVITAMIN with MINERAL TABLET. PO SCH (08:27)
[2020-10-09] MEDS: oxyCODONE IR 5 MG TABLET PO SCH ×3 (08:27→20:57)
[2020-10-09] MEDS: GABAPENTIN 100 MG CAPSULE. PO SCH ×2 (08:27→12:16)
[2020-10-09] MEDS: metFORMIN 500 MG TABLET PO SCH (08:27)
[2020-10-09] MEDS: TOPIRAMATE 100 MG TABLET. PO SCH ×2 (08:27→20:57)
[2020-10-09] MEDS: POTASSIUM CHLORIDE 20 MEQ TABLET.ER. PO SCH ×2 (08:28→20:58)
[2020-10-09] MEDS: PROPRANOLOL 10 MG TABLET. PO SCH ×2 (08:29→13:49)
[2020-10-09] MEDS: NYSTATIN TOPICAL POWDER 15GM BOTTLE. TP SCH ×2 (09:00→20:58)
[2020-10-09] MEDS: CHOLECALCIFEROL (VITAMIN D3) 1,000 UNIT TABLET PO SCH (09:00)
[2020-10-09 15:34] VITALS: BP 108/75
[2020-10-09] MEDS: metOLazone 2.5 MG TABLET PO SCH (16:59)
--- NOTE | 2020-10-09 18:18 | NUR ---
Patient continues on 1:1 supervision for previous self harm incident in dining room at breakfast. Patient denies any SI at this time and still is very quiet and reserved limited socialization with staff and other patients. Med compliant and cooperative with cares patient was in the dining room for breakfast and lunch she did not eat very well for lunch she stated she was not hungry, for dinner patient stayed in bed with a 1:1 sitter present she was encouraged to come to the dining room table to eat however she stated she wanted to rest in bed. Patient normally requests a prn for pain around this time I attempted to encourage patient to try and eat something to prevent an upset stomach. Patient alert and oriented x3 vitals stable and wnl of baseline, will continue to monitor patient. Addendum: 10/09/20 at 1821 [address] Otero and Dr Burch rounded on patient no new orders.
[2020-10-09] MEDS: GABAPENTIN 300 MG CAPSULE. PO SCH (20:57)
[2020-10-09] MEDS: rOPINIRole 1 MG TABLET. PO SCH (20:57)
[2020-10-09] MEDS: FLUTICASONE 50MCG/NASAL SPRAY 16GM BOTTLE. NS SCH (20:57)
[2020-10-09] MEDS: lamoTRIgine 25 MG TABLET. PO SCH (20:57)
[2020-10-09] MEDS: CYPROHEPTADINE 4 MG TABLET. PO SCH (20:58)
[2020-10-09] MEDS: SENNOSIDES 8.6 MG TABLET PO SCH (20:58)
[2020-10-09] MEDS: PATCH REMOVAL. MC SCH (21:00)
--- NOTE | 2020-10-09 22:05 | PDOC ---
Exam Note: [place] Note: Please also refer to the separate dictated note~for this date of service dictated separately.~Patient seen individually. Discussed the patient with Nursing staff reviewed the chart.~Reviewed interim history and current functioning. Reviewed vital signs,~Labs/ Radiology~and current medications noted below. Continue current treatment with the changes noted in the dictated addendum note Assessment: Vital Signs/I&O: Vital Signs Date Time Temp Pulse Resp B/P (MAP) Pulse Ox O2 Delivery O2 Flow Rate FiO2 10/09/20 21:33 20 96 10/09/20 15:34 97.4 56 108/75 (86) 10/09/20 06:14 Room Air I & O 10/08/20 10/08/20 10/09/20 15:00 23:00 07:00 Intake Total 360 ml 360 ml 120 ml Balance 360 ml 360 ml 120 ml Labs: Laboratory Tests Test 10/09/20 06:22 10/09/20 07:11 White Blood Count 7.4 x10^3/uL (4.0-11.0) Red Blood Count 4.14 x10^6/uL (3.50-5.40) Hemoglobin 13.1 g/dL (12.0-15.5) Hematocrit 39.8 % (36.0-47.0) Mean Corpuscular Volume 96 fL (79-100) Mean Corpuscular Hemoglobin 32 pg (25-35) Mean Corpuscular Hemoglobin Concent 33 g/dL (31-37) Red Cell Distribution Width 12.6 % (11.5-14.5) Platelet Count 288 x10^3/uL (140-400) Neutrophils (%) (Auto) 63 % (31-73) Lymphocytes (%) (Auto) 26 % (24-48) Monocytes (%) (Auto) 7 % (0-9) Eosinophils (%) (Auto) 3 % (0-3) Basophils (%) (Auto) 1 % (0-3) Neutrophils # (Auto) 4.7 x10^3uL (1.8-7.7) Lymphocytes # (Auto) 2.0 x10^3/uL (1.0-4.8) Monocytes # (Auto) 0.5 x10^3/uL (0.0-1.1) Eosinophils # (Auto) 0.3 x10^3/uL (0.0-0.7) Basophils # (Auto) 0.0 x10^3/uL (0.0-0.2) Sodium Level 140 mmol/L (136-145) Potassium Level 4.0 mmol/L (3.5-5.1) Chloride Level 105 mmol/L (98-107) Carbon Dioxide Level 28 mmol/L (21-32) Anion Gap 7 (6-14) Blood Urea Nitrogen 19 mg/dL (7-20) Creatinine 0.9 mg/dL (0.6-1.0) Estimated GFR (Cockcroft-Gault) 63.0 BUN/Creatinine Ratio 21 (6-20) H Glucose Level 109 mg/dL (70-99) H Calcium Level 9.8 mg/dL (8.5-10.1) Total Bilirubin 0.2 mg/dL (0.2-1.0) Aspartate Amino Transferase (AST) 30 U/L (15-37) Alanine Aminotransferase (ALT) 21 U/L (14-59) Alkaline Phosphatase 118 U/L (46-116) H Total Protein 7.3 g/dL (6.4-8.2) Albumin 3.2 g/dL (3.4-5.0) L Albumin/Globulin Ratio 0.8 (1.0-1.7) L Glucose (Fingerstick) 100 mg/dL (70-99) H Current Medications: Meds: Laboratory Tests Test 10/09/20 06:22 10/09/20 07:11 White Blood Count 7.4 x10^3/uL Red Blood Count 4.14 x10^6/uL Hemoglobin 13.1 g/dL Hematocrit 39.8 % Mean Corpuscular Volume 96 fL Mean Corpuscular Hemoglobin 32 pg Mean Corpuscular Hemoglobin Concent 33 g/dL Red Cell Distribution Width 12.6 % Platelet Count 288 x10^3/uL Neutrophils (%) (Auto) 63 % Lymphocytes (%) (Auto) 26 % Monocytes (%) (Auto) 7 % Eosinophils (%) (Auto) 3 % Basophils (%) (Auto) 1 % Neutrophils # (Auto) 4.7 x10^3uL Lymphocytes # (Auto) 2.0 x10^3/uL Monocytes # (Auto) 0.5 x10^3/uL Eosinophils # (Auto) 0.3 x10^3/uL Basophils # (Auto) 0.0 x10^3/uL Sodium Level 140 mmol/L Potassium Level 4.0 mmol/L Chloride Level 105 mmol/L Carbon Dioxide Level 28 mmol/L Anion Gap 7 Blood Urea Nitrogen 19 mg/dL Creatinine 0.9 mg/dL Estimated GFR (Cockcroft-Gault) 63.0 BUN/Creatinine Ratio 21 Glucose Level 109 mg/dL Calcium Level 9.8 mg/dL Total Bilirubin 0.2 mg/dL Aspartate Amino Transf (AST/SGOT) 30 U/L Alanine Aminotransferase (ALT/SGPT) 21 U/L Alkaline Phosphatase 118 U/L Total Protein 7.3 g/dL Albumin 3.2 g/dL Albumin/Globulin Ratio 0.8 Glucose (Fingerstick) 100 mg/dL Current Medications Medications (Trade) Dose Ordered Sig/Mathieu Route PRN Reason Start Time Stop Time Status Last Admin Dose Admin Oxycodone/ Acetaminophen (Percocet 5/325) 1 tab 1X ONCE PO 09/26/20 15:00 09/26/20 15:01 DC 09/26/20 15:25 Morphine Sulfate (Morphine 4mg Syringe) 4 mg 1X ONCE IV 09/26/20 19:45 09/26/20 19:46 DC 09/26/20 19:44 Diphenhydramine HCl (Benadryl) 25 mg 1X ONCE IVP 09/26/20 19:45 09/26/20 19:46 DC 09/26/20 19:47 Diphenhydramine HCl (Benadryl) 50 mg STK-MED ONCE .ROUTE 09/26/20 19:41 09/26/20 19:42 DC Fentanyl Citrate (Fentanyl 2ml Vial) 75 mcg 1X ONCE IVP 09/27/20 00:15 09/27/20 00:21 DC 09/27/20 00:17 Diphenhydramine HCl (Benadryl) 50 mg 1X ONCE IVP 09/27/20 01:00 09/27/20 01:01 DC 09/27/20 00:40 Acetaminophen (Tylenol) 650 mg PRN Q6HRS PRN PO MILD PAIN / TEMP > 100.3'F 09/27/20 01:30 09/28/20 07:34 DC Al Hydroxide/Mg Hydroxide (Mylanta Plus Xs) 15 ml PRN AFTMEALHC PRN PO 2ND CHOICE DYSPEPSIA 09/27/20 01:30 Magnesium Hydroxide (Milk Of Magnesia) 2,400 mg PRN QHS PRN PO 1st choice CONSTIPATION 09/27/20 01:30 Acetaminophen (Tylenol) 500 mg PRN Q8HRS PRN PO mild PAIN 09/27/20 01:45 09/27/20 02:57 Calcium Carbonate/ Glycine (Tums) 500 mg PRN Q3HRS PRN PO 1ST CHOICE DYSPEPSIA 09/27/20 02:30 Glucose (Insta-Glucose) 15 gm PRN Q1HR PRN PO LOW BLOOD SUGAR, 1ST CHOICE 09/27/20 01:45 Docusate Sodium (Colace) 100 mg DAILY PO 09/27/20 09:00 10/09/20 08:26 Gabapentin (Neurontin) 100 mg BIDWBKFT/CHERYL PO 09/27/20 08:00 10/09/20 12:16 Gabapentin (Neurontin) 300 mg HS PO 09/27/20 21:00 10/09/20 20:57 Levothyroxine Sodium (Synthroid) 100 mcg DAILY06 PO 09/27/20 06:00 09/28/20 03:07 DC 09/27/20 05:52 Lidocaine (Lidoderm) 1 patch DAILY TP 09/27/20 09:00 10/09/20 08:25 Loperamide HCl (Imodium) 2 mg PRN Q6HRS PRN PO DIARRHEA 09/27/20 01:45 Magnesium Oxide (Magnesium Oxide) 400 mg DAILY PO 09/27/20 09:00 10/09/20 08:27 Metformin HCl (Glucophage) 500 mg DAILY PO 09/27/20 09:00 10/09/20 08:27 Metolazone (Zaroxolyn) 2.5 mg QMWF PO 09/27/20 16:00 10/09/20 16:59 Oxycodone HCl (Roxicodone) 5 mg TID PO 09/27/20 09:00 09/27/20 03:06 DC Oxycodone/ Acetaminophen (Percocet 5/325) 1 tab PRN Q6HRS PRN PO MOD-SEV PAIN 09/27/20 01:45 10/09/20 05:37 Polyethylene Glycol (miraLAX) 17 gm DAILY PO 09/27/20 09:00 10/09/20 08:24 Potassium Chloride (Klor-Con) 40 meq BID PO 09/27/20 09:00 09/27/20 03:06 DC Propranolol HCl (Inderal) 20 mg BID92 PO 09/27/20 09:00 10/09/20 13:49 Sennosides (Senna) 17.2 mg PRN Q12HR PRN PO 2nd choice CONSTIPATION 09/27/20 01:45 Sennosides (Senna) 8.6 mg HS PO 09/27/20 21:00 10/09/20 20:58 Spironolactone (Aldactone) 25 mg BID PO 09/27/20 09:00 10/09/20 20:58 Topiramate (Topamax) 100 mg BID PO 09/27/20 09:00 10/09/20 20:57 Vitamin D (Vitamin D3) 1,000 unit DAILY PO 09/27/20 09:00 10/09/20 09:00 Fluticasone Propionate (Flonase) 2 spray HS NS 09/27/20 21:00 10/09/20 20:57 Glucagon (Glucagen Kit) 1 mg 1X PRN PRN IM LOW BLOOD SUGAR, 2ND CHOICE 09/27/20 02:45 Non-Formulary Medication (Mag Hydrox/Al Hydrox/Simeth (Alum-Mag Hydroxide-Simeth Liq)) 30 ml Q4HRS PRN PO INDIGESTION 09/27/20 01:45 09/27/20 02:34 DC Multivitamins/ Calcium (Thera-M Plus) 1 tab DAILY PO 09/27/20 09:00 10/09/20 08:27 Multi-Ingredient Ointment (Analgesic [place]) 1 mello PRN Q4HRS PRN TP MUSCLE PAIN 09/27/20 02:45 Hydroxyzine Pamoate (Vistaril) 25 mg PRN Q6HRS PRN PO ITCHING 09/27/20 02:15 Ropinirole HCl (Requip) 1 mg HS PO 09/27/20 21:00 10/09/20 20:57 Ziprasidone (Geodon) 60 mg BID PO 09/27/20 09:00 10/01/20 16:52 DC 10/01/20 08:17 Alprazolam (Xanax) 0.5 mg TID PO 09/27/20 09:00 09/27/20 03:06 DC Paroxetine HCl (Paxil) 50 mg DAILY PO 09/27/20 09:00 09/30/20 13:56 DC 09/30/20 08:24 Miscellaneous (Lidoderm Patch Removal) 1 ea QHS 09/27/20 21:00 10/09/20 21:00 Alprazolam (Xanax) 0.5 mg TID PO 09/27/20 03:15 10/09/20 20:57 Oxycodone HCl (Roxicodone) 5 mg TID PO 09/27/20 03:15 10/09/20 20:57 Potassium Chloride (Klor-Con) 40 meq BID PO 09/27/20 03:15 10/09/20 20:58 Levothyroxine Sodium (Synthroid) 100 mcg DAILY06 PO 09/28/20 06:00 10/09/20 05:37 Duloxetine HCl (Cymbalta) 30 mg DAILY PO 10/01/20 09:00 10/02/20 21:01 DC 10/02/20 08:42 Duloxetine HCl (Cymbalta) 60 mg DAILY PO 10/03/20 09:00 10/09/20 08:26 Nystatin (Nystop) 1 mello BID TP 09/30/20 21:00 10/09/20 20:58 Ziprasidone (Geodon) 80 mg BID PO 10/02/20 09:00 10/09/20 20:57 Ziprasidone (Geodon) 60 mg BID PO 10/01/20 21:00 10/01/20 21:01 DC 10/01/20 20:24 Cyproheptadine HCl (Periactin) 2 mg HS PO 10/02/20 21:00 10/09/20 20:58 Bupropion HCl (Wellbutrin Xl) 150 mg DAILY PO 10/06/20 09:00 10/09/20 08:27 Lamotrigine (LaMICtal) 25 mg HS PO 10/08/20 21:00 10/10/20 22:00 10/09/20 20:57 Lamotrigine (LaMICtal) 50 mg HS PO 10/11/20 21:00 10/13/20 22:00 Lamotrigine (LaMICtal) 75 mg HS PO 10/14/20 21:00 I have reviewed the current psychotropics carefully including drug interactions. Risk benefit ratio favors no change other than as noted in my dictated progress note. Diagnosis: Problems: (1) Mild cognitive impairment (2) Bipolar disorder, curr episode mixed, severe, with psychotic features (3) Anxiety disorder, unspecified PAMELA RAMOS MD Oct 09, 2020 22:05
--- NOTE | 2020-10-09 22:08 | NUR ---
Nursing Note Pt in day room at , currently on 05-10 for attempting to cut her wrist over the weekend. Denies HI SI, states she only tried to Harm herself secondary to pain to he lower back. States it is always a 10/10 in her back, she never gets relief. Percocet given after HS meds this pm. Pt has a flat affect, is withdrawn, right foot is significantly more edematous vs the last time I assessed her. Stump is edematous also. Pt states she is generally more edematous than previously. Left foot with severe deformity and increased edema reports increased pain when flexing her foot back to her calf muscle. Will add to Dr. Otero's list.
[2020-10-10] MEDS: LEVOTHYROXINE 100 MCG TABLET PO SCH (05:52)
[2020-10-10 06:14] VITALS: BP 101/67
[2020-10-10] MEDS: ZIPRASIDONE 80 MG CAPSULE. PO SCH ×2 (08:48→21:02)
[2020-10-10] MEDS: MULTIVITAMIN with MINERAL TABLET. PO SCH (08:48)
[2020-10-10] MEDS: POLYETHYLENE GLYCOL 3350 17 GM PACKET. PO SCH (08:48)
[2020-10-10] MEDS: LIDOCAINE (700MG/PATCH) PATCH. TP SCH (08:48)
[2020-10-10] MEDS: GABAPENTIN 100 MG CAPSULE. PO SCH ×2 (08:48→12:33)
[2020-10-10] MEDS: DOCUSATE SODIUM 100 MG CAPSULE PO SCH (08:48)
[2020-10-10] MEDS: TOPIRAMATE 100 MG TABLET. PO SCH ×2 (08:49→21:02)
[2020-10-10] MEDS: buPROPion XL 150 MG TAB.ER.24H PO SCH (08:49)
[2020-10-10] MEDS: PROPRANOLOL 10 MG TABLET. PO SCH ×2 (08:49→12:34)
[2020-10-10] MEDS: CHOLECALCIFEROL (VITAMIN D3) 1,000 UNIT TABLET PO SCH (08:49)
[2020-10-10] MEDS: POTASSIUM CHLORIDE 20 MEQ TABLET.ER. PO SCH ×2 (08:49→21:03)
[2020-10-10] MEDS: ALPRAZolam 0.5 MG TABLET PO SCH ×3 (08:49→21:02)
[2020-10-10] MEDS: oxyCODONE IR 5 MG TABLET PO SCH ×3 (08:50→21:02)
[2020-10-10] MEDS: SPIRONOLACTONE 25 MG TABLET PO SCH ×2 (08:50→21:02)
[2020-10-10] MEDS: MAGNESIUM OXIDE 400 MG TABLET PO SCH (08:50)
[2020-10-10] MEDS: DULoxetine HCL 60 MG CAPSULE.DR PO SCH (08:50)
[2020-10-10] MEDS: NYSTATIN TOPICAL POWDER 15GM BOTTLE. TP SCH ×2 (08:50→21:03)
[2020-10-10] MEDS: metFORMIN 500 MG TABLET PO SCH (08:50)
--- NOTE | 2020-10-10 15:28 | NUR ---
Nurse note Patient has had an uneventful shift, patie Addendum: 10/10/20 at 1541 by ROSALIA DEJESUS RN patient has been med compliant, verbalized needs/wants. Patient has been up throughout the day and pushing up seldana
--- NOTE | 2020-10-10 15:41 | NUR ---
Patient has been pushing self in wheelchair throughout shift.
[2020-10-10 15:58] VITALS: BP 102/70
[2020-10-10] MEDS: PATCH REMOVAL. MC SCH (21:00)
[2020-10-10] MEDS: SENNOSIDES 8.6 MG TABLET PO SCH (21:02)
[2020-10-10] MEDS: GABAPENTIN 300 MG CAPSULE. PO SCH (21:02)
[2020-10-10] MEDS: CYPROHEPTADINE 4 MG TABLET. PO SCH (21:02)
[2020-10-10] MEDS: FLUTICASONE 50MCG/NASAL SPRAY 16GM BOTTLE. NS SCH (21:03)
[2020-10-10] MEDS: lamoTRIgine 25 MG TABLET. PO SCH (21:03)
[2020-10-10] MEDS: rOPINIRole 1 MG TABLET. PO SCH (21:03)
[2020-10-10] MEDS: oxyCODONE/APAP 5/325 1 TAB TABLET PO PRN (21:05)
--- NOTE | 2020-10-10 21:17 | RAD ---
STUDY: US DPLX VENOUS EXTREMITY LOWER LT INDICATION: Lower extremity swelling. DVT. TECHNIQUE: Color-flow and pulsed wave duplex ultrasound with compression of venous structures of the left lower extremity. COMPARISON: 06/17/2014 FINDINGS: Duplex ultrasound with compression of the deep venous structures of the left lower extremity from the common femoral vein through the calf is positive for thrombus within the posterior tibial and perone al veins. Lower extremity subjacent edema. IMPRESSION: Deep venous thrombosis within the left posterior tibial and peroneal veins. The more proximal deep ve ins of the left lower extremity remain patent. Electronically signed by: STACEY FROST MD (10/10/2020 9:14 PM) [facility]
--- NOTE | 2020-10-10 21:57 | PDOC ---
Exam Note: [place] Note: Please also refer to the separate dictated note~for this date of service dictated separately.~Patient seen individually. Discussed the patient with Nursing staff reviewed the chart.~Reviewed interim history and current functioning. Reviewed vital signs,~Labs/ Radiology~and current medications noted below. Continue current treatment with the changes noted in the dictated addendum note Assessment: Vital Signs/I&O: Vital Signs Date Time Temp Pulse Resp B/P (MAP) Pulse Ox O2 Delivery O2 Flow Rate FiO2 10/10/20 21:05 96 10/10/20 15:58 97.1 67 20 102/70 (81) 10/10/20 06:14 Room Air I & O 10/09/20 10/09/20 10/10/20 15:00 23:00 07:00 Intake Total 720 ml 480 ml Balance 720 ml 480 ml Labs: Laboratory Tests Test 10/10/20 07:49 Glucose (Fingerstick) 98 mg/dL (70-99) Current Medications: Meds: Laboratory Tests Test 10/10/20 07:49 Glucose (Fingerstick) 98 mg/dL Current Medications Medications (Trade) Dose Ordered Sig/Mathieu Route PRN Reason Start Time Stop Time Status Last Admin Dose Admin Oxycodone/ Acetaminophen (Percocet 5/325) 1 tab 1X ONCE PO 09/26/20 15:00 09/26/20 15:01 DC 09/26/20 15:25 Morphine Sulfate (Morphine 4mg Syringe) 4 mg 1X ONCE IV 09/26/20 19:45 09/26/20 19:46 DC 09/26/20 19:44 Diphenhydramine HCl (Benadryl) 25 mg 1X ONCE IVP 09/26/20 19:45 09/26/20 19:46 DC 09/26/20 19:47 Diphenhydramine HCl (Benadryl) 50 mg STK-MED ONCE .ROUTE 09/26/20 19:41 09/26/20 19:42 DC Fentanyl Citrate (Fentanyl 2ml Vial) 75 mcg 1X ONCE IVP 09/27/20 00:15 09/27/20 00:21 DC 09/27/20 00:17 Diphenhydramine HCl (Benadryl) 50 mg 1X ONCE IVP 09/27/20 01:00 09/27/20 01:01 DC 09/27/20 00:40 Acetaminophen (Tylenol) 650 mg PRN Q6HRS PRN PO MILD PAIN / TEMP > 100.3'F 09/27/20 01:30 09/28/20 07:34 DC Al Hydroxide/Mg Hydroxide (Mylanta Plus Xs) 15 ml PRN AFTMEALHC PRN PO 2ND CHOICE DYSPEPSIA 09/27/20 01:30 Magnesium Hydroxide (Milk Of Magnesia) 2,400 mg PRN QHS PRN PO 1st choice CONSTIPATION 09/27/20 01:30 Acetaminophen (Tylenol) 500 mg PRN Q8HRS PRN PO mild PAIN 09/27/20 01:45 09/27/20 02:57 Calcium Carbonate/ Glycine (Tums) 500 mg PRN Q3HRS PRN PO 1ST CHOICE DYSPEPSIA 09/27/20 02:30 Glucose (Insta-Glucose) 15 gm PRN Q1HR PRN PO LOW BLOOD SUGAR, 1ST CHOICE 09/27/20 01:45 Docusate Sodium (Colace) 100 mg DAILY PO 09/27/20 09:00 10/10/20 08:48 Gabapentin (Neurontin) 100 mg BIDWBKFT/CHERYL PO 09/27/20 08:00 10/10/20 12:33 Gabapentin (Neurontin) 300 mg HS PO 09/27/20 21:00 10/10/20 21:02 Levothyroxine Sodium (Synthroid) 100 mcg DAILY06 PO 09/27/20 06:00 09/28/20 03:07 DC 09/27/20 05:52 Lidocaine (Lidoderm) 1 patch DAILY TP 09/27/20 09:00 10/10/20 08:48 Loperamide HCl (Imodium) 2 mg PRN Q6HRS PRN PO DIARRHEA 09/27/20 01:45 Magnesium Oxide (Magnesium Oxide) 400 mg DAILY PO 09/27/20 09:00 10/10/20 08:50 Metformin HCl (Glucophage) 500 mg DAILY PO 09/27/20 09:00 10/10/20 08:50 Metolazone (Zaroxolyn) 2.5 mg QMWF PO 09/27/20 16:00 10/09/20 16:59 Oxycodone HCl (Roxicodone) 5 mg TID PO 09/27/20 09:00 09/27/20 03:06 DC Oxycodone/ Acetaminophen (Percocet 5/325) 1 tab PRN Q6HRS PRN PO MOD-SEV PAIN 09/27/20 01:45 10/10/20 21:05 Polyethylene Glycol (miraLAX) 17 gm DAILY PO 09/27/20 09:00 10/10/20 08:48 Potassium Chloride (Klor-Con) 40 meq BID PO 09/27/20 09:00 09/27/20 03:06 DC Propranolol HCl (Inderal) 20 mg BID92 PO 09/27/20 09:00 10/10/20 12:34 Sennosides (Senna) 17.2 mg PRN Q12HR PRN PO 2nd choice CONSTIPATION 09/27/20 01:45 Sennosides (Senna) 8.6 mg HS PO 09/27/20 21:00 10/10/20 21:02 Spironolactone (Aldactone) 25 mg BID PO 09/27/20 09:00 10/10/20 21:02 Topiramate (Topamax) 100 mg BID PO 09/27/20 09:00 10/10/20 21:02 Vitamin D (Vitamin D3) 1,000 unit DAILY PO 09/27/20 09:00 10/10/20 08:49 Fluticasone Propionate (Flonase) 2 spray HS NS 09/27/20 21:00 10/10/20 21:03 Glucagon (Glucagen Kit) 1 mg 1X PRN PRN IM LOW BLOOD SUGAR, 2ND CHOICE 09/27/20 02:45 Non-Formulary Medication (Mag Hydrox/Al Hydrox/Simeth (Alum-Mag Hydroxide-Simeth Liq)) 30 ml Q4HRS PRN PO INDIGESTION 09/27/20 01:45 09/27/20 02:34 DC Multivitamins/ Calcium (Thera-M Plus) 1 tab DAILY PO 09/27/20 09:00 10/10/20 08:48 Multi-Ingredient Ointment (Analgesic [place]) 1 mello PRN Q4HRS PRN TP MUSCLE PAIN 09/27/20 02:45 Hydroxyzine Pamoate (Vistaril) 25 mg PRN Q6HRS PRN PO ITCHING 09/27/20 02:15 Ropinirole HCl (Requip) 1 mg HS PO 09/27/20 21:00 10/10/20 21:03 Ziprasidone (Geodon) 60 mg BID PO 09/27/20 09:00 10/01/20 16:52 DC 10/01/20 08:17 Alprazolam (Xanax) 0.5 mg TID PO 09/27/20 09:00 09/27/20 03:06 DC Paroxetine HCl (Paxil) 50 mg DAILY PO 09/27/20 09:00 09/30/20 13:56 DC 09/30/20 08:24 Miscellaneous (Lidoderm Patch Removal) 1 ea QHS MC 09/27/20 21:00 10/10/20 21:00 Alprazolam (Xanax) 0.5 mg TID PO 09/27/20 03:15 10/10/20 21:02 Oxycodone HCl (Roxicodone) 5 mg TID PO 09/27/20 03:15 10/10/20 21:02 Potassium Chloride (Klor-Con) 40 meq BID PO 09/27/20 03:15 10/10/20 21:03 Levothyroxine Sodium (Synthroid) 100 mcg DAILY06 PO 09/28/20 06:00 10/10/20 05:52 Duloxetine HCl (Cymbalta) 30 mg DAILY PO 10/01/20 09:00 10/02/20 21:01 DC 10/02/20 08:42 Duloxetine HCl (Cymbalta) 60 mg DAILY PO 10/03/20 09:00 10/10/20 08:50 Nystatin (Nystop) 1 mello BID TP 09/30/20 21:00 10/10/20 21:03 Ziprasidone (Geodon) 80 mg BID PO 10/02/20 09:00 10/10/20 21:02 Ziprasidone (Geodon) 60 mg BID PO 10/01/20 21:00 10/01/20 21:01 DC 10/01/20 20:24 Cyproheptadine HCl (Periactin) 2 mg HS PO 10/02/20 21:00 10/10/20 21:02 Bupropion HCl (Wellbutrin Xl) 150 mg DAILY PO 10/06/20 09:00 10/10/20 18:30 DC 10/10/20 08:49 Lamotrigine (LaMICtal) 25 mg HS PO 10/08/20 21:00 10/10/20 22:00 10/10/20 21:03 Lamotrigine (LaMICtal) 50 mg HS PO 10/11/20 21:00 10/13/20 22:00 Lamotrigine (LaMICtal) 75 mg HS PO 10/14/20 21:00 Bupropion HCl (Wellbutrin Xl) 300 mg DAILY PO 10/11/20 09:00 Apixaban (Eliquis) 10 mg BID PO 10/10/20 22:00 10/16/20 21:59 Apixaban (Eliquis) 5 mg BID PO 10/17/20 09:00 I have reviewed the current psychotropics carefully including drug interactions. Risk benefit ratio favors no change other than as noted in my dictated progress note. Diagnosis: Problems: (1) Mild cognitive impairment (2) Bipolar disorder, curr episode mixed, severe, with psychotic features (3) Anxiety disorder, unspecified PAMELA RAMOS MD Oct 10, 2020 21:57
[2020-10-10] MEDS: APIXABAN 5 MG TABLET. PO SCH (22:00)
--- NOTE | 2020-10-11 00:33 | NUR ---
Nursing Note Pt has significant edema to lle, radiology US done, DVT to the left posterior tibial and peroneal veins, Dr. Otero notified, Eliquis started. Pharmacy to dose daily after initial dosing. Sylvie Pharmacist notified. Pt teaching done RE meds and DVT. Pt verbalizes understanding. Asks for additional pains meds secondary to going to department for scans etc. Resting well now, had chocolate ice cream after arrival to floor. Pt reports 10/10 pain, I asked if she ever gets any relief and she stated, "well maybe it's an 8 at this time...." pt is inconsistent in her reports of pain. Usually she reports 10/10 even with pain meds.
[2020-10-11 06:09] VITALS: BP 121/72
[2020-10-11] MEDS: LEVOTHYROXINE 100 MCG TABLET PO SCH (06:14)
[2020-10-11] MEDS: oxyCODONE/APAP 5/325 1 TAB TABLET PO PRN (06:14)
[2020-10-11] MEDS: metFORMIN 500 MG TABLET PO SCH (08:12)
[2020-10-11] MEDS: DOCUSATE SODIUM 100 MG CAPSULE PO SCH (08:12)
[2020-10-11] MEDS: APIXABAN 5 MG TABLET. PO SCH ×2 (08:12→19:58)
[2020-10-11] MEDS: GABAPENTIN 100 MG CAPSULE. PO SCH ×2 (08:12→12:01)
[2020-10-11] MEDS: DULoxetine HCL 60 MG CAPSULE.DR PO SCH (08:13)
[2020-10-11] MEDS: PROPRANOLOL 10 MG TABLET. PO SCH ×2 (08:13→14:28)
[2020-10-11] MEDS: CHOLECALCIFEROL (VITAMIN D3) 1,000 UNIT TABLET PO SCH (08:13)
[2020-10-11] MEDS: ALPRAZolam 0.5 MG TABLET PO SCH ×3 (08:13→19:58)
[2020-10-11] MEDS: POTASSIUM CHLORIDE 20 MEQ TABLET.ER. PO SCH ×2 (08:13→19:56)
[2020-10-11] MEDS: MULTIVITAMIN with MINERAL TABLET. PO SCH (08:13)
[2020-10-11] MEDS: buPROPion XL 300 MG TAB.ER.24H. PO SCH (08:13)
[2020-10-11] MEDS: ZIPRASIDONE 80 MG CAPSULE. PO SCH ×2 (08:14→19:57)
[2020-10-11] MEDS: SPIRONOLACTONE 25 MG TABLET PO SCH ×2 (08:14→19:56)
[2020-10-11] MEDS: MAGNESIUM OXIDE 400 MG TABLET PO SCH (08:14)
[2020-10-11] MEDS: oxyCODONE IR 5 MG TABLET PO SCH ×2 (08:14→14:27)
[2020-10-11] MEDS: POLYETHYLENE GLYCOL 3350 17 GM PACKET. PO SCH (08:15)
[2020-10-11] MEDS: LIDOCAINE (700MG/PATCH) PATCH. TP SCH ×2 (08:15→12:26)
[2020-10-11] MEDS: TOPIRAMATE 100 MG TABLET. PO SCH ×2 (08:18→19:57)
[2020-10-11] MEDS: NYSTATIN TOPICAL POWDER 15GM BOTTLE. TP SCH ×2 (08:19→19:58)
--- NOTE | 2020-10-11 09:26 | PDOC ---
Exam Note: [place] Note: This note is a late entry for 10/09/2020 covers elements not covered in my initial note. Subjective: The patient was seen individually in the evening of 10/09/2020 with Sunil ROYAL, discussed and reviewed the chart. The patient slept 6-3/4 hours previous night. No suicidal ideation, somewhat withdrawn. I was called by the nursing staff around midnight. Crystal ROYAL had talked to the patient, extensively and assessed his suicide risk and we made a determination to discontinue the one-on-one status. Review of Systems: Ambulation impaired in wheelchair. No CV, , pulmonary, eye, ENT system symptoms on review. Mental Status Exam: The patient is oriented to herself and situation. She was a little more verbal, interactive, but still not having full sentences. Paranoia is better. Speech has some latency. Abstraction is fair. Computation impaired. Attention span short. Mood and affect depressed. Laboratory Data: Reviewed. Impression: Bipolar disorder depressed with psychotic features. Anxiety disorder unspecified. Impulse control disorder unspecified. Plan: No change from initial note. Assessment: Vital Signs/I&O: Vital Signs Date Time Temp Pulse Resp B/P (MAP) Pulse Ox O2 Delivery O2 Flow Rate FiO2 10/11/20 08:13 58 121/72 10/11/20 06:14 99 10/11/20 06:09 96.9 12 10/10/20 06:14 Room Air I & O 10/10/20 10/10/20 10/11/20 15:00 23:00 07:00 Intake Total 600 ml 480 ml Balance 600 ml 480 ml Labs: Laboratory Tests Test 10/11/20 07:59 Glucose (Fingerstick) 105 mg/dL (70-99) H Current Medications: Meds: Laboratory Tests Test 10/11/20 07:59 Glucose (Fingerstick) 105 mg/dL Current Medications Medications (Trade) Dose Ordered Sig/Mathieu Route PRN Reason Start Time Stop Time Status Last Admin Dose Admin Oxycodone/ Acetaminophen (Percocet 5/325) 1 tab 1X ONCE PO 09/26/20 15:00 09/26/20 15:01 DC 09/26/20 15:25 Morphine Sulfate (Morphine 4mg Syringe) 4 mg 1X ONCE IV 09/26/20 19:45 09/26/20 19:46 DC 09/26/20 19:44 Diphenhydramine HCl (Benadryl) 25 mg 1X ONCE IVP 09/26/20 19:45 09/26/20 19:46 DC 09/26/20 19:47 Diphenhydramine HCl (Benadryl) 50 mg STK-MED ONCE .ROUTE 09/26/20 19:41 09/26/20 19:42 DC Fentanyl Citrate (Fentanyl 2ml Vial) 75 mcg 1X ONCE IVP 09/27/20 00:15 09/27/20 00:21 DC 09/27/20 00:17 Diphenhydramine HCl (Benadryl) 50 mg 1X ONCE IVP 09/27/20 01:00 09/27/20 01:01 DC 09/27/20 00:40 Acetaminophen (Tylenol) 650 mg PRN Q6HRS PRN PO MILD PAIN / TEMP > 100.3'F 09/27/20 01:30 09/28/20 07:34 DC Al Hydroxide/Mg Hydroxide (Mylanta Plus Xs) 15 ml PRN AFTMEALHC PRN PO 2ND CHOICE DYSPEPSIA 09/27/20 01:30 Magnesium Hydroxide (Milk Of Magnesia) 2,400 mg PRN QHS PRN PO 1st choice CONSTIPATION 09/27/20 01:30 Acetaminophen (Tylenol) 500 mg PRN Q8HRS PRN PO mild PAIN 09/27/20 01:45 09/27/20 02:57 Calcium Carbonate/ Glycine (Tums) 500 mg PRN Q3HRS PRN PO 1ST CHOICE DYSPEPSIA 09/27/20 02:30 Glucose (Insta-Glucose) 15 gm PRN Q1HR PRN PO LOW BLOOD SUGAR, 1ST CHOICE 09/27/20 01:45 Docusate Sodium (Colace) 100 mg DAILY PO 09/27/20 09:00 10/11/20 08:12 Gabapentin (Neurontin) 100 mg BIDWBKFT/CHERYL PO 09/27/20 08:00 10/11/20 08:12 Gabapentin (Neurontin) 300 mg HS PO 09/27/20 21:00 10/10/20 21:02 Levothyroxine Sodium (Synthroid) 100 mcg DAILY06 PO 09/27/20 06:00 09/28/20 03:07 DC 09/27/20 05:52 Lidocaine (Lidoderm) 1 patch DAILY TP 09/27/20 09:00 10/11/20 08:15 Loperamide HCl (Imodium) 2 mg PRN Q6HRS PRN PO DIARRHEA 09/27/20 01:45 Magnesium Oxide (Magnesium Oxide) 400 mg DAILY PO 09/27/20 09:00 10/11/20 08:14 Metformin HCl (Glucophage) 500 mg DAILY PO 09/27/20 09:00 10/11/20 08:12 Metolazone (Zaroxolyn) 2.5 mg QMWF PO 09/27/20 16:00 10/09/20 16:59 Oxycodone HCl (Roxicodone) 5 mg TID PO 09/27/20 09:00 09/27/20 03:06 DC Oxycodone/ Acetaminophen (Percocet 5/325) 1 tab PRN Q6HRS PRN PO MOD-SEV PAIN 09/27/20 01:45 10/11/20 06:14 Polyethylene Glycol (miraLAX) 17 gm DAILY PO 09/27/20 09:00 10/11/20 08:15 Potassium Chloride (Klor-Con) 40 meq BID PO 09/27/20 09:00 09/27/20 03:06 DC Propranolol HCl (Inderal) 20 mg BID92 PO 09/27/20 09:00 10/11/20 08:13 Sennosides (Senna) 17.2 mg PRN Q12HR PRN PO 2nd choice CONSTIPATION 09/27/20 01:45 Sennosides (Senna) 8.6 mg HS PO 09/27/20 21:00 10/10/20 21:02 Spironolactone (Aldactone) 25 mg BID PO 09/27/20 09:00 10/11/20 08:14 Topiramate (Topamax) 100 mg BID PO 09/27/20 09:00 10/11/20 08:18 Vitamin D (Vitamin D3) 1,000 unit DAILY PO 09/27/20 09:00 10/11/20 08:13 Fluticasone Propionate (Flonase) 2 spray HS NS 09/27/20 21:00 10/10/20 21:03 Glucagon (Glucagen Kit) 1 mg 1X PRN PRN IM LOW BLOOD SUGAR, 2ND CHOICE 09/27/20 02:45 Non-Formulary Medication (Mag Hydrox/Al Hydrox/Simeth (Alum-Mag Hydroxide-Simeth Liq)) 30 ml Q4HRS PRN PO INDIGESTION 09/27/20 01:45 09/27/20 02:34 DC Multivitamins/ Calcium (Thera-M Plus) 1 tab DAILY PO 09/27/20 09:00 10/11/20 08:13 Multi-Ingredient Ointment (Analgesic [place]) 1 mello PRN Q4HRS PRN TP MUSCLE PAIN 09/27/20 02:45 Hydroxyzine Pamoate (Vistaril) 25 mg PRN Q6HRS PRN PO ITCHING 09/27/20 02:15 Ropinirole HCl (Requip) 1 mg HS PO 09/27/20 21:00 10/10/20 21:03 Ziprasidone (Geodon) 60 mg BID PO 09/27/20 09:00 10/01/20 16:52 DC 10/01/20 08:17 Alprazolam (Xanax) 0.5 mg TID PO 09/27/20 09:00 09/27/20 03:06 DC Paroxetine HCl (Paxil) 50 mg DAILY PO 09/27/20 09:00 09/30/20 13:56 DC 09/30/20 08:24 Miscellaneous (Lidoderm Patch Removal) 1 ea QHS MC 09/27/20 21:00 10/10/20 21:00 Alprazolam (Xanax) 0.5 mg TID PO 09/27/20 03:15 10/11/20 08:13 Oxycodone HCl (Roxicodone) 5 mg TID PO 09/27/20 03:15 10/11/20 08:14 Potassium Chloride (Klor-Con) 40 meq BID PO 09/27/20 03:15 10/11/20 08:13 Levothyroxine Sodium (Synthroid) 100 mcg DAILY06 PO 09/28/20 06:00 10/11/20 06:14 Duloxetine HCl (Cymbalta) 30 mg DAILY PO 10/01/20 09:00 10/02/20 21:01 DC 10/02/20 08:42 Duloxetine HCl (Cymbalta) 60 mg DAILY PO 10/03/20 09:00 10/11/20 08:13 Nystatin (Nystop) 1 mello BID TP 09/30/20 21:00 10/11/20 08:19 Ziprasidone (Geodon) 80 mg BID PO 10/02/20 09:00 10/11/20 08:14 Ziprasidone (Geodon) 60 mg BID PO 10/01/20 21:00 10/01/20 21:01 DC 10/01/20 20:24 Cyproheptadine HCl (Periactin) 2 mg HS PO 10/02/20 21:00 10/10/20 21:02 Bupropion HCl (Wellbutrin Xl) 150 mg DAILY PO 10/06/20 09:00 10/10/20 18:30 DC 10/10/20 08:49 Lamotrigine (LaMICtal) 25 mg HS PO 10/08/20 21:00 10/10/20 22:00 DC 10/10/20 21:03 Lamotrigine (LaMICtal) 50 mg HS PO 10/11/20 21:00 10/13/20 22:00 Lamotrigine (LaMICtal) 75 mg HS PO 10/14/20 21:00 Bupropion HCl (Wellbutrin Xl) 300 mg DAILY PO 10/11/20 09:00 10/11/20 08:13 Apixaban (Eliquis) 10 mg BID PO 10/10/20 22:00 10/16/20 21:59 10/11/20 08:12 Apixaban (Eliquis) 5 mg BID PO 10/17/20 09:00 Current Medications Medications (Trade) Dose Ordered Sig/Mathieu Route PRN Reason Start Time Stop Time Status Last Admin Dose Admin Bupropion HCl (Wellbutrin Xl) 300 mg DAILY PO 10/11/20 09:00 10/11/20 08:13 Apixaban (Eliquis) 10 mg BID PO 10/10/20 22:00 10/16/20 21:59 10/11/20 08:12 I have reviewed the current psychotropics carefully including drug interactions. Risk benefit ratio favors no change other than as noted in my dictated progress note. Diagnosis: Problems: (1) Mild cognitive impairment (2) Bipolar disorder, curr episode mixed, severe, with psychotic features (3) Anxiety disorder, unspecified PAMELA RAMOS MD Oct 11, 2020 09:26
--- NOTE | 2020-10-11 09:48 | PDOC ---
Exam Note: [place] Note: This note is a late entry for 10/10/2020 covers elements not covered in my initial note. Subjective: The patient was seen individually in the evening of 10/10/2020 with Gordon ROYAL, discussed and reviewed the chart. The patient slept 6-1/4 hours previous night. She has been more verbal, saying full sentence. We will be checking Doppler left lower extremity due to edema. She still remains depressed, withdrawn, slightly less paranoid. Review of Systems: Ambulation impaired in wheelchair. No CV, , pulmonary, eye, ENT system symptoms on review. Mental Status Exam: The patient is oriented to herself and situation. Speech moderate latency. Often response is monosyllabic. Abstraction is fair. Computation impaired. Language function intact. Mood and affect somewhat withdrawn, paranoid. Laboratory Data: Reviewed. Impression: Bipolar disorder depressed with psychotic features. Anxiety disorder unspecified. Impulse control disorder unspecified. Plan: No change from initial note. Increase Wellbutrin XL from 150 mg a day to 300 mg a day. Rest unchanged. Assessment: Vital Signs/I&O: Vital Signs Date Time Temp Pulse Resp B/P (MAP) Pulse Ox O2 Delivery O2 Flow Rate FiO2 10/11/20 08:13 58 121/72 10/11/20 06:14 99 10/11/20 06:09 96.9 12 10/10/20 06:14 Room Air I & O 10/10/20 10/10/20 10/11/20 15:00 23:00 07:00 Intake Total 600 ml 480 ml Balance 600 ml 480 ml Labs: Laboratory Tests Test 10/11/20 07:59 Glucose (Fingerstick) 105 mg/dL (70-99) H Current Medications: Meds: Laboratory Tests Test 10/11/20 07:59 Glucose (Fingerstick) 105 mg/dL Current Medications Medications (Trade) Dose Ordered Sig/Mathieu Route PRN Reason Start Time Stop Time Status Last Admin Dose Admin Oxycodone/ Acetaminophen (Percocet 5/325) 1 tab 1X ONCE PO 09/26/20 15:00 09/26/20 15:01 DC 09/26/20 15:25 Morphine Sulfate (Morphine 4mg Syringe) 4 mg 1X ONCE IV 09/26/20 19:45 09/26/20 19:46 DC 09/26/20 19:44 Diphenhydramine HCl (Benadryl) 25 mg 1X ONCE IVP 09/26/20 19:45 09/26/20 19:46 DC 09/26/20 19:47 Diphenhydramine HCl (Benadryl) 50 mg STK-MED ONCE .ROUTE 09/26/20 19:41 09/26/20 19:42 DC Fentanyl Citrate (Fentanyl 2ml Vial) 75 mcg 1X ONCE IVP 09/27/20 00:15 09/27/20 00:21 DC 09/27/20 00:17 Diphenhydramine HCl (Benadryl) 50 mg 1X ONCE IVP 09/27/20 01:00 09/27/20 01:01 DC 09/27/20 00:40 Acetaminophen (Tylenol) 650 mg PRN Q6HRS PRN PO MILD PAIN / TEMP > 100.3'F 09/27/20 01:30 09/28/20 07:34 DC Al Hydroxide/Mg Hydroxide (Mylanta Plus Xs) 15 ml PRN AFTMEALHC PRN PO 2ND CHOICE DYSPEPSIA 09/27/20 01:30 Magnesium Hydroxide (Milk Of Magnesia) 2,400 mg PRN QHS PRN PO 1st choice CONSTIPATION 09/27/20 01:30 Acetaminophen (Tylenol) 500 mg PRN Q8HRS PRN PO mild PAIN 09/27/20 01:45 09/27/20 02:57 Calcium Carbonate/ Glycine (Tums) 500 mg PRN Q3HRS PRN PO 1ST CHOICE DYSPEPSIA 09/27/20 02:30 Glucose (Insta-Glucose) 15 gm PRN Q1HR PRN PO LOW BLOOD SUGAR, 1ST CHOICE 09/27/20 01:45 Docusate Sodium (Colace) 100 mg DAILY PO 09/27/20 09:00 10/11/20 08:12 Gabapentin (Neurontin) 100 mg BIDWBKFT/CHERYL PO 09/27/20 08:00 10/11/20 08:12 Gabapentin (Neurontin) 300 mg HS PO 09/27/20 21:00 10/10/20 21:02 Levothyroxine Sodium (Synthroid) 100 mcg DAILY06 PO 09/27/20 06:00 09/28/20 03:07 DC 09/27/20 05:52 Lidocaine (Lidoderm) 1 patch DAILY TP 09/27/20 09:00 10/11/20 08:15 Loperamide HCl (Imodium) 2 mg PRN Q6HRS PRN PO DIARRHEA 09/27/20 01:45 Magnesium Oxide (Magnesium Oxide) 400 mg DAILY PO 09/27/20 09:00 10/11/20 08:14 Metformin HCl (Glucophage) 500 mg DAILY PO 09/27/20 09:00 10/11/20 08:12 Metolazone (Zaroxolyn) 2.5 mg QMWF PO 09/27/20 16:00 10/09/20 16:59 Oxycodone HCl (Roxicodone) 5 mg TID PO 09/27/20 09:00 09/27/20 03:06 DC Oxycodone/ Acetaminophen (Percocet 5/325) 1 tab PRN Q6HRS PRN PO MOD-SEV PAIN 09/27/20 01:45 10/11/20 06:14 Polyethylene Glycol (miraLAX) 17 gm DAILY PO 09/27/20 09:00 10/11/20 08:15 Potassium Chloride (Klor-Con) 40 meq BID PO 09/27/20 09:00 09/27/20 03:06 DC Propranolol HCl (Inderal) 20 mg BID92 PO 09/27/20 09:00 10/11/20 08:13 Sennosides (Senna) 17.2 mg PRN Q12HR PRN PO 2nd choice CONSTIPATION 09/27/20 01:45 Sennosides (Senna) 8.6 mg HS PO 09/27/20 21:00 10/10/20 21:02 Spironolactone (Aldactone) 25 mg BID PO 09/27/20 09:00 10/11/20 08:14 Topiramate (Topamax) 100 mg BID PO 09/27/20 09:00 10/11/20 08:18 Vitamin D (Vitamin D3) 1,000 unit DAILY PO 09/27/20 09:00 10/11/20 08:13 Fluticasone Propionate (Flonase) 2 spray HS NS 09/27/20 21:00 10/10/20 21:03 Glucagon (Glucagen Kit) 1 mg 1X PRN PRN IM LOW BLOOD SUGAR, 2ND CHOICE 09/27/20 02:45 Non-Formulary Medication (Mag Hydrox/Al Hydrox/Simeth (Alum-Mag Hydroxide-Simeth Liq)) 30 ml Q4HRS PRN PO INDIGESTION 09/27/20 01:45 09/27/20 02:34 DC Multivitamins/ Calcium (Thera-M Plus) 1 tab DAILY PO 09/27/20 09:00 10/11/20 08:13 Multi-Ingredient Ointment (Analgesic [place]) 1 mello PRN Q4HRS PRN TP MUSCLE PAIN 09/27/20 02:45 Hydroxyzine Pamoate (Vistaril) 25 mg PRN Q6HRS PRN PO ITCHING 09/27/20 02:15 Ropinirole HCl (Requip) 1 mg HS PO 09/27/20 21:00 10/10/20 21:03 Ziprasidone (Geodon) 60 mg BID PO 09/27/20 09:00 10/01/20 16:52 DC 10/01/20 08:17 Alprazolam (Xanax) 0.5 mg TID PO 09/27/20 09:00 09/27/20 03:06 DC Paroxetine HCl (Paxil) 50 mg DAILY PO 09/27/20 09:00 09/30/20 13:56 DC 09/30/20 08:24 Miscellaneous (Lidoderm Patch Removal) 1 ea QHS MC 09/27/20 21:00 10/10/20 21:00 Alprazolam (Xanax) 0.5 mg TID PO 09/27/20 03:15 10/11/20 08:13 Oxycodone HCl (Roxicodone) 5 mg TID PO 09/27/20 03:15 10/11/20 08:14 Potassium Chloride (Klor-Con) 40 meq BID PO 09/27/20 03:15 10/11/20 08:13 Levothyroxine Sodium (Synthroid) 100 mcg DAILY06 PO 09/28/20 06:00 10/11/20 06:14 Duloxetine HCl (Cymbalta) 30 mg DAILY PO 10/01/20 09:00 10/02/20 21:01 DC 10/02/20 08:42 Duloxetine HCl (Cymbalta) 60 mg DAILY PO 10/03/20 09:00 10/11/20 08:13 Nystatin (Nystop) 1 mello BID TP 09/30/20 21:00 10/11/20 08:19 Ziprasidone (Geodon) 80 mg BID PO 10/02/20 09:00 10/11/20 08:14 Ziprasidone (Geodon) 60 mg BID PO 10/01/20 21:00 10/01/20 21:01 DC 10/01/20 20:24 Cyproheptadine HCl (Periactin) 2 mg HS PO 10/02/20 21:00 10/10/20 21:02 Bupropion HCl (Wellbutrin Xl) 150 mg DAILY PO 10/06/20 09:00 10/10/20 18:30 DC 10/10/20 08:49 Lamotrigine (LaMICtal) 25 mg HS PO 10/08/20 21:00 10/10/20 22:00 DC 10/10/20 21:03 Lamotrigine (LaMICtal) 50 mg HS PO 10/11/20 21:00 10/13/20 22:00 Lamotrigine (LaMICtal) 75 mg HS PO 10/14/20 21:00 Bupropion HCl (Wellbutrin Xl) 300 mg DAILY PO 10/11/20 09:00 10/11/20 08:13 Apixaban (Eliquis) 10 mg BID PO 10/10/20 22:00 10/16/20 21:59 10/11/20 08:12 Apixaban (Eliquis) 5 mg BID PO 10/17/20 09:00 Current Medications Medications (Trade) Dose Ordered Sig/Mathieu Route PRN Reason Start Time Stop Time Status Last Admin Dose Admin Bupropion HCl (Wellbutrin Xl) 300 mg DAILY PO 10/11/20 09:00 10/11/20 08:13 Apixaban (Eliquis) 10 mg BID PO 10/10/20 22:00 10/16/20 21:59 10/11/20 08:12 I have reviewed the current psychotropics carefully including drug interactions. Risk benefit ratio favors no change other than as noted in my dictated progress note. Diagnosis: Problems: (1) Mild cognitive impairment (2) Bipolar disorder, curr episode mixed, severe, with psychotic features (3) Anxiety disorder, unspecified PAMELA RAMOS MD Oct 11, 2020 09:48
[2020-10-11 15:52] VITALS: BP 99/64
[2020-10-11] MEDS: metOLazone 2.5 MG TABLET PO SCH (16:40)
[2020-10-11] MEDS: rOPINIRole 1 MG TABLET. PO SCH (19:55)
[2020-10-11] MEDS: oxyCODONE ER 10 MG TAB.ER.12H PO SCH (19:55)
[2020-10-11] MEDS: SENNOSIDES 8.6 MG TABLET PO SCH (19:56)
[2020-10-11] MEDS: lamoTRIgine 100 MG TABLET. PO SCH (19:57)
[2020-10-11] MEDS: GABAPENTIN 300 MG CAPSULE. PO SCH (19:57)
[2020-10-11] MEDS: CYPROHEPTADINE 4 MG TABLET. PO SCH (19:57)
[2020-10-11] MEDS: FLUTICASONE 50MCG/NASAL SPRAY 16GM BOTTLE. NS SCH (19:58)
[2020-10-11] MEDS: PATCH REMOVAL. MC SCH (19:59)
--- NOTE | 2020-10-11 22:02 | PDOC ---
Exam Note: [place] Note: Please also refer to the separate dictated note~for this date of service dictated separately.~Patient seen individually. Discussed the patient with Nursing staff reviewed the chart.~Reviewed interim history and current functioning. Reviewed vital signs,~Labs/ Radiology~and current medications noted below. Continue current treatment with the changes noted in the dictated addendum note Assessment: Vital Signs/I&O: Vital Signs Date Time Temp Pulse Resp B/P (MAP) Pulse Ox O2 Delivery O2 Flow Rate FiO2 10/11/20 19:55 97 10/11/20 15:52 97.7 73 18 99/64 (76) 10/10/20 06:14 Room Air I & O 10/10/20 10/10/20 10/11/20 15:00 23:00 07:00 Intake Total 600 ml 480 ml Balance 600 ml 480 ml Labs: Laboratory Tests Test 10/11/20 07:59 10/11/20 19:36 Glucose (Fingerstick) 105 mg/dL (70-99) H 204 mg/dL (70-99) H Current Medications: Meds: Laboratory Tests Test 10/11/20 07:59 10/11/20 19:36 Glucose (Fingerstick) 105 mg/dL 204 mg/dL Current Medications Medications (Trade) Dose Ordered Sig/Mathieu Route PRN Reason Start Time Stop Time Status Last Admin Dose Admin Oxycodone/ Acetaminophen (Percocet 5/325) 1 tab 1X ONCE PO 09/26/20 15:00 09/26/20 15:01 DC 09/26/20 15:25 Morphine Sulfate (Morphine 4mg Syringe) 4 mg 1X ONCE IV 09/26/20 19:45 09/26/20 19:46 DC 09/26/20 19:44 Diphenhydramine HCl (Benadryl) 25 mg 1X ONCE IVP 09/26/20 19:45 09/26/20 19:46 DC 09/26/20 19:47 Diphenhydramine HCl (Benadryl) 50 mg STK-MED ONCE .ROUTE 09/26/20 19:41 09/26/20 19:42 DC Fentanyl Citrate (Fentanyl 2ml Vial) 75 mcg 1X ONCE IVP 09/27/20 00:15 09/27/20 00:21 DC 09/27/20 00:17 Diphenhydramine HCl (Benadryl) 50 mg 1X ONCE IVP 09/27/20 01:00 09/27/20 01:01 DC 09/27/20 00:40 Acetaminophen (Tylenol) 650 mg PRN Q6HRS PRN PO MILD PAIN / TEMP > 100.3'F 09/27/20 01:30 09/28/20 07:34 DC Al Hydroxide/Mg Hydroxide (Mylanta Plus Xs) 15 ml PRN AFTMEALHC PRN PO 2ND CHOICE DYSPEPSIA 09/27/20 01:30 Magnesium Hydroxide (Milk Of Magnesia) 2,400 mg PRN QHS PRN PO 1st choice CONSTIPATION 09/27/20 01:30 Acetaminophen (Tylenol) 500 mg PRN Q8HRS PRN PO mild PAIN 09/27/20 01:45 09/27/20 02:57 Calcium Carbonate/ Glycine (Tums) 500 mg PRN Q3HRS PRN PO 1ST CHOICE DYSPEPSIA 09/27/20 02:30 Glucose (Insta-Glucose) 15 gm PRN Q1HR PRN PO LOW BLOOD SUGAR, 1ST CHOICE 09/27/20 01:45 Docusate Sodium (Colace) 100 mg DAILY PO 09/27/20 09:00 10/11/20 08:12 Gabapentin (Neurontin) 100 mg BIDWBKFT/CHERYL PO 09/27/20 08:00 10/11/20 12:01 Gabapentin (Neurontin) 300 mg HS PO 09/27/20 21:00 10/11/20 19:57 Levothyroxine Sodium (Synthroid) 100 mcg DAILY06 PO 09/27/20 06:00 09/28/20 03:07 DC 09/27/20 05:52 Lidocaine (Lidoderm) 1 patch DAILY TP 09/27/20 09:00 10/10/20 08:48 Loperamide HCl (Imodium) 2 mg PRN Q6HRS PRN PO DIARRHEA 09/27/20 01:45 Magnesium Oxide (Magnesium Oxide) 400 mg DAILY PO 09/27/20 09:00 10/11/20 08:14 Metformin HCl (Glucophage) 500 mg DAILY PO 09/27/20 09:00 10/11/20 08:12 Metolazone (Zaroxolyn) 2.5 mg QMWF PO 09/27/20 16:00 10/09/20 16:59 Oxycodone HCl (Roxicodone) 5 mg TID PO 09/27/20 09:00 09/27/20 03:06 DC Oxycodone/ Acetaminophen (Percocet 5/325) 1 tab PRN Q6HRS PRN PO MOD-SEV PAIN 09/27/20 01:45 10/11/20 06:14 Polyethylene Glycol (miraLAX) 17 gm DAILY PO 09/27/20 09:00 10/11/20 08:15 Potassium Chloride (Klor-Con) 40 meq BID PO 09/27/20 09:00 09/27/20 03:06 DC Propranolol HCl (Inderal) 20 mg BID92 PO 09/27/20 09:00 10/11/20 14:28 Sennosides (Senna) 17.2 mg PRN Q12HR PRN PO 2nd choice CONSTIPATION 09/27/20 01:45 Sennosides (Senna) 8.6 mg HS PO 09/27/20 21:00 10/11/20 19:56 Spironolactone (Aldactone) 25 mg BID PO 09/27/20 09:00 10/11/20 19:56 Topiramate (Topamax) 100 mg BID PO 09/27/20 09:00 10/11/20 19:57 Vitamin D (Vitamin D3) 1,000 unit DAILY PO 09/27/20 09:00 10/11/20 08:13 Fluticasone Propionate (Flonase) 2 spray HS NS 09/27/20 21:00 10/11/20 19:58 Glucagon (Glucagen Kit) 1 mg 1X PRN PRN IM LOW BLOOD SUGAR, 2ND CHOICE 09/27/20 02:45 Non-Formulary Medication (Mag Hydrox/Al Hydrox/Simeth (Alum-Mag Hydroxide-Simeth Liq)) 30 ml Q4HRS PRN PO INDIGESTION 09/27/20 01:45 09/27/20 02:34 DC Multivitamins/ Calcium (Thera-M Plus) 1 tab DAILY PO 09/27/20 09:00 10/11/20 08:13 Multi-Ingredient Ointment (Analgesic [place]) 1 mello PRN Q4HRS PRN TP MUSCLE PAIN 09/27/20 02:45 Hydroxyzine Pamoate (Vistaril) 25 mg PRN Q6HRS PRN PO ITCHING 09/27/20 02:15 Ropinirole HCl (Requip) 1 mg HS PO 09/27/20 21:00 10/11/20 19:55 Ziprasidone (Geodon) 60 mg BID PO 09/27/20 09:00 10/01/20 16:52 DC 10/01/20 08:17 Alprazolam (Xanax) 0.5 mg TID PO 09/27/20 09:00 09/27/20 03:06 DC Paroxetine HCl (Paxil) 50 mg DAILY PO 09/27/20 09:00 09/30/20 13:56 DC 09/30/20 08:24 Miscellaneous (Lidoderm Patch Removal) 1 ea QHS MC 09/27/20 21:00 10/10/20 21:00 Alprazolam (Xanax) 0.5 mg TID PO 09/27/20 03:15 10/11/20 19:58 Oxycodone HCl (Roxicodone) 5 mg TID PO 09/27/20 03:15 10/11/20 17:27 DC 10/11/20 14:27 Potassium Chloride (Klor-Con) 40 meq BID PO 09/27/20 03:15 10/11/20 19:56 Levothyroxine Sodium (Synthroid) 100 mcg DAILY06 PO 09/28/20 06:00 10/11/20 06:14 Duloxetine HCl (Cymbalta) 30 mg DAILY PO 10/01/20 09:00 10/02/20 21:01 DC 10/02/20 08:42 Duloxetine HCl (Cymbalta) 60 mg DAILY PO 10/03/20 09:00 10/11/20 08:13 Nystatin (Nystop) 1 mello BID TP 09/30/20 21:00 10/11/20 19:58 Ziprasidone (Geodon) 80 mg BID PO 10/02/20 09:00 10/11/20 19:57 Ziprasidone (Geodon) 60 mg BID PO 10/01/20 21:00 10/01/20 21:01 DC 10/01/20 20:24 Cyproheptadine HCl (Periactin) 2 mg HS PO 10/02/20 21:00 10/11/20 19:57 Bupropion HCl (Wellbutrin Xl) 150 mg DAILY PO 10/06/20 09:00 10/10/20 18:30 DC 10/10/20 08:49 Lamotrigine (LaMICtal) 25 mg HS PO 10/08/20 21:00 10/10/20 22:00 DC 10/10/20 21:03 Lamotrigine (LaMICtal) 50 mg HS PO 10/11/20 21:00 10/13/20 22:00 10/11/20 19:57 Lamotrigine (LaMICtal) 75 mg HS PO 10/14/20 21:00 Bupropion HCl (Wellbutrin Xl) 300 mg DAILY PO 10/11/20 09:00 10/11/20 08:13 Apixaban (Eliquis) 10 mg BID PO 10/10/20 22:00 10/16/20 21:59 10/11/20 19:58 Apixaban (Eliquis) 5 mg BID PO 10/17/20 09:00 Oxycodone HCl (OxyCONTIN) 10 mg Q12HR PO 10/11/20 21:00 10/11/20 19:55 Current Medications Medications (Trade) Dose Ordered Sig/Mathieu Route PRN Reason Start Time Stop Time Status Last Admin Dose Admin Lamotrigine (LaMICtal) 50 mg HS PO 10/11/20 21:00 10/13/20 22:00 10/11/20 19:57 Bupropion HCl (Wellbutrin Xl) 300 mg DAILY PO 10/11/20 09:00 10/11/20 08:13 Oxycodone HCl (OxyCONTIN) 10 mg Q12HR PO 10/11/20 21:00 10/11/20 19:55 I have reviewed the current psychotropics carefully including drug interactions. Risk benefit ratio favors no change other than as noted in my dictated progress note. Diagnosis: Problems: (1) Mild cognitive impairment (2) Bipolar disorder, curr episode mixed, severe, with psychotic features (3) Anxiety disorder, unspecified PAMELA RAMOS MD Oct 11, 2020 22:02
--- NOTE | 2020-10-11 22:31 | NUR ---
Nursing Note Pt is yelling out intermittently for various somatic complaints. Wants drinks, repositioned, pillows adjusted....on and on through the evening. HS meds given, took them willingly with pain meds in them. Left ankle and leg are less edematous this PM, skin to foot and ankle have wrinkles and are not shiny in appearance. Pt still reporting 10/10 pain when asked, states nothing helps her ever. Oxycontin started.
[2020-10-12 06:07] VITALS: BP 121/74
[2020-10-12] MEDS: LEVOTHYROXINE 100 MCG TABLET PO SCH (06:11)
[2020-10-12] MEDS: oxyCODONE/APAP 5/325 1 TAB TABLET PO PRN ×3 (06:11→21:13)
--- NOTE | 2020-10-12 06:34 | PDOC ---
Exam Note: [place] Note: This note is a late entry for 10/11/2020 covers elements not covered in my initial note. Subjective: The patient was seen individually in the evening of 10/11/2020 with Marisa ROYAL, discussed and reviewed the chart. The patient slept 7-1/2 hours previous night. Often refusing to answer questions, wanting to be in bed much of the time. Dr. Otero has changed her pain medications to longer acting to help with the pain. I met with her in her room. Review of Systems: Ambulation impaired in wheelchair. She complains of pain. No CV, , pulmonary, eye, ENT system symptoms on review. Mental Status Exam: The patient is oriented to herself and situation. She is not very verbal, interactive. Speech moderate latency. Often response is monosyllabic. Abstraction is fair. Computation impaired. Language function intact. Mood and affect somewhat withdrawn. Laboratory Data: Reviewed. Impression: Bipolar disorder depressed with psychotic features. Anxiety disorder unspecified. Impulse control disorder unspecified. Plan: No change from initial note. Maintain Geodon 80 mg b.i.d., Xanax, and Periactin to stimulate her appetite. ReQuip, Cymbalta, Topamax, Wellbutrin, Lamictal has been initiated as a mood stabilizer. Depending on her psychotic symptoms persisting we may change Geodon to Risperdal. Assessment: Vital Signs/I&O: Vital Signs Date Time Temp Pulse Resp B/P (MAP) Pulse Ox O2 Delivery O2 Flow Rate FiO2 10/12/20 06:11 99 10/12/20 06:07 96.8 73 16 121/74 (90) Room Air I & O 10/11/20 10/11/20 10/12/20 15:00 23:00 07:00 Intake Total 600 ml 240 ml 120 ml Balance 600 ml 240 ml 120 ml Labs: Laboratory Tests Test 10/11/20 07:59 10/11/20 19:36 Glucose (Fingerstick) 105 mg/dL (70-99) H 204 mg/dL (70-99) H Current Medications: Meds: Laboratory Tests Test 10/11/20 07:59 10/11/20 19:36 Glucose (Fingerstick) 105 mg/dL 204 mg/dL Current Medications Medications (Trade) Dose Ordered Sig/Mathieu Route PRN Reason Start Time Stop Time Status Last Admin Dose Admin Oxycodone/ Acetaminophen (Percocet 5/325) 1 tab 1X ONCE PO 09/26/20 15:00 09/26/20 15:01 DC 09/26/20 15:25 Morphine Sulfate (Morphine 4mg Syringe) 4 mg 1X ONCE IV 09/26/20 19:45 09/26/20 19:46 DC 09/26/20 19:44 Diphenhydramine HCl (Benadryl) 25 mg 1X ONCE IVP 09/26/20 19:45 09/26/20 19:46 DC 09/26/20 19:47 Diphenhydramine HCl (Benadryl) 50 mg STK-MED ONCE .ROUTE 09/26/20 19:41 09/26/20 19:42 DC Fentanyl Citrate (Fentanyl 2ml Vial) 75 mcg 1X ONCE IVP 09/27/20 00:15 09/27/20 00:21 DC 09/27/20 00:17 Diphenhydramine HCl (Benadryl) 50 mg 1X ONCE IVP 09/27/20 01:00 09/27/20 01:01 DC 09/27/20 00:40 Acetaminophen (Tylenol) 650 mg PRN Q6HRS PRN PO MILD PAIN / TEMP > 100.3'F 09/27/20 01:30 09/28/20 07:34 DC Al Hydroxide/Mg Hydroxide (Mylanta Plus Xs) 15 ml PRN AFTMEALHC PRN PO 2ND CHOICE DYSPEPSIA 09/27/20 01:30 Magnesium Hydroxide (Milk Of Magnesia) 2,400 mg PRN QHS PRN PO 1st choice CONSTIPATION 09/27/20 01:30 Acetaminophen (Tylenol) 500 mg PRN Q8HRS PRN PO mild PAIN 09/27/20 01:45 09/27/20 02:57 Calcium Carbonate/ Glycine (Tums) 500 mg PRN Q3HRS PRN PO 1ST CHOICE DYSPEPSIA 09/27/20 02:30 Glucose (Insta-Glucose) 15 gm PRN Q1HR PRN PO LOW BLOOD SUGAR, 1ST CHOICE 09/27/20 01:45 Docusate Sodium (Colace) 100 mg DAILY PO 09/27/20 09:00 10/11/20 08:12 Gabapentin (Neurontin) 100 mg BIDWBKFT/CHERYL PO 09/27/20 08:00 10/11/20 12:01 Gabapentin (Neurontin) 300 mg HS PO 09/27/20 21:00 10/11/20 19:57 Levothyroxine Sodium (Synthroid) 100 mcg DAILY06 PO 09/27/20 06:00 09/28/20 03:07 DC 09/27/20 05:52 Lidocaine (Lidoderm) 1 patch DAILY TP 09/27/20 09:00 10/10/20 08:48 Loperamide HCl (Imodium) 2 mg PRN Q6HRS PRN PO DIARRHEA 09/27/20 01:45 Magnesium Oxide (Magnesium Oxide) 400 mg DAILY PO 09/27/20 09:00 10/11/20 08:14 Metformin HCl (Glucophage) 500 mg DAILY PO 09/27/20 09:00 10/11/20 08:12 Metolazone (Zaroxolyn) 2.5 mg QMWF PO 09/27/20 16:00 10/09/20 16:59 Oxycodone HCl (Roxicodone) 5 mg TID PO 09/27/20 09:00 09/27/20 03:06 DC Oxycodone/ Acetaminophen (Percocet 5/325) 1 tab PRN Q6HRS PRN PO MOD-SEV PAIN 09/27/20 01:45 10/12/20 06:11 Polyethylene Glycol (miraLAX) 17 gm DAILY PO 09/27/20 09:00 10/11/20 08:15 Potassium Chloride (Klor-Con) 40 meq BID PO 09/27/20 09:00 09/27/20 03:06 DC Propranolol HCl (Inderal) 20 mg BID92 PO 09/27/20 09:00 10/11/20 14:28 Sennosides (Senna) 17.2 mg PRN Q12HR PRN PO 2nd choice CONSTIPATION 09/27/20 01:45 Sennosides (Senna) 8.6 mg HS PO 09/27/20 21:00 10/11/20 19:56 Spironolactone (Aldactone) 25 mg BID PO 09/27/20 09:00 10/11/20 19:56 Topiramate (Topamax) 100 mg BID PO 09/27/20 09:00 10/11/20 19:57 Vitamin D (Vitamin D3) 1,000 unit DAILY PO 09/27/20 09:00 10/11/20 08:13 Fluticasone Propionate (Flonase) 2 spray HS NS 09/27/20 21:00 10/11/20 19:58 Glucagon (Glucagen Kit) 1 mg 1X PRN PRN IM LOW BLOOD SUGAR, 2ND CHOICE 09/27/20 02:45 Non-Formulary Medication (Mag Hydrox/Al Hydrox/Simeth (Alum-Mag Hydroxide-Simeth Liq)) 30 ml Q4HRS PRN PO INDIGESTION 09/27/20 01:45 09/27/20 02:34 DC Multivitamins/ Calcium (Thera-M Plus) 1 tab DAILY PO 09/27/20 09:00 10/11/20 08:13 Multi-Ingredient Ointment (Analgesic [place]) 1 mello PRN Q4HRS PRN TP MUSCLE PAIN 09/27/20 02:45 Hydroxyzine Pamoate (Vistaril) 25 mg PRN Q6HRS PRN PO ITCHING 09/27/20 02:15 Ropinirole HCl (Requip) 1 mg HS PO 09/27/20 21:00 10/11/20 19:55 Ziprasidone (Geodon) 60 mg BID PO 09/27/20 09:00 10/01/20 16:52 DC 10/01/20 08:17 Alprazolam (Xanax) 0.5 mg TID PO 09/27/20 09:00 09/27/20 03:06 DC Paroxetine HCl (Paxil) 50 mg DAILY PO 09/27/20 09:00 09/30/20 13:56 DC 09/30/20 08:24 Miscellaneous (Lidoderm Patch Removal) 1 ea QHS MC 09/27/20 21:00 10/10/20 21:00 Alprazolam (Xanax) 0.5 mg TID PO 09/27/20 03:15 10/11/20 19:58 Oxycodone HCl (Roxicodone) 5 mg TID PO 09/27/20 03:15 10/11/20 17:27 DC 10/11/20 14:27 Potassium Chloride (Klor-Con) 40 meq BID PO 09/27/20 03:15 10/11/20 19:56 Levothyroxine Sodium (Synthroid) 100 mcg DAILY06 PO 09/28/20 06:00 10/12/20 06:11 Duloxetine HCl (Cymbalta) 30 mg DAILY PO 10/01/20 09:00 10/02/20 21:01 DC 10/02/20 08:42 Duloxetine HCl (Cymbalta) 60 mg DAILY PO 10/03/20 09:00 10/11/20 08:13 Nystatin (Nystop) 1 mello BID TP 09/30/20 21:00 10/11/20 19:58 Ziprasidone (Geodon) 80 mg BID PO 10/02/20 09:00 10/11/20 19:57 Ziprasidone (Geodon) 60 mg BID PO 10/01/20 21:00 10/01/20 21:01 DC 10/01/20 20:24 Cyproheptadine HCl (Periactin) 2 mg HS PO 10/02/20 21:00 10/11/20 19:57 Bupropion HCl (Wellbutrin Xl) 150 mg DAILY PO 10/06/20 09:00 10/10/20 18:30 DC 10/10/20 08:49 Lamotrigine (LaMICtal) 25 mg HS PO 10/08/20 21:00 10/10/20 22:00 DC 10/10/20 21:03 Lamotrigine (LaMICtal) 50 mg HS PO 10/11/20 21:00 10/13/20 22:00 10/11/20 19:57 Lamotrigine (LaMICtal) 75 mg HS PO 10/14/20 21:00 Bupropion HCl (Wellbutrin Xl) 300 mg DAILY PO 10/11/20 09:00 10/11/20 08:13 Apixaban (Eliquis) 10 mg BID PO 10/10/20 22:00 10/16/20 21:59 10/11/20 19:58 Apixaban (Eliquis) 5 mg BID PO 10/17/20 09:00 Oxycodone HCl (OxyCONTIN) 10 mg Q12HR PO 10/11/20 21:00 10/11/20 19:55 Current Medications Medications (Trade) Dose Ordered Sig/Mathieu Route PRN Reason Start Time Stop Time Status Last Admin Dose Admin Lamotrigine (LaMICtal) 50 mg HS PO 10/11/20 21:00 10/13/20 22:00 10/11/20 19:57 Bupropion HCl (Wellbutrin Xl) 300 mg DAILY PO 10/11/20 09:00 10/11/20 08:13 Oxycodone HCl (OxyCONTIN) 10 mg Q12HR PO 10/11/20 21:00 10/11/20 19:55 I have reviewed the current psychotropics carefully including drug interactions. Risk benefit ratio favors no change other than as noted in my dictated progress note. Diagnosis: Problems: (1) Mild cognitive impairment (2) Bipolar disorder, curr episode mixed, severe, with psychotic features (3) Anxiety disorder, unspecified PAMELA RAMOS MD Oct 12, 2020 06:34
[2020-10-12] MEDS: ZIPRASIDONE 80 MG CAPSULE. PO SCH ×2 (08:43→18:45)
[2020-10-12] MEDS: MULTIVITAMIN with MINERAL TABLET. PO SCH (08:43)
[2020-10-12] MEDS: CHOLECALCIFEROL (VITAMIN D3) 1,000 UNIT TABLET PO SCH (08:43)
[2020-10-12] MEDS: POTASSIUM CHLORIDE 20 MEQ TABLET.ER. PO SCH ×2 (08:43→18:45)
[2020-10-12] MEDS: ALPRAZolam 0.5 MG TABLET PO SCH ×3 (08:43→18:46)
[2020-10-12] MEDS: PROPRANOLOL 10 MG TABLET. PO SCH ×2 (08:44→13:32)
[2020-10-12] MEDS: metFORMIN 500 MG TABLET PO SCH (08:44)
[2020-10-12] MEDS: SPIRONOLACTONE 25 MG TABLET PO SCH ×2 (08:44→18:45)
[2020-10-12] MEDS: oxyCODONE ER 10 MG TAB.ER.12H PO SCH ×2 (08:44→18:46)
[2020-10-12] MEDS: DULoxetine HCL 60 MG CAPSULE.DR PO SCH (08:44)
[2020-10-12] MEDS: buPROPion XL 300 MG TAB.ER.24H. PO SCH (08:44)
[2020-10-12] MEDS: DOCUSATE SODIUM 100 MG CAPSULE PO SCH (08:44)
[2020-10-12] MEDS: POLYETHYLENE GLYCOL 3350 17 GM PACKET. PO SCH (08:45)
[2020-10-12] MEDS: APIXABAN 5 MG TABLET. PO SCH ×2 (08:45→18:45)
[2020-10-12] MEDS: LIDOCAINE (700MG/PATCH) PATCH. TP SCH (08:45)
[2020-10-12] MEDS: TOPIRAMATE 100 MG TABLET. PO SCH ×2 (08:45→18:46)
[2020-10-12] MEDS: GABAPENTIN 100 MG CAPSULE. PO SCH ×2 (08:45→12:00)
[2020-10-12] MEDS: MAGNESIUM OXIDE 400 MG TABLET PO SCH (08:45)
[2020-10-12] MEDS: NYSTATIN TOPICAL POWDER 15GM BOTTLE. TP SCH ×2 (08:45→21:13)
[2020-10-12] MEDS: FLUTICASONE 50MCG/NASAL SPRAY 16GM BOTTLE. NS SCH ×2 (08:46→18:45)
[2020-10-12 10:25] LABS: CALCIUM 9.8 mg/dL (8.5-10.1); GFR 55.8; POTASSIUM 4.1 mmol/L (3.5-5.1)
[2020-10-12] MEDS ORDERED: SIMETHICONE 80 MG TAB.CHEW PO PRN (13:45)
[2020-10-12 15:52] VITALS: BP 100/69
[2020-10-12] MEDS: GABAPENTIN 300 MG CAPSULE. PO SCH (18:45)
[2020-10-12] MEDS: lamoTRIgine 100 MG TABLET. PO SCH (18:45)
[2020-10-12] MEDS: SENNOSIDES 8.6 MG TABLET PO SCH (18:46)
[2020-10-12] MEDS: CYPROHEPTADINE 4 MG TABLET. PO SCH (18:46)
[2020-10-12] MEDS: rOPINIRole 1 MG TABLET. PO SCH (18:46)
[2020-10-12] MEDS: PATCH REMOVAL. MC SCH (21:00)
[2020-10-12] MEDS: hydrOXYzine PAMOATE 25 MG CAPSULE PO PRN (21:13)
--- NOTE | 2020-10-12 21:58 | PDOC ---
Exam Note: [place] Note: Please also refer to the separate dictated note~for this date of service dictated separately.~Patient seen individually. Discussed the patient with Nursing staff reviewed the chart.~Reviewed interim history and current functioning. Reviewed vital signs,~Labs/ Radiology~and current medications noted below. Continue current treatment with the changes noted in the dictated addendum note Assessment: Vital Signs/I&O: Vital Signs Date Time Temp Pulse Resp B/P (MAP) Pulse Ox O2 Delivery O2 Flow Rate FiO2 10/12/20 21:13 20 98 Room Air 10/12/20 15:52 96.8 61 100/69 (79) I & O 10/11/20 10/11/20 10/12/20 15:00 23:00 07:00 Intake Total 600 ml 240 ml 120 ml Balance 600 ml 240 ml 120 ml Labs: Laboratory Tests Test 10/12/20 07:47 10/12/20 09:51 Glucose (Fingerstick) 115 mg/dL (70-99) H Sodium Level 140 mmol/L (136-145) Potassium Level 4.1 mmol/L (3.5-5.1) Chloride Level 105 mmol/L (98-107) Carbon Dioxide Level 23 mmol/L (21-32) Anion Gap 12 (6-14) Blood Urea Nitrogen 28 mg/dL (7-20) H Creatinine 1.0 mg/dL (0.6-1.0) Estimated GFR (Cockcroft-Gault) 55.8 Glucose Level 149 mg/dL (70-99) H Calcium Level 9.8 mg/dL (8.5-10.1) Current Medications: Meds: Laboratory Tests Test 10/12/20 07:47 10/12/20 09:51 Glucose (Fingerstick) 115 mg/dL Sodium Level 140 mmol/L Potassium Level 4.1 mmol/L Chloride Level 105 mmol/L Carbon Dioxide Level 23 mmol/L Anion Gap 12 Blood Urea Nitrogen 28 mg/dL Creatinine 1.0 mg/dL Estimated GFR (Cockcroft-Gault) 55.8 Glucose Level 149 mg/dL Calcium Level 9.8 mg/dL Current Medications Medications (Trade) Dose Ordered Sig/Mathieu Route PRN Reason Start Time Stop Time Status Last Admin Dose Admin Oxycodone/ Acetaminophen (Percocet 5/325) 1 tab 1X ONCE PO 09/26/20 15:00 09/26/20 15:01 DC 09/26/20 15:25 Morphine Sulfate (Morphine 4mg Syringe) 4 mg 1X ONCE IV 09/26/20 19:45 09/26/20 19:46 DC 09/26/20 19:44 Diphenhydramine HCl (Benadryl) 25 mg 1X ONCE IVP 09/26/20 19:45 09/26/20 19:46 DC 09/26/20 19:47 Diphenhydramine HCl (Benadryl) 50 mg STK-MED ONCE .ROUTE 09/26/20 19:41 09/26/20 19:42 DC Fentanyl Citrate (Fentanyl 2ml Vial) 75 mcg 1X ONCE IVP 09/27/20 00:15 09/27/20 00:21 DC 09/27/20 00:17 Diphenhydramine HCl (Benadryl) 50 mg 1X ONCE IVP 09/27/20 01:00 09/27/20 01:01 DC 09/27/20 00:40 Acetaminophen (Tylenol) 650 mg PRN Q6HRS PRN PO MILD PAIN / TEMP > 100.3'F 09/27/20 01:30 09/28/20 07:34 DC Al Hydroxide/Mg Hydroxide (Mylanta Plus Xs) 15 ml PRN AFTMEALHC PRN PO 2ND CHOICE DYSPEPSIA 09/27/20 01:30 10/12/20 12:30 Magnesium Hydroxide (Milk Of Magnesia) 2,400 mg PRN QHS PRN PO 1st choice CONSTIPATION 09/27/20 01:30 Acetaminophen (Tylenol) 500 mg PRN Q8HRS PRN PO mild PAIN 09/27/20 01:45 09/27/20 02:57 Calcium Carbonate/ Glycine (Tums) 500 mg PRN Q3HRS PRN PO 1ST CHOICE DYSPEPSIA 09/27/20 02:30 Glucose (Insta-Glucose) 15 gm PRN Q1HR PRN PO LOW BLOOD SUGAR, 1ST CHOICE 09/27/20 01:45 Docusate Sodium (Colace) 100 mg DAILY PO 09/27/20 09:00 10/12/20 08:44 Gabapentin (Neurontin) 100 mg BIDWBKFT/CHERYL PO 09/27/20 08:00 10/12/20 12:00 Gabapentin (Neurontin) 300 mg HS PO 09/27/20 21:00 10/12/20 18:45 Levothyroxine Sodium (Synthroid) 100 mcg DAILY06 PO 09/27/20 06:00 09/28/20 03:07 DC 09/27/20 05:52 Lidocaine (Lidoderm) 1 patch DAILY TP 09/27/20 09:00 10/12/20 08:45 Loperamide HCl (Imodium) 2 mg PRN Q6HRS PRN PO DIARRHEA 09/27/20 01:45 Magnesium Oxide (Magnesium Oxide) 400 mg DAILY PO 09/27/20 09:00 10/12/20 08:45 Metformin HCl (Glucophage) 500 mg DAILY PO 09/27/20 09:00 10/12/20 08:44 Metolazone (Zaroxolyn) 2.5 mg QMWF PO 09/27/20 16:00 10/09/20 16:59 Oxycodone HCl (Roxicodone) 5 mg TID PO 09/27/20 09:00 09/27/20 03:06 DC Oxycodone/ Acetaminophen (Percocet 5/325) 1 tab PRN Q6HRS PRN PO MOD-SEV PAIN 09/27/20 01:45 10/12/20 21:13 Polyethylene Glycol (miraLAX) 17 gm DAILY PO 09/27/20 09:00 10/12/20 08:45 Potassium Chloride (Klor-Con) 40 meq BID PO 09/27/20 09:00 09/27/20 03:06 DC Propranolol HCl (Inderal) 20 mg BID92 PO 09/27/20 09:00 10/12/20 13:32 Sennosides (Senna) 17.2 mg PRN Q12HR PRN PO 2nd choice CONSTIPATION 09/27/20 01:45 Sennosides (Senna) 8.6 mg HS PO 09/27/20 21:00 10/12/20 18:46 Spironolactone (Aldactone) 25 mg BID PO 09/27/20 09:00 10/12/20 18:45 Topiramate (Topamax) 100 mg BID PO 09/27/20 09:00 10/12/20 18:46 Vitamin D (Vitamin D3) 1,000 unit DAILY PO 09/27/20 09:00 10/12/20 08:43 Fluticasone Propionate (Flonase) 2 spray HS NS 09/27/20 21:00 10/12/20 18:45 Glucagon (Glucagen Kit) 1 mg 1X PRN PRN IM LOW BLOOD SUGAR, 2ND CHOICE 09/27/20 02:45 Non-Formulary Medication (Mag Hydrox/Al Hydrox/Simeth (Alum-Mag Hydroxide-Simeth Liq)) 30 ml Q4HRS PRN PO INDIGESTION 09/27/20 01:45 09/27/20 02:34 DC Multivitamins/ Calcium (Thera-M Plus) 1 tab DAILY PO 09/27/20 09:00 10/12/20 08:43 Multi-Ingredient Ointment (Analgesic [place]) 1 mello PRN Q4HRS PRN TP MUSCLE PAIN 09/27/20 02:45 Hydroxyzine Pamoate (Vistaril) 25 mg PRN Q6HRS PRN PO ITCHING 09/27/20 02:15 10/12/20 21:13 Ropinirole HCl (Requip) 1 mg HS PO 09/27/20 21:00 10/12/20 18:46 Ziprasidone (Geodon) 60 mg BID PO 09/27/20 09:00 10/01/20 16:52 DC 10/01/20 08:17 Alprazolam (Xanax) 0.5 mg TID PO 09/27/20 09:00 09/27/20 03:06 DC Paroxetine HCl (Paxil) 50 mg DAILY PO 09/27/20 09:00 09/30/20 13:56 DC 09/30/20 08:24 Miscellaneous (Lidoderm Patch Removal) 1 ea QHS MC 09/27/20 21:00 10/12/20 21:00 Alprazolam (Xanax) 0.5 mg TID PO 09/27/20 03:15 10/12/20 18:46 Oxycodone HCl (Roxicodone) 5 mg TID PO 09/27/20 03:15 10/11/20 17:27 DC 10/11/20 14:27 Potassium Chloride (Klor-Con) 40 meq BID PO 09/27/20 03:15 10/12/20 18:45 Levothyroxine Sodium (Synthroid) 100 mcg DAILY06 PO 09/28/20 06:00 10/12/20 06:11 Duloxetine HCl (Cymbalta) 30 mg DAILY PO 10/01/20 09:00 10/02/20 21:01 DC 10/02/20 08:42 Duloxetine HCl (Cymbalta) 60 mg DAILY PO 10/03/20 09:00 10/12/20 08:44 Nystatin (Nystop) 1 mello BID TP 09/30/20 21:00 10/12/20 21:13 Ziprasidone (Geodon) 80 mg BID PO 10/02/20 09:00 10/12/20 18:45 Ziprasidone (Geodon) 60 mg BID PO 10/01/20 21:00 10/01/20 21:01 DC 10/01/20 20:24 Cyproheptadine HCl (Periactin) 2 mg HS PO 10/02/20 21:00 10/12/20 18:46 Bupropion HCl (Wellbutrin Xl) 150 mg DAILY PO 10/06/20 09:00 10/10/20 18:30 DC 10/10/20 08:49 Lamotrigine (LaMICtal) 25 mg HS PO 10/08/20 21:00 10/10/20 22:00 DC 10/10/20 21:03 Lamotrigine (LaMICtal) 50 mg HS PO 10/11/20 21:00 10/13/20 22:00 10/12/20 18:45 Lamotrigine (LaMICtal) 75 mg HS PO 10/14/20 21:00 Bupropion HCl (Wellbutrin Xl) 300 mg DAILY PO 10/11/20 09:00 10/12/20 08:44 Apixaban (Eliquis) 10 mg BID PO 10/10/20 22:00 10/16/20 21:59 10/12/20 18:45 Apixaban (Eliquis) 5 mg BID PO 10/17/20 09:00 Oxycodone HCl (OxyCONTIN) 10 mg Q12HR PO 10/11/20 21:00 10/12/20 18:46 Simethicone (Gas-X) 80 mg PRN AFTMEALHC PRN PO GAS / BLOATING 10/12/20 13:45 10/12/20 15:00 Current Medications Medications (Trade) Dose Ordered Sig/Mathieu Route PRN Reason Start Time Stop Time Status Last Admin Dose Admin Simethicone (Gas-X) 80 mg PRN AFTMEALHC PRN PO GAS / BLOATING 10/12/20 13:45 10/12/20 15:00 I have reviewed the current psychotropics carefully including drug interactions. Risk benefit ratio favors no change other than as noted in my dictated progress note. Diagnosis: Problems: (1) Mild cognitive impairment (2) Bipolar disorder, curr episode mixed, severe, with psychotic features (3) Anxiety disorder, unspecified PAMELA RAMOS MD Oct 12, 2020 21:58
[2020-10-13] MEDS: LEVOTHYROXINE 100 MCG TABLET PO SCH (05:50)
--- NOTE | 2020-10-13 06:14 | NUR ---
Pt states she "feels numb" and that she "didn't sleep well." She expressed she didn't think she would have a good day but hopes to nap today which may make it better. She rolls well to her right when needed but struggles rolling to her left. She is cooperative and compliant.
[2020-10-13 06:17] VITALS: BP 97/64
[2020-10-13] MEDS: GABAPENTIN 100 MG CAPSULE. PO SCH ×2 (06:51→12:12)
[2020-10-13] MEDS: hydrOXYzine PAMOATE 25 MG CAPSULE PO PRN ×2 (06:51→19:53)
[2020-10-13] MEDS: oxyCODONE ER 10 MG TAB.ER.12H PO SCH ×2 (06:52→19:53)
[2020-10-13] MEDS: ZIPRASIDONE 80 MG CAPSULE. PO SCH ×2 (08:26→19:54)
[2020-10-13] MEDS: APIXABAN 5 MG TABLET. PO SCH ×2 (08:27→19:54)
[2020-10-13] MEDS: ALPRAZolam 0.5 MG TABLET PO SCH ×3 (08:27→19:53)
[2020-10-13] MEDS: MULTIVITAMIN with MINERAL TABLET. PO SCH (08:27)
[2020-10-13] MEDS: DULoxetine HCL 60 MG CAPSULE.DR PO SCH (08:27)
[2020-10-13] MEDS: CHOLECALCIFEROL (VITAMIN D3) 1,000 UNIT TABLET PO SCH (08:27)
[2020-10-13] MEDS: SPIRONOLACTONE 25 MG TABLET PO SCH ×2 (08:27→19:54)
[2020-10-13] MEDS: POTASSIUM CHLORIDE 20 MEQ TABLET.ER. PO SCH ×2 (08:27→19:53)
[2020-10-13] MEDS: buPROPion XL 300 MG TAB.ER.24H. PO SCH (08:27)
[2020-10-13] MEDS: DOCUSATE SODIUM 100 MG CAPSULE PO SCH (08:27)
[2020-10-13] MEDS: metFORMIN 500 MG TABLET PO SCH (08:27)
[2020-10-13] MEDS: PROPRANOLOL 10 MG TABLET. PO SCH ×2 (08:28→14:00)
[2020-10-13] MEDS: TOPIRAMATE 100 MG TABLET. PO SCH ×2 (08:28→19:53)
[2020-10-13] MEDS: MAGNESIUM OXIDE 400 MG TABLET PO SCH (08:28)
[2020-10-13] MEDS: POLYETHYLENE GLYCOL 3350 17 GM PACKET. PO SCH (08:28)
[2020-10-13] MEDS: LIDOCAINE (700MG/PATCH) PATCH. TP SCH ×2 (08:29→09:00)
[2020-10-13] MEDS: NYSTATIN TOPICAL POWDER 15GM BOTTLE. TP SCH ×2 (08:29→19:56)
--- NOTE | 2020-10-13 09:57 | PDOC ---
Exam Note: [place] Note: This note is a late entry for 10/12/2020 covers elements not covered in my initial note. Subjective: The patient was seen individually in the evening of 10/12/2020 with Paige ROYAL, discussed and reviewed the chart. The patient slept 7 hours previous night. She has been little more verbal with nursing staff but again was not verbal with me as I met with her in her room at length in the evening. She does still complain of pain. Review of Systems: Ambulation impaired in wheelchair. No CV, , pulmonary, eye, ENT system symptoms on review. Mental Status Exam: The patient is oriented to herself and situation. Speech moderate latency. Often response is monosyllabic. Abstraction is fair. Computation impaired. Language function intact. Mood and affect somewhat withdrawn. Laboratory Data: Reviewed. Impression: Bipolar disorder depressed with psychotic features. Anxiety disorder unspecified. Impulse control disorder unspecified. Plan: No change from initial note. We will consider changing Geodon to Abilify or Risperdal given her ongoing psychotic symptoms but she is allergic to both these medications. We will continue to adjust her Lamictal to reach therapeutic level. Continue Cymbalta, Periactin, Wellbutrin unchanged for now. Assessment: Vital Signs/I&O: Vital Signs Date Time Temp Pulse Resp B/P (MAP) Pulse Ox O2 Delivery O2 Flow Rate FiO2 10/13/20 08:28 58 97/64 10/13/20 06:52 20 75 Room Air 10/13/20 06:17 97.9 I & O 10/12/20 10/12/20 10/13/20 15:00 23:00 07:00 Intake Total 600 ml 480 ml Balance 600 ml 480 ml Labs: Laboratory Tests Test 10/13/20 07:16 Glucose (Fingerstick) 98 mg/dL (70-99) Current Medications: Meds: Laboratory Tests Test 10/13/20 07:16 Glucose (Fingerstick) 98 mg/dL Current Medications Medications (Trade) Dose Ordered Sig/Mathieu Route PRN Reason Start Time Stop Time Status Last Admin Dose Admin Oxycodone/ Acetaminophen (Percocet 5/325) 1 tab 1X ONCE PO 09/26/20 15:00 09/26/20 15:01 DC 09/26/20 15:25 Morphine Sulfate (Morphine 4mg Syringe) 4 mg 1X ONCE IV 09/26/20 19:45 09/26/20 19:46 DC 09/26/20 19:44 Diphenhydramine HCl (Benadryl) 25 mg 1X ONCE IVP 09/26/20 19:45 09/26/20 19:46 DC 09/26/20 19:47 Diphenhydramine HCl (Benadryl) 50 mg STK-MED ONCE .ROUTE 09/26/20 19:41 09/26/20 19:42 DC Fentanyl Citrate (Fentanyl 2ml Vial) 75 mcg 1X ONCE IVP 09/27/20 00:15 09/27/20 00:21 DC 09/27/20 00:17 Diphenhydramine HCl (Benadryl) 50 mg 1X ONCE IVP 09/27/20 01:00 09/27/20 01:01 DC 09/27/20 00:40 Acetaminophen (Tylenol) 650 mg PRN Q6HRS PRN PO MILD PAIN / TEMP > 100.3'F 09/27/20 01:30 09/28/20 07:34 DC Al Hydroxide/Mg Hydroxide (Mylanta Plus Xs) 15 ml PRN AFTMEALHC PRN PO 2ND CHOICE DYSPEPSIA 09/27/20 01:30 10/12/20 12:30 Magnesium Hydroxide (Milk Of Magnesia) 2,400 mg PRN QHS PRN PO 1st choice CONSTIPATION 09/27/20 01:30 Acetaminophen (Tylenol) 500 mg PRN Q8HRS PRN PO mild PAIN 09/27/20 01:45 09/27/20 02:57 Calcium Carbonate/ Glycine (Tums) 500 mg PRN Q3HRS PRN PO 1ST CHOICE DYSPEPSIA 09/27/20 02:30 Glucose (Insta-Glucose) 15 gm PRN Q1HR PRN PO LOW BLOOD SUGAR, 1ST CHOICE 09/27/20 01:45 Docusate Sodium (Colace) 100 mg DAILY PO 09/27/20 09:00 10/13/20 08:27 Gabapentin (Neurontin) 100 mg BIDWBKFT/CHERYL PO 09/27/20 08:00 10/13/20 06:51 Gabapentin (Neurontin) 300 mg HS PO 09/27/20 21:00 10/12/20 18:45 Levothyroxine Sodium (Synthroid) 100 mcg DAILY06 PO 09/27/20 06:00 09/28/20 03:07 DC 09/27/20 05:52 Lidocaine (Lidoderm) 1 patch DAILY TP 09/27/20 09:00 10/13/20 08:29 Loperamide HCl (Imodium) 2 mg PRN Q6HRS PRN PO DIARRHEA 09/27/20 01:45 Magnesium Oxide (Magnesium Oxide) 400 mg DAILY PO 09/27/20 09:00 10/13/20 08:28 Metformin HCl (Glucophage) 500 mg DAILY PO 09/27/20 09:00 10/13/20 08:27 Metolazone (Zaroxolyn) 2.5 mg QMWF PO 09/27/20 16:00 10/09/20 16:59 Oxycodone HCl (Roxicodone) 5 mg TID PO 09/27/20 09:00 09/27/20 03:06 DC Oxycodone/ Acetaminophen (Percocet 5/325) 1 tab PRN Q6HRS PRN PO MOD-SEV PAIN 09/27/20 01:45 10/12/20 21:13 Polyethylene Glycol (miraLAX) 17 gm DAILY PO 09/27/20 09:00 10/13/20 08:28 Potassium Chloride (Klor-Con) 40 meq BID PO 09/27/20 09:00 09/27/20 03:06 DC Propranolol HCl (Inderal) 20 mg BID92 PO 09/27/20 09:00 10/12/20 13:32 Sennosides (Senna) 17.2 mg PRN Q12HR PRN PO 2nd choice CONSTIPATION 09/27/20 01:45 Sennosides (Senna) 8.6 mg HS PO 09/27/20 21:00 10/12/20 18:46 Spironolactone (Aldactone) 25 mg BID PO 09/27/20 09:00 10/12/20 18:45 Topiramate (Topamax) 100 mg BID PO 09/27/20 09:00 10/13/20 08:28 Vitamin D (Vitamin D3) 1,000 unit DAILY PO 09/27/20 09:00 10/13/20 08:27 Fluticasone Propionate (Flonase) 2 spray HS NS 09/27/20 21:00 10/12/20 18:45 Glucagon (Glucagen Kit) 1 mg 1X PRN PRN IM LOW BLOOD SUGAR, 2ND CHOICE 09/27/20 02:45 Non-Formulary Medication (Mag Hydrox/Al Hydrox/Simeth (Alum-Mag Hydroxide-Simeth Liq)) 30 ml Q4HRS PRN PO INDIGESTION 09/27/20 01:45 09/27/20 02:34 DC Multivitamins/ Calcium (Thera-M Plus) 1 tab DAILY PO 09/27/20 09:00 10/13/20 08:27 Multi-Ingredient Ointment (Analgesic [place]) 1 mello PRN Q4HRS PRN TP MUSCLE PAIN 09/27/20 02:45 Hydroxyzine Pamoate (Vistaril) 25 mg PRN Q6HRS PRN PO ITCHING 09/27/20 02:15 10/13/20 06:51 Ropinirole HCl (Requip) 1 mg HS PO 09/27/20 21:00 10/12/20 18:46 Ziprasidone (Geodon) 60 mg BID PO 09/27/20 09:00 10/01/20 16:52 DC 10/01/20 08:17 Alprazolam (Xanax) 0.5 mg TID PO 09/27/20 09:00 09/27/20 03:06 DC Paroxetine HCl (Paxil) 50 mg DAILY PO 09/27/20 09:00 09/30/20 13:56 DC 09/30/20 08:24 Miscellaneous (Lidoderm Patch Removal) 1 ea QHS MC 09/27/20 21:00 10/12/20 21:00 Alprazolam (Xanax) 0.5 mg TID PO 09/27/20 03:15 10/13/20 08:27 Oxycodone HCl (Roxicodone) 5 mg TID PO 09/27/20 03:15 10/11/20 17:27 DC 10/11/20 14:27 Potassium Chloride (Klor-Con) 40 meq BID PO 09/27/20 03:15 10/13/20 08:27 Levothyroxine Sodium (Synthroid) 100 mcg DAILY06 PO 09/28/20 06:00 10/13/20 05:50 Duloxetine HCl (Cymbalta) 30 mg DAILY PO 10/01/20 09:00 10/02/20 21:01 DC 10/02/20 08:42 Duloxetine HCl (Cymbalta) 60 mg DAILY PO 10/03/20 09:00 10/13/20 08:27 Nystatin (Nystop) 1 mello BID TP 09/30/20 21:00 10/13/20 08:29 Ziprasidone (Geodon) 80 mg BID PO 10/02/20 09:00 10/13/20 08:26 Ziprasidone (Geodon) 60 mg BID PO 10/01/20 21:00 10/01/20 21:01 DC 10/01/20 20:24 Cyproheptadine HCl (Periactin) 2 mg HS PO 10/02/20 21:00 10/12/20 18:46 Bupropion HCl (Wellbutrin Xl) 150 mg DAILY PO 10/06/20 09:00 10/10/20 18:30 DC 10/10/20 08:49 Lamotrigine (LaMICtal) 25 mg HS PO 10/08/20 21:00 10/10/20 22:00 DC 10/10/20 21:03 Lamotrigine (LaMICtal) 50 mg HS PO 10/11/20 21:00 10/13/20 22:00 10/12/20 18:45 Lamotrigine (LaMICtal) 75 mg HS PO 10/14/20 21:00 Bupropion HCl (Wellbutrin Xl) 300 mg DAILY PO 10/11/20 09:00 10/13/20 08:27 Apixaban (Eliquis) 10 mg BID PO 10/10/20 22:00 10/16/20 21:59 10/13/20 08:27 Apixaban (Eliquis) 5 mg BID PO 10/17/20 09:00 Oxycodone HCl (OxyCONTIN) 10 mg Q12HR PO 10/11/20 21:00 10/13/20 06:52 Simethicone (Gas-X) 80 mg PRN AFTMEALHC PRN PO GAS / BLOATING 10/12/20 13:45 10/12/20 15:00 Current Medications Medications (Trade) Dose Ordered Sig/Mathieu Route PRN Reason Start Time Stop Time Status Last Admin Dose Admin Simethicone (Gas-X) 80 mg PRN AFTMEALHC PRN PO GAS / BLOATING 10/12/20 13:45 10/12/20 15:00 I have reviewed the current psychotropics carefully including drug interactions. Risk benefit ratio favors no change other than as noted in my dictated progress note. Diagnosis: Problems: (1) Mild cognitive impairment (2) Bipolar disorder, curr episode mixed, severe, with psychotic features (3) Anxiety disorder, unspecified PAMELA RAMOS MD Oct 13, 2020 09:57
[2020-10-13 16:05] VITALS: BP 78/42
[2020-10-13 17:00] VITALS: BP 127/84
[2020-10-13] MEDS: PATCH REMOVAL. MC SCH (18:15)
[2020-10-13] MEDS: ACETAMINOPHEN 500 MG TABLET PO PRN (18:22)
[2020-10-13] MEDS: GABAPENTIN 300 MG CAPSULE. PO SCH (19:53)
[2020-10-13] MEDS: SENNOSIDES 8.6 MG TABLET PO SCH (19:53)
[2020-10-13] MEDS: CYPROHEPTADINE 4 MG TABLET. PO SCH (19:54)
[2020-10-13] MEDS: lamoTRIgine 100 MG TABLET. PO SCH (19:54)
[2020-10-13] MEDS: rOPINIRole 1 MG TABLET. PO SCH (19:54)
[2020-10-13] MEDS: FLUTICASONE 50MCG/NASAL SPRAY 16GM BOTTLE. NS SCH (19:55)
--- NOTE | 2020-10-13 22:07 | PDOC ---
Exam Note: [place] Note: Please also refer to the separate dictated note~for this date of service dictated separately.~Patient seen individually. Discussed the patient with Nursing staff reviewed the chart.~Reviewed interim history and current functioning. Reviewed vital signs,~Labs/ Radiology~and current medications noted below. Continue current treatment with the changes noted in the dictated addendum note Assessment: Vital Signs/I&O: Vital Signs Date Time Temp Pulse Resp B/P (MAP) Pulse Ox O2 Delivery O2 Flow Rate FiO2 10/13/20 17:00 73 127/84 (98) 10/13/20 16:05 97.6 16 98 10/13/20 06:52 Room Air I & O 10/12/20 10/12/20 10/13/20 15:00 23:00 07:00 Intake Total 600 ml 480 ml Balance 600 ml 480 ml Labs: Laboratory Tests Test 10/13/20 07:16 Glucose (Fingerstick) 98 mg/dL (70-99) Current Medications: Meds: Laboratory Tests Test 10/13/20 07:16 Glucose (Fingerstick) 98 mg/dL Current Medications Medications (Trade) Dose Ordered Sig/Mathieu Route PRN Reason Start Time Stop Time Status Last Admin Dose Admin Oxycodone/ Acetaminophen (Percocet 5/325) 1 tab 1X ONCE PO 09/26/20 15:00 09/26/20 15:01 DC 09/26/20 15:25 Morphine Sulfate (Morphine 4mg Syringe) 4 mg 1X ONCE IV 09/26/20 19:45 09/26/20 19:46 DC 09/26/20 19:44 Diphenhydramine HCl (Benadryl) 25 mg 1X ONCE IVP 09/26/20 19:45 09/26/20 19:46 DC 09/26/20 19:47 Diphenhydramine HCl (Benadryl) 50 mg STK-MED ONCE .ROUTE 09/26/20 19:41 09/26/20 19:42 DC Fentanyl Citrate (Fentanyl 2ml Vial) 75 mcg 1X ONCE IVP 09/27/20 00:15 09/27/20 00:21 DC 09/27/20 00:17 Diphenhydramine HCl (Benadryl) 50 mg 1X ONCE IVP 09/27/20 01:00 09/27/20 01:01 DC 09/27/20 00:40 Acetaminophen (Tylenol) 650 mg PRN Q6HRS PRN PO MILD PAIN / TEMP > 100.3'F 09/27/20 01:30 09/28/20 07:34 DC Al Hydroxide/Mg Hydroxide (Mylanta Plus Xs) 15 ml PRN AFTMEALHC PRN PO 2ND CHOICE DYSPEPSIA 09/27/20 01:30 10/12/20 12:30 Magnesium Hydroxide (Milk Of Magnesia) 2,400 mg PRN QHS PRN PO 1st choice CONSTIPATION 09/27/20 01:30 Acetaminophen (Tylenol) 500 mg PRN Q8HRS PRN PO mild PAIN 09/27/20 01:45 10/13/20 18:22 Calcium Carbonate/ Glycine (Tums) 500 mg PRN Q3HRS PRN PO 1ST CHOICE DYSPEPSIA 09/27/20 02:30 Glucose (Insta-Glucose) 15 gm PRN Q1HR PRN PO LOW BLOOD SUGAR, 1ST CHOICE 09/27/20 01:45 Docusate Sodium (Colace) 100 mg DAILY PO 09/27/20 09:00 10/13/20 08:27 Gabapentin (Neurontin) 100 mg BIDWBKFT/CHERYL PO 09/27/20 08:00 10/13/20 12:12 Gabapentin (Neurontin) 300 mg HS PO 09/27/20 21:00 10/13/20 19:53 Levothyroxine Sodium (Synthroid) 100 mcg DAILY06 PO 09/27/20 06:00 09/28/20 03:07 DC 09/27/20 05:52 Lidocaine (Lidoderm) 1 patch DAILY TP 09/27/20 09:00 10/12/20 08:45 Loperamide HCl (Imodium) 2 mg PRN Q6HRS PRN PO DIARRHEA 09/27/20 01:45 Magnesium Oxide (Magnesium Oxide) 400 mg DAILY PO 09/27/20 09:00 10/13/20 08:28 Metformin HCl (Glucophage) 500 mg DAILY PO 09/27/20 09:00 10/13/20 08:27 Metolazone (Zaroxolyn) 2.5 mg QMWF PO 09/27/20 16:00 10/09/20 16:59 Oxycodone HCl (Roxicodone) 5 mg TID PO 09/27/20 09:00 09/27/20 03:06 DC Oxycodone/ Acetaminophen (Percocet 5/325) 1 tab PRN Q6HRS PRN PO MOD-SEV PAIN 09/27/20 01:45 10/12/20 21:13 Polyethylene Glycol (miraLAX) 17 gm DAILY PO 09/27/20 09:00 10/13/20 08:28 Potassium Chloride (Klor-Con) 40 meq BID PO 09/27/20 09:00 09/27/20 03:06 DC Propranolol HCl (Inderal) 20 mg BID92 PO 09/27/20 09:00 10/12/20 13:32 Sennosides (Senna) 17.2 mg PRN Q12HR PRN PO 2nd choice CONSTIPATION 09/27/20 01:45 Sennosides (Senna) 8.6 mg HS PO 09/27/20 21:00 10/13/20 19:53 Spironolactone (Aldactone) 25 mg BID PO 09/27/20 09:00 10/13/20 19:54 Topiramate (Topamax) 100 mg BID PO 09/27/20 09:00 10/13/20 19:53 Vitamin D (Vitamin D3) 1,000 unit DAILY PO 09/27/20 09:00 10/13/20 08:27 Fluticasone Propionate (Flonase) 2 spray HS NS 09/27/20 21:00 10/12/20 18:45 Glucagon (Glucagen Kit) 1 mg 1X PRN PRN IM LOW BLOOD SUGAR, 2ND CHOICE 09/27/20 02:45 Non-Formulary Medication (Mag Hydrox/Al Hydrox/Simeth (Alum-Mag Hydroxide-Simeth Liq)) 30 ml Q4HRS PRN PO INDIGESTION 09/27/20 01:45 09/27/20 02:34 DC Multivitamins/ Calcium (Thera-M Plus) 1 tab DAILY PO 09/27/20 09:00 10/13/20 08:27 Multi-Ingredient Ointment (Analgesic [place]) 1 mello PRN Q4HRS PRN TP MUSCLE PAIN 09/27/20 02:45 Hydroxyzine Pamoate (Vistaril) 25 mg PRN Q6HRS PRN PO ITCHING 09/27/20 02:15 10/13/20 19:53 Ropinirole HCl (Requip) 1 mg HS PO 09/27/20 21:00 10/13/20 19:54 Ziprasidone (Geodon) 60 mg BID PO 09/27/20 09:00 10/01/20 16:52 DC 10/01/20 08:17 Alprazolam (Xanax) 0.5 mg TID PO 09/27/20 09:00 09/27/20 03:06 DC Paroxetine HCl (Paxil) 50 mg DAILY PO 09/27/20 09:00 09/30/20 13:56 DC 09/30/20 08:24 Miscellaneous (Lidoderm Patch Removal) 1 ea QHS MC 09/27/20 21:00 10/12/20 21:00 Alprazolam (Xanax) 0.5 mg TID PO 09/27/20 03:15 10/13/20 22:00 DC 10/13/20 19:53 Oxycodone HCl (Roxicodone) 5 mg TID PO 09/27/20 03:15 10/11/20 17:27 DC 10/11/20 14:27 Potassium Chloride (Klor-Con) 40 meq BID PO 09/27/20 03:15 10/13/20 19:53 Levothyroxine Sodium (Synthroid) 100 mcg DAILY06 PO 09/28/20 06:00 10/13/20 05:50 Duloxetine HCl (Cymbalta) 30 mg DAILY PO 10/01/20 09:00 10/02/20 21:01 DC 10/02/20 08:42 Duloxetine HCl (Cymbalta) 60 mg DAILY PO 10/03/20 09:00 10/13/20 08:27 Nystatin (Nystop) 1 mello BID TP 09/30/20 21:00 10/13/20 19:56 Ziprasidone (Geodon) 80 mg BID PO 10/02/20 09:00 10/13/20 19:54 Ziprasidone (Geodon) 60 mg BID PO 10/01/20 21:00 10/01/20 21:01 DC 10/01/20 20:24 Cyproheptadine HCl (Periactin) 2 mg HS PO 10/02/20 21:00 10/13/20 19:54 Bupropion HCl (Wellbutrin Xl) 150 mg DAILY PO 10/06/20 09:00 10/10/20 18:30 DC 10/10/20 08:49 Lamotrigine (LaMICtal) 25 mg HS PO 10/08/20 21:00 10/10/20 22:00 DC 10/10/20 21:03 Lamotrigine (LaMICtal) 50 mg HS PO 10/11/20 21:00 10/13/20 22:00 DC 10/13/20 19:54 Lamotrigine (LaMICtal) 75 mg HS PO 10/14/20 21:00 Bupropion HCl (Wellbutrin Xl) 300 mg DAILY PO 10/11/20 09:00 10/13/20 08:27 Apixaban (Eliquis) 10 mg BID PO 10/10/20 22:00 10/16/20 21:59 10/13/20 19:54 Apixaban (Eliquis) 5 mg BID PO 10/17/20 09:00 Oxycodone HCl (OxyCONTIN) 10 mg Q12HR PO 10/11/20 21:00 10/13/20 19:53 Simethicone (Gas-X) 80 mg PRN AFTMEALHC PRN PO GAS / BLOATING 10/12/20 13:45 10/12/20 15:00 Alprazolam (Xanax) 0.5 mg BID PO 10/14/20 09:00 10/16/20 22:00 Alprazolam (Xanax) 0.5 mg DAILY PO 10/17/20 09:00 10/19/20 10:00 I have reviewed the current psychotropics carefully including drug interactions. Risk benefit ratio favors no change other than as noted in my dictated progress note. Diagnosis: Problems: (1) Anxiety disorder, unspecified (2) Bipolar disorder, curr episode mixed, severe, with psychotic features (3) Mild cognitive impairment PAMELA RAMOS MD Oct 13, 2020 22:06
--- NOTE | 2020-10-13 23:07 | NUR ---
Pt sitting up in day room in w/c when approached. Pt calm with a flat affect but more interactive with staff this evening. Pt cooperative with assessment and compliant with medications administered whole. PRN Hydroxyzine administered with HS medications for c/o itching "all over but mostly the back of my legs". Pt has no visible rash, just some redness on the backs of her legs r/t sitting up in w/c.
[2020-10-14] MEDS: hydrOXYzine PAMOATE 25 MG CAPSULE PO PRN (02:00)
[2020-10-14] MEDS: LEVOTHYROXINE 100 MCG TABLET PO SCH (05:25)
[2020-10-14 05:56] VITALS: BP 98/66
[2020-10-14] MEDS: oxyCODONE/APAP 5/325 1 TAB TABLET PO PRN ×2 (06:33→17:28)
[2020-10-14] MEDS: metFORMIN 500 MG TABLET PO SCH (08:35)
[2020-10-14] MEDS: CHOLECALCIFEROL (VITAMIN D3) 1,000 UNIT TABLET PO SCH (08:35)
[2020-10-14] MEDS: TOPIRAMATE 100 MG TABLET. PO SCH ×2 (08:35→20:00)
[2020-10-14] MEDS: SPIRONOLACTONE 25 MG TABLET PO SCH ×2 (08:35→20:01)
[2020-10-14] MEDS: buPROPion XL 300 MG TAB.ER.24H. PO SCH (08:35)
[2020-10-14] MEDS: ZIPRASIDONE 80 MG CAPSULE. PO SCH ×2 (08:35→20:00)
[2020-10-14] MEDS: MULTIVITAMIN with MINERAL TABLET. PO SCH (08:35)
[2020-10-14] MEDS: APIXABAN 5 MG TABLET. PO SCH ×2 (08:35→20:01)
[2020-10-14] MEDS: oxyCODONE ER 10 MG TAB.ER.12H PO SCH ×2 (08:35→20:02)
[2020-10-14] MEDS: GABAPENTIN 100 MG CAPSULE. PO SCH ×2 (08:35→13:17)
[2020-10-14] MEDS: POTASSIUM CHLORIDE 20 MEQ TABLET.ER. PO SCH ×2 (08:36→20:00)
[2020-10-14] MEDS: PROPRANOLOL 10 MG TABLET. PO SCH ×2 (08:36→14:52)
[2020-10-14] MEDS: DULoxetine HCL 60 MG CAPSULE.DR PO SCH (08:36)
[2020-10-14] MEDS: DOCUSATE SODIUM 100 MG CAPSULE PO SCH (08:37)
[2020-10-14] MEDS: LIDOCAINE (700MG/PATCH) PATCH. TP SCH (08:44)
[2020-10-14] MEDS: NYSTATIN TOPICAL POWDER 15GM BOTTLE. TP SCH ×2 (08:45→20:02)
[2020-10-14] MEDS: MAGNESIUM OXIDE 400 MG TABLET PO SCH (08:45)
[2020-10-14] MEDS: POLYETHYLENE GLYCOL 3350 17 GM PACKET. PO SCH (08:45)
[2020-10-14] MEDS: diphenhydrAMINE HCL 25 MG CAPSULE PO PRN ×2 (09:20→20:01)
[2020-10-14] MEDS: ALPRAZolam 0.5 MG TABLET PO SCH ×2 (09:20→20:00)
--- NOTE | 2020-10-14 09:29 | PDOC ---
Exam Note: [place] Note: This note is a late entry for 10/13/2020 covers elements not covered in my initial note. Subjective: The patient was seen individually in the evening of 10/13/2020 with Marisa ROYAL, discussed and reviewed the chart. The patient slept 7-1/2 hours previous night. The patient spends much time in bed but much more verbal, interactive as I met with her and with nursing staff as well, otherwise somewhat quiet. Pain is better on pain medications. Review of Systems: Ambulation impaired in wheelchair. No CV, , pulmonary, eye, ENT system symptoms on review. Mental Status Exam: The patient is oriented to herself and situation. Speech coherent, little more forthcoming. Abstraction is fair. Computation impaired. Language function intact. Mood and affect improved. Laboratory Data: Reviewed. Impression: Bipolar disorder depressed with psychotic features. Anxiety disorder unspecified. Impulse control disorder unspecified. Plan: No change from initial note. We may increase the Wellbutrin further in due course. Rest unchanged for now. Assessment: Vital Signs/I&O: Vital Signs Date Time Temp Pulse Resp B/P (MAP) Pulse Ox O2 Delivery O2 Flow Rate FiO2 10/14/20 08:36 74 98/66 10/14/20 05:56 97.9 16 98 Room Air I & O 10/13/20 10/13/20 10/14/20 15:00 23:00 07:00 Intake Total 480 ml 480 ml Balance 480 ml 480 ml Labs: Laboratory Tests Test 10/14/20 07:14 Glucose (Fingerstick) 101 mg/dL (70-99) H Current Medications: Meds: Laboratory Tests Test 10/14/20 07:14 Glucose (Fingerstick) 101 mg/dL Current Medications Medications (Trade) Dose Ordered Sig/Mathieu Route PRN Reason Start Time Stop Time Status Last Admin Dose Admin Oxycodone/ Acetaminophen (Percocet 5/325) 1 tab 1X ONCE PO 09/26/20 15:00 09/26/20 15:01 DC 09/26/20 15:25 Morphine Sulfate (Morphine 4mg Syringe) 4 mg 1X ONCE IV 09/26/20 19:45 09/26/20 19:46 DC 09/26/20 19:44 Diphenhydramine HCl (Benadryl) 25 mg 1X ONCE IVP 09/26/20 19:45 09/26/20 19:46 DC 09/26/20 19:47 Diphenhydramine HCl (Benadryl) 50 mg STK-MED ONCE .ROUTE 09/26/20 19:41 09/26/20 19:42 DC Fentanyl Citrate (Fentanyl 2ml Vial) 75 mcg 1X ONCE IVP 09/27/20 00:15 09/27/20 00:21 DC 09/27/20 00:17 Diphenhydramine HCl (Benadryl) 50 mg 1X ONCE IVP 09/27/20 01:00 09/27/20 01:01 DC 09/27/20 00:40 Acetaminophen (Tylenol) 650 mg PRN Q6HRS PRN PO MILD PAIN / TEMP > 100.3'F 09/27/20 01:30 09/28/20 07:34 DC Al Hydroxide/Mg Hydroxide (Mylanta Plus Xs) 15 ml PRN AFTMEALHC PRN PO 2ND CHOICE DYSPEPSIA 09/27/20 01:30 10/12/20 12:30 Magnesium Hydroxide (Milk Of Magnesia) 2,400 mg PRN QHS PRN PO 1st choice CONSTIPATION 09/27/20 01:30 Acetaminophen (Tylenol) 500 mg PRN Q8HRS PRN PO mild PAIN 09/27/20 01:45 10/13/20 18:22 Calcium Carbonate/ Glycine (Tums) 500 mg PRN Q3HRS PRN PO 1ST CHOICE DYSPEPSIA 09/27/20 02:30 Glucose (Insta-Glucose) 15 gm PRN Q1HR PRN PO LOW BLOOD SUGAR, 1ST CHOICE 09/27/20 01:45 Docusate Sodium (Colace) 100 mg DAILY PO 09/27/20 09:00 10/13/20 08:27 Gabapentin (Neurontin) 100 mg BIDWBKFT/CHERYL PO 09/27/20 08:00 10/14/20 08:35 Gabapentin (Neurontin) 300 mg HS PO 09/27/20 21:00 10/13/20 19:53 Levothyroxine Sodium (Synthroid) 100 mcg DAILY06 PO 09/27/20 06:00 09/28/20 03:07 DC 09/27/20 05:52 Lidocaine (Lidoderm) 1 patch DAILY TP 09/27/20 09:00 10/12/20 08:45 Loperamide HCl (Imodium) 2 mg PRN Q6HRS PRN PO DIARRHEA 09/27/20 01:45 Magnesium Oxide (Magnesium Oxide) 400 mg DAILY PO 09/27/20 09:00 10/14/20 08:45 Metformin HCl (Glucophage) 500 mg DAILY PO 09/27/20 09:00 10/14/20 08:35 Metolazone (Zaroxolyn) 2.5 mg QMWF PO 09/27/20 16:00 10/09/20 16:59 Oxycodone HCl (Roxicodone) 5 mg TID PO 09/27/20 09:00 09/27/20 03:06 DC Oxycodone/ Acetaminophen (Percocet 5/325) 1 tab PRN Q6HRS PRN PO MOD-SEV PAIN 09/27/20 01:45 10/14/20 06:33 Polyethylene Glycol (miraLAX) 17 gm DAILY PO 09/27/20 09:00 10/13/20 08:28 Potassium Chloride (Klor-Con) 40 meq BID PO 09/27/20 09:00 09/27/20 03:06 DC Propranolol HCl (Inderal) 20 mg BID92 PO 09/27/20 09:00 10/12/20 13:32 Sennosides (Senna) 17.2 mg PRN Q12HR PRN PO 2nd choice CONSTIPATION 09/27/20 01:45 Sennosides (Senna) 8.6 mg HS PO 09/27/20 21:00 10/13/20 19:53 Spironolactone (Aldactone) 25 mg BID PO 09/27/20 09:00 10/14/20 08:35 Topiramate (Topamax) 100 mg BID PO 09/27/20 09:00 10/14/20 08:35 Vitamin D (Vitamin D3) 1,000 unit DAILY PO 09/27/20 09:00 10/14/20 08:35 Fluticasone Propionate (Flonase) 2 spray HS NS 09/27/20 21:00 10/12/20 18:45 Glucagon (Glucagen Kit) 1 mg 1X PRN PRN IM LOW BLOOD SUGAR, 2ND CHOICE 09/27/20 02:45 Non-Formulary Medication (Mag Hydrox/Al Hydrox/Simeth (Alum-Mag Hydroxide-Simeth Liq)) 30 ml Q4HRS PRN PO INDIGESTION 09/27/20 01:45 09/27/20 02:34 DC Multivitamins/ Calcium (Thera-M Plus) 1 tab DAILY PO 09/27/20 09:00 10/14/20 08:35 Multi-Ingredient Ointment (Analgesic [place]) 1 mello PRN Q4HRS PRN TP MUSCLE PAIN 09/27/20 02:45 Hydroxyzine Pamoate (Vistaril) 25 mg PRN Q6HRS PRN PO ITCHING 09/27/20 02:15 10/14/20 02:00 Ropinirole HCl (Requip) 1 mg HS PO 09/27/20 21:00 10/13/20 19:54 Ziprasidone (Geodon) 60 mg BID PO 09/27/20 09:00 10/01/20 16:52 DC 10/01/20 08:17 Alprazolam (Xanax) 0.5 mg TID PO 09/27/20 09:00 09/27/20 03:06 DC Paroxetine HCl (Paxil) 50 mg DAILY PO 09/27/20 09:00 09/30/20 13:56 DC 09/30/20 08:24 Miscellaneous (Lidoderm Patch Removal) 1 ea QHS MC 09/27/20 21:00 10/12/20 21:00 Alprazolam (Xanax) 0.5 mg TID PO 09/27/20 03:15 10/13/20 22:00 DC 10/13/20 19:53 Oxycodone HCl (Roxicodone) 5 mg TID PO 09/27/20 03:15 10/11/20 17:27 DC 10/11/20 14:27 Potassium Chloride (Klor-Con) 40 meq BID PO 09/27/20 03:15 10/14/20 08:36 Levothyroxine Sodium (Synthroid) 100 mcg DAILY06 PO 09/28/20 06:00 10/14/20 05:25 Duloxetine HCl (Cymbalta) 30 mg DAILY PO 10/01/20 09:00 10/02/20 21:01 DC 10/02/20 08:42 Duloxetine HCl (Cymbalta) 60 mg DAILY PO 10/03/20 09:00 10/14/20 08:36 Nystatin (Nystop) 1 mello BID TP 09/30/20 21:00 10/14/20 08:45 Ziprasidone (Geodon) 80 mg BID PO 10/02/20 09:00 10/14/20 08:35 Ziprasidone (Geodon) 60 mg BID PO 10/01/20 21:00 10/01/20 21:01 DC 10/01/20 20:24 Cyproheptadine HCl (Periactin) 2 mg HS PO 10/02/20 21:00 10/13/20 19:54 Bupropion HCl (Wellbutrin Xl) 150 mg DAILY PO 10/06/20 09:00 10/10/20 18:30 DC 10/10/20 08:49 Lamotrigine (LaMICtal) 25 mg HS PO 10/08/20 21:00 10/10/20 22:00 DC 10/10/20 21:03 Lamotrigine (LaMICtal) 50 mg HS PO 10/11/20 21:00 10/13/20 22:00 DC 10/13/20 19:54 Lamotrigine (LaMICtal) 75 mg HS PO 10/14/20 21:00 Bupropion HCl (Wellbutrin Xl) 300 mg DAILY PO 10/11/20 09:00 10/14/20 08:35 Apixaban (Eliquis) 10 mg BID PO 10/10/20 22:00 10/16/20 21:59 10/14/20 08:35 Apixaban (Eliquis) 5 mg BID PO 10/17/20 09:00 Oxycodone HCl (OxyCONTIN) 10 mg Q12HR PO 10/11/20 21:00 10/14/20 08:35 Simethicone (Gas-X) 80 mg PRN AFTMEALHC PRN PO GAS / BLOATING 10/12/20 13:45 10/12/20 15:00 Alprazolam (Xanax) 0.5 mg BID PO 10/14/20 09:00 10/16/20 22:00 10/14/20 09:20 Alprazolam (Xanax) 0.5 mg DAILY PO 10/17/20 09:00 10/19/20 10:00 Diphenhydramine HCl (Benadryl) 25 mg PRN Q6HRS PRN PO ITCHING 10/14/20 07:45 10/14/20 09:20 Current Medications Medications (Trade) Dose Ordered Sig/Mathieu Route PRN Reason Start Time Stop Time Status Last Admin Dose Admin Alprazolam (Xanax) 0.5 mg BID PO 10/14/20 09:00 10/16/20 22:00 10/14/20 09:20 Diphenhydramine HCl (Benadryl) 25 mg PRN Q6HRS PRN PO ITCHING 10/14/20 07:45 10/14/20 09:20 I have reviewed the current psychotropics carefully including drug interactions. Risk benefit ratio favors no change other than as noted in my dictated progress note. Diagnosis: Problems: (1) Bipolar disorder, curr episode mixed, severe, with psychotic features (2) Mild cognitive impairment (3) Anxiety disorder, unspecified PAMELA RAMOS MD Oct 14, 2020 09:29
--- NOTE | 2020-10-14 13:16 | NUR ---
WEEKLY ACTIVITY THERAPY NOTE Date of Admission:09/27/20 Date of AT Assessment: 09/27 Precipitating behaviors that initiated intake and admission:Pt was yelling at staff cussing and throwing things. Goal aimed:increase time management and relaxation skills Initial Goal:Pt will participate in at least three individual or group Activity Therapy sessions before discharge. Weekly progress towards goal: on track (10/07- parade and patriotic sing along) Group participation level: 1 min Weekly highlights: watching the parade Wednesday afternoon Behaviors observed: does not respond when asked questions, little to no interest in groups Plan: no change to goal Beneficial adaptations:
[2020-10-14 14:00] VITALS: BP 104/68
--- NOTE | 2020-10-14 15:55 | NUR ---
NSG NOTE; Varsha has been more talkative, conversant and expressive today, though she has retreated to her room between meals, napping.
[2020-10-14 16:09] VITALS: BP 104/68
--- NOTE | 2020-10-14 16:23 | NUR ---
Treatment team note: Pt sunitarBrittany, participated in tx team via telephone. Pt continues to have a flat affect; however, tends to be a bit more forthcoming with staff during times of assessment and cares. Pt is medication compliant and expressed concerns about itching. No rash has been observed by nursing staff; however, was brought up by nursing as pt is on a medication in which it is a side effect. This will continue to be monitored. Pt does require a jonathan lift and it was also expressed that this may be causing itching in the spot pt has expressed concern. Pt will plan to discharge to [facility] potentially later this week.
[2020-10-14] MEDS: metOLazone 2.5 MG TABLET PO SCH (17:07)
[2020-10-14] MEDS: SENNOSIDES 8.6 MG TABLET PO SCH (20:00)
[2020-10-14] MEDS: GABAPENTIN 300 MG CAPSULE. PO SCH (20:01)
[2020-10-14] MEDS: rOPINIRole 1 MG TABLET. PO SCH (20:01)
[2020-10-14] MEDS: lamoTRIgine 25 MG TABLET. PO SCH (20:01)
[2020-10-14] MEDS: CYPROHEPTADINE 4 MG TABLET. PO SCH (20:02)
[2020-10-14] MEDS: FLUTICASONE 50MCG/NASAL SPRAY 16GM BOTTLE. NS SCH (20:03)
[2020-10-14] MEDS: PATCH REMOVAL. MC SCH (20:03)
--- NOTE | 2020-10-14 22:01 | PDOC ---
Exam Note: [place] Note: Please also refer to the separate dictated note~for this date of service dictated separately.~Patient seen individually. Discussed the patient with Nursing staff reviewed the chart.~Reviewed interim history and current functioning. Reviewed vital signs,~Labs/ Radiology~and current medications noted below. Continue current treatment with the changes noted in the dictated addendum note Assessment: Vital Signs/I&O: Vital Signs Date Time Temp Pulse Resp B/P (MAP) Pulse Ox O2 Delivery O2 Flow Rate FiO2 10/14/20 20:02 95 10/14/20 16:09 97.6 60 16 104/68 (80) 10/14/20 14:00 Room Air I & O 10/13/20 10/13/20 10/14/20 15:00 23:00 07:00 Intake Total 480 ml 480 ml Balance 480 ml 480 ml Labs: Laboratory Tests Test 10/14/20 07:14 Glucose (Fingerstick) 101 mg/dL (70-99) H Current Medications: Meds: Laboratory Tests Test 10/14/20 07:14 Glucose (Fingerstick) 101 mg/dL Current Medications Medications (Trade) Dose Ordered Sig/Mathieu Route PRN Reason Start Time Stop Time Status Last Admin Dose Admin Oxycodone/ Acetaminophen (Percocet 5/325) 1 tab 1X ONCE PO 09/26/20 15:00 09/26/20 15:01 DC 09/26/20 15:25 Morphine Sulfate (Morphine 4mg Syringe) 4 mg 1X ONCE IV 09/26/20 19:45 09/26/20 19:46 DC 09/26/20 19:44 Diphenhydramine HCl (Benadryl) 25 mg 1X ONCE IVP 09/26/20 19:45 09/26/20 19:46 DC 09/26/20 19:47 Diphenhydramine HCl (Benadryl) 50 mg STK-MED ONCE .ROUTE 09/26/20 19:41 09/26/20 19:42 DC Fentanyl Citrate (Fentanyl 2ml Vial) 75 mcg 1X ONCE IVP 09/27/20 00:15 09/27/20 00:21 DC 09/27/20 00:17 Diphenhydramine HCl (Benadryl) 50 mg 1X ONCE IVP 09/27/20 01:00 09/27/20 01:01 DC 09/27/20 00:40 Acetaminophen (Tylenol) 650 mg PRN Q6HRS PRN PO MILD PAIN / TEMP > 100.3'F 09/27/20 01:30 09/28/20 07:34 DC Al Hydroxide/Mg Hydroxide (Mylanta Plus Xs) 15 ml PRN AFTMEALHC PRN PO 2ND CHOICE DYSPEPSIA 09/27/20 01:30 10/12/20 12:30 Magnesium Hydroxide (Milk Of Magnesia) 2,400 mg PRN QHS PRN PO 1st choice CONSTIPATION 09/27/20 01:30 Acetaminophen (Tylenol) 500 mg PRN Q8HRS PRN PO mild PAIN 09/27/20 01:45 10/13/20 18:22 Calcium Carbonate/ Glycine (Tums) 500 mg PRN Q3HRS PRN PO 1ST CHOICE DYSPEPSIA 09/27/20 02:30 Glucose (Insta-Glucose) 15 gm PRN Q1HR PRN PO LOW BLOOD SUGAR, 1ST CHOICE 09/27/20 01:45 Docusate Sodium (Colace) 100 mg DAILY PO 09/27/20 09:00 10/13/20 08:27 Gabapentin (Neurontin) 100 mg BIDWBKFT/CHERYL PO 09/27/20 08:00 10/14/20 13:17 Gabapentin (Neurontin) 300 mg HS PO 09/27/20 21:00 10/14/20 20:01 Levothyroxine Sodium (Synthroid) 100 mcg DAILY06 PO 09/27/20 06:00 09/28/20 03:07 DC 09/27/20 05:52 Lidocaine (Lidoderm) 1 patch DAILY TP 09/27/20 09:00 10/12/20 08:45 Loperamide HCl (Imodium) 2 mg PRN Q6HRS PRN PO DIARRHEA 09/27/20 01:45 Magnesium Oxide (Magnesium Oxide) 400 mg DAILY PO 09/27/20 09:00 10/14/20 08:45 Metformin HCl (Glucophage) 500 mg DAILY PO 09/27/20 09:00 10/14/20 08:35 Metolazone (Zaroxolyn) 2.5 mg QMWF PO 09/27/20 16:00 10/09/20 16:59 Oxycodone HCl (Roxicodone) 5 mg TID PO 09/27/20 09:00 09/27/20 03:06 DC Oxycodone/ Acetaminophen (Percocet 5325) 1 tab PRN Q6HRS PRN PO MOD-SEV PAIN 09/27/20 01:45 10/14/20 17:28 Polyethylene Glycol (miraLAX) 17 gm DAILY PO 09/27/20 09:00 10/13/20 08:28 Potassium Chloride (Klor-Con) 40 meq BID PO 09/27/20 09:00 09/27/20 03:06 DC Propranolol HCl (Inderal) 20 mg BID92 PO 09/27/20 09:00 10/12/20 13:32 Sennosides (Senna) 17.2 mg PRN Q12HR PRN PO 2nd choice CONSTIPATION 09/27/20 01:45 Sennosides (Senna) 8.6 mg HS PO 09/27/20 21:00 10/14/20 20:00 Spironolactone (Aldactone) 25 mg BID PO 09/27/20 09:00 10/14/20 20:01 Topiramate (Topamax) 100 mg BID PO 09/27/20 09:00 10/14/20 20:00 Vitamin D (Vitamin D3) 1,000 unit DAILY PO 09/27/20 09:00 10/14/20 08:35 Fluticasone Propionate (Flonase) 2 spray HS NS 09/27/20 21:00 10/12/20 18:45 Glucagon (Glucagen Kit) 1 mg 1X PRN PRN IM LOW BLOOD SUGAR, 2ND CHOICE 09/27/20 02:45 Non-Formulary Medication (Mag Hydrox/Al Hydrox/Simeth (Alum-Mag Hydroxide-Simeth Liq)) 30 ml Q4HRS PRN PO INDIGESTION 09/27/20 01:45 09/27/20 02:34 DC Multivitamins/ Calcium (Thera-M Plus) 1 tab DAILY PO 09/27/20 09:00 10/14/20 08:35 Multi-Ingredient Ointment (Analgesic [place]) 1 mello PRN Q4HRS PRN TP MUSCLE PAIN 09/27/20 02:45 Hydroxyzine Pamoate (Vistaril) 25 mg PRN Q6HRS PRN PO ITCHING 09/27/20 02:15 10/14/20 02:00 Ropinirole HCl (Requip) 1 mg HS PO 09/27/20 21:00 10/14/20 20:01 Ziprasidone (Geodon) 60 mg BID PO 09/27/20 09:00 10/01/20 16:52 DC 10/01/20 08:17 Alprazolam (Xanax) 0.5 mg TID PO 09/27/20 09:00 09/27/20 03:06 DC Paroxetine HCl (Paxil) 50 mg DAILY PO 09/27/20 09:00 09/30/20 13:56 DC 09/30/20 08:24 Miscellaneous (Lidoderm Patch Removal) 1 ea QHS MC 09/27/20 21:00 10/12/20 21:00 Alprazolam (Xanax) 0.5 mg TID PO 09/27/20 03:15 10/13/20 22:00 DC 10/13/20 19:53 Oxycodone HCl (Roxicodone) 5 mg TID PO 09/27/20 03:15 10/11/20 17:27 DC 10/11/20 14:27 Potassium Chloride (Klor-Con) 40 meq BID PO 09/27/20 03:15 10/14/20 20:00 Levothyroxine Sodium (Synthroid) 100 mcg DAILY06 PO 09/28/20 06:00 10/14/20 05:25 Duloxetine HCl (Cymbalta) 30 mg DAILY PO 10/01/20 09:00 10/02/20 21:01 DC 10/02/20 08:42 Duloxetine HCl (Cymbalta) 60 mg DAILY PO 10/03/20 09:00 10/14/20 08:36 Nystatin (Nystop) 1 mello BID TP 09/30/20 21:00 10/14/20 20:02 Ziprasidone (Geodon) 80 mg BID PO 10/02/20 09:00 10/14/20 20:00 Ziprasidone (Geodon) 60 mg BID PO 10/01/20 21:00 10/01/20 21:01 DC 10/01/20 20:24 Cyproheptadine HCl (Periactin) 2 mg HS PO 10/02/20 21:00 10/14/20 20:02 Bupropion HCl (Wellbutrin Xl) 150 mg DAILY PO 10/06/20 09:00 10/10/20 18:30 DC 10/10/20 08:49 Lamotrigine (LaMICtal) 25 mg HS PO 10/08/20 21:00 10/10/20 22:00 DC 10/10/20 21:03 Lamotrigine (LaMICtal) 50 mg HS PO 10/11/20 21:00 10/13/20 22:00 DC 10/13/20 19:54 Lamotrigine (LaMICtal) 75 mg HS PO 10/14/20 21:00 10/14/20 20:01 Bupropion HCl (Wellbutrin Xl) 300 mg DAILY PO 10/11/20 09:00 10/14/20 08:35 Apixaban (Eliquis) 10 mg BID PO 10/10/20 22:00 10/16/20 21:59 10/14/20 20:01 Apixaban (Eliquis) 5 mg BID PO 10/17/20 09:00 Oxycodone HCl (OxyCONTIN) 10 mg Q12HR PO 10/11/20 21:00 10/14/20 20:02 Simethicone (Gas-X) 80 mg PRN AFTMEALHC PRN PO GAS / BLOATING 10/12/20 13:45 10/12/20 15:00 Alprazolam (Xanax) 0.5 mg BID PO 10/14/20 09:00 10/16/20 22:00 10/14/20 20:00 Alprazolam (Xanax) 0.5 mg DAILY PO 10/17/20 09:00 10/19/20 10:00 Diphenhydramine HCl (Benadryl) 25 mg PRN Q6HRS PRN PO ITCHING 10/14/20 07:45 10/14/20 20:01 Current Medications Medications (Trade) Dose Ordered Sig/Mathieu Route PRN Reason Start Time Stop Time Status Last Admin Dose Admin Lamotrigine (LaMICtal) 75 mg HS PO 10/14/20 21:00 10/14/20 20:01 Alprazolam (Xanax) 0.5 mg BID PO 10/14/20 09:00 10/16/20 22:00 10/14/20 20:00 Diphenhydramine HCl (Benadryl) 25 mg PRN Q6HRS PRN PO ITCHING 10/14/20 07:45 10/14/20 20:01 I have reviewed the current psychotropics carefully including drug interactions. Risk benefit ratio favors no change other than as noted in my dictated progress note. Diagnosis: Problems: (1) Bipolar disorder, curr episode mixed, severe, with psychotic features (2) Anxiety disorder, unspecified (3) Mild cognitive impairment PAMELA RAMOS MD Oct 14, 2020 22:01
--- NOTE | 2020-10-14 23:51 | NUR ---
Pt sitting up in w/c in the day room when approached. Pt calm and more interactive and responsive to questions when asked this evening. Pt cooperative with assessment and compliant with medications administered whole. PRN Benadryl administered with HS medications for c/o itching.
[2020-10-15] MEDS: LEVOTHYROXINE 100 MCG TABLET PO SCH (05:41)
[2020-10-15 06:18] VITALS: BP 92/59
[2020-10-15] MEDS: DOCUSATE SODIUM 100 MG CAPSULE PO SCH ×2 (07:21→07:30)
[2020-10-15] MEDS: GABAPENTIN 100 MG CAPSULE. PO SCH ×2 (07:21→11:53)
[2020-10-15] MEDS: metFORMIN 500 MG TABLET PO SCH (07:21)
[2020-10-15] MEDS: MULTIVITAMIN with MINERAL TABLET. PO SCH (07:21)
[2020-10-15] MEDS: ZIPRASIDONE 80 MG CAPSULE. PO SCH ×2 (07:22→19:59)
[2020-10-15] MEDS: oxyCODONE ER 10 MG TAB.ER.12H PO SCH (07:22)
[2020-10-15] MEDS: DULoxetine HCL 60 MG CAPSULE.DR PO SCH (07:22)
[2020-10-15] MEDS: ALPRAZolam 0.5 MG TABLET PO SCH ×2 (07:22→19:59)
[2020-10-15] MEDS: buPROPion XL 300 MG TAB.ER.24H. PO SCH (07:23)
[2020-10-15] MEDS: POTASSIUM CHLORIDE 20 MEQ TABLET.ER. PO SCH ×2 (07:23→19:58)
[2020-10-15] MEDS: SPIRONOLACTONE 25 MG TABLET PO SCH ×2 (07:23→20:00)
[2020-10-15] MEDS: APIXABAN 5 MG TABLET. PO SCH ×2 (07:23→20:00)
[2020-10-15] MEDS: CHOLECALCIFEROL (VITAMIN D3) 1,000 UNIT TABLET PO SCH (07:24)
[2020-10-15] MEDS: TOPIRAMATE 100 MG TABLET. PO SCH ×2 (07:24→19:59)
[2020-10-15] MEDS: PROPRANOLOL 10 MG TABLET. PO SCH ×2 (07:24→14:44)
[2020-10-15] MEDS: POLYETHYLENE GLYCOL 3350 17 GM PACKET. PO SCH ×2 (07:24→07:31)
[2020-10-15] MEDS: NYSTATIN TOPICAL POWDER 15GM BOTTLE. TP SCH ×2 (07:24→19:58)
[2020-10-15] MEDS: LIDOCAINE (700MG/PATCH) PATCH. TP SCH (07:25)
[2020-10-15] MEDS: MAGNESIUM OXIDE 400 MG TABLET PO SCH (07:27)
[2020-10-15] MEDS: diphenhydrAMINE HCL 25 MG CAPSULE PO PRN ×2 (08:20→20:45)
--- NOTE | 2020-10-15 09:10 | PDOC ---
Exam Note: [place] Note: This note is a late entry for 10/14/2020 covers elements not covered in my initial note. Subjective: The patient was reviewed in the morning of 10/14/2020 for a treatment team meeting with Shea Garcia, Juanita Sepulveda and Kamila (psych social worker), Shira, activity therapy and Marisa ROYAL, discussed and reviewed the chart. He daughter Stefan attended the treatment team meeting. The patient slept 4-3/4 hours previous night. Appetite is 75%. Naps during the day. She is little more verbally interactive but this was not evident as I met with her this evening though it was quite evident yesterday. Review of Systems: Ambulation impaired in wheelchair. No CV, , pulmonary, eye, ENT system symptoms on review. Mental Status Exam: The patient is oriented to herself and situation. Insight, judgment and recent memory is impaired. Language function intact. Attention span short, less verbally interactive. Laboratory Data: Reviewed. Impression: Bipolar disorder depressed with psychotic features. Anxiety disorder unspecified. Impulse control disorder unspecified. Plan: No change from initial note. Adjust further as clinically indicated. Assessment: Vital Signs/I&O: Vital Signs Date Time Temp Pulse Resp B/P (MAP) Pulse Ox O2 Delivery O2 Flow Rate FiO2 10/15/20 07:24 53 92/59 10/15/20 07:22 18 98 Room Air 10/15/20 06:18 96.9 I & O 10/14/20 10/14/20 10/15/20 15:00 23:00 07:00 Intake Total 840 ml 720 ml Balance 840 ml 720 ml Labs: Laboratory Tests Test 10/15/20 07:29 Glucose (Fingerstick) 80 mg/dL (70-99) Current Medications: Meds: Laboratory Tests Test 10/15/20 07:29 Glucose (Fingerstick) 80 mg/dL Current Medications Medications (Trade) Dose Ordered Sig/Mathieu Route PRN Reason Start Time Stop Time Status Last Admin Dose Admin Oxycodone/ Acetaminophen (Percocet 5/325) 1 tab 1X ONCE PO 09/26/20 15:00 09/26/20 15:01 DC 09/26/20 15:25 Morphine Sulfate (Morphine 4mg Syringe) 4 mg 1X ONCE IV 09/26/20 19:45 09/26/20 19:46 DC 09/26/20 19:44 Diphenhydramine HCl (Benadryl) 25 mg 1X ONCE IVP 09/26/20 19:45 09/26/20 19:46 DC 09/26/20 19:47 Diphenhydramine HCl (Benadryl) 50 mg STK-MED ONCE .ROUTE 09/26/20 19:41 09/26/20 19:42 DC Fentanyl Citrate (Fentanyl 2ml Vial) 75 mcg 1X ONCE IVP 09/27/20 00:15 09/27/20 00:21 DC 09/27/20 00:17 Diphenhydramine HCl (Benadryl) 50 mg 1X ONCE IVP 09/27/20 01:00 09/27/20 01:01 DC 09/27/20 00:40 Acetaminophen (Tylenol) 650 mg PRN Q6HRS PRN PO MILD PAIN / TEMP > 100.3'F 09/27/20 01:30 09/28/20 07:34 DC Al Hydroxide/Mg Hydroxide (Mylanta Plus Xs) 15 ml PRN AFTMEALHC PRN PO 2ND CHOICE DYSPEPSIA 09/27/20 01:30 10/12/20 12:30 Magnesium Hydroxide (Milk Of Magnesia) 2,400 mg PRN QHS PRN PO 1st choice CONSTIPATION 09/27/20 01:30 Acetaminophen (Tylenol) 500 mg PRN Q8HRS PRN PO mild PAIN 09/27/20 01:45 10/13/20 18:22 Calcium Carbonate/ Glycine (Tums) 500 mg PRN Q3HRS PRN PO 1ST CHOICE DYSPEPSIA 09/27/20 02:30 Glucose (Insta-Glucose) 15 gm PRN Q1HR PRN PO LOW BLOOD SUGAR, 1ST CHOICE 09/27/20 01:45 Docusate Sodium (Colace) 100 mg DAILY PO 09/27/20 09:00 10/13/20 08:27 Gabapentin (Neurontin) 100 mg BIDWBKFT/CHERYL PO 09/27/20 08:00 10/15/20 07:21 Gabapentin (Neurontin) 300 mg HS PO 09/27/20 21:00 10/14/20 20:01 Levothyroxine Sodium (Synthroid) 100 mcg DAILY06 PO 09/27/20 06:00 09/28/20 03:07 DC 09/27/20 05:52 Lidocaine (Lidoderm) 1 patch DAILY TP 09/27/20 09:00 10/15/20 07:25 Loperamide HCl (Imodium) 2 mg PRN Q6HRS PRN PO DIARRHEA 09/27/20 01:45 Magnesium Oxide (Magnesium Oxide) 400 mg DAILY PO 09/27/20 09:00 10/15/20 07:27 Metformin HCl (Glucophage) 500 mg DAILY PO 09/27/20 09:00 10/15/20 07:21 Metolazone (Zaroxolyn) 2.5 mg QMWF PO 09/27/20 16:00 10/09/20 16:59 Oxycodone HCl (Roxicodone) 5 mg TID PO 09/27/20 09:00 09/27/20 03:06 DC Oxycodone/ Acetaminophen (Percocet 5/325) 1 tab PRN Q6HRS PRN PO MOD-SEV PAIN 09/27/20 01:45 10/14/20 17:28 Polyethylene Glycol (miraLAX) 17 gm DAILY PO 09/27/20 09:00 10/13/20 08:28 Potassium Chloride (Klor-Con) 40 meq BID PO 09/27/20 09:00 09/27/20 03:06 DC Propranolol HCl (Inderal) 20 mg BID92 PO 09/27/20 09:00 10/15/20 07:24 Sennosides (Senna) 17.2 mg PRN Q12HR PRN PO 2nd choice CONSTIPATION 09/27/20 01:45 Sennosides (Senna) 8.6 mg HS PO 09/27/20 21:00 10/14/20 20:00 Spironolactone (Aldactone) 25 mg BID PO 09/27/20 09:00 10/15/20 07:23 Topiramate (Topamax) 100 mg BID PO 09/27/20 09:00 10/15/20 07:24 Vitamin D (Vitamin D3) 1,000 unit DAILY PO 09/27/20 09:00 10/15/20 07:24 Fluticasone Propionate (Flonase) 2 spray HS NS 09/27/20 21:00 10/12/20 18:45 Glucagon (Glucagen Kit) 1 mg 1X PRN PRN IM LOW BLOOD SUGAR, 2ND CHOICE 09/27/20 02:45 Non-Formulary Medication (Mag Hydrox/Al Hydrox/Simeth (Alum-Mag Hydroxide-Simeth Liq)) 30 ml Q4HRS PRN PO INDIGESTION 09/27/20 01:45 09/27/20 02:34 DC Multivitamins/ Calcium (Thera-M Plus) 1 tab DAILY PO 09/27/20 09:00 10/15/20 07:21 Multi-Ingredient Ointment (Analgesic [place]) 1 mello PRN Q4HRS PRN TP MUSCLE PAIN 09/27/20 02:45 Hydroxyzine Pamoate (Vistaril) 25 mg PRN Q6HRS PRN PO ITCHING 09/27/20 02:15 10/14/20 02:00 Ropinirole HCl (Requip) 1 mg HS PO 09/27/20 21:00 10/14/20 20:01 Ziprasidone (Geodon) 60 mg BID PO 09/27/20 09:00 10/01/20 16:52 DC 10/01/20 08:17 Alprazolam (Xanax) 0.5 mg TID PO 09/27/20 09:00 09/27/20 03:06 DC Paroxetine HCl (Paxil) 50 mg DAILY PO 09/27/20 09:00 09/30/20 13:56 DC 09/30/20 08:24 Miscellaneous (Lidoderm Patch Removal) 1 ea QHS MC 09/27/20 21:00 10/12/20 21:00 Alprazolam (Xanax) 0.5 mg TID PO 09/27/20 03:15 10/13/20 22:00 DC 10/13/20 19:53 Oxycodone HCl (Roxicodone) 5 mg TID PO 09/27/20 03:15 10/11/20 17:27 DC 10/11/20 14:27 Potassium Chloride (Klor-Con) 40 meq BID PO 09/27/20 03:15 10/15/20 07:23 Levothyroxine Sodium (Synthroid) 100 mcg DAILY06 PO 09/28/20 06:00 10/15/20 05:41 Duloxetine HCl (Cymbalta) 30 mg DAILY PO 10/01/20 09:00 10/02/20 21:01 DC 10/02/20 08:42 Duloxetine HCl (Cymbalta) 60 mg DAILY PO 10/03/20 09:00 10/15/20 07:22 Nystatin (Nystop) 1 mello BID TP 09/30/20 21:00 10/15/20 07:24 Ziprasidone (Geodon) 80 mg BID PO 10/02/20 09:00 10/15/20 07:22 Ziprasidone (Geodon) 60 mg BID PO 10/01/20 21:00 10/01/20 21:01 DC 10/01/20 20:24 Cyproheptadine HCl (Periactin) 2 mg HS PO 10/02/20 21:00 10/14/20 20:02 Bupropion HCl (Wellbutrin Xl) 150 mg DAILY PO 10/06/20 09:00 10/10/20 18:30 DC 10/10/20 08:49 Lamotrigine (LaMICtal) 25 mg HS PO 10/08/20 21:00 10/10/20 22:00 DC 10/10/20 21:03 Lamotrigine (LaMICtal) 50 mg HS PO 10/11/20 21:00 10/13/20 22:00 DC 10/13/20 19:54 Lamotrigine (LaMICtal) 75 mg HS PO 10/14/20 21:00 10/14/20 20:01 Bupropion HCl (Wellbutrin Xl) 300 mg DAILY PO 10/11/20 09:00 10/15/20 07:23 Apixaban (Eliquis) 10 mg BID PO 10/10/20 22:00 10/16/20 21:59 10/15/20 07:23 Apixaban (Eliquis) 5 mg BID PO 10/17/20 09:00 Oxycodone HCl (OxyCONTIN) 10 mg Q12HR PO 10/11/20 21:00 10/15/20 07:22 Simethicone (Gas-X) 80 mg PRN AFTMEALHC PRN PO GAS / BLOATING 10/12/20 13:45 10/12/20 15:00 Alprazolam (Xanax) 0.5 mg BID PO 10/14/20 09:00 10/16/20 22:00 10/15/20 07:22 Alprazolam (Xanax) 0.5 mg DAILY PO 10/17/20 09:00 10/19/20 10:00 Diphenhydramine HCl (Benadryl) 25 mg PRN Q6HRS PRN PO ITCHING 10/14/20 07:45 10/15/20 08:20 Current Medications Medications (Trade) Dose Ordered Sig/Mathieu Route PRN Reason Start Time Stop Time Status Last Admin Dose Admin Lamotrigine (LaMICtal) 75 mg HS PO 10/14/20 21:00 10/14/20 20:01 I have reviewed the current psychotropics carefully including drug interactions. Risk benefit ratio favors no change other than as noted in my dictated progress note. Diagnosis: Problems: (1) Bipolar disorder, curr episode mixed, severe, with psychotic features (2) Anxiety disorder, unspecified (3) Mild cognitive impairment PAMELA RAMOS MD Oct 15, 2020 09:10
[2020-10-15] MEDS: oxyCODONE/APAP 5/325 1 TAB TABLET PO PRN (11:53)
[2020-10-15 16:01] VITALS: BP 82/52
--- NOTE | 2020-10-15 18:30 | NUR ---
Patient has been calm, compliant, attention seeking, and pleasantly confused throughout this shift. She has had repeated complaints of pain with prn and scheduled medications provided per eMAR. Patient states her pain was in her hips and radiated to her back; both legs are in continuous motion, mostly being swung side to side. She was tearful and asking for help at dinnertime, then denied any interventions, stating that she wanted to talk to the MD. Will continue to monitor and report to oncoming shift.
[2020-10-15] MEDS: SENNOSIDES 8.6 MG TABLET PO SCH (19:58)
[2020-10-15] MEDS: oxyCODONE ER 20 MG TAB.ER.12H PO SCH (19:58)
[2020-10-15] MEDS: CYPROHEPTADINE 4 MG TABLET. PO SCH (19:59)
[2020-10-15] MEDS: GABAPENTIN 300 MG CAPSULE. PO SCH (19:59)
[2020-10-15] MEDS: lamoTRIgine 25 MG TABLET. PO SCH (19:59)
[2020-10-15] MEDS: rOPINIRole 1 MG TABLET. PO SCH (19:59)
[2020-10-15] MEDS: FLUTICASONE 50MCG/NASAL SPRAY 16GM BOTTLE. NS SCH (20:00)
[2020-10-15] MEDS: PATCH REMOVAL. MC SCH (20:00)
--- NOTE | 2020-10-15 22:19 | PDOC ---
Exam Note: [place] Note: Please also refer to the separate dictated note~for this date of service dictated separately.~Patient seen individually. Discussed the patient with Nursing staff reviewed the chart.~Reviewed interim history and current functioning. Reviewed vital signs,~Labs/ Radiology~and current medications noted below. Continue current treatment with the changes noted in the dictated addendum note Assessment: Vital Signs/I&O: Vital Signs Date Time Temp Pulse Resp B/P (MAP) Pulse Ox O2 Delivery O2 Flow Rate FiO2 10/15/20 19:58 98 10/15/20 16:01 97.2 67 16 82/52 (62) 10/15/20 12:30 Room Air I & O 10/14/20 10/14/20 10/15/20 14:59 22:59 06:59 Intake Total 840 ml 720 ml Balance 840 ml 720 ml Labs: Laboratory Tests Test 10/15/20 07:29 Glucose (Fingerstick) 80 mg/dL (70-99) Current Medications: Meds: Laboratory Tests Test 10/15/20 07:29 Glucose (Fingerstick) 80 mg/dL Current Medications Medications (Trade) Dose Ordered Sig/Mathieu Route PRN Reason Start Time Stop Time Status Last Admin Dose Admin Oxycodone/ Acetaminophen (Percocet 5/325) 1 tab 1X ONCE PO 09/26/20 15:00 09/26/20 15:01 DC 09/26/20 15:25 Morphine Sulfate (Morphine 4mg Syringe) 4 mg 1X ONCE IV 09/26/20 19:45 09/26/20 19:46 DC 09/26/20 19:44 Diphenhydramine HCl (Benadryl) 25 mg 1X ONCE IVP 09/26/20 19:45 09/26/20 19:46 DC 09/26/20 19:47 Diphenhydramine HCl (Benadryl) 50 mg STK-MED ONCE .ROUTE 09/26/20 19:41 09/26/20 19:42 DC Fentanyl Citrate (Fentanyl 2ml Vial) 75 mcg 1X ONCE IVP 09/27/20 00:15 09/27/20 00:21 DC 09/27/20 00:17 Diphenhydramine HCl (Benadryl) 50 mg 1X ONCE IVP 09/27/20 01:00 09/27/20 01:01 DC 09/27/20 00:40 Acetaminophen (Tylenol) 650 mg PRN Q6HRS PRN PO MILD PAIN / TEMP > 100.3'F 09/27/20 01:30 09/28/20 07:34 DC Al Hydroxide/Mg Hydroxide (Mylanta Plus Xs) 15 ml PRN AFTMEALHC PRN PO 2ND CHOICE DYSPEPSIA 09/27/20 01:30 10/12/20 12:30 Magnesium Hydroxide (Milk Of Magnesia) 2,400 mg PRN QHS PRN PO 1st choice CONSTIPATION 09/27/20 01:30 Acetaminophen (Tylenol) 500 mg PRN Q8HRS PRN PO mild PAIN 09/27/20 01:45 10/13/20 18:22 Calcium Carbonate/ Glycine (Tums) 500 mg PRN Q3HRS PRN PO 1ST CHOICE DYSPEPSIA 09/27/20 02:30 Glucose (Insta-Glucose) 15 gm PRN Q1HR PRN PO LOW BLOOD SUGAR, 1ST CHOICE 09/27/20 01:45 Docusate Sodium (Colace) 100 mg DAILY PO 09/27/20 09:00 10/13/20 08:27 Gabapentin (Neurontin) 100 mg BIDWBKFT/CHERYL PO 09/27/20 08:00 10/15/20 17:37 DC 10/15/20 11:53 Gabapentin (Neurontin) 300 mg HS PO 09/27/20 21:00 10/15/20 19:59 Levothyroxine Sodium (Synthroid) 100 mcg DAILY06 PO 09/27/20 06:00 09/28/20 03:07 DC 09/27/20 05:52 Lidocaine (Lidoderm) 1 patch DAILY TP 09/27/20 09:00 10/15/20 07:25 Loperamide HCl (Imodium) 2 mg PRN Q6HRS PRN PO DIARRHEA 09/27/20 01:45 Magnesium Oxide (Magnesium Oxide) 400 mg DAILY PO 09/27/20 09:00 10/15/20 07:27 Metformin HCl (Glucophage) 500 mg DAILY PO 09/27/20 09:00 10/15/20 07:21 Metolazone (Zaroxolyn) 2.5 mg QMWF PO 09/27/20 16:00 10/09/20 16:59 Oxycodone HCl (Roxicodone) 5 mg TID PO 09/27/20 09:00 09/27/20 03:06 DC Oxycodone/ Acetaminophen (Percocet 5/325) 1 tab PRN Q6HRS PRN PO MOD-SEV PAIN 09/27/20 01:45 10/15/20 11:53 Polyethylene Glycol (miraLAX) 17 gm DAILY PO 09/27/20 09:00 10/13/20 08:28 Potassium Chloride (Klor-Con) 40 meq BID PO 09/27/20 09:00 09/27/20 03:06 DC Propranolol HCl (Inderal) 20 mg BID92 PO 09/27/20 09:00 10/15/20 14:44 Sennosides (Senna) 17.2 mg PRN Q12HR PRN PO 2nd choice CONSTIPATION 09/27/20 01:45 Sennosides (Senna) 8.6 mg HS PO 09/27/20 21:00 10/15/20 19:58 Spironolactone (Aldactone) 25 mg BID PO 09/27/20 09:00 10/15/20 20:00 Topiramate (Topamax) 100 mg BID PO 09/27/20 09:00 10/15/20 19:59 Vitamin D (Vitamin D3) 1,000 unit DAILY PO 09/27/20 09:00 10/15/20 07:24 Fluticasone Propionate (Flonase) 2 spray HS NS 09/27/20 21:00 10/12/20 18:45 Glucagon (Glucagen Kit) 1 mg 1X PRN PRN IM LOW BLOOD SUGAR, 2ND CHOICE 09/27/20 02:45 Non-Formulary Medication (Mag Hydrox/Al Hydrox/Simeth (Alum-Mag Hydroxide-Simeth Liq)) 30 ml Q4HRS PRN PO INDIGESTION 09/27/20 01:45 09/27/20 02:34 DC Multivitamins/ Calcium (Thera-M Plus) 1 tab DAILY PO 09/27/20 09:00 10/15/20 07:21 Multi-Ingredient Ointment (Analgesic [place]) 1 mello PRN Q4HRS PRN TP MUSCLE PAIN 09/27/20 02:45 Hydroxyzine Pamoate (Vistaril) 25 mg PRN Q6HRS PRN PO ITCHING 09/27/20 02:15 6/7/21 02:00 Ropinirole HCl (Requip) 1 mg HS PO 09/27/20 21:00 10/15/20 19:59 Ziprasidone (Geodon) 60 mg BID PO 09/27/20 09:00 10/01/20 16:52 DC 10/01/20 08:17 Alprazolam (Xanax) 0.5 mg TID PO 09/27/20 09:00 09/27/20 03:06 DC Paroxetine HCl (Paxil) 50 mg DAILY PO 09/27/20 09:00 09/30/20 13:56 DC 09/30/20 08:24 Miscellaneous (Lidoderm Patch Removal) 1 ea QHS 09/27/20 21:00 10/15/20 20:00 Alprazolam (Xanax) 0.5 mg TID PO 09/27/20 03:15 10/13/20 22:00 DC 10/13/20 19:53 Oxycodone HCl (Roxicodone) 5 mg TID PO 09/27/20 03:15 10/11/20 17:27 DC 10/11/20 14:27 Potassium Chloride (Klor-Con) 40 meq BID PO 09/27/20 03:15 10/15/20 19:58 Levothyroxine Sodium (Synthroid) 100 mcg DAILY06 PO 09/28/20 06:00 10/15/20 05:41 Duloxetine HCl (Cymbalta) 30 mg DAILY PO 10/01/20 09:00 10/02/20 21:01 DC 10/02/20 08:42 Duloxetine HCl (Cymbalta) 60 mg DAILY PO 10/03/20 09:00 10/15/20 07:22 Nystatin (Nystop) 1 mello BID TP 09/30/20 21:00 10/15/20 19:58 Ziprasidone (Geodon) 80 mg BID PO 10/02/20 09:00 10/15/20 19:59 Ziprasidone (Geodon) 60 mg BID PO 10/01/20 21:00 10/01/20 21:01 DC 10/01/20 20:24 Cyproheptadine HCl (Periactin) 2 mg HS PO 10/02/20 21:00 10/15/20 19:59 Bupropion HCl (Wellbutrin Xl) 150 mg DAILY PO 10/06/20 09:00 10/10/20 18:30 DC 10/10/20 08:49 Lamotrigine (LaMICtal) 25 mg HS PO 10/08/20 21:00 10/10/20 22:00 DC 10/10/20 21:03 Lamotrigine (LaMICtal) 50 mg HS PO 10/11/20 21:00 10/13/20 22:00 DC 10/13/20 19:54 Lamotrigine (LaMICtal) 75 mg HS PO 10/14/20 21:00 10/15/20 19:59 Bupropion HCl (Wellbutrin Xl) 300 mg DAILY PO 10/11/20 09:00 10/15/20 07:23 Apixaban (Eliquis) 10 mg BID PO 10/10/20 22:00 10/16/20 21:59 10/15/20 20:00 Apixaban (Eliquis) 5 mg BID PO 10/17/20 09:00 Oxycodone HCl (OxyCONTIN) 10 mg Q12HR PO 10/11/20 21:00 10/15/20 17:38 DC 10/15/20 07:22 Simethicone (Gas-X) 80 mg PRN AFTMEALHC PRN PO GAS / BLOATING 10/12/20 13:45 10/12/20 15:00 Alprazolam (Xanax) 0.5 mg BID PO 10/14/20 09:00 10/16/20 22:00 10/15/20 19:59 Alprazolam (Xanax) 0.5 mg DAILY PO 10/17/20 09:00 10/19/20 10:00 Diphenhydramine HCl (Benadryl) 25 mg PRN Q6HRS PRN PO ITCHING 10/14/20 07:45 10/15/20 20:45 Gabapentin (Neurontin) 200 mg BIDWBKFT/CHERYL PO 10/16/20 08:00 Oxycodone HCl (OxyCONTIN) 20 mg Q12HR PO 10/15/20 21:00 10/15/20 19:58 Current Medications Medications (Trade) Dose Ordered Sig/Mathieu Route PRN Reason Start Time Stop Time Status Last Admin Dose Admin Oxycodone HCl (OxyCONTIN) 20 mg Q12HR PO 10/15/20 21:00 10/15/20 19:58 I have reviewed the current psychotropics carefully including drug interactions. Risk benefit ratio favors no change other than as noted in my dictated progress note. Diagnosis: Problems: (1) Bipolar disorder, curr episode mixed, severe, with psychotic features (2) Anxiety disorder, unspecified (3) Mild cognitive impairment PAMELA RAMOS MD Oct 15, 2020 22:19
--- NOTE | 2020-10-15 22:44 | NUR ---
Pt sitting up in w/c in the day room when approached. Pt calm, appropriate, and interactive with staff. Pt cooperative with assessment and compliant with medications administered whole. PRN Benadryl administered for c/o itching.
[2020-10-16] MEDS: LEVOTHYROXINE 100 MCG TABLET PO SCH (06:32)
[2020-10-16 06:38] VITALS: BP 92/58
--- NOTE | 2020-10-16 06:45 | PDOC ---
Exam Note: [place] Note: This note is a late entry for 10/15/2020 covers elements not covered in my initial note. Subjective: The patient was seen individually in the evening of 10/15/2020 with Gulshan ROYAL, discussed and reviewed the chart. The patient slept 7-3/4 hours previous night. The patient is alert and oriented x4. Short-term memory is impaired. She remains fixated on pain, states is severe. Review of Systems: Ambulation impaired in wheelchair. No CV, , pulmonary, eye, ENT system symptoms on review. She does complain of some itching. Received Benadryl for this. No rash is noted. We are monitoring this and she is on Lamictal. Mental Status Exam: The patient is oriented to herself reasonably and situation. Speech has some latency, coherent. She does have the typical facial gestures. No suicidal or homicidal ideation. Language function intact. Attention span short. Mood and affect remains somewhat withdrawn, slightly paranoid. Laboratory Data: Reviewed. Impression: Bipolar disorder depressed with psychotic features. Anxiety disorder unspecified. Impulse control disorder unspecified. Plan: No change from initial note. We will consider further adjustment of her Geodon while changing to an alternate antipsychotic depending on her progress. Maintain Cymbalta and Wellbutrin at current dosage. Assessment: Vital Signs/I&O: Vital Signs Date Time Temp Pulse Resp B/P (MAP) Pulse Ox O2 Delivery O2 Flow Rate FiO2 10/16/20 06:38 97.0 62 18 92/58 (69) 97 Room Air I & O 10/15/20 10/15/20 10/16/20 15:00 23:00 07:00 Intake Total 720 ml 480 ml Balance 720 ml 480 ml Labs: Laboratory Tests Test 10/15/20 07:29 Glucose (Fingerstick) 80 mg/dL (70-99) Current Medications: Meds: Laboratory Tests Test 10/15/20 07:29 Glucose (Fingerstick) 80 mg/dL Current Medications Medications (Trade) Dose Ordered Sig/Mathieu Route PRN Reason Start Time Stop Time Status Last Admin Dose Admin Oxycodone/ Acetaminophen (Percocet 5/325) 1 tab 1X ONCE PO 09/26/20 15:00 09/26/20 15:01 DC 09/26/20 15:25 Morphine Sulfate (Morphine 4mg Syringe) 4 mg 1X ONCE IV 09/26/20 19:45 09/26/20 19:46 DC 09/26/20 19:44 Diphenhydramine HCl (Benadryl) 25 mg 1X ONCE IVP 09/26/20 19:45 09/26/20 19:46 DC 09/26/20 19:47 Diphenhydramine HCl (Benadryl) 50 mg STK-MED ONCE .ROUTE 09/26/20 19:41 09/26/20 19:42 DC Fentanyl Citrate (Fentanyl 2ml Vial) 75 mcg 1X ONCE IVP 09/27/20 00:15 09/27/20 00:21 DC 09/27/20 00:17 Diphenhydramine HCl (Benadryl) 50 mg 1X ONCE IVP 09/27/20 01:00 09/27/20 01:01 DC 09/27/20 00:40 Acetaminophen (Tylenol) 650 mg PRN Q6HRS PRN PO MILD PAIN / TEMP > 100.3'F 09/27/20 01:30 09/28/20 07:34 DC Al Hydroxide/Mg Hydroxide (Mylanta Plus Xs) 15 ml PRN AFTMEALHC PRN PO 2ND CHOICE DYSPEPSIA 09/27/20 01:30 10/12/20 12:30 Magnesium Hydroxide (Milk Of Magnesia) 2,400 mg PRN QHS PRN PO 1st choice CONSTIPATION 09/27/20 01:30 Acetaminophen (Tylenol) 500 mg PRN Q8HRS PRN PO mild PAIN 09/27/20 01:45 10/13/20 18:22 Calcium Carbonate/ Glycine (Tums) 500 mg PRN Q3HRS PRN PO 1ST CHOICE DYSPEPSIA 09/27/20 02:30 Glucose (Insta-Glucose) 15 gm PRN Q1HR PRN PO LOW BLOOD SUGAR, 1ST CHOICE 09/27/20 01:45 Docusate Sodium (Colace) 100 mg DAILY PO 09/27/20 09:00 10/13/20 08:27 Gabapentin (Neurontin) 100 mg BIDWBKFT/CHERYL PO 09/27/20 08:00 10/15/20 17:37 DC 10/15/20 11:53 Gabapentin (Neurontin) 300 mg HS PO 09/27/20 21:00 10/15/20 19:59 Levothyroxine Sodium (Synthroid) 100 mcg DAILY06 PO 09/27/20 06:00 09/28/20 03:07 DC 09/27/20 05:52 Lidocaine (Lidoderm) 1 patch DAILY TP 09/27/20 09:00 10/15/20 07:25 Loperamide HCl (Imodium) 2 mg PRN Q6HRS PRN PO DIARRHEA 09/27/20 01:45 Magnesium Oxide (Magnesium Oxide) 400 mg DAILY PO 09/27/20 09:00 10/15/20 07:27 Metformin HCl (Glucophage) 500 mg DAILY PO 09/27/20 09:00 10/15/20 07:21 Metolazone (Zaroxolyn) 2.5 mg QMWF PO 09/27/20 16:00 10/09/20 16:59 Oxycodone HCl (Roxicodone) 5 mg TID PO 09/27/20 09:00 09/27/20 03:06 DC Oxycodone/ Acetaminophen (Percocet 5/325) 1 tab PRN Q6HRS PRN PO MOD-SEV PAIN 09/27/20 01:45 10/15/20 11:53 Polyethylene Glycol (miraLAX) 17 gm DAILY PO 09/27/20 09:00 10/13/20 08:28 Potassium Chloride (Klor-Con) 40 meq BID PO 09/27/20 09:00 09/27/20 03:06 DC Propranolol HCl (Inderal) 20 mg BID92 PO 09/27/20 09:00 10/15/20 14:44 Sennosides (Senna) 17.2 mg PRN Q12HR PRN PO 2nd choice CONSTIPATION 09/27/20 01:45 Sennosides (Senna) 8.6 mg HS PO 09/27/20 21:00 10/15/20 19:58 Spironolactone (Aldactone) 25 mg BID PO 09/27/20 09:00 10/15/20 20:00 Topiramate (Topamax) 100 mg BID PO 09/27/20 09:00 10/15/20 19:59 Vitamin D (Vitamin D3) 1,000 unit DAILY PO 09/27/20 09:00 10/15/20 07:24 Fluticasone Propionate (Flonase) 2 spray HS NS 09/27/20 21:00 10/12/20 18:45 Glucagon (Glucagen Kit) 1 mg 1X PRN PRN IM LOW BLOOD SUGAR, 2ND CHOICE 09/27/20 02:45 Non-Formulary Medication (Mag Hydrox/Al Hydrox/Simeth (Alum-Mag Hydroxide-Simeth Liq)) 30 ml Q4HRS PRN PO INDIGESTION 09/27/20 01:45 09/27/20 02:34 DC Multivitamins/ Calcium (Thera-M Plus) 1 tab DAILY PO 09/27/20 09:00 10/15/20 07:21 Multi-Ingredient Ointment (Analgesic [place]) 1 mello PRN Q4HRS PRN TP MUSCLE PAIN 09/27/20 02:45 Hydroxyzine Pamoate (Vistaril) 25 mg PRN Q6HRS PRN PO ITCHING 09/27/20 02:15 10/14/20 02:00 Ropinirole HCl (Requip) 1 mg HS PO 09/27/20 21:00 10/15/20 19:59 Ziprasidone (Geodon) 60 mg BID PO 09/27/20 09:00 10/01/20 16:52 DC 10/01/20 08:17 Alprazolam (Xanax) 0.5 mg TID PO 09/27/20 09:00 09/27/20 03:06 DC Paroxetine HCl (Paxil) 50 mg DAILY PO 09/27/20 09:00 09/30/20 13:56 DC 09/30/20 08:24 Miscellaneous (Lidoderm Patch Removal) 1 ea QHS 09/27/20 21:00 10/15/20 20:00 Alprazolam (Xanax) 0.5 mg TID PO 09/27/20 03:15 10/13/20 22:00 DC 10/13/20 19:53 Oxycodone HCl (Roxicodone) 5 mg TID PO 09/27/20 03:15 10/11/20 17:27 DC 10/11/20 14:27 Potassium Chloride (Klor-Con) 40 meq BID PO 09/27/20 03:15 10/15/20 19:58 Levothyroxine Sodium (Synthroid) 100 mcg DAILY06 PO 09/28/20 06:00 10/16/20 06:32 Duloxetine HCl (Cymbalta) 30 mg DAILY PO 10/01/20 09:00 10/02/20 21:01 DC 10/02/20 08:42 Duloxetine HCl (Cymbalta) 60 mg DAILY PO 10/03/20 09:00 10/15/20 07:22 Nystatin (Nystop) 1 mello BID TP 09/30/20 21:00 10/15/20 19:58 Ziprasidone (Geodon) 80 mg BID PO 10/02/20 09:00 10/15/20 19:59 Ziprasidone (Geodon) 60 mg BID PO 10/01/20 21:00 10/01/20 21:01 DC 10/01/20 20:24 Cyproheptadine HCl (Periactin) 2 mg HS PO 10/02/20 21:00 10/15/20 19:59 Bupropion HCl (Wellbutrin Xl) 150 mg DAILY PO 10/06/20 09:00 10/10/20 18:30 DC 10/10/20 08:49 Lamotrigine (LaMICtal) 25 mg HS PO 10/08/20 21:00 10/10/20 22:00 DC 10/10/20 21:03 Lamotrigine (LaMICtal) 50 mg HS PO 10/11/20 21:00 10/13/20 22:00 DC 10/13/20 19:54 Lamotrigine (LaMICtal) 75 mg HS PO 10/14/20 21:00 10/15/20 19:59 Bupropion HCl (Wellbutrin Xl) 300 mg DAILY PO 10/11/20 09:00 10/15/20 07:23 Apixaban (Eliquis) 10 mg BID PO 10/10/20 22:00 10/16/20 21:59 10/15/20 20:00 Apixaban (Eliquis) 5 mg BID PO 10/17/20 09:00 Oxycodone HCl (OxyCONTIN) 10 mg Q12HR PO 10/11/20 21:00 10/15/20 17:38 DC 10/15/20 07:22 Simethicone (Gas-X) 80 mg PRN AFTMEALHC PRN PO GAS / BLOATING 10/12/20 13:45 10/12/20 15:00 Alprazolam (Xanax) 0.5 mg BID PO 10/14/20 09:00 10/16/20 22:00 10/15/20 19:59 Alprazolam (Xanax) 0.5 mg DAILY PO 10/17/20 09:00 10/19/20 10:00 Diphenhydramine HCl (Benadryl) 25 mg PRN Q6HRS PRN PO ITCHING 10/14/20 07:45 10/15/20 20:45 Gabapentin (Neurontin) 200 mg [id number]/[id number] PO 10/16/20 08:00 Oxycodone HCl (OxyCONTIN) 20 mg Q12HR PO 10/15/20 21:00 10/15/20 19:58 Current Medications Medications (Trade) Dose Ordered Sig/Mathieu Route PRN Reason Start Time Stop Time Status Last Admin Dose Admin Oxycodone HCl (OxyCONTIN) 20 mg Q12HR PO 10/15/20 21:00 10/15/20 19:58 I have reviewed the current psychotropics carefully including drug interactions. Risk benefit ratio favors no change other than as noted in my dictated progress note. Diagnosis: Problems: (1) Anxiety disorder, unspecified (2) Bipolar disorder, curr episode mixed, severe, with psychotic features (3) Mild cognitive impairment PAMELA RAMOS MD Oct 16, 2020 06:45
[2020-10-16] MEDS: DULoxetine HCL 60 MG CAPSULE.DR PO SCH (07:59)
[2020-10-16] MEDS: LIDOCAINE (700MG/PATCH) PATCH. TP SCH (07:59)
[2020-10-16] MEDS: POTASSIUM CHLORIDE 20 MEQ TABLET.ER. PO SCH ×2 (07:59→21:05)
[2020-10-16] MEDS: CHOLECALCIFEROL (VITAMIN D3) 1,000 UNIT TABLET PO SCH (07:59)
[2020-10-16] MEDS: TOPIRAMATE 100 MG TABLET. PO SCH ×2 (08:00→21:05)
[2020-10-16] MEDS: metFORMIN 500 MG TABLET PO SCH (08:00)
[2020-10-16] MEDS: metOLazone 2.5 MG TABLET PO SCH (08:00)
[2020-10-16] MEDS: PROPRANOLOL 10 MG TABLET. PO SCH ×2 (08:00→14:05)
[2020-10-16] MEDS: ZIPRASIDONE 80 MG CAPSULE. PO SCH ×2 (08:01→21:00)
[2020-10-16] MEDS: buPROPion XL 300 MG TAB.ER.24H. PO SCH (08:01)
[2020-10-16] MEDS: APIXABAN 5 MG TABLET. PO SCH ×2 (08:01→21:04)
[2020-10-16] MEDS: oxyCODONE ER 20 MG TAB.ER.12H PO SCH ×2 (08:01→21:05)
[2020-10-16] MEDS: ALPRAZolam 0.5 MG TABLET PO SCH ×2 (08:02→21:05)
[2020-10-16] MEDS: MAGNESIUM OXIDE 400 MG TABLET PO SCH (08:02)
[2020-10-16] MEDS: GABAPENTIN 100 MG CAPSULE. PO SCH ×2 (08:02→12:20)
[2020-10-16] MEDS: SPIRONOLACTONE 25 MG TABLET PO SCH ×2 (08:02→21:04)
[2020-10-16] MEDS: diphenhydrAMINE HCL 25 MG CAPSULE PO PRN ×2 (08:02→16:52)
[2020-10-16] MEDS: NYSTATIN TOPICAL POWDER 15GM BOTTLE. TP SCH ×2 (08:03→21:03)
[2020-10-16] MEDS: MULTIVITAMIN with MINERAL TABLET. PO SCH (08:03)
[2020-10-16] MEDS: POLYETHYLENE GLYCOL 3350 17 GM PACKET. PO SCH (09:00)
[2020-10-16] MEDS: DOCUSATE SODIUM 100 MG CAPSULE PO SCH (09:00)
--- NOTE | 2020-10-16 09:15 | NUR ---
Patient had complaint of itching this morning, and later stated she had diarrhea. PRN medications provided per eMAR and scheduled laxatives held. Patient continues to complain of itching, will report to MD during rounds.
[2020-10-16] MEDS ORDERED: hydrOXYzine HCL 25 MG TABLET PO PRN (11:45)
[2020-10-16] MEDS ORDERED: POLYETHYLENE GLYCOL 3350 17 GM PACKET. PO PRN (12:00)
[2020-10-16] MEDS ORDERED: DOCUSATE SODIUM 100 MG CAPSULE PO PRN (12:00)
[2020-10-16] MEDS: hydrOXYzine PAMOATE 25 MG CAPSULE PO PRN (12:20)
--- NOTE | 2020-10-16 14:32 | NUR ---
ZAIN received a call from Brittany, who wanted to double check what day she would be able to visit pt and clarify discharge. At this time, we will have discharge for pt on Wednesday. The family bought a different bed for pt to have as she does have back pain and her bed at the facility is not appropriate. Brittany will plan to visit pt on Wednesday in hopes to also move her bed in at [facility] while they are in the area on that day.
[2020-10-16 15:56] VITALS: BP 90/65
[2020-10-16] MEDS: oxyCODONE/APAP 5/325 1 TAB TABLET PO PRN (17:25)
[2020-10-16] MEDS: PATCH REMOVAL. MC SCH (21:00)
[2020-10-16] MEDS: FLUTICASONE 50MCG/NASAL SPRAY 16GM BOTTLE. NS SCH (21:03)
[2020-10-16] MEDS: SENNOSIDES 8.6 MG TABLET PO SCH (21:04)
[2020-10-16] MEDS: GABAPENTIN 300 MG CAPSULE. PO SCH (21:04)
[2020-10-16] MEDS: CYPROHEPTADINE 4 MG TABLET. PO SCH (21:04)
[2020-10-16] MEDS: rOPINIRole 1 MG TABLET. PO SCH (21:05)
[2020-10-16] MEDS: lamoTRIgine 25 MG TABLET. PO SCH (21:06)
--- NOTE | 2020-10-16 22:06 | PDOC ---
Exam Note: [place] Note: Please also refer to the separate dictated note~for this date of service dictated separately.~Patient seen individually. Discussed the patient with Nursing staff reviewed the chart.~Reviewed interim history and current functioning. Reviewed vital signs,~Labs/ Radiology~and current medications noted below. Continue current treatment with the changes noted in the dictated addendum note Assessment: Vital Signs/I&O: Vital Signs Date Time Temp Pulse Resp B/P (MAP) Pulse Ox O2 Delivery O2 Flow Rate FiO2 10/16/20 18:10 16 98 Room Air 10/16/20 15:56 97.5 55 90/65 (73) I & O 10/15/20 10/15/20 10/16/20 15:00 23:00 07:00 Intake Total 720 ml 480 ml Balance 720 ml 480 ml Labs: Laboratory Tests Test 10/16/20 07:32 10/16/20 11:28 Glucose (Fingerstick) 97 mg/dL (70-99) 104 mg/dL (70-99) H Current Medications: Meds: Laboratory Tests Test 10/16/20 07:32 10/16/20 11:28 Glucose (Fingerstick) 97 mg/dL 104 mg/dL Current Medications Medications (Trade) Dose Ordered Sig/Mathieu Route PRN Reason Start Time Stop Time Status Last Admin Dose Admin Oxycodone/ Acetaminophen (Percocet 5/325) 1 tab 1X ONCE PO 09/26/20 15:00 09/26/20 15:01 DC 09/26/20 15:25 Morphine Sulfate (Morphine 4mg Syringe) 4 mg 1X ONCE IV 09/26/20 19:45 09/26/20 19:46 DC 09/26/20 19:44 Diphenhydramine HCl (Benadryl) 25 mg 1X ONCE IVP 09/26/20 19:45 09/26/20 19:46 DC 09/26/20 19:47 Diphenhydramine HCl (Benadryl) 50 mg STK-MED ONCE .ROUTE 09/26/20 19:41 09/26/20 19:42 DC Fentanyl Citrate (Fentanyl 2ml Vial) 75 mcg 1X ONCE IVP 09/27/20 00:15 09/27/20 00:21 DC 09/27/20 00:17 Diphenhydramine HCl (Benadryl) 50 mg 1X ONCE IVP 09/27/20 01:00 09/27/20 01:01 DC 09/27/20 00:40 Acetaminophen (Tylenol) 650 mg PRN Q6HRS PRN PO MILD PAIN / TEMP > 100.3'F 09/27/20 01:30 09/28/20 07:34 DC Al Hydroxide/Mg Hydroxide (Mylanta Plus Xs) 15 ml PRN AFTMEALHC PRN PO 2ND CHOICE DYSPEPSIA 09/27/20 01:30 10/12/20 12:30 Magnesium Hydroxide (Milk Of Magnesia) 2,400 mg PRN QHS PRN PO 1st choice CONSTIPATION 09/27/20 01:30 Acetaminophen (Tylenol) 500 mg PRN Q8HRS PRN PO mild PAIN 09/27/20 01:45 10/13/20 18:22 Calcium Carbonate/ Glycine (Tums) 500 mg PRN Q3HRS PRN PO 1ST CHOICE DYSPEPSIA 09/27/20 02:30 Glucose (Insta-Glucose) 15 gm PRN Q1HR PRN PO LOW BLOOD SUGAR, 1ST CHOICE 09/27/20 01:45 Docusate Sodium (Colace) 100 mg DAILY PO 09/27/20 09:00 10/16/20 11:53 DC 10/13/20 08:27 Gabapentin (Neurontin) 100 mg BIDWBKFT/CHERYL PO 09/27/20 08:00 10/15/20 17:37 DC 10/15/20 11:53 Gabapentin (Neurontin) 300 mg HS PO 09/27/20 21:00 10/16/20 21:04 Levothyroxine Sodium (Synthroid) 100 mcg DAILY06 PO 09/27/20 06:00 09/28/20 03:07 DC 09/27/20 05:52 Lidocaine (Lidoderm) 1 patch DAILY TP 09/27/20 09:00 10/16/20 07:59 Loperamide HCl (Imodium) 2 mg PRN Q6HRS PRN PO DIARRHEA 09/27/20 01:45 10/16/20 09:20 Magnesium Oxide (Magnesium Oxide) 400 mg DAILY PO 09/27/20 09:00 10/16/20 08:02 Metformin HCl (Glucophage) 500 mg DAILY PO 09/27/20 09:00 10/16/20 08:00 Metolazone (Zaroxolyn) 2.5 mg QMWF PO 09/27/20 16:00 10/16/20 08:00 Oxycodone HCl (Roxicodone) 5 mg TID PO 09/27/20 09:00 09/27/20 03:06 DC Oxycodone/ Acetaminophen (Percocet 5/325) 1 tab PRN Q6HRS PRN PO MOD-SEV PAIN 09/27/20 01:45 10/16/20 17:25 Polyethylene Glycol (miraLAX) 17 gm DAILY PO 09/27/20 09:00 10/16/20 11:53 DC 10/13/20 08:28 Potassium Chloride (Klor-Con) 40 meq BID PO 09/27/20 09:00 09/27/20 03:06 DC Propranolol HCl (Inderal) 20 mg BID92 PO 09/27/20 09:00 10/16/20 14:05 Sennosides (Senna) 17.2 mg PRN Q12HR PRN PO 2nd choice CONSTIPATION 09/27/20 01:45 Sennosides (Senna) 8.6 mg HS PO 09/27/20 21:00 10/16/20 21:04 Spironolactone (Aldactone) 25 mg BID PO 09/27/20 09:00 10/16/20 21:04 Topiramate (Topamax) 100 mg BID PO 09/27/20 09:00 10/16/20 21:05 Vitamin D (Vitamin D3) 1,000 unit DAILY PO 09/27/20 09:00 10/16/20 07:59 Fluticasone Propionate (Flonase) 2 spray HS NS 09/27/20 21:00 10/16/20 21:03 Glucagon (Glucagen Kit) 1 mg 1X PRN PRN IM LOW BLOOD SUGAR, 2ND CHOICE 09/27/20 02:45 Non-Formulary Medication (Mag Hydrox/Al Hydrox/Simeth (Alum-Mag Hydroxide-Simeth Liq)) 30 ml Q4HRS PRN PO INDIGESTION 09/27/20 01:45 09/27/20 02:34 DC Multivitamins/ Calcium (Thera-M Plus) 1 tab DAILY PO 09/27/20 09:00 10/16/20 08:03 Multi-Ingredient Ointment (Analgesic [place]) 1 mello PRN Q4HRS PRN TP MUSCLE PAIN 09/27/20 02:45 Hydroxyzine Pamoate (Vistaril) 25 mg PRN Q6HRS PRN PO ITCHING 09/27/20 02:15 10/16/20 12:20 Ropinirole HCl (Requip) 1 mg HS PO 09/27/20 21:00 10/16/20 21:05 Ziprasidone (Geodon) 60 mg BID PO 09/27/20 09:00 10/01/20 16:52 DC 10/01/20 08:17 Alprazolam (Xanax) 0.5 mg TID PO 09/27/20 09:00 09/27/20 03:06 DC Paroxetine HCl (Paxil) 50 mg DAILY PO 09/27/20 09:00 09/30/20 13:56 DC 09/30/20 08:24 Miscellaneous (Lidoderm Patch Removal) 1 ea QHS MC 09/27/20 21:00 10/16/20 21:00 Alprazolam (Xanax) 0.5 mg TID PO 09/27/20 03:15 10/13/20 22:00 DC 10/13/20 19:53 Oxycodone HCl (Roxicodone) 5 mg TID PO 09/27/20 03:15 10/11/20 17:27 DC 10/11/20 14:27 Potassium Chloride (Klor-Con) 40 meq BID PO 09/27/20 03:15 10/16/20 21:05 Levothyroxine Sodium (Synthroid) 100 mcg DAILY06 PO 09/28/20 06:00 10/16/20 06:32 Duloxetine HCl (Cymbalta) 30 mg DAILY PO 10/01/20 09:00 10/02/20 21:01 DC 10/02/20 08:42 Duloxetine HCl (Cymbalta) 60 mg DAILY PO 10/03/20 09:00 10/16/20 07:59 Nystatin (Nystop) 1 mello BID TP 09/30/20 21:00 10/16/20 21:03 Ziprasidone (Geodon) 80 mg BID PO 10/02/20 09:00 10/16/20 21:00 Ziprasidone (Geodon) 60 mg BID PO 10/01/20 21:00 10/01/20 21:01 DC 10/01/20 20:24 Cyproheptadine HCl (Periactin) 2 mg HS PO 10/02/20 21:00 10/16/20 21:04 Bupropion HCl (Wellbutrin Xl) 150 mg DAILY PO 10/06/20 09:00 10/10/20 18:30 DC 10/10/20 08:49 Lamotrigine (LaMICtal) 25 mg HS PO 10/08/20 21:00 10/10/20 22:00 DC 10/10/20 21:03 Lamotrigine (LaMICtal) 50 mg HS PO 10/11/20 21:00 10/13/20 22:00 DC 10/13/20 19:54 Lamotrigine (LaMICtal) 75 mg HS PO 10/14/20 21:00 10/16/20 21:06 Bupropion HCl (Wellbutrin Xl) 300 mg DAILY PO 10/11/20 09:00 10/16/20 08:01 Apixaban (Eliquis) 10 mg BID PO 10/10/20 22:00 10/16/20 21:59 DC 10/16/20 21:04 Apixaban (Eliquis) 5 mg BID PO 10/17/20 09:00 Oxycodone HCl (OxyCONTIN) 10 mg Q12HR PO 10/11/20 21:00 10/15/20 17:38 DC 10/15/20 07:22 Simethicone (Gas-X) 80 mg PRN AFTMEALHC PRN PO GAS / BLOATING 10/12/20 13:45 10/12/20 15:00 Alprazolam (Xanax) 0.5 mg BID PO 10/14/20 09:00 10/16/20 22:00 DC 10/16/20 21:05 Alprazolam (Xanax) 0.5 mg DAILY PO 10/17/20 09:00 10/19/20 10:00 Diphenhydramine HCl (Benadryl) 25 mg PRN Q6HRS PRN PO ITCHING 10/14/20 07:45 10/16/20 16:52 Gabapentin (Neurontin) 200 mg BIDWBKFT/CHERYL PO 10/16/20 08:00 10/16/20 12:20 Oxycodone HCl (OxyCONTIN) 20 mg Q12HR PO 10/15/20 21:00 10/16/20 21:05 Hydroxyzine HCl (Atarax) 25 mg PRN Q6HRS PRN PO ITCHING 10/16/20 11:45 UNV Docusate Sodium (Colace) 100 mg PRN DAILY PRN PO constipation 10/16/20 12:00 Polyethylene Glycol (miraLAX) 17 gm PRN DAILY PRN PO constipation 10/16/20 12:00 Current Medications Medications (Trade) Dose Ordered Sig/Mathieu Route PRN Reason Start Time Stop Time Status Last Admin Dose Admin Gabapentin (Neurontin) 200 mg BIDWBKFT/CHERYL PO 10/16/20 08:00 10/16/20 12:20 I have reviewed the current psychotropics carefully including drug interactions. Risk benefit ratio favors no change other than as noted in my dictated progress note. Diagnosis: Problems: (1) Anxiety disorder, unspecified (2) Bipolar disorder, curr episode mixed, severe, with psychotic features (3) Mild cognitive impairment PAMELA RAMOS MD Oct 16, 2020 22:06
[2020-10-17] MEDS: LEVOTHYROXINE 100 MCG TABLET PO SCH (05:39)
[2020-10-17] MEDS: oxyCODONE/APAP 5/325 1 TAB TABLET PO PRN (05:42)
[2020-10-17] MEDS: diphenhydrAMINE HCL 25 MG CAPSULE PO PRN ×3 (05:42→20:59)
[2020-10-17 05:56] VITALS: BP 133/79
--- NOTE | 2020-10-17 07:13 | PDOC ---
Exam Note: Lincoln Note: This note is a late entry for 10/16/2020 covers elements not covered in my initial note. Subjective: The patient was seen individually in the evening of 10/16/2020 with Gulshan ROYAL, discussed and reviewed the chart. The patient slept [address] Branden has increased the Neurontin secondary to pain and she remains on OxyContin. She does complain of some itching. She received Atarax since Benadryl did not help. Review of Systems: Ambulation impaired in wheelchair. No CV, , pulmonary, eye, ENT system symptoms on review. Mental Status Exam: The patient is oriented to herself and situation. Speech coherent, difficult to understand at times, low in volume, low in rate and rhythm. Abstraction fair. Computation impaired. She still has a puckered lip and facial expression but much less intense as compared to earlier. No suicidal or homicidal ideation. Attention span short. Laboratory Data: Reviewed. Impression: Bipolar disorder depressed with psychotic features. Anxiety disorder unspecified. Impulse control disorder unspecified. Plan: No change from initial note. Appetite is better on Periactin. Assessment: Vital Signs/I&O: Vital Signs Date Time Temp Pulse Resp B/P (MAP) Pulse Ox O2 Delivery O2 Flow Rate FiO2 10/17/20 05:56 96.1 58 16 133/79 (97) 98 Room Air I & O 10/16/20 10/16/20 10/17/20 15:00 23:00 07:00 Intake Total 840 ml 600 ml Balance 840 ml 600 ml Labs: Laboratory Tests Test 10/16/20 07:32 10/16/20 11:28 Glucose (Fingerstick) 97 mg/dL (70-99) 104 mg/dL (70-99) H Current Medications: Meds: Laboratory Tests Test 10/16/20 07:32 10/16/20 11:28 Glucose (Fingerstick) 97 mg/dL 104 mg/dL Current Medications Medications (Trade) Dose Ordered Sig/Mathieu Route PRN Reason Start Time Stop Time Status Last Admin Dose Admin Oxycodone/ Acetaminophen (Percocet 5/325) 1 tab 1X ONCE PO 09/26/20 15:00 09/26/20 15:01 DC 09/26/20 15:25 Morphine Sulfate (Morphine 4mg Syringe) 4 mg 1X ONCE IV 09/26/20 19:45 09/26/20 19:46 DC 09/26/20 19:44 Diphenhydramine HCl (Benadryl) 25 mg 1X ONCE IVP 09/26/20 19:45 09/26/20 19:46 DC 09/26/20 19:47 Diphenhydramine HCl (Benadryl) 50 mg STK-MED ONCE .ROUTE 09/26/20 19:41 09/26/20 19:42 DC Fentanyl Citrate (Fentanyl 2ml Vial) 75 mcg 1X ONCE IVP 09/27/20 00:15 09/27/20 00:21 DC 09/27/20 00:17 Diphenhydramine HCl (Benadryl) 50 mg 1X ONCE IVP 09/27/20 01:00 09/27/20 01:01 DC 09/27/20 00:40 Acetaminophen (Tylenol) 650 mg PRN Q6HRS PRN PO MILD PAIN / TEMP > 100.3'F 09/27/20 01:30 09/28/20 07:34 DC Al Hydroxide/Mg Hydroxide (Mylanta Plus Xs) 15 ml PRN AFTMEALHC PRN PO 2ND CHOICE DYSPEPSIA 09/27/20 01:30 10/12/20 12:30 Magnesium Hydroxide (Milk Of Magnesia) 2,400 mg PRN QHS PRN PO 1st choice CONSTIPATION 09/27/20 01:30 Acetaminophen (Tylenol) 500 mg PRN Q8HRS PRN PO mild PAIN 09/27/20 01:45 10/13/20 18:22 Calcium Carbonate/ Glycine (Tums) 500 mg PRN Q3HRS PRN PO 1ST CHOICE DYSPEPSIA 09/27/20 02:30 Glucose (Insta-Glucose) 15 gm PRN Q1HR PRN PO LOW BLOOD SUGAR, 1ST CHOICE 09/27/20 01:45 Docusate Sodium (Colace) 100 mg DAILY PO 09/27/20 09:00 10/16/20 11:53 DC 10/13/20 08:27 Gabapentin (Neurontin) 100 mg BIDWBKFT/CHERYL PO 09/27/20 08:00 10/15/20 17:37 DC 10/15/20 11:53 Gabapentin (Neurontin) 300 mg HS PO 09/27/20 21:00 10/16/20 21:04 Levothyroxine Sodium (Synthroid) 100 mcg DAILY06 PO 09/27/20 06:00 09/28/20 03:07 DC 09/27/20 05:52 Lidocaine (Lidoderm) 1 patch DAILY TP 09/27/20 09:00 10/16/20 07:59 Loperamide HCl (Imodium) 2 mg PRN Q6HRS PRN PO DIARRHEA 09/27/20 01:45 10/16/20 09:20 Magnesium Oxide (Magnesium Oxide) 400 mg DAILY PO 09/27/20 09:00 10/16/20 08:02 Metformin HCl (Glucophage) 500 mg DAILY PO 09/27/20 09:00 10/16/20 08:00 Metolazone (Zaroxolyn) 2.5 mg QMWF PO 09/27/20 16:00 10/16/20 08:00 Oxycodone HCl (Roxicodone) 5 mg TID PO 09/27/20 09:00 09/27/20 03:06 DC Oxycodone/ Acetaminophen (Percocet 5/325) 1 tab PRN Q6HRS PRN PO MOD-SEV PAIN 09/27/20 01:45 10/17/20 05:42 Polyethylene Glycol (miraLAX) 17 gm DAILY PO 09/27/20 09:00 10/16/20 11:53 DC 10/13/20 08:28 Potassium Chloride (Klor-Con) 40 meq BID PO 09/27/20 09:00 09/27/20 03:06 DC Propranolol HCl (Inderal) 20 mg BID92 PO 09/27/20 09:00 10/16/20 14:05 Sennosides (Senna) 17.2 mg PRN Q12HR PRN PO 2nd choice CONSTIPATION 09/27/20 01:45 Sennosides (Senna) 8.6 mg HS PO 09/27/20 21:00 10/16/20 21:04 Spironolactone (Aldactone) 25 mg BID PO 09/27/20 09:00 10/16/20 21:04 Topiramate (Topamax) 100 mg BID PO 09/27/20 09:00 10/16/20 21:05 Vitamin D (Vitamin D3) 1,000 unit DAILY PO 09/27/20 09:00 10/16/20 07:59 Fluticasone Propionate (Flonase) 2 spray HS NS 09/27/20 21:00 10/16/20 21:03 Glucagon (Glucagen Kit) 1 mg 1X PRN PRN IM LOW BLOOD SUGAR, 2ND CHOICE 09/27/20 02:45 Non-Formulary Medication (Mag Hydrox/Al Hydrox/Simeth (Alum-Mag Hydroxide-Simeth Liq)) 30 ml Q4HRS PRN PO INDIGESTION 09/27/20 01:45 09/27/20 02:34 DC Multivitamins/ Calcium (Thera-M Plus) 1 tab DAILY PO 09/27/20 09:00 10/16/20 08:03 Multi-Ingredient Ointment (Analgesic [place]) 1 mello PRN Q4HRS PRN TP MUSCLE PAIN 09/27/20 02:45 Hydroxyzine Pamoate (Vistaril) 25 mg PRN Q6HRS PRN PO ITCHING 09/27/20 02:15 10/16/20 12:20 Ropinirole HCl (Requip) 1 mg HS PO 09/27/20 21:00 10/16/20 21:05 Ziprasidone (Geodon) 60 mg BID PO 09/27/20 09:00 10/01/20 16:52 DC 10/01/20 08:17 Alprazolam (Xanax) 0.5 mg TID PO 09/27/20 09:00 09/27/20 03:06 DC Paroxetine HCl (Paxil) 50 mg DAILY PO 09/27/20 09:00 09/30/20 13:56 DC 09/30/20 08:24 Miscellaneous (Lidoderm Patch Removal) 1 ea QHS MC 09/27/20 21:00 10/16/20 21:00 Alprazolam (Xanax) 0.5 mg TID PO 09/27/20 03:15 10/13/20 22:00 DC 10/13/20 19:53 Oxycodone HCl (Roxicodone) 5 mg TID PO 09/27/20 03:15 10/11/20 17:27 DC 10/11/20 14:27 Potassium Chloride (Klor-Con) 40 meq BID PO 09/27/20 03:15 10/16/20 21:05 Levothyroxine Sodium (Synthroid) 100 mcg DAILY06 PO 09/28/20 06:00 10/17/20 05:39 Duloxetine HCl (Cymbalta) 30 mg DAILY PO 10/01/20 09:00 10/02/20 21:01 DC 10/02/20 08:42 Duloxetine HCl (Cymbalta) 60 mg DAILY PO 10/03/20 09:00 10/16/20 07:59 Nystatin (Nystop) 1 mello BID TP 09/30/20 21:00 10/16/20 21:03 Ziprasidone (Geodon) 80 mg BID PO 10/02/20 09:00 10/16/20 21:00 Ziprasidone (Geodon) 60 mg BID PO 10/01/20 21:00 10/01/20 21:01 DC 10/01/20 20:24 Cyproheptadine HCl (Periactin) 2 mg HS PO 10/02/20 21:00 10/16/20 21:04 Bupropion HCl (Wellbutrin Xl) 150 mg DAILY PO 10/06/20 09:00 10/10/20 18:30 DC 10/10/20 08:49 Lamotrigine (LaMICtal) 25 mg HS PO 10/08/20 21:00 10/10/20 22:00 DC 10/10/20 21:03 Lamotrigine (LaMICtal) 50 mg HS PO 10/11/20 21:00 10/13/20 22:00 DC 10/13/20 19:54 Lamotrigine (LaMICtal) 75 mg HS PO 10/14/20 21:00 10/16/20 21:06 Bupropion HCl (Wellbutrin Xl) 300 mg DAILY PO 10/11/20 09:00 10/16/20 08:01 Apixaban (Eliquis) 10 mg BID PO 10/10/20 22:00 10/16/20 21:59 DC 10/16/20 21:04 Apixaban (Eliquis) 5 mg BID PO 10/17/20 09:00 Oxycodone HCl (OxyCONTIN) 10 mg Q12HR PO 10/11/20 21:00 10/15/20 17:38 DC 10/15/20 07:22 Simethicone (Gas-X) 80 mg PRN AFTMEALHC PRN PO GAS / BLOATING 10/12/20 13:45 10/12/20 15:00 Alprazolam (Xanax) 0.5 mg BID PO 10/14/20 09:00 10/16/20 22:00 DC 10/16/20 21:05 Alprazolam (Xanax) 0.5 mg DAILY PO 10/17/20 09:00 10/19/20 10:00 Diphenhydramine HCl (Benadryl) 25 mg PRN Q6HRS PRN PO ITCHING 10/14/20 07:45 10/17/20 05:42 Gabapentin (Neurontin) 200 mg BIDWBKFT/CHERYL PO 10/16/20 08:00 10/16/20 12:20 Oxycodone HCl (OxyCONTIN) 20 mg Q12HR PO 10/15/20 21:00 10/16/20 21:05 Hydroxyzine HCl (Atarax) 25 mg PRN Q6HRS PRN PO ITCHING 10/16/20 11:45 UNV Docusate Sodium (Colace) 100 mg PRN DAILY PRN PO constipation 10/16/20 12:00 Polyethylene Glycol (miraLAX) 17 gm PRN DAILY PRN PO constipation 10/16/20 12:00 Current Medications Medications (Trade) Dose Ordered Sig/Mathieu Route PRN Reason Start Time Stop Time Status Last Admin Dose Admin Gabapentin (Neurontin) 200 mg BIDWBKFT/CHERYL PO 10/16/20 08:00 10/16/20 12:20 I have reviewed the current psychotropics carefully including drug interactions. Risk benefit ratio favors no change other than as noted in my dictated progress note. Diagnosis: Problems: (1) Bipolar disorder, curr episode mixed, severe, with psychotic features (2) Anxiety disorder, unspecified (3) Mild cognitive impairment PAMELA RAMOS MD Oct 17, 2020 07:13
[2020-10-17] MEDS: hydrOXYzine PAMOATE 25 MG CAPSULE PO PRN (08:24)
[2020-10-17] MEDS: ZIPRASIDONE 80 MG CAPSULE. PO SCH ×2 (08:24→20:56)
[2020-10-17] MEDS: metFORMIN 500 MG TABLET PO SCH (08:25)
[2020-10-17] MEDS: buPROPion XL 300 MG TAB.ER.24H. PO SCH (08:25)
[2020-10-17] MEDS: oxyCODONE ER 20 MG TAB.ER.12H PO SCH ×2 (08:25→20:55)
[2020-10-17] MEDS: NYSTATIN TOPICAL POWDER 15GM BOTTLE. TP SCH ×2 (08:25→20:54)
[2020-10-17] MEDS: PROPRANOLOL 10 MG TABLET. PO SCH ×2 (08:26→14:49)
[2020-10-17] MEDS: TOPIRAMATE 100 MG TABLET. PO SCH ×2 (08:26→20:56)
[2020-10-17] MEDS: SPIRONOLACTONE 25 MG TABLET PO SCH ×2 (08:26→20:56)
[2020-10-17] MEDS: ALPRAZolam 0.5 MG TABLET PO SCH (08:26)
[2020-10-17] MEDS: DULoxetine HCL 60 MG CAPSULE.DR PO SCH (08:27)
[2020-10-17] MEDS: MULTIVITAMIN with MINERAL TABLET. PO SCH ×2 (08:27→08:42)
[2020-10-17] MEDS: GABAPENTIN 100 MG CAPSULE. PO SCH ×2 (08:27→12:14)
[2020-10-17] MEDS: CHOLECALCIFEROL (VITAMIN D3) 1,000 UNIT TABLET PO SCH (08:27)
[2020-10-17] MEDS: APIXABAN 5 MG TABLET. PO SCH ×2 (08:27→20:56)
[2020-10-17] MEDS: MAGNESIUM OXIDE 400 MG TABLET PO SCH (08:28)
[2020-10-17] MEDS: POTASSIUM CHLORIDE 20 MEQ TABLET.ER. PO SCH ×2 (08:28→20:56)
[2020-10-17] MEDS: LIDOCAINE (700MG/PATCH) PATCH. TP SCH (08:29)
[2020-10-17 15:43] VITALS: BP 92/64
--- NOTE | 2020-10-17 18:30 | NUR ---
Patient concerned that multivitamin may contain iron and causing her to itch; multivitamin held. Discussed issue with pharmacist and MD; multivitamin does not have iron, Cymbalta or Lamictal are most likely causing itching. Will continue to monitor and report to oncoming shift.
[2020-10-17] MEDS: GABAPENTIN 300 MG CAPSULE. PO SCH (20:54)
[2020-10-17] MEDS: CYPROHEPTADINE 4 MG TABLET. PO SCH (20:54)
[2020-10-17] MEDS: FLUTICASONE 50MCG/NASAL SPRAY 16GM BOTTLE. NS SCH (20:54)
[2020-10-17] MEDS: rOPINIRole 1 MG TABLET. PO SCH (20:55)
[2020-10-17] MEDS: lamoTRIgine 25 MG TABLET. PO SCH (20:55)
[2020-10-17] MEDS: SENNOSIDES 8.6 MG TABLET PO SCH (20:55)
[2020-10-17] MEDS: PATCH REMOVAL. MC SCH (21:00)
--- NOTE | 2020-10-17 21:56 | PDOC ---
Exam Note: [place] Note: Please also refer to the separate dictated note~for this date of service dictated separately.~Patient seen individually. Discussed the patient with Nursing staff reviewed the chart.~Reviewed interim history and current functioning. Reviewed vital signs,~Labs/ Radiology~and current medications noted below. Continue current treatment with the changes noted in the dictated addendum note Assessment: Vital Signs/I&O: Vital Signs Date Time Temp Pulse Resp B/P (MAP) Pulse Ox O2 Delivery O2 Flow Rate FiO2 10/17/20 20:55 Room Air 10/17/20 15:43 96.9 61 18 92/64 (73) 97 I & O 10/16/20 10/16/20 10/17/20 15:00 23:00 07:00 Intake Total 840 ml 600 ml Balance 840 ml 600 ml Labs: Laboratory Tests Test 10/17/20 07:30 Glucose (Fingerstick) 102 mg/dL (70-99) H Current Medications: Meds: Laboratory Tests Test 10/17/20 07:30 Glucose (Fingerstick) 102 mg/dL Current Medications Medications (Trade) Dose Ordered Sig/Mathieu Route PRN Reason Start Time Stop Time Status Last Admin Dose Admin Oxycodone/ Acetaminophen (Percocet 5/325) 1 tab 1X ONCE PO 09/26/20 15:00 09/26/20 15:01 DC 09/26/20 15:25 Morphine Sulfate (Morphine 4mg Syringe) 4 mg 1X ONCE IV 09/26/20 19:45 09/26/20 19:46 DC 09/26/20 19:44 Diphenhydramine HCl (Benadryl) 25 mg 1X ONCE IVP 09/26/20 19:45 09/26/20 19:46 DC 09/26/20 19:47 Diphenhydramine HCl (Benadryl) 50 mg STK-MED ONCE .ROUTE 09/26/20 19:41 09/26/20 19:42 DC Fentanyl Citrate (Fentanyl 2ml Vial) 75 mcg 1X ONCE IVP 09/27/20 00:15 09/27/20 00:21 DC 09/27/20 00:17 Diphenhydramine HCl (Benadryl) 50 mg 1X ONCE IVP 09/27/20 01:00 09/27/20 01:01 DC 09/27/20 00:40 Acetaminophen (Tylenol) 650 mg PRN Q6HRS PRN PO MILD PAIN / TEMP > 100.3'F 09/27/20 01:30 09/28/20 07:34 DC Al Hydroxide/Mg Hydroxide (Mylanta Plus Xs) 15 ml PRN AFTMEALHC PRN PO 2ND CHOICE DYSPEPSIA 09/27/20 01:30 10/12/20 12:30 Magnesium Hydroxide (Milk Of Magnesia) 2,400 mg PRN QHS PRN PO 1st choice CONSTIPATION 09/27/20 01:30 Acetaminophen (Tylenol) 500 mg PRN Q8HRS PRN PO mild PAIN 09/27/20 01:45 10/13/20 18:22 Calcium Carbonate/ Glycine (Tums) 500 mg PRN Q3HRS PRN PO 1ST CHOICE DYSPEPSIA 09/27/20 02:30 Glucose (Insta-Glucose) 15 gm PRN Q1HR PRN PO LOW BLOOD SUGAR, 1ST CHOICE 09/27/20 01:45 Docusate Sodium (Colace) 100 mg DAILY PO 09/27/20 09:00 10/16/20 11:53 DC 10/13/20 08:27 Gabapentin (Neurontin) 100 mg BIDWBKFT/CHERYL PO 09/27/20 08:00 10/15/20 17:37 DC 10/15/20 11:53 Gabapentin (Neurontin) 300 mg HS PO 09/27/20 21:00 10/17/20 20:54 Levothyroxine Sodium (Synthroid) 100 mcg DAILY06 PO 09/27/20 06:00 09/28/20 03:07 DC 09/27/20 05:52 Lidocaine (Lidoderm) 1 patch DAILY TP 09/27/20 09:00 10/17/20 08:29 Loperamide HCl (Imodium) 2 mg PRN Q6HRS PRN PO DIARRHEA 09/27/20 01:45 10/16/20 09:20 Magnesium Oxide (Magnesium Oxide) 400 mg DAILY PO 09/27/20 09:00 10/17/20 08:28 Metformin HCl (Glucophage) 500 mg DAILY PO 09/27/20 09:00 10/17/20 08:25 Metolazone (Zaroxolyn) 2.5 mg QMWF PO 09/27/20 16:00 10/16/20 08:00 Oxycodone HCl (Roxicodone) 5 mg TID PO 09/27/20 09:00 09/27/20 03:06 DC Oxycodone/ Acetaminophen (Percocet 5/325) 1 tab PRN Q6HRS PRN PO MOD-SEV PAIN 09/27/20 01:45 10/17/20 05:42 Polyethylene Glycol (miraLAX) 17 gm DAILY PO 09/27/20 09:00 10/16/20 11:53 DC 10/13/20 08:28 Potassium Chloride (Klor-Con) 40 meq BID PO 09/27/20 09:00 09/27/20 03:06 DC Propranolol HCl (Inderal) 20 mg BID92 PO 09/27/20 09:00 10/17/20 14:49 Sennosides (Senna) 17.2 mg PRN Q12HR PRN PO 2nd choice CONSTIPATION 09/27/20 01:45 Sennosides (Senna) 8.6 mg HS PO 09/27/20 21:00 10/17/20 20:55 Spironolactone (Aldactone) 25 mg BID PO 09/27/20 09:00 10/17/20 20:56 Topiramate (Topamax) 100 mg BID PO 09/27/20 09:00 10/17/20 20:56 Vitamin D (Vitamin D3) 1,000 unit DAILY PO 09/27/20 09:00 10/17/20 08:27 Fluticasone Propionate (Flonase) 2 spray HS NS 09/27/20 21:00 10/17/20 20:54 Glucagon (Glucagen Kit) 1 mg 1X PRN PRN IM LOW BLOOD SUGAR, 2ND CHOICE 09/27/20 02:45 Non-Formulary Medication (Mag Hydrox/Al Hydrox/Simeth (Alum-Mag Hydroxide-Simeth Liq)) 30 ml Q4HRS PRN PO INDIGESTION 09/27/20 01:45 09/27/20 02:34 DC Multivitamins/ Calcium (Thera-M Plus) 1 tab DAILY PO 09/27/20 09:00 10/16/20 08:03 Multi-Ingredient Ointment (Analgesic Bascom) 1 mello PRN Q4HRS PRN TP MUSCLE PAIN 09/27/20 02:45 Hydroxyzine Pamoate (Vistaril) 25 mg PRN Q6HRS PRN PO ITCHING 09/27/20 02:15 10/17/20 08:24 Ropinirole HCl (Requip) 1 mg HS PO 09/27/20 21:00 10/17/20 20:55 Ziprasidone (Geodon) 60 mg BID PO 09/27/20 09:00 10/01/20 16:52 DC 10/01/20 08:17 Alprazolam (Xanax) 0.5 mg TID PO 09/27/20 09:00 09/27/20 03:06 DC Paroxetine HCl (Paxil) 50 mg DAILY PO 09/27/20 09:00 09/30/20 13:56 DC 09/30/20 08:24 Miscellaneous (Lidoderm Patch Removal) 1 ea QHS MC 09/27/20 21:00 10/17/20 21:00 Alprazolam (Xanax) 0.5 mg TID PO 09/27/20 03:15 10/13/20 22:00 DC 10/13/20 19:53 Oxycodone HCl (Roxicodone) 5 mg TID PO 09/27/20 03:15 10/11/20 17:27 DC 10/11/20 14:27 Potassium Chloride (Klor-Con) 40 meq BID PO 09/27/20 03:15 10/17/20 20:56 Levothyroxine Sodium (Synthroid) 100 mcg DAILY06 PO 09/28/20 06:00 10/17/20 05:39 Duloxetine HCl (Cymbalta) 30 mg DAILY PO 10/01/20 09:00 10/02/20 21:01 DC 10/02/20 08:42 Duloxetine HCl (Cymbalta) 60 mg DAILY PO 10/03/20 09:00 10/17/20 19:31 DC 10/17/20 08:27 Nystatin (Nystop) 1 mello BID TP 09/30/20 21:00 10/17/20 20:54 Ziprasidone (Geodon) 80 mg BID PO 10/02/20 09:00 10/17/20 20:56 Ziprasidone (Geodon) 60 mg BID PO 10/01/20 21:00 10/01/20 21:01 DC 10/01/20 20:24 Cyproheptadine HCl (Periactin) 2 mg HS PO 10/02/20 21:00 10/17/20 20:54 Bupropion HCl (Wellbutrin Xl) 150 mg DAILY PO 10/06/20 09:00 10/10/20 18:30 DC 10/10/20 08:49 Lamotrigine (LaMICtal) 25 mg HS PO 10/08/20 21:00 10/10/20 22:00 DC 10/10/20 21:03 Lamotrigine (LaMICtal) 50 mg HS PO 10/11/20 21:00 10/13/20 22:00 DC 10/13/20 19:54 Lamotrigine (LaMICtal) 75 mg HS PO 10/14/20 21:00 10/17/20 20:55 Bupropion HCl (Wellbutrin Xl) 300 mg DAILY PO 10/11/20 09:00 10/17/20 08:25 Apixaban (Eliquis) 10 mg BID PO 10/10/20 22:00 10/16/20 21:59 DC 10/16/20 21:04 Apixaban (Eliquis) 5 mg BID PO 10/17/20 09:00 10/17/20 20:56 Oxycodone HCl (OxyCONTIN) 10 mg Q12HR PO 10/11/20 21:00 10/15/20 17:38 DC 10/15/20 07:22 Simethicone (Gas-X) 80 mg PRN AFTMEALHC PRN PO GAS / BLOATING 10/12/20 13:45 10/12/20 15:00 Alprazolam (Xanax) 0.5 mg BID PO 10/14/20 09:00 10/16/20 22:00 DC 10/16/20 21:05 Alprazolam (Xanax) 0.5 mg DAILY PO 10/17/20 09:00 10/19/20 10:00 10/17/20 08:26 Diphenhydramine HCl (Benadryl) 25 mg PRN Q6HRS PRN PO ITCHING 10/14/20 07:45 10/17/20 20:59 Gabapentin (Neurontin) 200 mg [id number]/CHERYL PO 10/16/20 08:00 10/17/20 12:14 Oxycodone HCl (OxyCONTIN) 20 mg Q12HR PO 10/15/20 21:00 10/17/20 20:55 Hydroxyzine HCl (Atarax) 25 mg PRN Q6HRS PRN PO ITCHING 10/16/20 11:45 UNV Docusate Sodium (Colace) 100 mg PRN DAILY PRN PO constipation 10/16/20 12:00 Polyethylene Glycol (miraLAX) 17 gm PRN DAILY PRN PO constipation 10/16/20 12:00 Current Medications Medications (Trade) Dose Ordered Sig/Mathieu Route PRN Reason Start Time Stop Time Status Last Admin Dose Admin Apixaban (Eliquis) 5 mg BID PO 10/17/20 09:00 10/17/20 20:56 Alprazolam (Xanax) 0.5 mg DAILY PO 10/17/20 09:00 10/19/20 10:00 10/17/20 08:26 I have reviewed the current psychotropics carefully including drug interactions. Risk benefit ratio favors no change other than as noted in my dictated progress note. Diagnosis: Problems: (1) Anxiety disorder, unspecified (2) Bipolar disorder, curr episode mixed, severe, with psychotic features (3) Mild cognitive impairment PAMELA RAMOS MD Oct 17, 2020 21:56
--- NOTE | 2020-10-18 02:17 | NUR ---
Pt has been in her room this shift. Along with HS meds PRN benadryl was given for itching. Pt has a flat depressed affect and gives brief answers to questions.
[2020-10-18 05:54] VITALS: BP 100/66
[2020-10-18] MEDS: diphenhydrAMINE HCL 25 MG CAPSULE PO PRN ×3 (06:08→20:21)
[2020-10-18] MEDS: LEVOTHYROXINE 100 MCG TABLET PO SCH (06:08)
[2020-10-18] MEDS: oxyCODONE/APAP 5/325 1 TAB TABLET PO PRN (06:08)
--- NOTE | 2020-10-18 07:06 | PDOC ---
Exam Note: [place] Note: This note is a late entry for 10/17/2020 covers elements not covered in my initial note. Subjective: The patient was seen individually in the evening of 10/17/2020 with Gulshan ROYAL, discussed and reviewed the chart. The patient slept 5-3/4 hours previous night. The patient has been more verbally interactive last night. She does complains of ongoing itching. We have had a pharmacy consult and their suggestion is Cymbalta and/or Lamictal could contribute to this. On a trial basis, we will stop the Cymbalta. Review of Systems: Ambulation impaired in wheelchair. No CV, , pulmonary, eye, ENT system symptoms on review. Mental Status Exam: The patient is oriented to herself and situation. Speech coherent, low in volume, low in rate and rhythm. Abstraction fair. Computation impaired. No suicidal or homicidal ideation. Laboratory Data: Reviewed. Impression: Bipolar disorder depressed with psychotic features. Anxiety disorder unspecified. Impulse control disorder unspecified. Plan: No change from initial note. We have had a pharmacy consult and their suggestion is Cymbalta and/or Lamictal could contribute to this. On a trial basis, we will stop the Cymbalta. Assessment: Vital Signs/I&O: Vital Signs Date Time Temp Pulse Resp B/P (MAP) Pulse Ox O2 Delivery O2 Flow Rate FiO2 10/18/20 05:54 97.0 62 18 100/66 (77) 98 Room Air I & O 10/17/20 10/17/20 10/18/20 15:00 23:00 07:00 Intake Total 720 ml 0 ml 0 ml Balance 720 ml 0 ml 0 ml Labs: Laboratory Tests Test 10/17/20 07:30 Glucose (Fingerstick) 102 mg/dL (70-99) H Current Medications: Meds: Laboratory Tests Test 10/17/20 07:30 Glucose (Fingerstick) 102 mg/dL Current Medications Medications (Trade) Dose Ordered Sig/Mathieu Route PRN Reason Start Time Stop Time Status Last Admin Dose Admin Oxycodone/ Acetaminophen (Percocet 5/325) 1 tab 1X ONCE PO 09/26/20 15:00 09/26/20 15:01 DC 09/26/20 15:25 Morphine Sulfate (Morphine 4mg Syringe) 4 mg 1X ONCE IV 09/26/20 19:45 09/26/20 19:46 DC 09/26/20 19:44 Diphenhydramine HCl (Benadryl) 25 mg 1X ONCE IVP 09/26/20 19:45 09/26/20 19:46 DC 09/26/20 19:47 Diphenhydramine HCl (Benadryl) 50 mg STK-MED ONCE .ROUTE 09/26/20 19:41 09/26/20 19:42 DC Fentanyl Citrate (Fentanyl 2ml Vial) 75 mcg 1X ONCE IVP 09/27/20 00:15 09/27/20 00:21 DC 09/27/20 00:17 Diphenhydramine HCl (Benadryl) 50 mg 1X ONCE IVP 09/27/20 01:00 09/27/20 01:01 DC 09/27/20 00:40 Acetaminophen (Tylenol) 650 mg PRN Q6HRS PRN PO MILD PAIN / TEMP > 100.3'F 09/27/20 01:30 09/28/20 07:34 DC Al Hydroxide/Mg Hydroxide (Mylanta Plus Xs) 15 ml PRN AFTMEALHC PRN PO 2ND CHOICE DYSPEPSIA 09/27/20 01:30 10/12/20 12:30 Magnesium Hydroxide (Milk Of Magnesia) 2,400 mg PRN QHS PRN PO 1st choice CONSTIPATION 09/27/20 01:30 Acetaminophen (Tylenol) 500 mg PRN Q8HRS PRN PO mild PAIN 09/27/20 01:45 10/13/20 18:22 Calcium Carbonate/ Glycine (Tums) 500 mg PRN Q3HRS PRN PO 1ST CHOICE DYSPEPSIA 09/27/20 02:30 Glucose (Insta-Glucose) 15 gm PRN Q1HR PRN PO LOW BLOOD SUGAR, 1ST CHOICE 09/27/20 01:45 Docusate Sodium (Colace) 100 mg DAILY PO 09/27/20 09:00 10/16/20 11:53 DC 10/13/20 08:27 Gabapentin (Neurontin) 100 mg BIDWBKFT/CHERYL PO 09/27/20 08:00 10/15/20 17:37 DC 10/15/20 11:53 Gabapentin (Neurontin) 300 mg HS PO 09/27/20 21:00 10/17/20 20:54 Levothyroxine Sodium (Synthroid) 100 mcg DAILY06 PO 09/27/20 06:00 09/28/20 03:07 DC 09/27/20 05:52 Lidocaine (Lidoderm) 1 patch DAILY TP 09/27/20 09:00 10/17/20 08:29 Loperamide HCl (Imodium) 2 mg PRN Q6HRS PRN PO DIARRHEA 09/27/20 01:45 10/16/20 09:20 Magnesium Oxide (Magnesium Oxide) 400 mg DAILY PO 09/27/20 09:00 10/17/20 08:28 Metformin HCl (Glucophage) 500 mg DAILY PO 09/27/20 09:00 10/17/20 08:25 Metolazone (Zaroxolyn) 2.5 mg QMWF PO 09/27/20 16:00 10/16/20 08:00 Oxycodone HCl (Roxicodone) 5 mg TID PO 09/27/20 09:00 09/27/20 03:06 DC Oxycodone/ Acetaminophen (Percocet 5/325) 1 tab PRN Q6HRS PRN PO MOD-SEV PAIN 09/27/20 01:45 10/18/20 06:08 Polyethylene Glycol (miraLAX) 17 gm DAILY PO 09/27/20 09:00 10/16/20 11:53 DC 10/13/20 08:28 Potassium Chloride (Klor-Con) 40 meq BID PO 09/27/20 09:00 09/27/20 03:06 DC Propranolol HCl (Inderal) 20 mg BID92 PO 09/27/20 09:00 10/17/20 14:49 Sennosides (Senna) 17.2 mg PRN Q12HR PRN PO 2nd choice CONSTIPATION 09/27/20 01:45 Sennosides (Senna) 8.6 mg HS PO 09/27/20 21:00 10/17/20 20:55 Spironolactone (Aldactone) 25 mg BID PO 09/27/20 09:00 10/17/20 20:56 Topiramate (Topamax) 100 mg BID PO 09/27/20 09:00 10/17/20 20:56 Vitamin D (Vitamin D3) 1,000 unit DAILY PO 09/27/20 09:00 10/17/20 08:27 Fluticasone Propionate (Flonase) 2 spray HS NS 09/27/20 21:00 10/17/20 20:54 Glucagon (Glucagen Kit) 1 mg 1X PRN PRN IM LOW BLOOD SUGAR, 2ND CHOICE 09/27/20 02:45 Non-Formulary Medication (Mag Hydrox/Al Hydrox/Simeth (Alum-Mag Hydroxide-Simeth Liq)) 30 ml Q4HRS PRN PO INDIGESTION 09/27/20 01:45 09/27/20 02:34 DC Multivitamins/ Calcium (Thera-M Plus) 1 tab DAILY PO 09/27/20 09:00 10/16/20 08:03 Multi-Ingredient Ointment (Analgesic [place]) 1 mello PRN Q4HRS PRN TP MUSCLE PAIN 09/27/20 02:45 Hydroxyzine Pamoate (Vistaril) 25 mg PRN Q6HRS PRN PO ITCHING 09/27/20 02:15 10/17/20 08:24 Ropinirole HCl (Requip) 1 mg HS PO 09/27/20 21:00 10/17/20 20:55 Ziprasidone (Geodon) 60 mg BID PO 09/27/20 09:00 10/01/20 16:52 DC 10/01/20 08:17 Alprazolam (Xanax) 0.5 mg TID PO 09/27/20 09:00 09/27/20 03:06 DC Paroxetine HCl (Paxil) 50 mg DAILY PO 09/27/20 09:00 09/30/20 13:56 DC 09/30/20 08:24 Miscellaneous (Lidoderm Patch Removal) 1 ea QHS MC 09/27/20 21:00 10/17/20 21:00 Alprazolam (Xanax) 0.5 mg TID PO 09/27/20 03:15 10/13/20 22:00 DC 10/13/20 19:53 Oxycodone HCl (Roxicodone) 5 mg TID PO 09/27/20 03:15 10/11/20 17:27 DC 10/11/20 14:27 Potassium Chloride (Klor-Con) 40 meq BID PO 09/27/20 03:15 10/17/20 20:56 Levothyroxine Sodium (Synthroid) 100 mcg DAILY06 PO 09/28/20 06:00 10/18/20 06:08 Duloxetine HCl (Cymbalta) 30 mg DAILY PO 10/01/20 09:00 10/02/20 21:01 DC 10/02/20 08:42 Duloxetine HCl (Cymbalta) 60 mg DAILY PO 10/03/20 09:00 10/17/20 19:31 DC 10/17/20 08:27 Nystatin (Nystop) 1 mello BID TP 09/30/20 21:00 10/17/20 20:54 Ziprasidone (Geodon) 80 mg BID PO 10/02/20 09:00 10/17/20 20:56 Ziprasidone (Geodon) 60 mg BID PO 10/01/20 21:00 10/01/20 21:01 DC 10/01/20 20:24 Cyproheptadine HCl (Periactin) 2 mg HS PO 10/02/20 21:00 10/17/20 20:54 Bupropion HCl (Wellbutrin Xl) 150 mg DAILY PO 10/06/20 09:00 10/10/20 18:30 DC 10/10/20 08:49 Lamotrigine (LaMICtal) 25 mg HS PO 10/08/20 21:00 10/10/20 22:00 DC 10/10/20 21:03 Lamotrigine (LaMICtal) 50 mg HS PO 10/11/20 21:00 10/13/20 22:00 DC 10/13/20 19:54 Lamotrigine (LaMICtal) 75 mg HS PO 10/14/20 21:00 10/17/20 20:55 Bupropion HCl (Wellbutrin Xl) 300 mg DAILY PO 10/11/20 09:00 10/17/20 08:25 Apixaban (Eliquis) 10 mg BID PO 10/10/20 22:00 10/16/20 21:59 DC 10/16/20 21:04 Apixaban (Eliquis) 5 mg BID PO 10/17/20 09:00 10/17/20 20:56 Oxycodone HCl (OxyCONTIN) 10 mg Q12HR PO 10/11/20 21:00 10/15/20 17:38 DC 10/15/20 07:22 Simethicone (Gas-X) 80 mg PRN AFTMEALHC PRN PO GAS / BLOATING 10/12/20 13:45 10/12/20 15:00 Alprazolam (Xanax) 0.5 mg BID PO 10/14/20 09:00 10/16/20 22:00 DC 10/16/20 21:05 Alprazolam (Xanax) 0.5 mg DAILY PO 10/17/20 09:00 10/19/20 10:00 10/17/20 08:26 Diphenhydramine HCl (Benadryl) 25 mg PRN Q6HRS PRN PO ITCHING 10/14/20 07:45 10/18/20 06:08 Gabapentin (Neurontin) 200 mg BIDWBKFT/CHERYL PO 10/16/20 08:00 10/17/20 12:14 Oxycodone HCl (OxyCONTIN) 20 mg Q12HR PO 10/15/20 21:00 10/17/20 20:55 Hydroxyzine HCl (Atarax) 25 mg PRN Q6HRS PRN PO ITCHING 10/16/20 11:45 UNV Docusate Sodium (Colace) 100 mg PRN DAILY PRN PO constipation 10/16/20 12:00 Polyethylene Glycol (miraLAX) 17 gm PRN DAILY PRN PO constipation 10/16/20 12:00 Current Medications Medications (Trade) Dose Ordered Sig/Mathieu Route PRN Reason Start Time Stop Time Status Last Admin Dose Admin Apixaban (Eliquis) 5 mg BID PO 10/17/20 09:00 10/17/20 20:56 Alprazolam (Xanax) 0.5 mg DAILY PO 10/17/20 09:00 10/19/20 10:00 10/17/20 08:26 I have reviewed the current psychotropics carefully including drug interactions. Risk benefit ratio favors no change other than as noted in my dictated progress note. Diagnosis: Problems: (1) Anxiety disorder, unspecified (2) Bipolar disorder, curr episode mixed, severe, with psychotic features (3) Mild cognitive impairment PAMELA RAMOS MD Oct 18, 2020 07:06
[2020-10-18] MEDS: MULTIVITAMIN with MINERAL TABLET. PO SCH (08:11)
[2020-10-18] MEDS: APIXABAN 5 MG TABLET. PO SCH ×2 (08:11→20:22)
[2020-10-18] MEDS: ALPRAZolam 0.5 MG TABLET PO SCH (08:11)
[2020-10-18] MEDS: ZIPRASIDONE 80 MG CAPSULE. PO SCH ×2 (08:11→20:22)
[2020-10-18] MEDS: SPIRONOLACTONE 25 MG TABLET PO SCH ×2 (08:11→20:24)
[2020-10-18] MEDS: buPROPion XL 300 MG TAB.ER.24H. PO SCH (08:12)
[2020-10-18] MEDS: oxyCODONE ER 20 MG TAB.ER.12H PO SCH ×2 (08:12→20:25)
[2020-10-18] MEDS: CHOLECALCIFEROL (VITAMIN D3) 1,000 UNIT TABLET PO SCH (08:12)
[2020-10-18] MEDS: POTASSIUM CHLORIDE 20 MEQ TABLET.ER. PO SCH ×2 (08:12→20:23)
[2020-10-18] MEDS: GABAPENTIN 100 MG CAPSULE. PO SCH ×2 (08:12→12:11)
[2020-10-18] MEDS: MAGNESIUM OXIDE 400 MG TABLET PO SCH (08:13)
[2020-10-18] MEDS: TOPIRAMATE 100 MG TABLET. PO SCH ×2 (08:13→20:25)
[2020-10-18] MEDS: PROPRANOLOL 10 MG TABLET. PO SCH ×2 (08:13→14:00)
[2020-10-18] MEDS: metFORMIN 500 MG TABLET PO SCH (08:13)
[2020-10-18] MEDS: LIDOCAINE (700MG/PATCH) PATCH. TP SCH (08:13)
[2020-10-18] MEDS: NYSTATIN TOPICAL POWDER 15GM BOTTLE. TP SCH ×2 (08:14→20:24)
[2020-10-18 14:50] VITALS: BP 82/53
[2020-10-18 15:30] VITALS: BP 82/53
--- NOTE | 2020-10-18 15:41 | NUR ---
[facility] Social Work Discharge Planning Form Patient Name JADA DAWSON Admit Date: 27 Sep 2020 DISCHARGE PLAN Discharge Destination: Pt to discharge back to [facility]. Care Assessment: N/A Level II Assessment: N/A Transportation: Pt facility to pick pt up early Wednesday afternoon; to call to confirm time Wednesday morning. Special Instructions/Notes: Please fax discharge orders, discharge medications and discharge summary to the fax numbers listed below. DISCHARGE TO FACILITY Facility: [facility] Address: [address] [place] [address] Contact Name: Merna Cid, Chemistry Associate: Contact Name: Please ask for the nurse caring for pt upon admission. PCP: Dr. Patel
[2020-10-18] MEDS: metOLazone 2.5 MG TABLET PO SCH (16:00)
--- NOTE | 2020-10-18 17:49 | NUR ---
NSG NOTE; SHIFT SUMMARY jefferson was awake and alert this am in the dining and dayrooms. she is med compliant without hesitation. she eats her meals. she was sleepy so took a nap after lunch. she complained of mild itching this am, but not since then.
[2020-10-18] MEDS: PATCH REMOVAL. MC SCH (20:21)
[2020-10-18] MEDS: SENNOSIDES 8.6 MG TABLET PO SCH (20:22)
[2020-10-18] MEDS: rOPINIRole 1 MG TABLET. PO SCH (20:22)
[2020-10-18] MEDS: lamoTRIgine 25 MG TABLET. PO SCH (20:23)
[2020-10-18] MEDS: FLUTICASONE 50MCG/NASAL SPRAY 16GM BOTTLE. NS SCH (20:24)
[2020-10-18] MEDS: CYPROHEPTADINE 4 MG TABLET. PO SCH (20:24)
[2020-10-18] MEDS: GABAPENTIN 300 MG CAPSULE. PO SCH (20:25)
--- NOTE | 2020-10-18 22:02 | PDOC ---
Exam Note: [place] Note: Please also refer to the separate dictated note~for this date of service dictated separately.~Patient seen individually. Discussed the patient with Nursing staff reviewed the chart.~Reviewed interim history and current functioning. Reviewed vital signs,~Labs/ Radiology~and current medications noted below. Continue current treatment with the changes noted in the dictated addendum note Assessment: Vital Signs/I&O: Vital Signs Date Time Temp Pulse Resp B/P (MAP) Pulse Ox O2 Delivery O2 Flow Rate FiO2 10/18/20 20:25 98 10/18/20 15:30 98.2 63 82/53 (63) 10/18/20 14:50 16 Room Air I & O 10/17/20 10/17/20 10/18/20 14:59 22:59 06:59 Intake Total 720 ml 0 ml 0 ml Balance 720 ml 0 ml 0 ml Labs: Laboratory Tests Test 10/18/20 07:33 Glucose (Fingerstick) 102 mg/dL (70-99) H Current Medications: Meds: Laboratory Tests Test 10/18/20 07:33 Glucose (Fingerstick) 102 mg/dL Current Medications Medications (Trade) Dose Ordered Sig/Mathieu Route PRN Reason Start Time Stop Time Status Last Admin Dose Admin Oxycodone/ Acetaminophen (Percocet 5/325) 1 tab 1X ONCE PO 09/26/20 15:00 09/26/20 15:01 DC 09/26/20 15:25 Morphine Sulfate (Morphine 4mg Syringe) 4 mg 1X ONCE IV 09/26/20 19:45 09/26/20 19:46 DC 09/26/20 19:44 Diphenhydramine HCl (Benadryl) 25 mg 1X ONCE IVP 09/26/20 19:45 09/26/20 19:46 DC 09/26/20 19:47 Diphenhydramine HCl (Benadryl) 50 mg STK-MED ONCE .ROUTE 09/26/20 19:41 09/26/20 19:42 DC Fentanyl Citrate (Fentanyl 2ml Vial) 75 mcg 1X ONCE IVP 09/27/20 00:15 09/27/20 00:21 DC 09/27/20 00:17 Diphenhydramine HCl (Benadryl) 50 mg 1X ONCE IVP 09/27/20 01:00 09/27/20 01:01 DC 09/27/20 00:40 Acetaminophen (Tylenol) 650 mg PRN Q6HRS PRN PO MILD PAIN / TEMP > 100.3'F 09/27/20 01:30 09/28/20 07:34 DC Al Hydroxide/Mg Hydroxide (Mylanta Plus Xs) 15 ml PRN AFTMEALHC PRN PO 2ND CHOICE DYSPEPSIA 09/27/20 01:30 10/12/20 12:30 Magnesium Hydroxide (Milk Of Magnesia) 2,400 mg PRN QHS PRN PO 1st choice CONSTIPATION 09/27/20 01:30 Acetaminophen (Tylenol) 500 mg PRN Q8HRS PRN PO mild PAIN 09/27/20 01:45 10/13/20 18:22 Calcium Carbonate/ Glycine (Tums) 500 mg PRN Q3HRS PRN PO 1ST CHOICE DYSPEPSIA 09/27/20 02:30 Glucose (Insta-Glucose) 15 gm PRN Q1HR PRN PO LOW BLOOD SUGAR, 1ST CHOICE 09/27/20 01:45 Docusate Sodium (Colace) 100 mg DAILY PO 09/27/20 09:00 10/16/20 11:53 DC 10/13/20 08:27 Gabapentin (Neurontin) 100 mg BIDWBKFT/CHERYL PO 09/27/20 08:00 10/15/20 17:37 DC 10/15/20 11:53 Gabapentin (Neurontin) 300 mg HS PO 09/27/20 21:00 10/18/20 20:25 Levothyroxine Sodium (Synthroid) 100 mcg DAILY06 PO 09/27/20 06:00 09/28/20 03:07 DC 09/27/20 05:52 Lidocaine (Lidoderm) 1 patch DAILY TP 09/27/20 09:00 10/17/20 08:29 Loperamide HCl (Imodium) 2 mg PRN Q6HRS PRN PO DIARRHEA 09/27/20 01:45 10/16/20 09:20 Magnesium Oxide (Magnesium Oxide) 400 mg DAILY PO 09/27/20 09:00 10/18/20 08:13 Metformin HCl (Glucophage) 500 mg DAILY PO 09/27/20 09:00 10/18/20 08:13 Metolazone (Zaroxolyn) 2.5 mg QMWF PO 09/27/20 16:00 10/16/20 08:00 Oxycodone HCl (Roxicodone) 5 mg TID PO 09/27/20 09:00 09/27/20 03:06 DC Oxycodone/ Acetaminophen (Percocet 5/325) 1 tab PRN Q6HRS PRN PO MOD-SEV PAIN 09/27/20 01:45 10/18/20 06:08 Polyethylene Glycol (miraLAX) 17 gm DAILY PO 09/27/20 09:00 10/16/20 11:53 DC 10/13/20 08:28 Potassium Chloride (Klor-Con) 40 meq BID PO 09/27/20 09:00 09/27/20 03:06 DC Propranolol HCl (Inderal) 20 mg BID92 PO 09/27/20 09:00 10/17/20 14:49 Sennosides (Senna) 17.2 mg PRN Q12HR PRN PO 2nd choice CONSTIPATION 09/27/20 01:45 Sennosides (Senna) 8.6 mg HS PO 09/27/20 21:00 10/18/20 20:22 Spironolactone (Aldactone) 25 mg BID PO 09/27/20 09:00 10/18/20 20:24 Topiramate (Topamax) 100 mg BID PO 09/27/20 09:00 10/18/20 20:25 Vitamin D (Vitamin D3) 1,000 unit DAILY PO 09/27/20 09:00 10/18/20 08:12 Fluticasone Propionate (Flonase) 2 spray HS NS 09/27/20 21:00 10/18/20 20:24 Glucagon (Glucagen Kit) 1 mg 1X PRN PRN IM LOW BLOOD SUGAR, 2ND CHOICE 09/27/20 02:45 Non-Formulary Medication (Mag Hydrox/Al Hydrox/Simeth (Alum-Mag Hydroxide-Simeth Liq)) 30 ml Q4HRS PRN PO INDIGESTION 09/27/20 01:45 09/27/20 02:34 DC Multivitamins/ Calcium (Thera-M Plus) 1 tab DAILY PO 09/27/20 09:00 10/18/20 08:11 Multi-Ingredient Ointment (Analgesic [place]) 1 mello PRN Q4HRS PRN TP MUSCLE PAIN 09/27/20 02:45 Hydroxyzine Pamoate (Vistaril) 25 mg PRN Q6HRS PRN PO ITCHING 09/27/20 02:15 10/17/20 08:24 Ropinirole HCl (Requip) 1 mg HS PO 09/27/20 21:00 10/18/20 20:22 Ziprasidone (Geodon) 60 mg BID PO 09/27/20 09:00 10/01/20 16:52 DC 10/01/20 08:17 Alprazolam (Xanax) 0.5 mg TID PO 09/27/20 09:00 09/27/20 03:06 DC Paroxetine HCl (Paxil) 50 mg DAILY PO 09/27/20 09:00 09/30/20 13:56 DC 09/30/20 08:24 Miscellaneous (Lidoderm Patch Removal) 1 ea QHS MC 09/27/20 21:00 10/18/20 20:21 Alprazolam (Xanax) 0.5 mg TID PO 09/27/20 03:15 10/13/20 22:00 DC 10/13/20 19:53 Oxycodone HCl (Roxicodone) 5 mg TID PO 09/27/20 03:15 10/11/20 17:27 DC 10/11/20 14:27 Potassium Chloride (Klor-Con) 40 meq BID PO 09/27/20 03:15 10/18/20 20:23 Levothyroxine Sodium (Synthroid) 100 mcg DAILY06 PO 09/28/20 06:00 10/18/20 06:08 Duloxetine HCl (Cymbalta) 30 mg DAILY PO 10/01/20 09:00 10/02/20 21:01 DC 10/02/20 08:42 Duloxetine HCl (Cymbalta) 60 mg DAILY PO 10/03/20 09:00 10/17/20 19:31 DC 10/17/20 08:27 Nystatin (Nystop) 1 mello BID TP 09/30/20 21:00 10/18/20 20:24 Ziprasidone (Geodon) 80 mg BID PO 10/02/20 09:00 10/18/20 20:22 Ziprasidone (Geodon) 60 mg BID PO 10/01/20 21:00 10/01/20 21:01 DC 10/01/20 20:24 Cyproheptadine HCl (Periactin) 2 mg HS PO 10/02/20 21:00 10/18/20 20:24 Bupropion HCl (Wellbutrin Xl) 150 mg DAILY PO 10/06/20 09:00 10/10/20 18:30 DC 10/10/20 08:49 Lamotrigine (LaMICtal) 25 mg HS PO 10/08/20 21:00 10/10/20 22:00 DC 10/10/20 21:03 Lamotrigine (LaMICtal) 50 mg HS PO 10/11/20 21:00 10/13/20 22:00 DC 10/13/20 19:54 Lamotrigine (LaMICtal) 75 mg HS PO 10/14/20 21:00 10/18/20 20:23 Bupropion HCl (Wellbutrin Xl) 300 mg DAILY PO 10/11/20 09:00 10/18/20 17:42 DC 10/18/20 08:12 Apixaban (Eliquis) 10 mg BID PO 10/10/20 22:00 10/16/20 21:59 DC 10/16/20 21:04 Apixaban (Eliquis) 5 mg BID PO 10/17/20 09:00 10/18/20 20:22 Oxycodone HCl (OxyCONTIN) 10 mg Q12HR PO 10/11/20 21:00 10/15/20 17:38 DC 10/15/20 07:22 Simethicone (Gas-X) 80 mg PRN AFTMEALHC PRN PO GAS / BLOATING 10/12/20 13:45 10/12/20 15:00 Alprazolam (Xanax) 0.5 mg BID PO 10/14/20 09:00 10/16/20 22:00 DC 10/16/20 21:05 Alprazolam (Xanax) 0.5 mg DAILY PO 10/17/20 09:00 10/19/20 10:00 10/18/20 08:11 Diphenhydramine HCl (Benadryl) 25 mg PRN Q6HRS PRN PO ITCHING 10/14/20 07:45 10/18/20 20:21 Gabapentin (Neurontin) 200 mg BIDWBKFT/CHERYL PO 10/16/20 08:00 10/18/20 12:11 Oxycodone HCl (OxyCONTIN) 20 mg Q12HR PO 10/15/20 21:00 10/18/20 20:25 Hydroxyzine HCl (Atarax) 25 mg PRN Q6HRS PRN PO ITCHING 10/16/20 11:45 UNV Docusate Sodium (Colace) 100 mg PRN DAILY PRN PO constipation 10/16/20 12:00 Polyethylene Glycol (miraLAX) 17 gm PRN DAILY PRN PO constipation 10/16/20 12:00 Bupropion HCl (Wellbutrin Xl) 450 mg DAILY PO 10/19/20 09:00 I have reviewed the current psychotropics carefully including drug interactions. Risk benefit ratio favors no change other than as noted in my dictated progress note. Diagnosis: Problems: (1) Bipolar disorder, curr episode mixed, severe, with psychotic features (2) Anxiety disorder, unspecified (3) Mild cognitive impairment PAMELA RAMOS MD Oct 18, 2020 22:02
--- NOTE | 2020-10-18 23:12 | NUR ---
Patient is located in the day room on assumption of care, watching a movie with her peers. She is flat, disorganized, helpless. Compliant with assessments and medications taken whole. She requested PRN Benadryl for itching, which she received with her HS meds. No agitation. Cooperative with HS cares. She appears to be sleeping comfortably at present time. Will continue to monitor.
[2020-10-19] MEDS ORDERED: LEVO100T5 PO (01:08)
[2020-10-19] MEDS ORDERED: APIX5TAB3 PO (01:11)
[2020-10-19] MEDS ORDERED: CHOL10004 PO (01:15)
[2020-10-19] MEDS ORDERED: CYPR4TAB31 PO (01:16)
[2020-10-19] MEDS ORDERED: MAGN24003 PO (01:17)
[2020-10-19] MEDS ORDERED: METH57CR17 TP (01:18)
[2020-10-19] MEDS ORDERED: NYST60PO TP (01:20)
[2020-10-19] MEDS ORDERED: SIME80TA14 PO (01:23)
[2020-10-19] MEDS ORDERED: BUPR150T15 PO (01:24)
[2020-10-19] MEDS ORDERED: DIPH25TA24 PO (01:25)
[2020-10-19] MEDS ORDERED: DIPH25CA23 PO (01:26)
[2020-10-19] MEDS ORDERED: LAMO25TA5 PO (01:28)
[2020-10-19] MEDS ORDERED: OXYC20TA42 PO (01:30)
[2020-10-19] MEDS: LEVOTHYROXINE 100 MCG TABLET PO SCH (05:56)
[2020-10-19 06:09] VITALS: BP 99/64
[2020-10-19] MEDS: diphenhydrAMINE HCL 25 MG CAPSULE PO PRN ×3 (06:18→20:24)
[2020-10-19] MEDS: oxyCODONE/APAP 5/325 1 TAB TABLET PO PRN (06:18)
--- NOTE | 2020-10-19 07:02 | PDOC ---
Exam Note: [place] Note: This note is a late entry for 10/18/2020 covers elements not covered in my initial note. Subjective: The patient was seen individually in the evening of 10/18/2020 with Marisa ROYAL, discussed and reviewed the chart. The patient slept 6-1/2 hours previous night. She slept 3 hours during the day this afternoon, less glaring and staring at others, less paranoid. She still complains of some itching. We have stopped the Cymbalta at the recommendation of the pharmacist and we will continue to see if Lamictal has to be discontinued as well. She is compliant with her medications. Review of Systems: Ambulation impaired in wheelchair. No CV, , pulmonary, eye, ENT system symptoms on review. Mental Status Exam: The patient is oriented to herself and situation. Speech coherent, has some latency. Often response is monosyllabic. Abstraction fair. Computation impaired. Language function intact. Mood and affect somewhat withdrawn. Laboratory Data: Reviewed. Impression: Bipolar disorder depressed with psychotic features. Anxiety disorder unspecified. Impulse control disorder unspecified. Plan: No change from initial note. Increase Wellbutrin XL from 300 mg a day to 450 mg a day, Cymbalta has been stopped. Taper the Xanax. She had many questions about the Xanax tapered and discussed pros and cons of this. Maintain Geodon, Neurontin, Topamax, ReQuip, Periactin unchanged along with Vistaril p.r.n. Assessment: Vital Signs/I&O: Vital Signs Date Time Temp Pulse Resp B/P (MAP) Pulse Ox O2 Delivery O2 Flow Rate FiO2 10/19/20 06:18 96 10/19/20 06:09 96.6 75 14 99/64 (76) Room Air I & O 10/18/20 10/18/20 10/19/20 15:00 23:00 07:00 Intake Total 720 ml 600 ml Balance 720 ml 600 ml Labs: Laboratory Tests Test 10/18/20 07:33 Glucose (Fingerstick) 102 mg/dL (70-99) H Current Medications: Meds: Laboratory Tests Test 10/18/20 07:33 Glucose (Fingerstick) 102 mg/dL Current Medications Medications (Trade) Dose Ordered Sig/Mathieu Route PRN Reason Start Time Stop Time Status Last Admin Dose Admin Oxycodone/ Acetaminophen (Percocet 5/325) 1 tab 1X ONCE PO 09/26/20 15:00 09/26/20 15:01 DC 09/26/20 15:25 Morphine Sulfate (Morphine 4mg Syringe) 4 mg 1X ONCE IV 09/26/20 19:45 09/26/20 19:46 DC 09/26/20 19:44 Diphenhydramine HCl (Benadryl) 25 mg 1X ONCE IVP 09/26/20 19:45 09/26/20 19:46 DC 09/26/20 19:47 Diphenhydramine HCl (Benadryl) 50 mg STK-MED ONCE .ROUTE 09/26/20 19:41 09/26/20 19:42 DC Fentanyl Citrate (Fentanyl 2ml Vial) 75 mcg 1X ONCE IVP 09/27/20 00:15 09/27/20 00:21 DC 09/27/20 00:17 Diphenhydramine HCl (Benadryl) 50 mg 1X ONCE IVP 09/27/20 01:00 09/27/20 01:01 DC 09/27/20 00:40 Acetaminophen (Tylenol) 650 mg PRN Q6HRS PRN PO MILD PAIN / TEMP > 100.3'F 09/27/20 01:30 09/28/20 07:34 DC Al Hydroxide/Mg Hydroxide (Mylanta Plus Xs) 15 ml PRN AFTMEALHC PRN PO 2ND CHOICE DYSPEPSIA 09/27/20 01:30 10/12/20 12:30 Magnesium Hydroxide (Milk Of Magnesia) 2,400 mg PRN QHS PRN PO 1st choice CONSTIPATION 09/27/20 01:30 Acetaminophen (Tylenol) 500 mg PRN Q8HRS PRN PO mild PAIN 09/27/20 01:45 10/13/20 18:22 Calcium Carbonate/ Glycine (Tums) 500 mg PRN Q3HRS PRN PO 1ST CHOICE DYSPEPSIA 09/27/20 02:30 Glucose (Insta-Glucose) 15 gm PRN Q1HR PRN PO LOW BLOOD SUGAR, 1ST CHOICE 09/27/20 01:45 Docusate Sodium (Colace) 100 mg DAILY PO 09/27/20 09:00 10/16/20 11:53 DC 10/13/20 08:27 Gabapentin (Neurontin) 100 mg BIDWBKFT/CHERYL PO 09/27/20 08:00 10/15/20 17:37 DC 10/15/20 11:53 Gabapentin (Neurontin) 300 mg HS PO 09/27/20 21:00 10/18/20 20:25 Levothyroxine Sodium (Synthroid) 100 mcg DAILY06 PO 09/27/20 06:00 09/28/20 03:07 DC 09/27/20 05:52 Lidocaine (Lidoderm) 1 patch DAILY TP 09/27/20 09:00 10/17/20 08:29 Loperamide HCl (Imodium) 2 mg PRN Q6HRS PRN PO DIARRHEA 09/27/20 01:45 10/16/20 09:20 Magnesium Oxide (Magnesium Oxide) 400 mg DAILY PO 09/27/20 09:00 10/18/20 08:13 Metformin HCl (Glucophage) 500 mg DAILY PO 09/27/20 09:00 10/18/20 08:13 Metolazone (Zaroxolyn) 2.5 mg QMWF PO 09/27/20 16:00 10/16/20 08:00 Oxycodone HCl (Roxicodone) 5 mg TID PO 09/27/20 09:00 09/27/20 03:06 DC Oxycodone/ Acetaminophen (Percocet 5/325) 1 tab PRN Q6HRS PRN PO MOD-SEV PAIN 09/27/20 01:45 10/19/20 06:18 Polyethylene Glycol (miraLAX) 17 gm DAILY PO 09/27/20 09:00 10/16/20 11:53 DC 10/13/20 08:28 Potassium Chloride (Klor-Con) 40 meq BID PO 09/27/20 09:00 09/27/20 03:06 DC Propranolol HCl (Inderal) 20 mg BID92 PO 09/27/20 09:00 10/17/20 14:49 Sennosides (Senna) 17.2 mg PRN Q12HR PRN PO 2nd choice CONSTIPATION 09/27/20 01:45 Sennosides (Senna) 8.6 mg HS PO 09/27/20 21:00 10/18/20 20:22 Spironolactone (Aldactone) 25 mg BID PO 09/27/20 09:00 10/18/20 20:24 Topiramate (Topamax) 100 mg BID PO 09/27/20 09:00 10/18/20 20:25 Vitamin D (Vitamin D3) 1,000 unit DAILY PO 09/27/20 09:00 10/18/20 08:12 Fluticasone Propionate (Flonase) 2 spray HS NS 09/27/20 21:00 10/18/20 20:24 Glucagon (Glucagen Kit) 1 mg 1X PRN PRN IM LOW BLOOD SUGAR, 2ND CHOICE 09/27/20 02:45 Non-Formulary Medication (Mag Hydrox/Al Hydrox/Simeth (Alum-Mag Hydroxide-Simeth Liq)) 30 ml Q4HRS PRN PO INDIGESTION 09/27/20 01:45 09/27/20 02:34 DC Multivitamins/ Calcium (Thera-M Plus) 1 tab DAILY PO 09/27/20 09:00 10/18/20 08:11 Multi-Ingredient Ointment (Analgesic [place]) 1 mello PRN Q4HRS PRN TP MUSCLE PAIN 09/27/20 02:45 Hydroxyzine Pamoate (Vistaril) 25 mg PRN Q6HRS PRN PO ITCHING 09/27/20 02:15 10/17/20 08:24 Ropinirole HCl (Requip) 1 mg HS PO 09/27/20 21:00 10/18/20 20:22 Ziprasidone (Geodon) 60 mg BID PO 09/27/20 09:00 10/01/20 16:52 DC 10/01/20 08:17 Alprazolam (Xanax) 0.5 mg TID PO 09/27/20 09:00 09/27/20 03:06 DC Paroxetine HCl (Paxil) 50 mg DAILY PO 09/27/20 09:00 09/30/20 13:56 DC 09/30/20 08:24 Miscellaneous (Lidoderm Patch Removal) 1 ea QHS MC 09/27/20 21:00 10/18/20 20:21 Alprazolam (Xanax) 0.5 mg TID PO 09/27/20 03:15 10/13/20 22:00 DC 10/13/20 19:53 Oxycodone HCl (Roxicodone) 5 mg TID PO 09/27/20 03:15 10/11/20 17:27 DC 10/11/20 14:27 Potassium Chloride (Klor-Con) 40 meq BID PO 09/27/20 03:15 10/18/20 20:23 Levothyroxine Sodium (Synthroid) 100 mcg DAILY06 PO 09/28/20 06:00 10/19/20 05:56 Duloxetine HCl (Cymbalta) 30 mg DAILY PO 10/01/20 09:00 10/02/20 21:01 DC 10/02/20 08:42 Duloxetine HCl (Cymbalta) 60 mg DAILY PO 10/03/20 09:00 10/17/20 19:31 DC 10/17/20 08:27 Nystatin (Nystop) 1 mello BID TP 09/30/20 21:00 10/18/20 20:24 Ziprasidone (Geodon) 80 mg BID PO 10/02/20 09:00 10/18/20 20:22 Ziprasidone (Geodon) 60 mg BID PO 10/01/20 21:00 10/01/20 21:01 DC 10/01/20 20:24 Cyproheptadine HCl (Periactin) 2 mg HS PO 10/02/20 21:00 10/18/20 20:24 Bupropion HCl (Wellbutrin Xl) 150 mg DAILY PO 10/06/20 09:00 10/10/20 18:30 DC 10/10/20 08:49 Lamotrigine (LaMICtal) 25 mg HS PO 10/08/20 21:00 10/10/20 22:00 DC 10/10/20 21:03 Lamotrigine (LaMICtal) 50 mg HS PO 10/11/20 21:00 10/13/20 22:00 DC 10/13/20 19:54 Lamotrigine (LaMICtal) 75 mg HS PO 10/14/20 21:00 10/18/20 20:23 Bupropion HCl (Wellbutrin Xl) 300 mg DAILY PO 10/11/20 09:00 10/18/20 17:42 DC 10/18/20 08:12 Apixaban (Eliquis) 10 mg BID PO 10/10/20 22:00 10/16/20 21:59 DC 10/16/20 21:04 Apixaban (Eliquis) 5 mg BID PO 10/17/20 09:00 10/18/20 20:22 Oxycodone HCl (OxyCONTIN) 10 mg Q12HR PO 10/11/20 21:00 10/15/20 17:38 DC 10/15/20 07:22 Simethicone (Gas-X) 80 mg PRN AFTMEALHC PRN PO GAS / BLOATING 10/12/20 13:45 10/12/20 15:00 Alprazolam (Xanax) 0.5 mg BID PO 10/14/20 09:00 10/16/20 22:00 DC 10/16/20 21:05 Alprazolam (Xanax) 0.5 mg DAILY PO 10/17/20 09:00 10/19/20 10:00 10/18/20 08:11 Diphenhydramine HCl (Benadryl) 25 mg PRN Q6HRS PRN PO ITCHING 10/14/20 07:45 10/19/20 06:18 Gabapentin (Neurontin) 200 mg BIDWBKFT/CHERYL PO 10/16/20 08:00 10/18/20 12:11 Oxycodone HCl (OxyCONTIN) 20 mg Q12HR PO 10/15/20 21:00 10/18/20 20:25 Hydroxyzine HCl (Atarax) 25 mg PRN Q6HRS PRN PO ITCHING 10/16/20 11:45 UNV Docusate Sodium (Colace) 100 mg PRN DAILY PRN PO constipation 10/16/20 12:00 Polyethylene Glycol (miraLAX) 17 gm PRN DAILY PRN PO constipation 10/16/20 12:00 Bupropion HCl (Wellbutrin Xl) 450 mg DAILY PO 10/19/20 09:00 I have reviewed the current psychotropics carefully including drug interactions. Risk benefit ratio favors no change other than as noted in my dictated progress note. Diagnosis: Problems: (1) Anxiety disorder, unspecified (2) Bipolar disorder, curr episode mixed, severe, with psychotic features (3) Mild cognitive impairment PAMELA RAMOS MD Oct 19, 2020 07:02
[2020-10-19] MEDS: ALPRAZolam 0.5 MG TABLET PO SCH (08:19)
[2020-10-19] MEDS: CHOLECALCIFEROL (VITAMIN D3) 1,000 UNIT TABLET PO SCH (08:19)
[2020-10-19] MEDS: SPIRONOLACTONE 25 MG TABLET PO SCH ×2 (08:19→20:27)
[2020-10-19] MEDS: ZIPRASIDONE 80 MG CAPSULE. PO SCH ×2 (08:20→20:26)
[2020-10-19] MEDS: TOPIRAMATE 100 MG TABLET. PO SCH ×2 (08:20→20:25)
[2020-10-19] MEDS: POTASSIUM CHLORIDE 20 MEQ TABLET.ER. PO SCH ×2 (08:20→20:27)
[2020-10-19] MEDS: MULTIVITAMIN with MINERAL TABLET. PO SCH (08:20)
[2020-10-19] MEDS: APIXABAN 5 MG TABLET. PO SCH ×2 (08:20→20:27)
[2020-10-19] MEDS: metFORMIN 500 MG TABLET PO SCH (08:20)
[2020-10-19] MEDS: GABAPENTIN 100 MG CAPSULE. PO SCH ×2 (08:22→12:11)
[2020-10-19] MEDS: buPROPion XL 300 MG TAB.ER.24H. PO SCH (08:23)
[2020-10-19] MEDS: PROPRANOLOL 10 MG TABLET. PO SCH ×2 (08:54→14:00)
[2020-10-19] MEDS: MAGNESIUM OXIDE 400 MG TABLET PO SCH (09:00)
[2020-10-19] MEDS: LIDOCAINE (700MG/PATCH) PATCH. TP SCH (09:00)
[2020-10-19] MEDS: NYSTATIN TOPICAL POWDER 15GM BOTTLE. TP SCH ×2 (09:00→20:30)
[2020-10-19] MEDS: oxyCODONE ER 20 MG TAB.ER.12H PO SCH ×2 (09:09→20:28)
[2020-10-19 11:25] LABS: BASO % 0 % (0-3); EOS # 0.2 x10^3/uL (0.0-0.7); EOS % 3 % (0-3); HEMATOCRIT 39.5 % (36.0-47.0); HEMOGLOBIN 13.2 g/dL (12.0-15.5); LYMPH # 1.8 x10^3/uL (1.0-4.8); LYMPH % 20 % (24-48); MEAN CORPUSCULAR HEMOGLOBIN 32 pg (25-35); MEAN CORPUSCULAR HGB CONC 33 g/dL (31-37); MEAN CORPUSCULAR VOLUME 96 fL (79-100); MONO # 0.7 x10^3/uL (0.0-1.1); MONO % 8 % (0-9); NEUT % 69 % (31-73); PLATELET COUNT 255 x10^3/uL (140-400); RED BLOOD COUNT 4.11 x10^6/uL (3.50-5.40); RED CELL DISTRIBUTION WIDTH 13.1 % (11.5-14.5); WHITE BLOOD COUNT 8.7 x10^3/uL (4.0-11.0)
[2020-10-19 11:49] LABS: ALBUMIN 3.2 g/dL (3.4-5.0); ALBUMIN/GLOBULIN RATIO 0.7 (1.0-1.7); CALCIUM 9.8 mg/dL (8.5-10.1); CREATININE 1.1 mg/dL (0.6-1.0); POTASSIUM 4.1 mmol/L (3.5-5.1); TOTAL BILIRUBIN 0.2 mg/dL (0.2-1.0); TOTAL PROTEIN 7.5 g/dL (6.4-8.2)
--- NOTE | 2020-10-19 15:17 | NUR ---
Nursing note: Client in dinning room for am meds & assessment, medications taken whole. She is complaining of itching through the day, requesting medication several times. PRN medication given per order. Patient continues to complain of itching. Up in wheel chair most of the day, laid down after lunch. Will continue to monitor.
[2020-10-19 15:23] VITALS: BP 98/65
[2020-10-19] MEDS: hydrOXYzine PAMOATE 25 MG CAPSULE PO PRN (15:51)
[2020-10-19] MEDS: lamoTRIgine 25 MG TABLET. PO SCH (20:24)
[2020-10-19] MEDS: CYPROHEPTADINE 4 MG TABLET. PO SCH (20:25)
[2020-10-19] MEDS: SENNOSIDES 8.6 MG TABLET PO SCH (20:26)
[2020-10-19] MEDS: rOPINIRole 1 MG TABLET. PO SCH (20:26)
[2020-10-19] MEDS: GABAPENTIN 300 MG CAPSULE. PO SCH (20:26)
[2020-10-19] MEDS: FLUTICASONE 50MCG/NASAL SPRAY 16GM BOTTLE. NS SCH (20:30)
[2020-10-19] MEDS: PATCH REMOVAL. MC SCH (20:31)
--- NOTE | 2020-10-19 21:25 | NUR ---
Patient is located in her room on assumption of care, awake in bed. She is flat, disorganized, helpless. Compliant with assessments and medications taken whole. She requested PRN Benadryl for itching, which she received with her HS meds. No agitation. Cooperative with HS cares. She appears to be sleeping comfortably at present time. Will continue to monitor.
--- NOTE | 2020-10-19 22:01 | PDOC ---
Exam Note: [place] Note: Please also refer to the separate dictated note~for this date of service dictated separately.~Patient seen individually. Discussed the patient with Nursing staff reviewed the chart.~Reviewed interim history and current functioning. Reviewed vital signs,~Labs/ Radiology~and current medications noted below. Continue current treatment with the changes noted in the dictated addendum note Assessment: Vital Signs/I&O: Vital Signs Date Time Temp Pulse Resp B/P (MAP) Pulse Ox O2 Delivery O2 Flow Rate FiO2 10/19/20 20:28 95 10/19/20 15:23 96.9 66 18 98/65 (76) Room Air I & O 10/18/20 10/18/20 10/19/20 15:00 23:00 07:00 Intake Total 720 ml 600 ml Balance 720 ml 600 ml Labs: Laboratory Tests Test 10/19/20 07:21 10/19/20 10:35 Glucose (Fingerstick) 104 mg/dL (70-99) H White Blood Count 8.7 x10^3/uL (4.0-11.0) Red Blood Count 4.11 x10^6/uL (3.50-5.40) Hemoglobin 13.2 g/dL (12.0-15.5) Hematocrit 39.5 % (36.0-47.0) Mean Corpuscular Volume 96 fL (79-100) Mean Corpuscular Hemoglobin 32 pg (25-35) Mean Corpuscular Hemoglobin Concent 33 g/dL (31-37) Red Cell Distribution Width 13.1 % (11.5-14.5) Platelet Count 255 x10^3/uL (140-400) Neutrophils (%) (Auto) 69 % (31-73) Lymphocytes (%) (Auto) 20 % (24-48) L Monocytes (%) (Auto) 8 % (0-9) Eosinophils (%) (Auto) 3 % (0-3) Basophils (%) (Auto) 0 % (0-3) Neutrophils # (Auto) 6.0 x10^3uL (1.8-7.7) Lymphocytes # (Auto) 1.8 x10^3/uL (1.0-4.8) Monocytes # (Auto) 0.7 x10^3/uL (0.0-1.1) Eosinophils # (Auto) 0.2 x10^3/uL (0.0-0.7) Basophils # (Auto) 0.0 x10^3/uL (0.0-0.2) Sodium Level 141 mmol/L (136-145) Potassium Level 4.1 mmol/L (3.5-5.1) Chloride Level 106 mmol/L (98-107) Carbon Dioxide Level 27 mmol/L (21-32) Anion Gap 8 (6-14) Blood Urea Nitrogen 27 mg/dL (7-20) H Creatinine 1.1 mg/dL (0.6-1.0) H Estimated GFR (Cockcroft-Gault) 50.0 BUN/Creatinine Ratio 25 (6-20) H Glucose Level 123 mg/dL (70-99) H Calcium Level 9.8 mg/dL (8.5-10.1) Total Bilirubin 0.2 mg/dL (0.2-1.0) Aspartate Amino Transferase (AST) 15 U/L (15-37) Alanine Aminotransferase (ALT) 19 U/L (14-59) Alkaline Phosphatase 119 U/L (46-116) H Total Protein 7.5 g/dL (6.4-8.2) Albumin 3.2 g/dL (3.4-5.0) L Albumin/Globulin Ratio 0.7 (1.0-1.7) L Current Medications: Meds: Laboratory Tests Test 10/19/20 07:21 10/19/20 10:35 Glucose (Fingerstick) 104 mg/dL White Blood Count 8.7 x10^3/uL Red Blood Count 4.11 x10^6/uL Hemoglobin 13.2 g/dL Hematocrit 39.5 % Mean Corpuscular Volume 96 fL Mean Corpuscular Hemoglobin 32 pg Mean Corpuscular Hemoglobin Concent 33 g/dL Red Cell Distribution Width 13.1 % Platelet Count 255 x10^3/uL Neutrophils (%) (Auto) 69 % Lymphocytes (%) (Auto) 20 % Monocytes (%) (Auto) 8 % Eosinophils (%) (Auto) 3 % Basophils (%) (Auto) 0 % Neutrophils # (Auto) 6.0 x10^3uL Lymphocytes # (Auto) 1.8 x10^3/uL Monocytes # (Auto) 0.7 x10^3/uL Eosinophils # (Auto) 0.2 x10^3/uL Basophils # (Auto) 0.0 x10^3/uL Sodium Level 141 mmol/L Potassium Level 4.1 mmol/L Chloride Level 106 mmol/L Carbon Dioxide Level 27 mmol/L Anion Gap 8 Blood Urea Nitrogen 27 mg/dL Creatinine 1.1 mg/dL Estimated GFR (Cockcroft-Gault) 50.0 BUN/Creatinine Ratio 25 Glucose Level 123 mg/dL Calcium Level 9.8 mg/dL Total Bilirubin 0.2 mg/dL Aspartate Amino Transf (AST/SGOT) 15 U/L Alanine Aminotransferase (ALT/SGPT) 19 U/L Alkaline Phosphatase 119 U/L Total Protein 7.5 g/dL Albumin 3.2 g/dL Albumin/Globulin Ratio 0.7 Current Medications Medications (Trade) Dose Ordered Sig/Mathieu Route PRN Reason Start Time Stop Time Status Last Admin Dose Admin Oxycodone/ Acetaminophen (Percocet 5/325) 1 tab 1X ONCE PO 09/26/20 15:00 09/26/20 15:01 DC 09/26/20 15:25 Morphine Sulfate (Morphine 4mg Syringe) 4 mg 1X ONCE IV 09/26/20 19:45 09/26/20 19:46 DC 09/26/20 19:44 Diphenhydramine HCl (Benadryl) 25 mg 1X ONCE IVP 09/26/20 19:45 09/26/20 19:46 DC 09/26/20 19:47 Diphenhydramine HCl (Benadryl) 50 mg STK-MED ONCE .ROUTE 09/26/20 19:41 09/26/20 19:42 DC Fentanyl Citrate (Fentanyl 2ml Vial) 75 mcg 1X ONCE IVP 09/27/20 00:15 09/27/20 00:21 DC 09/27/20 00:17 Diphenhydramine HCl (Benadryl) 50 mg 1X ONCE IVP 09/27/20 01:00 09/27/20 01:01 DC 09/27/20 00:40 Acetaminophen (Tylenol) 650 mg PRN Q6HRS PRN PO MILD PAIN / TEMP > 100.3'F 09/27/20 01:30 09/28/20 07:34 DC Al Hydroxide/Mg Hydroxide (Mylanta Plus Xs) 15 ml PRN AFTMEALHC PRN PO 2ND CHOICE DYSPEPSIA 09/27/20 01:30 10/12/20 12:30 Magnesium Hydroxide (Milk Of Magnesia) 2,400 mg PRN QHS PRN PO 1st choice CONSTIPATION 09/27/20 01:30 Acetaminophen (Tylenol) 500 mg PRN Q8HRS PRN PO mild PAIN 09/27/20 01:45 10/13/20 18:22 Calcium Carbonate/ Glycine (Tums) 500 mg PRN Q3HRS PRN PO 1ST CHOICE DYSPEPSIA 09/27/20 02:30 Glucose (Insta-Glucose) 15 gm PRN Q1HR PRN PO LOW BLOOD SUGAR, 1ST CHOICE 09/27/20 01:45 Docusate Sodium (Colace) 100 mg DAILY PO 09/27/20 09:00 10/16/20 11:53 DC 10/13/20 08:27 Gabapentin (Neurontin) 100 mg BIDWBKFT/CHERYL PO 09/27/20 08:00 10/15/20 17:37 DC 10/15/20 11:53 Gabapentin (Neurontin) 300 mg HS PO 09/27/20 21:00 10/19/20 20:26 Levothyroxine Sodium (Synthroid) 100 mcg DAILY06 PO 09/27/20 06:00 09/28/20 03:07 DC 09/27/20 05:52 Lidocaine (Lidoderm) 1 patch DAILY TP 09/27/20 09:00 10/19/20 09:00 Loperamide HCl (Imodium) 2 mg PRN Q6HRS PRN PO DIARRHEA 09/27/20 01:45 10/16/20 09:20 Magnesium Oxide (Magnesium Oxide) 400 mg DAILY PO 09/27/20 09:00 10/19/20 09:00 Metformin HCl (Glucophage) 500 mg DAILY PO 09/27/20 09:00 10/19/20 08:20 Metolazone (Zaroxolyn) 2.5 mg QMWF PO 09/27/20 16:00 10/16/20 08:00 Oxycodone HCl (Roxicodone) 5 mg TID PO 09/27/20 09:00 09/27/20 03:06 DC Oxycodone/ Acetaminophen (Percocet 5/325) 1 tab PRN Q6HRS PRN PO MOD-SEV PAIN 09/27/20 01:45 10/19/20 06:18 Polyethylene Glycol (miraLAX) 17 gm DAILY PO 09/27/20 09:00 10/16/20 11:53 DC 10/13/20 08:28 Potassium Chloride (Klor-Con) 40 meq BID PO 09/27/20 09:00 09/27/20 03:06 DC Propranolol HCl (Inderal) 20 mg BID92 PO 09/27/20 09:00 10/17/20 14:49 Sennosides (Senna) 17.2 mg PRN Q12HR PRN PO 2nd choice CONSTIPATION 09/27/20 01:45 Sennosides (Senna) 8.6 mg HS PO 09/27/20 21:00 10/19/20 20:26 Spironolactone (Aldactone) 25 mg BID PO 09/27/20 09:00 10/19/20 20:27 Topiramate (Topamax) 100 mg BID PO 09/27/20 09:00 10/19/20 20:25 Vitamin D (Vitamin D3) 1,000 unit DAILY PO 09/27/20 09:00 10/19/20 08:19 Fluticasone Propionate (Flonase) 2 spray HS NS 09/27/20 21:00 10/19/20 20:30 Glucagon (Glucagen Kit) 1 mg 1X PRN PRN IM LOW BLOOD SUGAR, 2ND CHOICE 09/27/20 02:45 Non-Formulary Medication (Mag Hydrox/Al Hydrox/Simeth (Alum-Mag Hydroxide-Simeth Liq)) 30 ml Q4HRS PRN PO INDIGESTION 09/27/20 01:45 09/27/20 02:34 DC Multivitamins/ Calcium (Thera-M Plus) 1 tab DAILY PO 09/27/20 09:00 10/19/20 08:20 Multi-Ingredient Ointment (Analgesic [place]) 1 mello PRN Q4HRS PRN TP MUSCLE PAIN 09/27/20 02:45 Hydroxyzine Pamoate (Vistaril) 25 mg PRN Q6HRS PRN PO ITCHING 09/27/20 02:15 10/19/20 15:51 Ropinirole HCl (Requip) 1 mg HS PO 09/27/20 21:00 10/19/20 20:26 Ziprasidone (Geodon) 60 mg BID PO 09/27/20 09:00 10/01/20 16:52 DC 10/01/20 08:17 Alprazolam (Xanax) 0.5 mg TID PO 09/27/20 09:00 09/27/20 03:06 DC Paroxetine HCl (Paxil) 50 mg DAILY PO 09/27/20 09:00 09/30/20 13:56 DC 09/30/20 08:24 Miscellaneous (Lidoderm Patch Removal) 1 ea QHS MC 09/27/20 21:00 10/19/20 20:31 Alprazolam (Xanax) 0.5 mg TID PO 09/27/20 03:15 10/13/20 22:00 DC 10/13/20 19:53 Oxycodone HCl (Roxicodone) 5 mg TID PO 09/27/20 03:15 10/11/20 17:27 DC 10/11/20 14:27 Potassium Chloride (Klor-Con) 40 meq BID PO 09/27/20 03:15 10/19/20 20:27 Levothyroxine Sodium (Synthroid) 100 mcg DAILY06 PO 09/28/20 06:00 10/19/20 05:56 Duloxetine HCl (Cymbalta) 30 mg DAILY PO 10/01/20 09:00 10/02/20 21:01 DC 10/02/20 08:42 Duloxetine HCl (Cymbalta) 60 mg DAILY PO 10/03/20 09:00 10/17/20 19:31 DC 10/17/20 08:27 Nystatin (Nystop) 1 mello BID TP 09/30/20 21:00 10/19/20 20:30 Ziprasidone (Geodon) 80 mg BID PO 10/02/20 09:00 10/19/20 20:26 Ziprasidone (Geodon) 60 mg BID PO 10/01/20 21:00 10/01/20 21:01 DC 10/01/20 20:24 Cyproheptadine HCl (Periactin) 2 mg HS PO 10/02/20 21:00 10/19/20 20:25 Bupropion HCl (Wellbutrin Xl) 150 mg DAILY PO 10/06/20 09:00 10/10/20 18:30 DC 10/10/20 08:49 Lamotrigine (LaMICtal) 25 mg HS PO 10/08/20 21:00 10/10/20 22:00 DC 10/10/20 21:03 Lamotrigine (LaMICtal) 50 mg HS PO 10/11/20 21:00 10/13/20 22:00 DC 10/13/20 19:54 Lamotrigine (LaMICtal) 75 mg HS PO 10/14/20 21:00 10/19/20 20:24 Bupropion HCl (Wellbutrin Xl) 300 mg DAILY PO 10/11/20 09:00 10/18/20 17:42 DC 10/18/20 08:12 Apixaban (Eliquis) 10 mg BID PO 10/10/20 22:00 10/16/20 21:59 DC 10/16/20 21:04 Apixaban (Eliquis) 5 mg BID PO 10/17/20 09:00 10/19/20 20:27 Oxycodone HCl (OxyCONTIN) 10 mg Q12HR PO 10/11/20 21:00 10/15/20 17:38 DC 10/15/20 07:22 Simethicone (Gas-X) 80 mg PRN AFTMEALHC PRN PO GAS / BLOATING 10/12/20 13:45 10/12/20 15:00 Alprazolam (Xanax) 0.5 mg BID PO 10/14/20 09:00 10/16/20 22:00 DC 10/16/20 21:05 Alprazolam (Xanax) 0.5 mg DAILY PO 10/17/20 09:00 10/19/20 10:00 DC 10/19/20 08:19 Diphenhydramine HCl (Benadryl) 25 mg PRN Q6HRS PRN PO ITCHING 10/14/20 07:45 10/19/20 20:24 Gabapentin (Neurontin) 200 mg BIDWBKFT/CHERYL PO 10/16/20 08:00 10/19/20 12:11 Oxycodone HCl (OxyCONTIN) 20 mg Q12HR PO 10/15/20 21:00 10/19/20 20:28 Hydroxyzine HCl (Atarax) 25 mg PRN Q6HRS PRN PO ITCHING 10/16/20 11:45 UNV Docusate Sodium (Colace) 100 mg PRN DAILY PRN PO constipation 10/16/20 12:00 Polyethylene Glycol (miraLAX) 17 gm PRN DAILY PRN PO constipation 10/16/20 12:00 Bupropion HCl (Wellbutrin Xl) 450 mg DAILY PO 10/19/20 09:00 10/19/20 08:23 Current Medications Medications (Trade) Dose Ordered Sig/Mathieu Route PRN Reason Start Time Stop Time Status Last Admin Dose Admin Bupropion HCl (Wellbutrin Xl) 450 mg DAILY PO 10/19/20 09:00 10/19/20 08:23 I have reviewed the current psychotropics carefully including drug interactions. Risk benefit ratio favors no change other than as noted in my dictated progress note. Diagnosis: Problems: (1) Anxiety disorder, unspecified (2) Bipolar disorder, curr episode mixed, severe, with psychotic features (3) Mild cognitive impairment PAMELA RAMOS MD Oct 19, 2020 22:01
[2020-10-20] MEDS: oxyCODONE/APAP 5/325 1 TAB TABLET PO PRN (05:35)
[2020-10-20] MEDS: LEVOTHYROXINE 100 MCG TABLET PO SCH (05:35)
[2020-10-20] MEDS: diphenhydrAMINE HCL 25 MG CAPSULE PO PRN ×3 (05:35→20:07)
[2020-10-20 06:08] VITALS: BP 110/57
[2020-10-20] MEDS: MAGNESIUM OXIDE 400 MG TABLET PO SCH (09:00)
[2020-10-20] MEDS: NYSTATIN TOPICAL POWDER 15GM BOTTLE. TP SCH ×2 (09:00→20:08)
[2020-10-20] MEDS: GABAPENTIN 100 MG CAPSULE. PO SCH ×2 (09:24→12:11)
[2020-10-20] MEDS: ZIPRASIDONE 80 MG CAPSULE. PO SCH ×2 (09:24→20:08)
[2020-10-20] MEDS: PROPRANOLOL 10 MG TABLET. PO SCH ×2 (09:25→14:00)
[2020-10-20] MEDS: MULTIVITAMIN with MINERAL TABLET. PO SCH (09:26)
[2020-10-20] MEDS: POTASSIUM CHLORIDE 20 MEQ TABLET.ER. PO SCH ×2 (09:26→20:06)
[2020-10-20] MEDS: buPROPion XL 300 MG TAB.ER.24H. PO SCH (09:26)
[2020-10-20] MEDS: CHOLECALCIFEROL (VITAMIN D3) 1,000 UNIT TABLET PO SCH (09:26)
[2020-10-20] MEDS: oxyCODONE ER 20 MG TAB.ER.12H PO SCH ×2 (09:26→20:05)
[2020-10-20] MEDS: metFORMIN 500 MG TABLET PO SCH (09:26)
[2020-10-20] MEDS: TOPIRAMATE 100 MG TABLET. PO SCH ×2 (09:27→20:08)
[2020-10-20] MEDS: SPIRONOLACTONE 25 MG TABLET PO SCH ×2 (09:27→20:08)
[2020-10-20] MEDS: APIXABAN 5 MG TABLET. PO SCH ×2 (09:27→20:07)
[2020-10-20] MEDS: LIDOCAINE (700MG/PATCH) PATCH. TP SCH (09:28)
[2020-10-20] MEDS: hydrOXYzine PAMOATE 25 MG CAPSULE PO PRN ×2 (09:38→17:14)
--- NOTE | 2020-10-20 14:25 | NUR ---
Nursing note: Client in day room for am meds & assessment, medications taken whole. She is complaining of itching through the day, requesting medication several times. PRN medication given per order. Patient continues to complain of itching. Up in wheel chair most of the day, laid down after lunch. Will continue to monitor.
[2020-10-20 15:44] VITALS: BP 92/53
[2020-10-20] MEDS: FLUTICASONE 50MCG/NASAL SPRAY 16GM BOTTLE. NS SCH (20:05)
[2020-10-20] MEDS: lamoTRIgine 25 MG TABLET. PO SCH (20:06)
[2020-10-20] MEDS: CYPROHEPTADINE 4 MG TABLET. PO SCH (20:07)
[2020-10-20] MEDS: GABAPENTIN 300 MG CAPSULE. PO SCH (20:07)
[2020-10-20] MEDS: SENNOSIDES 8.6 MG TABLET PO SCH (20:07)
[2020-10-20] MEDS: rOPINIRole 1 MG TABLET. PO SCH (20:08)
[2020-10-20] MEDS: PATCH REMOVAL. MC SCH (20:12)
--- NOTE | 2020-10-20 20:19 | NUR ---
Patient reports she is uncomfortable and hasn't had a bowel movement in "days". PRN milk of magnesium for constipation. Patient reports she is "itchy" all over. No rash visible on skin. PRN diphenhydramine given per order for itching.
--- NOTE | 2020-10-20 20:21 | NUR ---
During assessment patient told this nurse she still wants to kill herself and she WILL do it after discharge. Patient refused to disclose her plan to this nurse when asked about it. She stated, "why would I tell you". Reported conversation with Dr Burch at rounds, he asked nurse to report SI statement to SW and to delay her discharge (it was scheduled for tomorrow). He started her on Trazodone PRN for sleep as patient reports she has not been sleeping well. Addendum: 10/20/20 at [id number] by FRANCISCO MATHUR RN Message left for ZAIN Grant on her VM regarding patient making SI statements.
[2020-10-20] MEDS: traZODone 100 MG TABLET. PO PRN ×2 (20:50→21:59)
--- NOTE | 2020-10-20 22:06 | PDOC ---
Exam Note: [place] Note: Please also refer to the separate dictated note~for this date of service dictated separately.~Patient seen individually. Discussed the patient with Nursing staff reviewed the chart.~Reviewed interim history and current functioning. Reviewed vital signs,~Labs/ Radiology~and current medications noted below. Continue current treatment with the changes noted in the dictated addendum note Assessment: Vital Signs/I&O: Vital Signs Date Time Temp Pulse Resp B/P (MAP) Pulse Ox O2 Delivery O2 Flow Rate FiO2 10/20/20 15:44 96.0 71 20 92/53 (66) 96 10/20/20 06:08 Room Air I & O 10/19/20 10/19/20 10/20/20 15:00 23:00 07:00 Intake Total 960 ml 240 ml Balance 960 ml 240 ml Labs: Laboratory Tests Test 10/20/20 06:00 10/20/20 07:38 SARS-CoV-2 (PCR) Negative (NEGATIVE) Glucose (Fingerstick) 110 mg/dL (70-99) H Current Medications: Meds: Laboratory Tests Test 10/20/20 06:00 10/20/20 07:38 Coronavirus (COVID-19)(PCR) Negative Glucose (Fingerstick) 110 mg/dL Current Medications Medications (Trade) Dose Ordered Sig/Mathieu Route PRN Reason Start Time Stop Time Status Last Admin Dose Admin Oxycodone/ Acetaminophen (Percocet 5/325) 1 tab 1X ONCE PO 09/26/20 15:00 09/26/20 15:01 DC 09/26/20 15:25 Morphine Sulfate (Morphine 4mg Syringe) 4 mg 1X ONCE IV 09/26/20 19:45 09/26/20 19:46 DC 09/26/20 19:44 Diphenhydramine HCl (Benadryl) 25 mg 1X ONCE IVP 09/26/20 19:45 09/26/20 19:46 DC 09/26/20 19:47 Diphenhydramine HCl (Benadryl) 50 mg STK-MED ONCE .ROUTE 09/26/20 19:41 09/26/20 19:42 DC Fentanyl Citrate (Fentanyl 2ml Vial) 75 mcg 1X ONCE IVP 09/27/20 00:15 09/27/20 00:21 DC 09/27/20 00:17 Diphenhydramine HCl (Benadryl) 50 mg 1X ONCE IVP 09/27/20 01:00 09/27/20 01:01 DC 09/27/20 00:40 Acetaminophen (Tylenol) 650 mg PRN Q6HRS PRN PO MILD PAIN / TEMP > 100.3'F 09/27/20 01:30 09/28/20 07:34 DC Al Hydroxide/Mg Hydroxide (Mylanta Plus Xs) 15 ml PRN AFTMEALHC PRN PO 2ND CHOICE DYSPEPSIA 09/27/20 01:30 10/12/20 12:30 Magnesium Hydroxide (Milk Of Magnesia) 2,400 mg PRN QHS PRN PO 1st choice CONSTIPATION 09/27/20 01:30 10/20/20 20:18 Acetaminophen (Tylenol) 500 mg PRN Q8HRS PRN PO mild PAIN 09/27/20 01:45 10/13/20 18:22 Calcium Carbonate/ Glycine (Tums) 500 mg PRN Q3HRS PRN PO 1ST CHOICE DYSPEPSIA 09/27/20 02:30 Glucose (Insta-Glucose) 15 gm PRN Q1HR PRN PO LOW BLOOD SUGAR, 1ST CHOICE 09/27/20 01:45 Docusate Sodium (Colace) 100 mg DAILY PO 09/27/20 09:00 10/16/20 11:53 DC 10/13/20 08:27 Gabapentin (Neurontin) 100 mg BIDWBKFT/CHERYL PO 09/27/20 08:00 10/15/20 17:37 DC 10/15/20 11:53 Gabapentin (Neurontin) 300 mg HS PO 09/27/20 21:00 10/20/20 20:07 Levothyroxine Sodium (Synthroid) 100 mcg DAILY06 PO 09/27/20 06:00 09/28/20 03:07 DC 09/27/20 05:52 Lidocaine (Lidoderm) 1 patch DAILY TP 09/27/20 09:00 10/20/20 09:28 Loperamide HCl (Imodium) 2 mg PRN Q6HRS PRN PO DIARRHEA 09/27/20 01:45 10/16/20 09:20 Magnesium Oxide (Magnesium Oxide) 400 mg DAILY PO 09/27/20 09:00 10/20/20 09:00 Metformin HCl (Glucophage) 500 mg DAILY PO 09/27/20 09:00 10/20/20 09:26 Metolazone (Zaroxolyn) 2.5 mg QMWF PO 09/27/20 16:00 10/16/20 08:00 Oxycodone HCl (Roxicodone) 5 mg TID PO 09/27/20 09:00 09/27/20 03:06 DC Oxycodone/ Acetaminophen (Percocet 5/325) 1 tab PRN Q6HRS PRN PO MOD-SEV PAIN 09/27/20 01:45 10/20/20 05:35 Polyethylene Glycol (miraLAX) 17 gm DAILY PO 09/27/20 09:00 10/16/20 11:53 DC 10/13/20 08:28 Potassium Chloride (Klor-Con) 40 meq BID PO 09/27/20 09:00 09/27/20 03:06 DC Propranolol HCl (Inderal) 20 mg BID92 PO 09/27/20 09:00 10/20/20 09:25 Sennosides (Senna) 17.2 mg PRN Q12HR PRN PO 2nd choice CONSTIPATION 09/27/20 01:45 Sennosides (Senna) 8.6 mg HS PO 09/27/20 21:00 10/20/20 20:07 Spironolactone (Aldactone) 25 mg BID PO 09/27/20 09:00 10/20/20 20:08 Topiramate (Topamax) 100 mg BID PO 09/27/20 09:00 10/20/20 20:08 Vitamin D (Vitamin D3) 1,000 unit DAILY PO 09/27/20 09:00 10/20/20 09:26 Fluticasone Propionate (Flonase) 2 spray HS NS 09/27/20 21:00 10/20/20 20:05 Glucagon (Glucagen Kit) 1 mg 1X PRN PRN IM LOW BLOOD SUGAR, 2ND CHOICE 09/27/20 02:45 Non-Formulary Medication (Mag Hydrox/Al Hydrox/Simeth (Alum-Mag Hydroxide-Simeth Liq)) 30 ml Q4HRS PRN PO INDIGESTION 09/27/20 01:45 09/27/20 02:34 DC Multivitamins/ Calcium (Thera-M Plus) 1 tab DAILY PO 09/27/20 09:00 10/20/20 09:26 Multi-Ingredient Ointment (Analgesic [place]) 1 mello PRN Q4HRS PRN TP MUSCLE PAIN 09/27/20 02:45 Hydroxyzine Pamoate (Vistaril) 25 mg PRN Q6HRS PRN PO ITCHING 09/27/20 02:15 10/20/20 17:14 Ropinirole HCl (Requip) 1 mg HS PO 09/27/20 21:00 10/20/20 20:08 Ziprasidone (Geodon) 60 mg BID PO 09/27/20 09:00 10/01/20 16:52 DC 10/01/20 08:17 Alprazolam (Xanax) 0.5 mg TID PO 09/27/20 09:00 09/27/20 03:06 DC Paroxetine HCl (Paxil) 50 mg DAILY PO 09/27/20 09:00 09/30/20 13:56 DC 09/30/20 08:24 Miscellaneous (Lidoderm Patch Removal) 1 ea QHS MC 09/27/20 21:00 10/20/20 20:12 Alprazolam (Xanax) 0.5 mg TID PO 09/27/20 03:15 10/13/20 22:00 DC 10/13/20 19:53 Oxycodone HCl (Roxicodone) 5 mg TID PO 09/27/20 03:15 10/11/20 17:27 DC 10/11/20 14:27 Potassium Chloride (Klor-Con) 40 meq BID PO 09/27/20 03:15 10/20/20 20:06 Levothyroxine Sodium (Synthroid) 100 mcg DAILY06 PO 09/28/20 06:00 10/20/20 05:35 Duloxetine HCl (Cymbalta) 30 mg DAILY PO 10/01/20 09:00 10/02/20 21:01 DC 10/02/20 08:42 Duloxetine HCl (Cymbalta) 60 mg DAILY PO 10/03/20 09:00 10/17/20 19:31 DC 10/17/20 08:27 Nystatin (Nystop) 1 mello BID TP 09/30/20 21:00 10/20/20 20:08 Ziprasidone (Geodon) 80 mg BID PO 10/02/20 09:00 10/20/20 20:08 Ziprasidone (Geodon) 60 mg BID PO 10/01/20 21:00 10/01/20 21:01 DC 10/01/20 20:24 Cyproheptadine HCl (Periactin) 2 mg HS PO 10/02/20 21:00 10/20/20 20:07 Bupropion HCl (Wellbutrin Xl) 150 mg DAILY PO 10/06/20 09:00 10/10/20 18:30 DC 10/10/20 08:49 Lamotrigine (LaMICtal) 25 mg HS PO 10/08/20 21:00 10/10/20 22:00 DC 10/10/20 21:03 Lamotrigine (LaMICtal) 50 mg HS PO 10/11/20 21:00 10/13/20 22:00 DC 10/13/20 19:54 Lamotrigine (LaMICtal) 75 mg HS PO 10/14/20 21:00 10/20/20 20:06 Bupropion HCl (Wellbutrin Xl) 300 mg DAILY PO 10/11/20 09:00 10/18/20 17:42 DC 10/18/20 08:12 Apixaban (Eliquis) 10 mg BID PO 10/10/20 22:00 10/16/20 21:59 DC 10/16/20 21:04 Apixaban (Eliquis) 5 mg BID PO 10/17/20 09:00 10/20/20 20:07 Oxycodone HCl (OxyCONTIN) 10 mg Q12HR PO 10/11/20 21:00 10/15/20 17:38 DC 10/15/20 07:22 Simethicone (Gas-X) 80 mg PRN AFTMEALHC PRN PO GAS / BLOATING 10/12/20 13:45 10/12/20 15:00 Alprazolam (Xanax) 0.5 mg BID PO 10/14/20 09:00 10/16/20 22:00 DC 10/16/20 21:05 Alprazolam (Xanax) 0.5 mg DAILY PO 10/17/20 09:00 10/19/20 10:00 DC 10/19/20 08:19 Diphenhydramine HCl (Benadryl) 25 mg PRN Q6HRS PRN PO ITCHING 10/14/20 07:45 10/20/20 20:07 Gabapentin (Neurontin) 200 mg BIDWBKFT/CHERYL PO 10/16/20 08:00 10/20/20 12:11 Oxycodone HCl (OxyCONTIN) 20 mg Q12HR PO 10/15/20 21:00 10/20/20 20:05 Hydroxyzine HCl (Atarax) 25 mg PRN Q6HRS PRN PO ITCHING 10/16/20 11:45 UNV Docusate Sodium (Colace) 100 mg PRN DAILY PRN PO constipation 10/16/20 12:00 Polyethylene Glycol (miraLAX) 17 gm PRN DAILY PRN PO constipation 10/16/20 12:00 Bupropion HCl (Wellbutrin Xl) 450 mg DAILY PO 10/19/20 09:00 10/20/20 09:26 Trazodone HCl (Desyrel) 100 mg PRN QHS PRN PO insomnia 10/20/20 20:30 10/20/20 21:59 Current Medications Medications (Trade) Dose Ordered Sig/Mathieu Route PRN Reason Start Time Stop Time Status Last Admin Dose Admin Trazodone HCl (Desyrel) 100 mg PRN QHS PRN PO insomnia 10/20/20 20:30 10/20/20 21:59 I have reviewed the current psychotropics carefully including drug interactions. Risk benefit ratio favors no change other than as noted in my dictated progress note. Diagnosis: Problems: (1) Anxiety disorder, unspecified (2) Bipolar disorder, curr episode mixed, severe, with psychotic features (3) Mild cognitive impairment PAMELA RAMOS MD Oct 20, 2020 22:06
--- NOTE | 2020-10-20 22:15 | NUR ---
PRN trazodone #1 given per order at 2100 for insomnia per patient request. Patient is still awake and asked for second PRN dose, she states that her roommate is up walking and pacing in the room and is keeping her awake. PRN trazodone #2 given at 2200 per order per patients request as she is still awake.
[2020-10-21] MEDS: LEVOTHYROXINE 100 MCG TABLET PO SCH (05:24)
[2020-10-21 05:56] VITALS: BP 94/68
--- NOTE | 2020-10-21 06:11 | NUR ---
Patient reported numbness in her arm and leg since getting up. Patient is able to move limbs as she normally does, limbs appear normal for patient. She has stated that she is still very tired. Patient started PRN trazodone last night and had the repeat dose as well. Will continue to monitor.
[2020-10-21] MEDS: ZIPRASIDONE 80 MG CAPSULE. PO SCH ×2 (08:26→21:40)
[2020-10-21] MEDS: APIXABAN 5 MG TABLET. PO SCH ×2 (08:27→21:40)
[2020-10-21] MEDS: MULTIVITAMIN with MINERAL TABLET. PO SCH (08:27)
[2020-10-21] MEDS: CHOLECALCIFEROL (VITAMIN D3) 1,000 UNIT TABLET PO SCH (08:27)
[2020-10-21] MEDS: buPROPion XL 300 MG TAB.ER.24H. PO SCH (08:27)
[2020-10-21] MEDS: GABAPENTIN 100 MG CAPSULE. PO SCH ×2 (08:28→13:13)
[2020-10-21] MEDS: oxyCODONE ER 20 MG TAB.ER.12H PO SCH ×2 (08:28→21:40)
[2020-10-21] MEDS: TOPIRAMATE 100 MG TABLET. PO SCH ×2 (08:28→21:40)
[2020-10-21] MEDS: metFORMIN 500 MG TABLET PO SCH (08:28)
[2020-10-21] MEDS: SPIRONOLACTONE 25 MG TABLET PO SCH ×2 (08:28→21:21)
[2020-10-21] MEDS: LIDOCAINE (700MG/PATCH) PATCH. TP SCH (08:29)
[2020-10-21] MEDS: POTASSIUM CHLORIDE 20 MEQ TABLET.ER. PO SCH ×2 (08:29→21:41)
[2020-10-21] MEDS: NYSTATIN TOPICAL POWDER 15GM BOTTLE. TP SCH ×2 (08:29→21:41)
[2020-10-21] MEDS: PROPRANOLOL 10 MG TABLET. PO SCH ×2 (08:29→13:14)
[2020-10-21] MEDS: MAGNESIUM OXIDE 400 MG TABLET PO SCH (08:30)
--- NOTE | 2020-10-21 08:51 | PDOC ---
Exam Note: [place] Note: This note is a late entry for 10/19/2020 covers elements not covered in my initial note. Subjective: The patient was seen individually in the evening of 10/19/2020 with Myah ROYAL, discussed and reviewed the chart. The patient slept 7-3/4 hours previous night. She continues to complain of itching though no rashes noted. She laid in bed after lunch. Late this evening as nursing staff was assessing her and questioned on suicidal ideation, she voiced suicidal ideation and states she is frustrated with her physical deterioration but denies any plans, intent or attempt. We may have to postpone or discharge to address these symptoms further. Review of Systems: Pedal edema and itching. Ambulation impaired in wheelchair. No CV, , pulmonary, eye, ENT system symptoms on review. Mental Status Exam: The patient is oriented to herself and situation. Speech coherent. Computation impaired. Language function intact. Mood and affect still somewhat depressed, withdrawn. Laboratory Data: Reviewed. Impression: Bipolar disorder depressed with psychotic features. Anxiety disorder unspecified. Impulse control disorder unspecified. Plan: No change from initial note. Assessment: Vital Signs/I&O: Vital Signs Date Time Temp Pulse Resp B/P (MAP) Pulse Ox O2 Delivery O2 Flow Rate FiO2 10/21/20 08:29 85 112/78 10/21/20 08:28 18 10/21/20 05:56 97.4 94 Room Air I & O 10/20/20 10/20/20 10/21/20 15:00 23:00 07:00 Intake Total 840 ml 600 ml Balance 840 ml 600 ml Labs: Laboratory Tests Test 10/21/20 07:30 Glucose (Fingerstick) 120 mg/dL (70-99) H Current Medications: Meds: Laboratory Tests Test 10/21/20 07:30 Glucose (Fingerstick) 120 mg/dL Current Medications Medications (Trade) Dose Ordered Sig/Mathieu Route PRN Reason Start Time Stop Time Status Last Admin Dose Admin Oxycodone/ Acetaminophen (Percocet 5/325) 1 tab 1X ONCE PO 09/26/20 15:00 09/26/20 15:01 DC 09/26/20 15:25 Morphine Sulfate (Morphine 4mg Syringe) 4 mg 1X ONCE IV 09/26/20 19:45 09/26/20 19:46 DC 09/26/20 19:44 Diphenhydramine HCl (Benadryl) 25 mg 1X ONCE IVP 09/26/20 19:45 09/26/20 19:46 DC 09/26/20 19:47 Diphenhydramine HCl (Benadryl) 50 mg STK-MED ONCE .ROUTE 09/26/20 19:41 09/26/20 19:42 DC Fentanyl Citrate (Fentanyl 2ml Vial) 75 mcg 1X ONCE IVP 09/27/20 00:15 09/27/20 00:21 DC 09/27/20 00:17 Diphenhydramine HCl (Benadryl) 50 mg 1X ONCE IVP 09/27/20 01:00 09/27/20 01:01 DC 09/27/20 00:40 Acetaminophen (Tylenol) 650 mg PRN Q6HRS PRN PO MILD PAIN / TEMP > 100.3'F 09/27/20 01:30 09/28/20 07:34 DC Al Hydroxide/Mg Hydroxide (Mylanta Plus Xs) 15 ml PRN AFTMEALHC PRN PO 2ND CHOICE DYSPEPSIA 09/27/20 01:30 10/12/20 12:30 Magnesium Hydroxide (Milk Of Magnesia) 2,400 mg PRN QHS PRN PO 1st choice CONSTIPATION 09/27/20 01:30 10/20/20 20:18 Acetaminophen (Tylenol) 500 mg PRN Q8HRS PRN PO mild PAIN 09/27/20 01:45 10/13/20 18:22 Calcium Carbonate/ Glycine (Tums) 500 mg PRN Q3HRS PRN PO 1ST CHOICE DYSPEPSIA 09/27/20 02:30 Glucose (Insta-Glucose) 15 gm PRN Q1HR PRN PO LOW BLOOD SUGAR, 1ST CHOICE 09/27/20 01:45 Docusate Sodium (Colace) 100 mg DAILY PO 09/27/20 09:00 10/16/20 11:53 DC 10/13/20 08:27 Gabapentin (Neurontin) 100 mg BIDWBKFT/CHERYL PO 09/27/20 08:00 10/15/20 17:37 DC 10/15/20 11:53 Gabapentin (Neurontin) 300 mg HS PO 09/27/20 21:00 10/20/20 20:07 Levothyroxine Sodium (Synthroid) 100 mcg DAILY06 PO 09/27/20 06:00 09/28/20 03:07 DC 09/27/20 05:52 Lidocaine (Lidoderm) 1 patch DAILY TP 09/27/20 09:00 10/21/20 08:29 Loperamide HCl (Imodium) 2 mg PRN Q6HRS PRN PO DIARRHEA 09/27/20 01:45 10/16/20 09:20 Magnesium Oxide (Magnesium Oxide) 400 mg DAILY PO 09/27/20 09:00 10/21/20 08:30 Metformin HCl (Glucophage) 500 mg DAILY PO 09/27/20 09:00 10/21/20 08:28 Metolazone (Zaroxolyn) 2.5 mg QMWF PO 09/27/20 16:00 10/16/20 08:00 Oxycodone HCl (Roxicodone) 5 mg TID PO 09/27/20 09:00 09/27/20 03:06 DC Oxycodone/ Acetaminophen (Percocet 5/325) 1 tab PRN Q6HRS PRN PO MOD-SEV PAIN 09/27/20 01:45 10/20/20 05:35 Polyethylene Glycol (miraLAX) 17 gm DAILY PO 09/27/20 09:00 10/16/20 11:53 DC 10/13/20 08:28 Potassium Chloride (Klor-Con) 40 meq BID PO 09/27/20 09:00 09/27/20 03:06 DC Propranolol HCl (Inderal) 20 mg BID92 PO 09/27/20 09:00 10/21/20 08:29 Sennosides (Senna) 17.2 mg PRN Q12HR PRN PO 2nd choice CONSTIPATION 09/27/20 01:45 Sennosides (Senna) 8.6 mg HS PO 09/27/20 21:00 10/20/20 20:07 Spironolactone (Aldactone) 25 mg BID PO 09/27/20 09:00 10/21/20 08:28 Topiramate (Topamax) 100 mg BID PO 09/27/20 09:00 10/21/20 08:28 Vitamin D (Vitamin D3) 1,000 unit DAILY PO 09/27/20 09:00 10/21/20 08:27 Fluticasone Propionate (Flonase) 2 spray HS NS 09/27/20 21:00 10/20/20 20:05 Glucagon (Glucagen Kit) 1 mg 1X PRN PRN IM LOW BLOOD SUGAR, 2ND CHOICE 09/27/20 02:45 Non-Formulary Medication (Mag Hydrox/Al Hydrox/Simeth (Alum-Mag Hydroxide-Simeth Liq)) 30 ml Q4HRS PRN PO INDIGESTION 09/27/20 01:45 09/27/20 02:34 DC Multivitamins/ Calcium (Thera-M Plus) 1 tab DAILY PO 09/27/20 09:00 10/21/20 08:27 Multi-Ingredient Ointment (Analgesic [place]) 1 mello PRN Q4HRS PRN TP MUSCLE PAIN 09/27/20 02:45 Hydroxyzine Pamoate (Vistaril) 25 mg PRN Q6HRS PRN PO ITCHING 09/27/20 02:15 10/20/20 17:14 Ropinirole HCl (Requip) 1 mg HS PO 09/27/20 21:00 10/20/20 20:08 Ziprasidone (Geodon) 60 mg BID PO 09/27/20 09:00 10/01/20 16:52 DC 10/01/20 08:17 Alprazolam (Xanax) 0.5 mg TID PO 09/27/20 09:00 09/27/20 03:06 DC Paroxetine HCl (Paxil) 50 mg DAILY PO 09/27/20 09:00 09/30/20 13:56 DC 09/30/20 08:24 Miscellaneous (Lidoderm Patch Removal) 1 ea QHS MC 09/27/20 21:00 10/20/20 20:12 Alprazolam (Xanax) 0.5 mg TID PO 09/27/20 03:15 10/13/20 22:00 DC 10/13/20 19:53 Oxycodone HCl (Roxicodone) 5 mg TID PO 09/27/20 03:15 10/11/20 17:27 DC 10/11/20 14:27 Potassium Chloride (Klor-Con) 40 meq BID PO 09/27/20 03:15 10/21/20 08:29 Levothyroxine Sodium (Synthroid) 100 mcg DAILY06 PO 09/28/20 06:00 10/21/20 05:24 Duloxetine HCl (Cymbalta) 30 mg DAILY PO 10/01/20 09:00 10/02/20 21:01 DC 10/02/20 08:42 Duloxetine HCl (Cymbalta) 60 mg DAILY PO 10/03/20 09:00 10/17/20 19:31 DC 10/17/20 08:27 Nystatin (Nystop) 1 mello BID TP 09/30/20 21:00 10/21/20 08:29 Ziprasidone (Geodon) 80 mg BID PO 10/02/20 09:00 10/21/20 08:26 Ziprasidone (Geodon) 60 mg BID PO 10/01/20 21:00 10/01/20 21:01 DC 10/01/20 20:24 Cyproheptadine HCl (Periactin) 2 mg HS PO 10/02/20 21:00 10/20/20 20:07 Bupropion HCl (Wellbutrin Xl) 150 mg DAILY PO 10/06/20 09:00 10/10/20 18:30 DC 10/10/20 08:49 Lamotrigine (LaMICtal) 25 mg HS PO 10/08/20 21:00 10/10/20 22:00 DC 10/10/20 21:03 Lamotrigine (LaMICtal) 50 mg HS PO 10/11/20 21:00 10/13/20 22:00 DC 10/13/20 19:54 Lamotrigine (LaMICtal) 75 mg HS PO 10/14/20 21:00 10/20/20 20:06 Bupropion HCl (Wellbutrin Xl) 300 mg DAILY PO 10/11/20 09:00 10/18/20 17:42 DC 10/18/20 08:12 Apixaban (Eliquis) 10 mg BID PO 10/10/20 22:00 10/16/20 21:59 DC 10/16/20 21:04 Apixaban (Eliquis) 5 mg BID PO 10/17/20 09:00 10/21/20 08:27 Oxycodone HCl (OxyCONTIN) 10 mg Q12HR PO 10/11/20 21:00 10/15/20 17:38 DC 10/15/20 07:22 Simethicone (Gas-X) 80 mg PRN AFTMEALHC PRN PO GAS / BLOATING 10/12/20 13:45 10/12/20 15:00 Alprazolam (Xanax) 0.5 mg BID PO 10/14/20 09:00 10/16/20 22:00 DC 10/16/20 21:05 Alprazolam (Xanax) 0.5 mg DAILY PO 10/17/20 09:00 10/19/20 10:00 DC 10/19/20 08:19 Diphenhydramine HCl (Benadryl) 25 mg PRN Q6HRS PRN PO ITCHING 10/14/20 07:45 10/20/20 20:07 Gabapentin (Neurontin) 200 mg BIDWBKFT/CHERYL PO 10/16/20 08:00 10/21/20 08:28 Oxycodone HCl (OxyCONTIN) 20 mg Q12HR PO 10/15/20 21:00 10/21/20 08:28 Hydroxyzine HCl (Atarax) 25 mg PRN Q6HRS PRN PO ITCHING 10/16/20 11:45 UNV Docusate Sodium (Colace) 100 mg PRN DAILY PRN PO constipation 10/16/20 12:00 Polyethylene Glycol (miraLAX) 17 gm PRN DAILY PRN PO constipation 10/16/20 12:00 Bupropion HCl (Wellbutrin Xl) 450 mg DAILY PO 10/19/20 09:00 10/21/20 08:27 Trazodone HCl (Desyrel) 100 mg PRN QHS PRN PO insomnia 10/20/20 20:30 10/20/20 21:59 Current Medications Medications (Trade) Dose Ordered Sig/Mathieu Route PRN Reason Start Time Stop Time Status Last Admin Dose Admin Trazodone HCl (Desyrel) 100 mg PRN QHS PRN PO insomnia 10/20/20 20:30 10/20/20 21:59 I have reviewed the current psychotropics carefully including drug interactions. Risk benefit ratio favors no change other than as noted in my dictated progress note. Diagnosis: Problems: (1) Mild cognitive impairment (2) Bipolar disorder, curr episode mixed, severe, with psychotic features (3) Anxiety disorder, unspecified PAMELA RAMOS MD Oct 21, 2020 08:51
[2020-10-21] MEDS: diphenhydrAMINE HCL 25 MG CAPSULE PO PRN ×2 (09:03→16:25)
--- NOTE | 2020-10-21 09:18 | PDOC ---
Exam Note: [place] Note: This note is a late entry for 10/20/2020 covers elements not covered in my initial note. Subjective: The patient was seen individually in the evening of 10/20/2020 with Myah ROYAL, discussed and reviewed the chart. The patient slept 3-1/2 hours previous night. She took 1-1/2 hours naps in the afternoon after lunch asking for Benadryl p.r.n. COVID test is negative. She does complain of insomnia. Review of Systems: Ambulation impaired in wheelchair. No CV, , pulmonary, eye, ENT system symptoms on review. Positive for itching. Mental Status Exam: The patient is oriented to herself and situation. Speech coherent, has some latency, low in volume. Abstraction fair. Computation im paired. Language function intact. Mood and affect withdrawn. Laboratory Data: Reviewed. Impression: Bipolar disorder depressed with psychotic features. Anxiety disorder unspecified. Impulse control disorder unspecified. Plan: No change from initial note. Start trazodone 100 mg h.s. p.r.n. insomnia, may repeat x1 p.r.n. Assessment: Vital Signs/I&O: Vital Signs Date Time Temp Pulse Resp B/P (MAP) Pulse Ox O2 Delivery O2 Flow Rate FiO2 10/21/20 08:29 85 112/78 10/21/20 08:28 18 10/21/20 05:56 97.4 94 Room Air I & O 10/20/20 10/20/20 10/21/20 15:00 23:00 07:00 Intake Total 840 ml 600 ml Balance 840 ml 600 ml Labs: Laboratory Tests Test 10/21/20 07:30 Glucose (Fingerstick) 120 mg/dL (70-99) H Current Medications: Meds: Laboratory Tests Test 10/21/20 07:30 Glucose (Fingerstick) 120 mg/dL Current Medications Medications (Trade) Dose Ordered Sig/Mathieu Route PRN Reason Start Time Stop Time Status Last Admin Dose Admin Oxycodone/ Acetaminophen (Percocet 5/325) 1 tab 1X ONCE PO 09/26/20 15:00 09/26/20 15:01 DC 09/26/20 15:25 Morphine Sulfate (Morphine 4mg Syringe) 4 mg 1X ONCE IV 09/26/20 19:45 09/26/20 19:46 DC 09/26/20 19:44 Diphenhydramine HCl (Benadryl) 25 mg 1X ONCE IVP 09/26/20 19:45 09/26/20 19:46 DC 09/26/20 19:47 Diphenhydramine HCl (Benadryl) 50 mg STK-MED ONCE .ROUTE 09/26/20 19:41 09/26/20 19:42 DC Fentanyl Citrate (Fentanyl 2ml Vial) 75 mcg 1X ONCE IVP 09/27/20 00:15 09/27/20 00:21 DC 09/27/20 00:17 Diphenhydramine HCl (Benadryl) 50 mg 1X ONCE IVP 09/27/20 01:00 09/27/20 01:01 DC 09/27/20 00:40 Acetaminophen (Tylenol) 650 mg PRN Q6HRS PRN PO MILD PAIN / TEMP > 100.3'F 09/27/20 01:30 09/28/20 07:34 DC Al Hydroxide/Mg Hydroxide (Mylanta Plus Xs) 15 ml PRN AFTMEALHC PRN PO 2ND CHOICE DYSPEPSIA 09/27/20 01:30 10/12/20 12:30 Magnesium Hydroxide (Milk Of Magnesia) 2,400 mg PRN QHS PRN PO 1st choice CONSTIPATION 09/27/20 01:30 10/20/20 20:18 Acetaminophen (Tylenol) 500 mg PRN Q8HRS PRN PO mild PAIN 09/27/20 01:45 10/13/20 18:22 Calcium Carbonate/ Glycine (Tums) 500 mg PRN Q3HRS PRN PO 1ST CHOICE DYSPEPSIA 09/27/20 02:30 Glucose (Insta-Glucose) 15 gm PRN Q1HR PRN PO LOW BLOOD SUGAR, 1ST CHOICE 09/27/20 01:45 Docusate Sodium (Colace) 100 mg DAILY PO 09/27/20 09:00 10/16/20 11:53 DC 10/13/20 08:27 Gabapentin (Neurontin) 100 mg BIDWBKFT/CHERYL PO 09/27/20 08:00 10/15/20 17:37 DC 10/15/20 11:53 Gabapentin (Neurontin) 300 mg HS PO 09/27/20 21:00 10/20/20 20:07 Levothyroxine Sodium (Synthroid) 100 mcg DAILY06 PO 09/27/20 06:00 09/28/20 03:07 DC 09/27/20 05:52 Lidocaine (Lidoderm) 1 patch DAILY TP 09/27/20 09:00 10/21/20 08:29 Loperamide HCl (Imodium) 2 mg PRN Q6HRS PRN PO DIARRHEA 09/27/20 01:45 10/16/20 09:20 Magnesium Oxide (Magnesium Oxide) 400 mg DAILY PO 09/27/20 09:00 10/21/20 08:30 Metformin HCl (Glucophage) 500 mg DAILY PO 09/27/20 09:00 10/21/20 08:28 Metolazone (Zaroxolyn) 2.5 mg QMWF PO 09/27/20 16:00 10/16/20 08:00 Oxycodone HCl (Roxicodone) 5 mg TID PO 09/27/20 09:00 09/27/20 03:06 DC Oxycodone/ Acetaminophen (Percocet 5/325) 1 tab PRN Q6HRS PRN PO MOD-SEV PAIN 09/27/20 01:45 10/20/20 05:35 Polyethylene Glycol (miraLAX) 17 gm DAILY PO 09/27/20 09:00 10/16/20 11:53 DC 10/13/20 08:28 Potassium Chloride (Klor-Con) 40 meq BID PO 09/27/20 09:00 09/27/20 03:06 DC Propranolol HCl (Inderal) 20 mg BID92 PO 09/27/20 09:00 10/21/20 08:29 Sennosides (Senna) 17.2 mg PRN Q12HR PRN PO 2nd choice CONSTIPATION 09/27/20 01:45 Sennosides (Senna) 8.6 mg HS PO 09/27/20 21:00 10/20/20 20:07 Spironolactone (Aldactone) 25 mg BID PO 09/27/20 09:00 10/21/20 08:28 Topiramate (Topamax) 100 mg BID PO 09/27/20 09:00 10/21/20 08:28 Vitamin D (Vitamin D3) 1,000 unit DAILY PO 09/27/20 09:00 10/21/20 08:27 Fluticasone Propionate (Flonase) 2 spray HS NS 09/27/20 21:00 10/20/20 20:05 Glucagon (Glucagen Kit) 1 mg 1X PRN PRN IM LOW BLOOD SUGAR, 2ND CHOICE 09/27/20 02:45 Non-Formulary Medication (Mag Hydrox/Al Hydrox/Simeth (Alum-Mag Hydroxide-Simeth Liq)) 30 ml Q4HRS PRN PO INDIGESTION 09/27/20 01:45 09/27/20 02:34 DC Multivitamins/ Calcium (Thera-M Plus) 1 tab DAILY PO 09/27/20 09:00 10/21/20 08:27 Multi-Ingredient Ointment (Analgesic [place]) 1 mello PRN Q4HRS PRN TP MUSCLE PAIN 09/27/20 02:45 Hydroxyzine Pamoate (Vistaril) 25 mg PRN Q6HRS PRN PO ITCHING 09/27/20 02:15 10/20/20 17:14 Ropinirole HCl (Requip) 1 mg HS PO 09/27/20 21:00 10/20/20 20:08 Ziprasidone (Geodon) 60 mg BID PO 09/27/20 09:00 10/01/20 16:52 DC 10/01/20 08:17 Alprazolam (Xanax) 0.5 mg TID PO 09/27/20 09:00 09/27/20 03:06 DC Paroxetine HCl (Paxil) 50 mg DAILY PO 09/27/20 09:00 09/30/20 13:56 DC 09/30/20 08:24 Miscellaneous (Lidoderm Patch Removal) 1 ea QHS MC 09/27/20 21:00 10/20/20 20:12 Alprazolam (Xanax) 0.5 mg TID PO 09/27/20 03:15 10/13/20 22:00 DC 10/13/20 19:53 Oxycodone HCl (Roxicodone) 5 mg TID PO 09/27/20 03:15 10/11/20 17:27 DC 10/11/20 14:27 Potassium Chloride (Klor-Con) 40 meq BID PO 09/27/20 03:15 10/21/20 08:29 Levothyroxine Sodium (Synthroid) 100 mcg DAILY06 PO 09/28/20 06:00 10/21/20 05:24 Duloxetine HCl (Cymbalta) 30 mg DAILY PO 10/01/20 09:00 10/02/20 21:01 DC 10/02/20 08:42 Duloxetine HCl (Cymbalta) 60 mg DAILY PO 10/03/20 09:00 10/17/20 19:31 DC 10/17/20 08:27 Nystatin (Nystop) 1 mello BID TP 09/30/20 21:00 10/21/20 08:29 Ziprasidone (Geodon) 80 mg BID PO 10/02/20 09:00 10/21/20 08:26 Ziprasidone (Geodon) 60 mg BID PO 10/01/20 21:00 10/01/20 21:01 DC 10/01/20 20:24 Cyproheptadine HCl (Periactin) 2 mg HS PO 10/02/20 21:00 10/20/20 20:07 Bupropion HCl (Wellbutrin Xl) 150 mg DAILY PO 10/06/20 09:00 10/10/20 18:30 DC 10/10/20 08:49 Lamotrigine (LaMICtal) 25 mg HS PO 10/08/20 21:00 10/10/20 22:00 DC 10/10/20 21:03 Lamotrigine (LaMICtal) 50 mg HS PO 10/11/20 21:00 10/13/20 22:00 DC 10/13/20 19:54 Lamotrigine (LaMICtal) 75 mg HS PO 10/14/20 21:00 10/20/20 20:06 Bupropion HCl (Wellbutrin Xl) 300 mg DAILY PO 10/11/20 09:00 10/18/20 17:42 DC 10/18/20 08:12 Apixaban (Eliquis) 10 mg BID PO 10/10/20 22:00 10/16/20 21:59 DC 10/16/20 21:04 Apixaban (Eliquis) 5 mg BID PO 10/17/20 09:00 10/21/20 08:27 Oxycodone HCl (OxyCONTIN) 10 mg Q12HR PO 10/11/20 21:00 10/15/20 17:38 DC 10/15/20 07:22 Simethicone (Gas-X) 80 mg PRN AFTMEALHC PRN PO GAS / BLOATING 10/12/20 13:45 10/12/20 15:00 Alprazolam (Xanax) 0.5 mg BID PO 10/14/20 09:00 10/16/20 22:00 DC 10/16/20 21:05 Alprazolam (Xanax) 0.5 mg DAILY PO 10/17/20 09:00 10/19/20 10:00 DC 10/19/20 08:19 Diphenhydramine HCl (Benadryl) 25 mg PRN Q6HRS PRN PO ITCHING 10/14/20 07:45 10/21/20 09:03 Gabapentin (Neurontin) 200 mg BIDWBKFT/CHERYL PO 10/16/20 08:00 10/21/20 08:28 Oxycodone HCl (OxyCONTIN) 20 mg Q12HR PO 10/15/20 21:00 10/21/20 08:28 Hydroxyzine HCl (Atarax) 25 mg PRN Q6HRS PRN PO ITCHING 10/16/20 11:45 UNV Docusate Sodium (Colace) 100 mg PRN DAILY PRN PO constipation 10/16/20 12:00 Polyethylene Glycol (miraLAX) 17 gm PRN DAILY PRN PO constipation 10/16/20 12:00 Bupropion HCl (Wellbutrin Xl) 450 mg DAILY PO 10/19/20 09:00 10/21/20 08:27 Trazodone HCl (Desyrel) 100 mg PRN QHS PRN PO insomnia 10/20/20 20:30 10/20/20 21:59 Current Medications Medications (Trade) Dose Ordered Sig/Mathieu Route PRN Reason Start Time Stop Time Status Last Admin Dose Admin Trazodone HCl (Desyrel) 100 mg PRN QHS PRN PO insomnia 10/20/20 20:30 10/20/20 21:59 I have reviewed the current psychotropics carefully including drug interactions. Risk benefit ratio favors no change other than as noted in my dictated progress note. Diagnosis: Problems: (1) Bipolar disorder, curr episode mixed, severe, with psychotic features (2) Anxiety disorder, unspecified (3) Mild cognitive impairment PAMELA RAMOS MD Oct 21, 2020 09:18
--- NOTE | 2020-10-21 09:25 | NUR ---
ZAIN contacted pt facility to go over pt discharge being postponed. The DON was not able to be reached and SW is out on vacation. ZAIN will contact the facility with an updated discharge date/plan after treatment team today.
--- NOTE | 2020-10-21 13:07 | NUR ---
WEEKLY ACTIVITY THERAPY NOTE Date of Admission:09/27/20 Date of AT Assessment: 09/27 Precipitating behaviors that initiated intake and admission:Pt was yelling at staff cussing and throwing things. Goal aimed:increase time management and relaxation skills Initial Goal:Pt will participate in at least three individual or group Activity Therapy sessions before discharge. Weekly progress towards goal: on track Group participation level: 2/3 (10/07- parade, 10/16-[employer] slideshow) Weekly highlights: engaged in [employer] slideshow on Wednesday Behaviors observed: usually sits quietly in the hallway, minimal engagement with staff and peers passing by Plan: no change to goal Beneficial adaptations:
[2020-10-21] MEDS: hydrOXYzine PAMOATE 25 MG CAPSULE PO PRN ×2 (13:18→21:46)
[2020-10-21 16:01] VITALS: BP 101/62
--- NOTE | 2020-10-21 16:02 | NUR ---
SW contacted pt dtr Brittany to let her know that pt discharge was held due to pt making SI statements to the nurse last night with a plan. Pt has conveyed upset with her discharge being stopped and pt dtr is questioning manipulation on pt end. SW and pt dtr discussed the visit from this weekend and also mentioned pt upset with medications especially if they are not medications that she wants. SW mentioned a potential for discharge and will give a few days to re-evaluate
--- NOTE | 2020-10-21 16:22 | NUR ---
Treatment team update: Pt is eating 75% of meals and sleeping 6 hours on average per night. Pt discharge was postponed due to making SI statements with a plan. This morning pt informed her nurse that she did not wish to return to [facility] and reports multiple complaints of pain, itchiness and numbness. Pt did receive Trazodone as she reports not sleeping well at night. SW will notify pt dtr and work with all parties on an appropriate discharge plan.
[2020-10-21] MEDS: metOLazone 2.5 MG TABLET PO SCH (16:25)
--- NOTE | 2020-10-21 17:05 | NUR ---
Patient alert and oriented she is med compliant and cooperative with cares patient was asked today if she had any thoughts of harming herself she shook her head no I asked if she could elaborate more on the statement she made to another staff member about harming herself when she goes back to her facility she would not answer. These statements may be made out of manipulation or out of behaviors because she may not like the facility. Patient vitals stable however blood pressure for 1400 med pass was 97/68 pulse 58 so did not give the metoprolol reassessed 2 hours later 101/62 60pulse which is higher but still on the softer side. Patient asymptomatic and complains of pain chronically in back and legs patient was given visterill as well as benadryl x2 today for itching. Patient has a good appetite she eats all meals in the dining room with other patients she is becoming more social but still fairly quiet. Patient had no behaviors to report today and has a tentative D/C date back to facility later this week but we are not to alert patient of the actual date to avoid behaviors per Dr Burch. Will continue to monitor patient.
[2020-10-21] MEDS: PATCH REMOVAL. MC SCH (21:00)
--- NOTE | 2020-10-21 21:19 | NUR ---
Patient has been asleep in bed since HS shift arrived. Addendum: 10/22/20 at 0042 by FRANCISCO MATHUR RN patient woke up to take her medications, had her brief changed and then when back to sleep. She was calm, compliant and cooperative.
[2020-10-21] MEDS: CYPROHEPTADINE 4 MG TABLET. PO SCH (21:39)
[2020-10-21] MEDS: FLUTICASONE 50MCG/NASAL SPRAY 16GM BOTTLE. NS SCH (21:39)
[2020-10-21] MEDS: lamoTRIgine 25 MG TABLET. PO SCH (21:40)
[2020-10-21] MEDS: GABAPENTIN 300 MG CAPSULE. PO SCH (21:40)
[2020-10-21] MEDS: rOPINIRole 1 MG TABLET. PO SCH (21:40)
[2020-10-21] MEDS: SENNOSIDES 8.6 MG TABLET PO SCH (21:40)
[2020-10-21] MEDS: traZODone 100 MG TABLET. PO PRN (21:45)
--- NOTE | 2020-10-21 21:47 | NUR ---
PRN senna given for constipation per order patient states no BM since 10/18. PRN vistaril given for itching per order, patient states her legs are itchy. PRN trazodone given for insomnia per order patient states she has not been sleeping, simply "resting her eyes" and cannot sleep at this time. .
--- NOTE | 2020-10-21 22:05 | PDOC ---
Exam Note: [place] Note: Please also refer to the separate dictated note~for this date of service dictated separately.~Patient seen individually. Discussed the patient with Nursing staff reviewed the chart.~Reviewed interim history and current functioning. Reviewed vital signs,~Labs/ Radiology~and current medications noted below. Continue current treatment with the changes noted in the dictated addendum note Assessment: Vital Signs/I&O: Vital Signs Date Time Temp Pulse Resp B/P (MAP) Pulse Ox O2 Delivery O2 Flow Rate FiO2 10/21/20 16:01 97.3 60 18 101/62 (75) 97 10/21/20 05:56 Room Air I & O 10/20/20 10/20/20 10/21/20 15:00 23:00 07:00 Intake Total 840 ml 600 ml Balance 840 ml 600 ml Labs: Laboratory Tests Test 10/21/20 07:30 Glucose (Fingerstick) 120 mg/dL (70-99) H Current Medications: Meds: Laboratory Tests Test 10/21/20 07:30 Glucose (Fingerstick) 120 mg/dL Current Medications Medications (Trade) Dose Ordered Sig/Mathieu Route PRN Reason Start Time Stop Time Status Last Admin Dose Admin Oxycodone/ Acetaminophen (Percocet 5/325) 1 tab 1X ONCE PO 09/26/20 15:00 09/26/20 15:01 DC 09/26/20 15:25 Morphine Sulfate (Morphine 4mg Syringe) 4 mg 1X ONCE IV 09/26/20 19:45 09/26/20 19:46 DC 09/26/20 19:44 Diphenhydramine HCl (Benadryl) 25 mg 1X ONCE IVP 09/26/20 19:45 09/26/20 19:46 DC 09/26/20 19:47 Diphenhydramine HCl (Benadryl) 50 mg STK-MED ONCE .ROUTE 09/26/20 19:41 09/26/20 19:42 DC Fentanyl Citrate (Fentanyl 2ml Vial) 75 mcg 1X ONCE IVP 09/27/20 00:15 09/27/20 00:21 DC 09/27/20 00:17 Diphenhydramine HCl (Benadryl) 50 mg 1X ONCE IVP 09/27/20 01:00 09/27/20 01:01 DC 09/27/20 00:40 Acetaminophen (Tylenol) 650 mg PRN Q6HRS PRN PO MILD PAIN / TEMP > 100.3'F 09/27/20 01:30 09/28/20 07:34 DC Al Hydroxide/Mg Hydroxide (Mylanta Plus Xs) 15 ml PRN AFTMEALHC PRN PO 2ND CHOICE DYSPEPSIA 09/27/20 01:30 10/12/20 12:30 Magnesium Hydroxide (Milk Of Magnesia) 2,400 mg PRN QHS PRN PO 1st choice CONSTIPATION 09/27/20 01:30 10/20/20 20:18 Acetaminophen (Tylenol) 500 mg PRN Q8HRS PRN PO mild PAIN 09/27/20 01:45 10/13/20 18:22 Calcium Carbonate/ Glycine (Tums) 500 mg PRN Q3HRS PRN PO 1ST CHOICE DYSPEPSIA 09/27/20 02:30 Glucose (Insta-Glucose) 15 gm PRN Q1HR PRN PO LOW BLOOD SUGAR, 1ST CHOICE 09/27/20 01:45 Docusate Sodium (Colace) 100 mg DAILY PO 09/27/20 09:00 10/16/20 11:53 DC 10/13/20 08:27 Gabapentin (Neurontin) 100 mg BIDWBKFT/CHERYL PO 09/27/20 08:00 10/15/20 17:37 DC 10/15/20 11:53 Gabapentin (Neurontin) 300 mg HS PO 09/27/20 21:00 10/21/20 21:40 Levothyroxine Sodium (Synthroid) 100 mcg DAILY06 PO 09/27/20 06:00 09/28/20 03:07 DC 09/27/20 05:52 Lidocaine (Lidoderm) 1 patch DAILY TP 09/27/20 09:00 10/21/20 08:29 Loperamide HCl (Imodium) 2 mg PRN Q6HRS PRN PO DIARRHEA 09/27/20 01:45 10/16/20 09:20 Magnesium Oxide (Magnesium Oxide) 400 mg DAILY PO 09/27/20 09:00 10/21/20 08:30 Metformin HCl (Glucophage) 500 mg DAILY PO 09/27/20 09:00 10/21/20 08:28 Metolazone (Zaroxolyn) 2.5 mg QMWF PO 09/27/20 16:00 10/21/20 16:25 Oxycodone HCl (Roxicodone) 5 mg TID PO 09/27/20 09:00 09/27/20 03:06 DC Oxycodone/ Acetaminophen (Percocet 5/325) 1 tab PRN Q6HRS PRN PO MOD-SEV PAIN 09/27/20 01:45 10/20/20 05:35 Polyethylene Glycol (miraLAX) 17 gm DAILY PO 09/27/20 09:00 10/16/20 11:53 DC 10/13/20 08:28 Potassium Chloride (Klor-Con) 40 meq BID PO 09/27/20 09:00 09/27/20 03:06 DC Propranolol HCl (Inderal) 20 mg BID92 PO 09/27/20 09:00 10/21/20 08:29 Sennosides (Senna) 17.2 mg PRN Q12HR PRN PO 2nd choice CONSTIPATION 09/27/20 01:45 10/21/20 21:46 Sennosides (Senna) 8.6 mg HS PO 09/27/20 21:00 10/21/20 21:40 Spironolactone (Aldactone) 25 mg BID PO 09/27/20 09:00 10/21/20 08:28 Topiramate (Topamax) 100 mg BID PO 09/27/20 09:00 10/21/20 21:40 Vitamin D (Vitamin D3) 1,000 unit DAILY PO 09/27/20 09:00 10/21/20 08:27 Fluticasone Propionate (Flonase) 2 spray HS NS 09/27/20 21:00 10/21/20 21:39 Glucagon (Glucagen Kit) 1 mg 1X PRN PRN IM LOW BLOOD SUGAR, 2ND CHOICE 09/27/20 02:45 Non-Formulary Medication (Mag Hydrox/Al Hydrox/Simeth (Alum-Mag Hydroxide-Simeth Liq)) 30 ml Q4HRS PRN PO INDIGESTION 09/27/20 01:45 09/27/20 02:34 DC Multivitamins/ Calcium (Thera-M Plus) 1 tab DAILY PO 09/27/20 09:00 10/21/20 08:27 Multi-Ingredient Ointment (Analgesic [place]) 1 mello PRN Q4HRS PRN TP MUSCLE PAIN 09/27/20 02:45 Hydroxyzine Pamoate (Vistaril) 25 mg PRN Q6HRS PRN PO ITCHING 09/27/20 02:15 10/21/20 21:46 Ropinirole HCl (Requip) 1 mg HS PO 09/27/20 21:00 10/21/20 21:40 Ziprasidone (Geodon) 60 mg BID PO 09/27/20 09:00 10/01/20 16:52 DC 10/01/20 08:17 Alprazolam (Xanax) 0.5 mg TID PO 09/27/20 09:00 09/27/20 03:06 DC Paroxetine HCl (Paxil) 50 mg DAILY PO 09/27/20 09:00 09/30/20 13:56 DC 09/30/20 08:24 Miscellaneous (Lidoderm Patch Removal) 1 ea QHS MC 09/27/20 21:00 10/21/20 21:00 Alprazolam (Xanax) 0.5 mg TID PO 09/27/20 03:15 10/13/20 22:00 DC 10/13/20 19:53 Oxycodone HCl (Roxicodone) 5 mg TID PO 09/27/20 03:15 10/11/20 17:27 DC 10/11/20 14:27 Potassium Chloride (Klor-Con) 40 meq BID PO 09/27/20 03:15 10/21/20 21:41 Levothyroxine Sodium (Synthroid) 100 mcg DAILY06 PO 09/28/20 06:00 10/21/20 05:24 Duloxetine HCl (Cymbalta) 30 mg DAILY PO 10/01/20 09:00 10/02/20 21:01 DC 10/02/20 08:42 Duloxetine HCl (Cymbalta) 60 mg DAILY PO 10/03/20 09:00 10/17/20 19:31 DC 10/17/20 08:27 Nystatin (Nystop) 1 mello BID TP 09/30/20 21:00 10/21/20 21:41 Ziprasidone (Geodon) 80 mg BID PO 10/02/20 09:00 10/21/20 21:40 Ziprasidone (Geodon) 60 mg BID PO 10/01/20 21:00 10/01/20 21:01 DC 10/01/20 20:24 Cyproheptadine HCl (Periactin) 2 mg HS PO 10/02/20 21:00 10/21/20 21:39 Bupropion HCl (Wellbutrin Xl) 150 mg DAILY PO 10/06/20 09:00 10/10/20 18:30 DC 10/10/20 08:49 Lamotrigine (LaMICtal) 25 mg HS PO 10/08/20 21:00 10/10/20 22:00 DC 10/10/20 21:03 Lamotrigine (LaMICtal) 50 mg HS PO 10/11/20 21:00 10/13/20 22:00 DC 10/13/20 19:54 Lamotrigine (LaMICtal) 75 mg HS PO 10/14/20 21:00 10/21/20 21:40 Bupropion HCl (Wellbutrin Xl) 300 mg DAILY PO 10/11/20 09:00 10/18/20 17:42 DC 10/18/20 08:12 Apixaban (Eliquis) 10 mg BID PO 10/10/20 22:00 10/16/20 21:59 DC 10/16/20 21:04 Apixaban (Eliquis) 5 mg BID PO 10/17/20 09:00 10/21/20 21:40 Oxycodone HCl (OxyCONTIN) 10 mg Q12HR PO 10/11/20 21:00 10/15/20 17:38 DC 10/15/20 07:22 Simethicone (Gas-X) 80 mg PRN AFTMEALHC PRN PO GAS / BLOATING 10/12/20 13:45 10/12/20 15:00 Alprazolam (Xanax) 0.5 mg BID PO 10/14/20 09:00 10/16/20 22:00 DC 10/16/20 21:05 Alprazolam (Xanax) 0.5 mg DAILY PO 10/17/20 09:00 10/19/20 10:00 DC 10/19/20 08:19 Diphenhydramine HCl (Benadryl) 25 mg PRN Q6HRS PRN PO ITCHING 10/14/20 07:45 10/21/20 16:25 Gabapentin (Neurontin) 200 mg BIDWBKFT/CHERYL PO 10/16/20 08:00 10/21/20 13:13 Oxycodone HCl (OxyCONTIN) 20 mg Q12HR PO 10/15/20 21:00 10/21/20 21:40 Hydroxyzine HCl (Atarax) 25 mg PRN Q6HRS PRN PO ITCHING 10/16/20 11:45 UNV Docusate Sodium (Colace) 100 mg PRN DAILY PRN PO constipation 10/16/20 12:00 Polyethylene Glycol (miraLAX) 17 gm PRN DAILY PRN PO constipation 10/16/20 12:00 10/21/20 13:13 Bupropion HCl (Wellbutrin Xl) 450 mg DAILY PO 10/19/20 09:00 10/21/20 08:27 Trazodone HCl (Desyrel) 100 mg PRN QHS PRN PO insomnia 10/20/20 20:30 10/21/20 21:45 I have reviewed the current psychotropics carefully including drug interactions. Risk benefit ratio favors no change other than as noted in my dictated progress note. Diagnosis: Problems: (1) Anxiety disorder, unspecified (2) Bipolar disorder, curr episode mixed, severe, with psychotic features (3) Mild cognitive impairment PAMELA RAMOS MD Oct 21, 2020 22:05
[2020-10-21] MEDS ORDERED: TRAZ-125 PO (22:50)
--- NOTE | 2020-10-22 00:43 | NUR ---
Patient did not make any SI statements and denied SI when this nurse asked her.
[2020-10-22] MEDS: LEVOTHYROXINE 100 MCG TABLET PO SCH (05:12)
[2020-10-22 05:50] VITALS: BP 96/55
--- NOTE | 2020-10-22 06:35 | NUR ---
Patient had a large BM during the night. At some point she had taken her brief off in the bed and it was smeared throughout her bedding.
--- NOTE | 2020-10-22 07:54 | PDOC ---
Exam Note: [place] Note: This note is a late entry for 10/21/2020 covers elements not covered in my initial note. Subjective: The patient was reviewed in the morning of 10/21/2020 for a treatment team meeting with Shea Garcia, Juanita Sepulveda and Kamila (web content & social media manager), Miriam, activity therapy and Sunil ROYAL, discussed and reviewed the chart. The patient slept 6 hours previous night. She complains of itching but less fixated on this as I met with her in her room this evening. Her discharge has been postponed due to her voicing suicidal ideation last night and since then we have increased the Wellbutrin. Review of Systems: Ambulation impaired in wheelchair. No CV, , pulmonary, eye, ENT system symptoms on review. Mental Status Exam: The patient is awake, alert and oriented. Speech has some latency, coherent. Abstraction fair. Computation impaired. Language function intact. Attention span short. Mood and affect somewhat withdrawn. Laboratory Data: Reviewed. Impression: Bipolar disorder depressed with psychotic features. Anxiety disorder unspecified. Impulse control disorder unspecified. Plan: No change from initial note. Discussed reasons for her extended hospitalization at the treatment team meeting. Assessment: Vital Signs/I&O: Vital Signs Date Time Temp Pulse Resp B/P (MAP) Pulse Ox O2 Delivery O2 Flow Rate FiO2 10/22/20 05:50 98.4 70 18 96/55 (69) 95 Room Air I & O 10/21/20 10/21/20 10/22/20 15:00 23:00 07:00 Intake Total 720 ml 480 ml 80 ml Balance 720 ml 480 ml 80 ml Current Medications: Meds: Current Medications Medications (Trade) Dose Ordered Sig/Mathieu Route PRN Reason Start Time Stop Time Status Last Admin Dose Admin Oxycodone/ Acetaminophen (Percocet 5/325) 1 tab 1X ONCE PO 09/26/20 15:00 09/26/20 15:01 DC 09/26/20 15:25 Morphine Sulfate (Morphine 4mg Syringe) 4 mg 1X ONCE IV 09/26/20 19:45 09/26/20 19:46 DC 09/26/20 19:44 Diphenhydramine HCl (Benadryl) 25 mg 1X ONCE IVP 09/26/20 19:45 09/26/20 19:46 DC 09/26/20 19:47 Diphenhydramine HCl (Benadryl) 50 mg STK-MED ONCE .ROUTE 09/26/20 19:41 09/26/20 19:42 DC Fentanyl Citrate (Fentanyl 2ml Vial) 75 mcg 1X ONCE IVP 09/27/20 00:15 09/27/20 00:21 DC 09/27/20 00:17 Diphenhydramine HCl (Benadryl) 50 mg 1X ONCE IVP 09/27/20 01:00 09/27/20 01:01 DC 09/27/20 00:40 Acetaminophen (Tylenol) 650 mg PRN Q6HRS PRN PO MILD PAIN / TEMP > 100.3'F 09/27/20 01:30 09/28/20 07:34 DC Al Hydroxide/Mg Hydroxide (Mylanta Plus Xs) 15 ml PRN AFTMEALHC PRN PO 2ND CHOICE DYSPEPSIA 09/27/20 01:30 10/12/20 12:30 Magnesium Hydroxide (Milk Of Magnesia) 2,400 mg PRN QHS PRN PO 1st choice CONSTIPATION 09/27/20 01:30 10/20/20 20:18 Acetaminophen (Tylenol) 500 mg PRN Q8HRS PRN PO mild PAIN 09/27/20 01:45 10/13/20 18:22 Calcium Carbonate/ Glycine (Tums) 500 mg PRN Q3HRS PRN PO 1ST CHOICE DYSPEPSIA 09/27/20 02:30 Glucose (Insta-Glucose) 15 gm PRN Q1HR PRN PO LOW BLOOD SUGAR, 1ST CHOICE 09/27/20 01:45 Docusate Sodium (Colace) 100 mg DAILY PO 09/27/20 09:00 10/16/20 11:53 DC 10/13/20 08:27 Gabapentin (Neurontin) 100 mg BIDWBKFT/CHERYL PO 09/27/20 08:00 10/15/20 17:37 DC 10/15/20 11:53 Gabapentin (Neurontin) 300 mg HS PO 09/27/20 21:00 10/21/20 21:40 Levothyroxine Sodium (Synthroid) 100 mcg DAILY06 PO 09/27/20 06:00 09/28/20 03:07 DC 09/27/20 05:52 Lidocaine (Lidoderm) 1 patch DAILY TP 09/27/20 09:00 10/21/20 08:29 Loperamide HCl (Imodium) 2 mg PRN Q6HRS PRN PO DIARRHEA 09/27/20 01:45 10/16/20 09:20 Magnesium Oxide (Magnesium Oxide) 400 mg DAILY PO 09/27/20 09:00 10/21/20 08:30 Metformin HCl (Glucophage) 500 mg DAILY PO 09/27/20 09:00 10/21/20 08:28 Metolazone (Zaroxolyn) 2.5 mg QMWF PO 09/27/20 16:00 10/21/20 16:25 Oxycodone HCl (Roxicodone) 5 mg TID PO 09/27/20 09:00 09/27/20 03:06 DC Oxycodone/ Acetaminophen (Percocet 5/325) 1 tab PRN Q6HRS PRN PO MOD-SEV PAIN 09/27/20 01:45 10/20/20 05:35 Polyethylene Glycol (miraLAX) 17 gm DAILY PO 09/27/20 09:00 10/16/20 11:53 DC 10/13/20 08:28 Potassium Chloride (Klor-Con) 40 meq BID PO 09/27/20 09:00 09/27/20 03:06 DC Propranolol HCl (Inderal) 20 mg BID92 PO 09/27/20 09:00 10/21/20 08:29 Sennosides (Senna) 17.2 mg PRN Q12HR PRN PO 2nd choice CONSTIPATION 09/27/20 01:45 10/21/20 21:46 Sennosides (Senna) 8.6 mg HS PO 09/27/20 21:00 10/21/20 21:40 Spironolactone (Aldactone) 25 mg BID PO 09/27/20 09:00 10/21/20 08:28 Topiramate (Topamax) 100 mg BID PO 09/27/20 09:00 10/21/20 21:40 Vitamin D (Vitamin D3) 1,000 unit DAILY PO 09/27/20 09:00 10/21/20 08:27 Fluticasone Propionate (Flonase) 2 spray HS NS 09/27/20 21:00 10/21/20 21:39 Glucagon (Glucagen Kit) 1 mg 1X PRN PRN IM LOW BLOOD SUGAR, 2ND CHOICE 09/27/20 02:45 Non-Formulary Medication (Mag Hydrox/Al Hydrox/Simeth (Alum-Mag Hydroxide-Simeth Liq)) 30 ml Q4HRS PRN PO INDIGESTION 09/27/20 01:45 09/27/20 02:34 DC Multivitamins/ Calcium (Thera-M Plus) 1 tab DAILY PO 09/27/20 09:00 10/21/20 08:27 Multi-Ingredient Ointment (Analgesic [place]) 1 mello PRN Q4HRS PRN TP MUSCLE PAIN 09/27/20 02:45 Hydroxyzine Pamoate (Vistaril) 25 mg PRN Q6HRS PRN PO ITCHING 09/27/20 02:15 10/21/20 21:46 Ropinirole HCl (Requip) 1 mg HS PO 09/27/20 21:00 10/21/20 21:40 Ziprasidone (Geodon) 60 mg BID PO 09/27/20 09:00 10/01/20 16:52 DC 10/01/20 08:17 Alprazolam (Xanax) 0.5 mg TID PO 09/27/20 09:00 09/27/20 03:06 DC Paroxetine HCl (Paxil) 50 mg DAILY PO 09/27/20 09:00 09/30/20 13:56 DC 09/30/20 08:24 Miscellaneous (Lidoderm Patch Removal) 1 ea QHS MC 09/27/20 21:00 10/21/20 21:00 Alprazolam (Xanax) 0.5 mg TID PO 09/27/20 03:15 10/13/20 22:00 DC 10/13/20 19:53 Oxycodone HCl (Roxicodone) 5 mg TID PO 09/27/20 03:15 10/11/20 17:27 DC 10/11/20 14:27 Potassium Chloride (Klor-Con) 40 meq BID PO 09/27/20 03:15 10/21/20 21:41 Levothyroxine Sodium (Synthroid) 100 mcg DAILY06 PO 09/28/20 06:00 10/22/20 05:12 Duloxetine HCl (Cymbalta) 30 mg DAILY PO 10/01/20 09:00 10/02/20 21:01 DC 10/02/20 08:42 Duloxetine HCl (Cymbalta) 60 mg DAILY PO 10/03/20 09:00 10/17/20 19:31 DC 10/17/20 08:27 Nystatin (Nystop) 1 mello BID TP 09/30/20 21:00 10/21/20 21:41 Ziprasidone (Geodon) 80 mg BID PO 10/02/20 09:00 10/21/20 21:40 Ziprasidone (Geodon) 60 mg BID PO 10/01/20 21:00 10/01/20 21:01 DC 10/01/20 20:24 Cyproheptadine HCl (Periactin) 2 mg HS PO 10/02/20 21:00 10/21/20 21:39 Bupropion HCl (Wellbutrin Xl) 150 mg DAILY PO 10/06/20 09:00 10/10/20 18:30 DC 10/10/20 08:49 Lamotrigine (LaMICtal) 25 mg HS PO 10/08/20 21:00 10/10/20 22:00 DC 10/10/20 21:03 Lamotrigine (LaMICtal) 50 mg HS PO 10/11/20 21:00 10/13/20 22:00 DC 10/13/20 19:54 Lamotrigine (LaMICtal) 75 mg HS PO 10/14/20 21:00 10/21/20 21:40 Bupropion HCl (Wellbutrin Xl) 300 mg DAILY PO 10/11/20 09:00 10/18/20 17:42 DC 10/18/20 08:12 Apixaban (Eliquis) 10 mg BID PO 10/10/20 22:00 10/16/20 21:59 DC 10/16/20 21:04 Apixaban (Eliquis) 5 mg BID PO 10/17/20 09:00 10/21/20 21:40 Oxycodone HCl (OxyCONTIN) 10 mg Q12HR PO 10/11/20 21:00 10/15/20 17:38 DC 10/15/20 07:22 Simethicone (Gas-X) 80 mg PRN AFTMEALHC PRN PO GAS / BLOATING 10/12/20 13:45 10/12/20 15:00 Alprazolam (Xanax) 0.5 mg BID PO 10/14/20 09:00 10/16/20 22:00 DC 10/16/20 21:05 Alprazolam (Xanax) 0.5 mg DAILY PO 10/17/20 09:00 10/19/20 10:00 DC 10/19/20 08:19 Diphenhydramine HCl (Benadryl) 25 mg PRN Q6HRS PRN PO ITCHING 10/14/20 07:45 10/21/20 16:25 Gabapentin (Neurontin) 200 mg BIDWBKFT/CHERYL PO 10/16/20 08:00 10/21/20 13:13 Oxycodone HCl (OxyCONTIN) 20 mg Q12HR PO 10/15/20 21:00 10/21/20 21:40 Hydroxyzine HCl (Atarax) 25 mg PRN Q6HRS PRN PO ITCHING 10/16/20 11:45 UNV Docusate Sodium (Colace) 100 mg PRN DAILY PRN PO constipation 10/16/20 12:00 Polyethylene Glycol (miraLAX) 17 gm PRN DAILY PRN PO constipation 10/16/20 12:00 10/21/20 13:13 Bupropion HCl (Wellbutrin Xl) 450 mg DAILY PO 10/19/20 09:00 10/21/20 08:27 Trazodone HCl (Desyrel) 100 mg PRN QHS PRN PO insomnia 10/20/20 20:30 10/21/20 21:45 I have reviewed the current psychotropics carefully including drug interactions. Risk benefit ratio favors no change other than as noted in my dictated progress note. Diagnosis: Problems: (1) Anxiety disorder, unspecified (2) Bipolar disorder, curr episode mixed, severe, with psychotic features (3) Mild cognitive impairment PAMELA RAMOS MD Oct 22, 2020 07:54
[2020-10-22] MEDS: ZIPRASIDONE 80 MG CAPSULE. PO SCH ×2 (08:23→21:34)
[2020-10-22] MEDS: GABAPENTIN 100 MG CAPSULE. PO SCH ×2 (08:23→12:25)
[2020-10-22] MEDS: CHOLECALCIFEROL (VITAMIN D3) 1,000 UNIT TABLET PO SCH (08:23)
[2020-10-22] MEDS: SPIRONOLACTONE 25 MG TABLET PO SCH ×2 (08:24→21:33)
[2020-10-22] MEDS: POTASSIUM CHLORIDE 20 MEQ TABLET.ER. PO SCH ×2 (08:24→21:34)
[2020-10-22] MEDS: TOPIRAMATE 100 MG TABLET. PO SCH ×2 (08:24→21:34)
[2020-10-22] MEDS: MULTIVITAMIN with MINERAL TABLET. PO SCH (08:24)
[2020-10-22] MEDS: APIXABAN 5 MG TABLET. PO SCH ×2 (08:24→21:33)
[2020-10-22] MEDS: diphenhydrAMINE HCL 25 MG CAPSULE PO PRN ×2 (08:24→17:50)
[2020-10-22] MEDS: oxyCODONE ER 20 MG TAB.ER.12H PO SCH ×2 (08:24→21:32)
[2020-10-22] MEDS: metFORMIN 500 MG TABLET PO SCH (08:25)
[2020-10-22] MEDS: LIDOCAINE (700MG/PATCH) PATCH. TP SCH (08:25)
[2020-10-22] MEDS: buPROPion XL 300 MG TAB.ER.24H. PO SCH (08:25)
[2020-10-22] MEDS: NYSTATIN TOPICAL POWDER 15GM BOTTLE. TP SCH ×2 (08:32→21:32)
[2020-10-22] MEDS: MAGNESIUM OXIDE 400 MG TABLET PO SCH (08:32)
[2020-10-22] MEDS: PROPRANOLOL 10 MG TABLET. PO SCH ×2 (08:32→13:38)
[2020-10-22 15:43] VITALS: BP 99/64
--- NOTE | 2020-10-22 16:28 | NUR ---
[facility] Social Work Discharge Planning Form Patient Name JADA DAWSON Admit Date: 27 Sep 2020 DISCHARGE PLAN Discharge Destination: Pt to discharge back to [facility]. Care Assessment: N/A Level II Assessment: N/A Transportation: Pt facility to pick pt up on (10/24); to call AM with picker operator time. Special Instructions/Notes: Please fax discharge orders, discharge medications and discharge summary to the fax numbers listed below. DISCHARGE TO FACILITY Facility: [facility] Address: [address] [place] [address] Contact Name: Merna Cid Data Entry Manager: Contact Name: Please ask for the nurse caring for pt upon admission. PCP: Dr. Patel
--- NOTE | 2020-10-22 17:52 | NUR ---
Pt alert and oriented no self harming behaviors or statements made today patient med compliant and cooperative with cares patient has a good appetite she is in the dining room for all meals patient received 2 prn benadryl at 0815 and at 1750 both effective in relieving patient from itching. Patient blood pressure was low this morning and at 1400 med pass so the propanolol was held. Patient asymptomatic of hypotension and it is not abnormal for patient sbp to be under 100. Patient has chronic back pain which she gets a lidocaine patch and it is effective. Patient will be leaving to go back to her facility this 10/24 Dr Otero will sign the d/c med order. Will continue to monitor patient. Addendum: 10/22/20 at 1811 by JOSHUA ROJAS RN Pt requested a pain pill due to pain in back and ble patient reported a 9/10 pain level she was given at percocet 5/325mg tab will monitor patient for med effectiveness.
[2020-10-22] MEDS: oxyCODONE/APAP 5/325 1 TAB TABLET PO PRN (18:07)
[2020-10-22] MEDS: PATCH REMOVAL. MC SCH (21:00)
[2020-10-22] MEDS: FLUTICASONE 50MCG/NASAL SPRAY 16GM BOTTLE. NS SCH (21:32)
[2020-10-22] MEDS: lamoTRIgine 25 MG TABLET. PO SCH (21:32)
[2020-10-22] MEDS: CYPROHEPTADINE 4 MG TABLET. PO SCH (21:33)
[2020-10-22] MEDS: rOPINIRole 1 MG TABLET. PO SCH (21:33)
[2020-10-22] MEDS: GABAPENTIN 300 MG CAPSULE. PO SCH (21:33)
[2020-10-22] MEDS: SENNOSIDES 8.6 MG TABLET PO SCH (21:33)
--- NOTE | 2020-10-22 22:13 | PDOC ---
Exam Note: [place] Note: Please also refer to the separate dictated note~for this date of service dictated separately.~Patient seen individually. Discussed the patient with Nursing staff reviewed the chart.~Reviewed interim history and current functioning. Reviewed vital signs,~Labs/ Radiology~and current medications noted below. Continue current treatment with the changes noted in the dictated addendum note Assessment: Vital Signs/I&O: Vital Signs Date Time Temp Pulse Resp B/P (MAP) Pulse Ox O2 Delivery O2 Flow Rate FiO2 10/22/20 21:32 Room Air 10/22/20 18:07 18 10/22/20 15:43 97.6 73 99/64 (76) 98 I & O 10/21/20 10/21/20 10/22/20 14:59 22:59 06:59 Intake Total 720 ml 480 ml 80 ml Balance 720 ml 480 ml 80 ml Current Medications: Meds: Current Medications Medications (Trade) Dose Ordered Sig/Mathieu Route PRN Reason Start Time Stop Time Status Last Admin Dose Admin Oxycodone/ Acetaminophen (Percocet 5/325) 1 tab 1X ONCE PO 09/26/20 15:00 09/26/20 15:01 DC 09/26/20 15:25 Morphine Sulfate (Morphine 4mg Syringe) 4 mg 1X ONCE IV 09/26/20 19:45 09/26/20 19:46 DC 09/26/20 19:44 Diphenhydramine HCl (Benadryl) 25 mg 1X ONCE IVP 09/26/20 19:45 09/26/20 19:46 DC 09/26/20 19:47 Diphenhydramine HCl (Benadryl) 50 mg STK-MED ONCE .ROUTE 09/26/20 19:41 09/26/20 19:42 DC Fentanyl Citrate (Fentanyl 2ml Vial) 75 mcg 1X ONCE IVP 09/27/20 00:15 09/27/20 00:21 DC 09/27/20 00:17 Diphenhydramine HCl (Benadryl) 50 mg 1X ONCE IVP 09/27/20 01:00 09/27/20 01:01 DC 09/27/20 00:40 Acetaminophen (Tylenol) 650 mg PRN Q6HRS PRN PO MILD PAIN / TEMP > 100.3'F 09/27/20 01:30 09/28/20 07:34 DC Al Hydroxide/Mg Hydroxide (Mylanta Plus Xs) 15 ml PRN AFTMEALHC PRN PO 2ND CHOICE DYSPEPSIA 09/27/20 01:30 10/12/20 12:30 Magnesium Hydroxide (Milk Of Magnesia) 2,400 mg PRN QHS PRN PO 1st choice CONSTIPATION 09/27/20 01:30 10/20/20 20:18 Acetaminophen (Tylenol) 500 mg PRN Q8HRS PRN PO mild PAIN 09/27/20 01:45 10/13/20 18:22 Calcium Carbonate/ Glycine (Tums) 500 mg PRN Q3HRS PRN PO 1ST CHOICE DYSPEPSIA 09/27/20 02:30 Glucose (Insta-Glucose) 15 gm PRN Q1HR PRN PO LOW BLOOD SUGAR, 1ST CHOICE 09/27/20 01:45 Docusate Sodium (Colace) 100 mg DAILY PO 09/27/20 09:00 10/16/20 11:53 DC 10/13/20 08:27 Gabapentin (Neurontin) 100 mg BIDWBKFT/CHERYL PO 09/27/20 08:00 10/15/20 17:37 DC 10/15/20 11:53 Gabapentin (Neurontin) 300 mg HS PO 09/27/20 21:00 10/22/20 21:33 Levothyroxine Sodium (Synthroid) 100 mcg DAILY06 PO 09/27/20 06:00 09/28/20 03:07 DC 09/27/20 05:52 Lidocaine (Lidoderm) 1 patch DAILY TP 09/27/20 09:00 10/22/20 08:25 Loperamide HCl (Imodium) 2 mg PRN Q6HRS PRN PO DIARRHEA 09/27/20 01:45 10/16/20 09:20 Magnesium Oxide (Magnesium Oxide) 400 mg DAILY PO 09/27/20 09:00 10/22/20 08:32 Metformin HCl (Glucophage) 500 mg DAILY PO 09/27/20 09:00 10/22/20 08:25 Metolazone (Zaroxolyn) 2.5 mg QMWF PO 09/27/20 16:00 10/21/20 16:25 Oxycodone HCl (Roxicodone) 5 mg TID PO 09/27/20 09:00 09/27/20 03:06 DC Oxycodone/ Acetaminophen (Percocet 5/325) 1 tab PRN Q6HRS PRN PO MOD-SEV PAIN 09/27/20 01:45 10/22/20 18:07 Polyethylene Glycol (miraLAX) 17 gm DAILY PO 09/27/20 09:00 10/16/20 11:53 DC 10/13/20 08:28 Potassium Chloride (Klor-Con) 40 meq BID PO 09/27/20 09:00 09/27/20 03:06 DC Propranolol HCl (Inderal) 20 mg BID92 PO 09/27/20 09:00 10/21/20 08:29 Sennosides (Senna) 17.2 mg PRN Q12HR PRN PO 2nd choice CONSTIPATION 09/27/20 01:45 10/21/20 21:46 Sennosides (Senna) 8.6 mg HS PO 09/27/20 21:00 10/22/20 21:33 Spironolactone (Aldactone) 25 mg BID PO 09/27/20 09:00 10/22/20 21:33 Topiramate (Topamax) 100 mg BID PO 09/27/20 09:00 10/22/20 21:34 Vitamin D (Vitamin D3) 1,000 unit DAILY PO 09/27/20 09:00 10/22/20 08:23 Fluticasone Propionate (Flonase) 2 spray HS NS 09/27/20 21:00 10/22/20 21:32 Glucagon (Glucagen Kit) 1 mg 1X PRN PRN IM LOW BLOOD SUGAR, 2ND CHOICE 09/27/20 02:45 Non-Formulary Medication (Mag Hydrox/Al Hydrox/Simeth (Alum-Mag Hydroxide-Simeth Liq)) 30 ml Q4HRS PRN PO INDIGESTION 09/27/20 01:45 09/27/20 02:34 DC Multivitamins/ Calcium (Thera-M Plus) 1 tab DAILY PO 09/27/20 09:00 10/22/20 08:24 Multi-Ingredient Ointment (Analgesic [place]) 1 mello PRN Q4HRS PRN TP MUSCLE PAIN 09/27/20 02:45 Hydroxyzine Pamoate (Vistaril) 25 mg PRN Q6HRS PRN PO ITCHING, 2ND CHOICE 09/27/20 02:15 10/21/20 21:46 Ropinirole HCl (Requip) 1 mg HS PO 09/27/20 21:00 10/22/20 21:33 Ziprasidone (Geodon) 60 mg BID PO 09/27/20 09:00 10/01/20 16:52 DC 10/01/20 08:17 Alprazolam (Xanax) 0.5 mg TID PO 09/27/20 09:00 09/27/20 03:06 DC Paroxetine HCl (Paxil) 50 mg DAILY PO 09/27/20 09:00 09/30/20 13:56 DC 09/30/20 08:24 Miscellaneous (Lidoderm Patch Removal) 1 ea QHS MC 09/27/20 21:00 10/22/20 21:00 Alprazolam (Xanax) 0.5 mg TID PO 09/27/20 03:15 10/13/20 22:00 DC 10/13/20 19:53 Oxycodone HCl (Roxicodone) 5 mg TID PO 09/27/20 03:15 10/11/20 17:27 DC 10/11/20 14:27 Potassium Chloride (Klor-Con) 40 meq BID PO 09/27/20 03:15 10/22/20 21:34 Levothyroxine Sodium (Synthroid) 100 mcg DAILY06 PO 09/28/20 06:00 10/22/20 05:12 Duloxetine HCl (Cymbalta) 30 mg DAILY PO 10/01/20 09:00 10/02/20 21:01 DC 10/02/20 08:42 Duloxetine HCl (Cymbalta) 60 mg DAILY PO 10/03/20 09:00 10/17/20 19:31 DC 10/17/20 08:27 Nystatin (Nystop) 1 mello BID TP 09/30/20 21:00 10/22/20 21:32 Ziprasidone (Geodon) 80 mg BID PO 10/02/20 09:00 10/22/20 21:34 Ziprasidone (Geodon) 60 mg BID PO 10/01/20 21:00 10/01/20 21:01 DC 10/01/20 20:24 Cyproheptadine HCl (Periactin) 2 mg HS PO 10/02/20 21:00 10/22/20 21:33 Bupropion HCl (Wellbutrin Xl) 150 mg DAILY PO 10/06/20 09:00 10/10/20 18:30 DC 10/10/20 08:49 Lamotrigine (LaMICtal) 25 mg HS PO 10/08/20 21:00 10/10/20 22:00 DC 10/10/20 21:03 Lamotrigine (LaMICtal) 50 mg HS PO 10/11/20 21:00 10/13/20 22:00 DC 10/13/20 19:54 Lamotrigine (LaMICtal) 75 mg HS PO 10/14/20 21:00 10/22/20 21:32 Bupropion HCl (Wellbutrin Xl) 300 mg DAILY PO 10/11/20 09:00 10/18/20 17:42 DC 10/18/20 08:12 Apixaban (Eliquis) 10 mg BID PO 10/10/20 22:00 10/16/20 21:59 DC 10/16/20 21:04 Apixaban (Eliquis) 5 mg BID PO 10/17/20 09:00 10/22/20 21:33 Oxycodone HCl (OxyCONTIN) 10 mg Q12HR PO 10/11/20 21:00 10/15/20 17:38 DC 10/15/20 07:22 Simethicone (Gas-X) 80 mg PRN AFTMEALHC PRN PO GAS / BLOATING 10/12/20 13:45 10/12/20 15:00 Alprazolam (Xanax) 0.5 mg BID PO 10/14/20 09:00 10/16/20 22:00 DC 10/16/20 21:05 Alprazolam (Xanax) 0.5 mg DAILY PO 10/17/20 09:00 10/19/20 10:00 DC 10/19/20 08:19 Diphenhydramine HCl (Benadryl) 25 mg PRN Q6HRS PRN PO ITCHING, 1ST CHOICE 10/14/20 07:45 10/22/20 17:50 Gabapentin (Neurontin) 200 mg BIDWBKFT/CHERYL PO 10/16/20 08:00 10/22/20 12:25 Oxycodone HCl (OxyCONTIN) 20 mg Q12HR PO 10/15/20 21:00 10/22/20 21:32 Hydroxyzine HCl (Atarax) 25 mg PRN Q6HRS PRN PO ITCHING 10/16/20 11:45 UNV Docusate Sodium (Colace) 100 mg PRN DAILY PRN PO constipation 10/16/20 12:00 Polyethylene Glycol (miraLAX) 17 gm PRN DAILY PRN PO constipation 10/16/20 12:00 10/21/20 13:13 Bupropion HCl (Wellbutrin Xl) 450 mg DAILY PO 10/19/20 09:00 10/22/20 08:25 Trazodone HCl (Desyrel) 100 mg PRN QHS PRN PO insomnia 10/20/20 20:30 10/21/20 21:45 I have reviewed the current psychotropics carefully including drug interactions. Risk benefit ratio favors no change other than as noted in my dictated progress note. Diagnosis: Problems: (1) Bipolar disorder, curr episode mixed, severe, with psychotic features (2) Anxiety disorder, unspecified (3) Mild cognitive impairment PAMELA RAMOS MD Oct 22, 2020 22:13
--- NOTE | 2020-10-22 23:30 | PDOC ---
Exam Note: [place] Note: This note covers elements not covered in my initial note. Subjective: The patient was seen individually in the evening of 10/22/2020 with Sunil ROYAL, discussed and reviewed the chart. The patient slept 7-1/4 hours previous night. The patient has not voiced any overt suicidal ideation. Nursing staff have gone out of the way not to let her know about discharge plans for tomorrow because it appears the last time she was told of discharge plans she sabotaged it voicing suicidal ideation. Specifically when I questioned her today during the individual assessment she denied current suicidal ideation. Review of Systems: Ambulation impaired in wheelchair. No CV, , pulmonary, eye, ENT system symptoms on review. Mental Status Exam: The patient is alert and oriented. She was seated in a wheelchair. Speech has some moderate latency. Often response is monosyllabic. Abstraction fair. Computation impaired. Language function intact. Attention span short. Mood and affect little more animated coming out for groups and no suicidal ideation. Laboratory Data: Reviewed. Impression: Bipolar disorder depressed with psychotic features. Anxiety disorder unspecified. Impulse control disorder unspecified. Plan: No change from initial note. Wellbutrin has been increased. Rest unchanged with tentative discharge back to detention possibly tomorrow. Assessment: Vital Signs/I&O: Vital Signs Date Time Temp Pulse Resp B/P (MAP) Pulse Ox O2 Delivery O2 Flow Rate FiO2 10/22/20 21:32 Room Air 10/22/20 18:07 18 10/22/20 15:43 97.6 73 99/64 (76) 98 I & O 10/21/20 10/21/20 10/22/20 15:00 23:00 07:00 Intake Total 720 ml 480 ml 80 ml Balance 720 ml 480 ml 80 ml Current Medications: Meds: Current Medications Medications (Trade) Dose Ordered Sig/Mathieu Route PRN Reason Start Time Stop Time Status Last Admin Dose Admin Oxycodone/ Acetaminophen (Percocet 5/325) 1 tab 1X ONCE PO 09/26/20 15:00 09/26/20 15:01 DC 09/26/20 15:25 Morphine Sulfate (Morphine 4mg Syringe) 4 mg 1X ONCE IV 09/26/20 19:45 09/26/20 19:46 DC 09/26/20 19:44 Diphenhydramine HCl (Benadryl) 25 mg 1X ONCE IVP 09/26/20 19:45 09/26/20 19:46 DC 09/26/20 19:47 Diphenhydramine HCl (Benadryl) 50 mg STK-MED ONCE .ROUTE 09/26/20 19:41 09/26/20 19:42 DC Fentanyl Citrate (Fentanyl 2ml Vial) 75 mcg 1X ONCE IVP 09/27/20 00:15 09/27/20 00:21 DC 09/27/20 00:17 Diphenhydramine HCl (Benadryl) 50 mg 1X ONCE IVP 09/27/20 01:00 09/27/20 01:01 DC 09/27/20 00:40 Acetaminophen (Tylenol) 650 mg PRN Q6HRS PRN PO MILD PAIN / TEMP > 100.3'F 09/27/20 01:30 09/28/20 07:34 DC Al Hydroxide/Mg Hydroxide (Mylanta Plus Xs) 15 ml PRN AFTMEALHC PRN PO 2ND CHOICE DYSPEPSIA 09/27/20 01:30 10/12/20 12:30 Magnesium Hydroxide (Milk Of Magnesia) 2,400 mg PRN QHS PRN PO 1st choice CONSTIPATION 09/27/20 01:30 10/20/20 20:18 Acetaminophen (Tylenol) 500 mg PRN Q8HRS PRN PO mild PAIN 09/27/20 01:45 10/13/20 18:22 Calcium Carbonate/ Glycine (Tums) 500 mg PRN Q3HRS PRN PO 1ST CHOICE DYSPEPSIA 09/27/20 02:30 Glucose (Insta-Glucose) 15 gm PRN Q1HR PRN PO LOW BLOOD SUGAR, 1ST CHOICE 09/27/20 01:45 Docusate Sodium (Colace) 100 mg DAILY PO 09/27/20 09:00 10/16/20 11:53 DC 10/13/20 08:27 Gabapentin (Neurontin) 100 mg BIDWBKFT/CHERYL PO 09/27/20 08:00 10/15/20 17:37 DC 10/15/20 11:53 Gabapentin (Neurontin) 300 mg HS PO 09/27/20 21:00 10/22/20 21:33 Levothyroxine Sodium (Synthroid) 100 mcg DAILY06 PO 09/27/20 06:00 09/28/20 03:07 DC 09/27/20 05:52 Lidocaine (Lidoderm) 1 patch DAILY TP 09/27/20 09:00 10/22/20 08:25 Loperamide HCl (Imodium) 2 mg PRN Q6HRS PRN PO DIARRHEA 09/27/20 01:45 10/16/20 09:20 Magnesium Oxide (Magnesium Oxide) 400 mg DAILY PO 09/27/20 09:00 10/22/20 08:32 Metformin HCl (Glucophage) 500 mg DAILY PO 09/27/20 09:00 10/22/20 08:25 Metolazone (Zaroxolyn) 2.5 mg QMWF PO 09/27/20 16:00 10/21/20 16:25 Oxycodone HCl (Roxicodone) 5 mg TID PO 09/27/20 09:00 09/27/20 03:06 DC Oxycodone/ Acetaminophen (Percocet 5/325) 1 tab PRN Q6HRS PRN PO MOD-SEV PAIN 09/27/20 01:45 10/22/20 18:07 Polyethylene Glycol (miraLAX) 17 gm DAILY PO 09/27/20 09:00 10/16/20 11:53 DC 10/13/20 08:28 Potassium Chloride (Klor-Con) 40 meq BID PO 09/27/20 09:00 09/27/20 03:06 DC Propranolol HCl (Inderal) 20 mg BID92 PO 09/27/20 09:00 10/21/20 08:29 Sennosides (Senna) 17.2 mg PRN Q12HR PRN PO 2nd choice CONSTIPATION 09/27/20 01:45 10/21/20 21:46 Sennosides (Senna) 8.6 mg HS PO 09/27/20 21:00 10/22/20 21:33 Spironolactone (Aldactone) 25 mg BID PO 09/27/20 09:00 10/22/20 21:33 Topiramate (Topamax) 100 mg BID PO 09/27/20 09:00 10/22/20 21:34 Vitamin D (Vitamin D3) 1,000 unit DAILY PO 09/27/20 09:00 10/22/20 08:23 Fluticasone Propionate (Flonase) 2 spray HS NS 09/27/20 21:00 10/22/20 21:32 Glucagon (Glucagen Kit) 1 mg 1X PRN PRN IM LOW BLOOD SUGAR, 2ND CHOICE 09/27/20 02:45 Non-Formulary Medication (Mag Hydrox/Al Hydrox/Simeth (Alum-Mag Hydroxide-Simeth Liq)) 30 ml Q4HRS PRN PO INDIGESTION 09/27/20 01:45 09/27/20 02:34 DC Multivitamins/ Calcium (Thera-M Plus) 1 tab DAILY PO 09/27/20 09:00 10/22/20 08:24 Multi-Ingredient Ointment (Analgesic [place]) 1 mello PRN Q4HRS PRN TP MUSCLE PAIN 09/27/20 02:45 Hydroxyzine Pamoate (Vistaril) 25 mg PRN Q6HRS PRN PO ITCHING, 2ND CHOICE 09/27/20 02:15 10/21/20 21:46 Ropinirole HCl (Requip) 1 mg HS PO 09/27/20 21:00 10/22/20 21:33 Ziprasidone (Geodon) 60 mg BID PO 09/27/20 09:00 10/01/20 16:52 DC 10/01/20 08:17 Alprazolam (Xanax) 0.5 mg TID PO 09/27/20 09:00 09/27/20 03:06 DC Paroxetine HCl (Paxil) 50 mg DAILY PO 09/27/20 09:00 09/30/20 13:56 DC 09/30/20 08:24 Miscellaneous (Lidoderm Patch Removal) 1 ea QHS MC 09/27/20 21:00 10/22/20 21:00 Alprazolam (Xanax) 0.5 mg TID PO 09/27/20 03:15 10/13/20 22:00 DC 10/13/20 19:53 Oxycodone HCl (Roxicodone) 5 mg TID PO 09/27/20 03:15 10/11/20 17:27 DC 10/11/20 14:27 Potassium Chloride (Klor-Con) 40 meq BID PO 09/27/20 03:15 10/22/20 21:34 Levothyroxine Sodium (Synthroid) 100 mcg DAILY06 PO 09/28/20 06:00 10/22/20 05:12 Duloxetine HCl (Cymbalta) 30 mg DAILY PO 10/01/20 09:00 10/02/20 21:01 DC 10/02/20 08:42 Duloxetine HCl (Cymbalta) 60 mg DAILY PO 10/03/20 09:00 10/17/20 19:31 DC 10/17/20 08:27 Nystatin (Nystop) 1 mello BID TP 09/30/20 21:00 10/22/20 21:32 Ziprasidone (Geodon) 80 mg BID PO 10/02/20 09:00 10/22/20 21:34 Ziprasidone (Geodon) 60 mg BID PO 10/01/20 21:00 10/01/20 21:01 DC 10/01/20 20:24 Cyproheptadine HCl (Periactin) 2 mg HS PO 10/02/20 21:00 10/22/20 21:33 Bupropion HCl (Wellbutrin Xl) 150 mg DAILY PO 10/06/20 09:00 10/10/20 18:30 DC 10/10/20 08:49 Lamotrigine (LaMICtal) 25 mg HS PO 10/08/20 21:00 10/10/20 22:00 DC 10/10/20 21:03 Lamotrigine (LaMICtal) 50 mg HS PO 10/11/20 21:00 10/13/20 22:00 DC 10/13/20 19:54 Lamotrigine (LaMICtal) 75 mg HS PO 10/14/20 21:00 10/22/20 21:32 Bupropion HCl (Wellbutrin Xl) 300 mg DAILY PO 10/11/20 09:00 10/18/20 17:42 DC 10/18/20 08:12 Apixaban (Eliquis) 10 mg BID PO 10/10/20 22:00 10/16/20 21:59 DC 10/16/20 21:04 Apixaban (Eliquis) 5 mg BID PO 10/17/20 09:00 10/22/20 21:33 Oxycodone HCl (OxyCONTIN) 10 mg Q12HR PO 10/11/20 21:00 10/15/20 17:38 DC 10/15/20 07:22 Simethicone (Gas-X) 80 mg PRN AFTMEALHC PRN PO GAS / BLOATING 10/12/20 13:45 10/12/20 15:00 Alprazolam (Xanax) 0.5 mg BID PO 10/14/20 09:00 10/16/20 22:00 DC 10/16/20 21:05 Alprazolam (Xanax) 0.5 mg DAILY PO 10/17/20 09:00 10/19/20 10:00 DC 10/19/20 08:19 Diphenhydramine HCl (Benadryl) 25 mg PRN Q6HRS PRN PO ITCHING, 1ST CHOICE 10/14/20 07:45 10/22/20 17:50 Gabapentin (Neurontin) 200 mg BIDWBKFT/CHERYL PO 10/16/20 08:00 10/22/20 12:25 Oxycodone HCl (OxyCONTIN) 20 mg Q12HR PO 10/15/20 21:00 10/22/20 21:32 Hydroxyzine HCl (Atarax) 25 mg PRN Q6HRS PRN PO ITCHING 10/16/20 11:45 UNV Docusate Sodium (Colace) 100 mg PRN DAILY PRN PO constipation 10/16/20 12:00 Polyethylene Glycol (miraLAX) 17 gm PRN DAILY PRN PO constipation 10/16/20 12:00 10/21/20 13:13 Bupropion HCl (Wellbutrin Xl) 450 mg DAILY PO 10/19/20 09:00 10/22/20 08:25 Trazodone HCl (Desyrel) 100 mg PRN QHS PRN PO insomnia 10/20/20 20:30 10/21/20 21:45 I have reviewed the current psychotropics carefully including drug interactions. Risk benefit ratio favors no change other than as noted in my dictated progress note. Diagnosis: Problems: (1) Anxiety disorder, unspecified (2) Bipolar disorder, curr episode mixed, severe, with psychotic features (3) Mild cognitive impairment PAMELA RAMOS MD Oct 22, 2020 23:30
[2020-10-23] MEDS: LEVOTHYROXINE 100 MCG TABLET PO SCH (05:42)
[2020-10-23] MEDS: diphenhydrAMINE HCL 25 MG CAPSULE PO PRN ×2 (05:43→15:22)
[2020-10-23] MEDS: oxyCODONE/APAP 5/325 1 TAB TABLET PO PRN (05:43)
--- NOTE | 2020-10-23 05:45 | NUR ---
PRN oxy oxycodone given for pain along with benadryl for itching. Pt has been in her bed tonight. She has slept most of the night and when awake requests meds.
[2020-10-23 05:56] VITALS: BP 97/61
[2020-10-23] MEDS: oxyCODONE ER 20 MG TAB.ER.12H PO SCH ×2 (08:38→20:45)
[2020-10-23] MEDS: LIDOCAINE (700MG/PATCH) PATCH. TP SCH (08:38)
[2020-10-23] MEDS: TOPIRAMATE 100 MG TABLET. PO SCH ×2 (08:38→20:45)
[2020-10-23] MEDS: POTASSIUM CHLORIDE 20 MEQ TABLET.ER. PO SCH ×2 (08:39→20:45)
[2020-10-23] MEDS: buPROPion XL 300 MG TAB.ER.24H. PO SCH (08:39)
[2020-10-23] MEDS: MULTIVITAMIN with MINERAL TABLET. PO SCH (08:39)
[2020-10-23] MEDS: metFORMIN 500 MG TABLET PO SCH (08:39)
[2020-10-23] MEDS: GABAPENTIN 100 MG CAPSULE. PO SCH ×2 (08:39→12:12)
[2020-10-23] MEDS: ZIPRASIDONE 80 MG CAPSULE. PO SCH ×2 (08:39→20:45)
[2020-10-23] MEDS: CHOLECALCIFEROL (VITAMIN D3) 1,000 UNIT TABLET PO SCH (08:39)
[2020-10-23] MEDS: APIXABAN 5 MG TABLET. PO SCH ×2 (08:39→20:44)
[2020-10-23] MEDS: MAGNESIUM OXIDE 400 MG TABLET PO SCH (08:45)
[2020-10-23] MEDS: SPIRONOLACTONE 25 MG TABLET PO SCH ×2 (08:45→20:46)
[2020-10-23] MEDS: NYSTATIN TOPICAL POWDER 15GM BOTTLE. TP SCH ×2 (08:45→21:00)
[2020-10-23] MEDS: PROPRANOLOL 10 MG TABLET. PO SCH ×2 (08:45→14:00)
[2020-10-23] MEDS: hydrOXYzine PAMOATE 25 MG CAPSULE PO PRN ×2 (12:12→20:45)
[2020-10-23] MEDS: metOLazone 2.5 MG TABLET PO SCH (16:00)
--- NOTE | 2020-10-23 16:03 | NUR ---
Patient alert and oriented no SI statements or actions to report patient has an ok appetite she explained to me the reason she cannot eat a lot of food is because 3 years ago she got the lap band which is understandable because that procedure places limits on how much a person can intake. Patient vitals has been wnl of baseline she normally runs low on her blood pressure and her blood pressure meds were held today. Patient received prn medication for itching benadryl x2 and visteral x1 which both were effective. Patient has chronic back pain and has scheduled oxy and a lidocaine patch. Patient slightly social with staff not so much other patients she is really observant and watches a lot. Patient is to D/C tomorrow back to her facility this has not been communicated with the patient to prevent behaviors, d/c med list printed and signed by Dr Otero, will continue to monitor patient.
[2020-10-23] MEDS: GABAPENTIN 300 MG CAPSULE. PO SCH (20:44)
[2020-10-23] MEDS: SENNOSIDES 8.6 MG TABLET PO SCH (20:45)
[2020-10-23] MEDS: rOPINIRole 1 MG TABLET. PO SCH (20:45)
--- NOTE | 2020-10-23 20:45 | NUR ---
Pt in day room saying she is going to have a panic attack and asking what she can have for anxiety in the morning. When asked about her planned morning anxiety she said she is leaving tomorrow and she "doesn't want to go but she doesn;t want to stay here either". She took meds whole without difficulty and was cooperative with care.
[2020-10-23] MEDS: CYPROHEPTADINE 4 MG TABLET. PO SCH (20:46)
[2020-10-23] MEDS: lamoTRIgine 25 MG TABLET. PO SCH (20:46)
[2020-10-23] MEDS: FLUTICASONE 50MCG/NASAL SPRAY 16GM BOTTLE. NS SCH (21:00)
[2020-10-23] MEDS: PATCH REMOVAL. MC SCH (21:00)
--- NOTE | 2020-10-23 22:05 | PDOC ---
Exam Note: [place] Note: Please also refer to the separate dictated note~for this date of service dictated separately.~Patient seen individually. Discussed the patient with Nursing staff reviewed the chart.~Reviewed interim history and current functioning. Reviewed vital signs,~Labs/ Radiology~and current medications noted below. Continue current treatment with the changes noted in the dictated addendum note Assessment: Vital Signs/I&O: Vital Signs Date Time Temp Pulse Resp B/P (MAP) Pulse Ox O2 Delivery O2 Flow Rate FiO2 10/23/20 20:45 Room Air 10/23/20 14:00 71 97/58 10/23/20 13:01 16 10/23/20 05:56 97.7 98 I & O 10/22/20 10/22/20 10/23/20 15:00 23:00 07:00 Intake Total 840 ml 480 ml Balance 840 ml 480 ml Labs: Laboratory Tests Test 10/23/20 07:36 Glucose (Fingerstick) 105 mg/dL (70-99) H Current Medications: Meds: Laboratory Tests Test 10/23/20 07:36 Glucose (Fingerstick) 105 mg/dL Current Medications Medications (Trade) Dose Ordered Sig/Mathieu Route PRN Reason Start Time Stop Time Status Last Admin Dose Admin Oxycodone/ Acetaminophen (Percocet 5/325) 1 tab 1X ONCE PO 09/26/20 15:00 09/26/20 15:01 DC 09/26/20 15:25 Morphine Sulfate (Morphine 4mg Syringe) 4 mg 1X ONCE IV 09/26/20 19:45 09/26/20 19:46 DC 09/26/20 19:44 Diphenhydramine HCl (Benadryl) 25 mg 1X ONCE IVP 09/26/20 19:45 09/26/20 19:46 DC 09/26/20 19:47 Diphenhydramine HCl (Benadryl) 50 mg STK-MED ONCE .ROUTE 09/26/20 19:41 09/26/20 19:42 DC Fentanyl Citrate (Fentanyl 2ml Vial) 75 mcg 1X ONCE IVP 09/27/20 00:15 09/27/20 00:21 DC 09/27/20 00:17 Diphenhydramine HCl (Benadryl) 50 mg 1X ONCE IVP 09/27/20 01:00 09/27/20 01:01 DC 09/27/20 00:40 Acetaminophen (Tylenol) 650 mg PRN Q6HRS PRN PO MILD PAIN / TEMP > 100.3'F 09/27/20 01:30 09/28/20 07:34 DC Al Hydroxide/Mg Hydroxide (Mylanta Plus Xs) 15 ml PRN AFTMEALHC PRN PO 2ND CHOICE DYSPEPSIA 09/27/20 01:30 10/12/20 12:30 Magnesium Hydroxide (Milk Of Magnesia) 2,400 mg PRN QHS PRN PO 1st choice CONSTIPATION 09/27/20 01:30 10/20/20 20:18 Acetaminophen (Tylenol) 500 mg PRN Q8HRS PRN PO mild PAIN 09/27/20 01:45 10/13/20 18:22 Calcium Carbonate/ Glycine (Tums) 500 mg PRN Q3HRS PRN PO 1ST CHOICE DYSPEPSIA 09/27/20 02:30 Glucose (Insta-Glucose) 15 gm PRN Q1HR PRN PO LOW BLOOD SUGAR, 1ST CHOICE 09/27/20 01:45 Docusate Sodium (Colace) 100 mg DAILY PO 09/27/20 09:00 10/16/20 11:53 DC 10/13/20 08:27 Gabapentin (Neurontin) 100 mg BIDWBKFT/CHERYL PO 09/27/20 08:00 10/15/20 17:37 DC 10/15/20 11:53 Gabapentin (Neurontin) 300 mg HS PO 09/27/20 21:00 10/23/20 20:44 Levothyroxine Sodium (Synthroid) 100 mcg DAILY06 PO 09/27/20 06:00 09/28/20 03:07 DC 09/27/20 05:52 Lidocaine (Lidoderm) 1 patch DAILY TP 09/27/20 09:00 10/23/20 08:38 Loperamide HCl (Imodium) 2 mg PRN Q6HRS PRN PO DIARRHEA 09/27/20 01:45 10/16/20 09:20 Magnesium Oxide (Magnesium Oxide) 400 mg DAILY PO 09/27/20 09:00 10/23/20 08:45 Metformin HCl (Glucophage) 500 mg DAILY PO 09/27/20 09:00 10/23/20 08:39 Metolazone (Zaroxolyn) 2.5 mg QMWF PO 09/27/20 16:00 10/21/20 16:25 Oxycodone HCl (Roxicodone) 5 mg TID PO 09/27/20 09:00 09/27/20 03:06 DC Oxycodone/ Acetaminophen (Percocet 5/325) 1 tab PRN Q6HRS PRN PO MOD-SEV PAIN 09/27/20 01:45 10/23/20 05:43 Polyethylene Glycol (miraLAX) 17 gm DAILY PO 09/27/20 09:00 10/16/20 11:53 DC 10/13/20 08:28 Potassium Chloride (Klor-Con) 40 meq BID PO 09/27/20 09:00 09/27/20 03:06 DC Propranolol HCl (Inderal) 20 mg BID92 PO 09/27/20 09:00 10/21/20 08:29 Sennosides (Senna) 17.2 mg PRN Q12HR PRN PO 2nd choice CONSTIPATION 09/27/20 01:45 10/21/20 21:46 Sennosides (Senna) 8.6 mg HS PO 09/27/20 21:00 10/23/20 20:45 Spironolactone (Aldactone) 25 mg BID PO 09/27/20 09:00 10/23/20 20:46 Topiramate (Topamax) 100 mg BID PO 09/27/20 09:00 10/23/20 20:45 Vitamin D (Vitamin D3) 1,000 unit DAILY PO 09/27/20 09:00 10/23/20 08:39 Fluticasone Propionate (Flonase) 2 spray HS NS 09/27/20 21:00 10/23/20 21:00 Glucagon (Glucagen Kit) 1 mg 1X PRN PRN IM LOW BLOOD SUGAR, 2ND CHOICE 09/27/20 02:45 Non-Formulary Medication (Mag Hydrox/Al Hydrox/Simeth (Alum-Mag Hydroxide-Simeth Liq)) 30 ml Q4HRS PRN PO INDIGESTION 09/27/20 01:45 09/27/20 02:34 DC Multivitamins/ Calcium (Thera-M Plus) 1 tab DAILY PO 09/27/20 09:00 10/23/20 08:39 Multi-Ingredient Ointment (Analgesic [place]) 1 mello PRN Q4HRS PRN TP MUSCLE PAIN 09/27/20 02:45 Hydroxyzine Pamoate (Vistaril) 25 mg PRN Q6HRS PRN PO ITCHING, 2ND CHOICE 09/27/20 02:15 10/23/20 20:45 Ropinirole HCl (Requip) 1 mg HS PO 09/27/20 21:00 10/23/20 20:45 Ziprasidone (Geodon) 60 mg BID PO 09/27/20 09:00 10/01/20 16:52 DC 10/01/20 08:17 Alprazolam (Xanax) 0.5 mg TID PO 09/27/20 09:00 09/27/20 03:06 DC Paroxetine HCl (Paxil) 50 mg DAILY PO 09/27/20 09:00 09/30/20 13:56 DC 09/30/20 08:24 Miscellaneous (Lidoderm Patch Removal) 1 ea QHS MC 09/27/20 21:00 10/23/20 21:00 Alprazolam (Xanax) 0.5 mg TID PO 09/27/20 03:15 10/13/20 22:00 DC 10/13/20 19:53 Oxycodone HCl (Roxicodone) 5 mg TID PO 09/27/20 03:15 10/11/20 17:27 DC 10/11/20 14:27 Potassium Chloride (Klor-Con) 40 meq BID PO 09/27/20 03:15 10/23/20 20:45 Levothyroxine Sodium (Synthroid) 100 mcg DAILY06 PO 09/28/20 06:00 10/23/20 05:42 Duloxetine HCl (Cymbalta) 30 mg DAILY PO 10/01/20 09:00 10/02/20 21:01 DC 10/02/20 08:42 Duloxetine HCl (Cymbalta) 60 mg DAILY PO 10/03/20 09:00 10/17/20 19:31 DC 10/17/20 08:27 Nystatin (Nystop) 1 mello BID TP 09/30/20 21:00 10/23/20 21:00 Ziprasidone (Geodon) 80 mg BID PO 10/02/20 09:00 10/23/20 20:45 Ziprasidone (Geodon) 60 mg BID PO 10/01/20 21:00 10/01/20 21:01 DC 10/01/20 20:24 Cyproheptadine HCl (Periactin) 2 mg HS PO 10/02/20 21:00 10/23/20 20:46 Bupropion HCl (Wellbutrin Xl) 150 mg DAILY PO 10/06/20 09:00 10/10/20 18:30 DC 10/10/20 08:49 Lamotrigine (LaMICtal) 25 mg HS PO 10/08/20 21:00 10/10/20 22:00 DC 10/10/20 21:03 Lamotrigine (LaMICtal) 50 mg HS PO 10/11/20 21:00 10/13/20 22:00 DC 10/13/20 19:54 Lamotrigine (LaMICtal) 75 mg HS PO 10/14/20 21:00 10/23/20 20:46 Bupropion HCl (Wellbutrin Xl) 300 mg DAILY PO 10/11/20 09:00 10/18/20 17:42 DC 10/18/20 08:12 Apixaban (Eliquis) 10 mg BID PO 10/10/20 22:00 10/16/20 21:59 DC 10/16/20 21:04 Apixaban (Eliquis) 5 mg BID PO 10/17/20 09:00 10/23/20 20:44 Oxycodone HCl (OxyCONTIN) 10 mg Q12HR PO 10/11/20 21:00 10/15/20 17:38 DC 10/15/20 07:22 Simethicone (Gas-X) 80 mg PRN AFTMEALHC PRN PO GAS / BLOATING 10/12/20 13:45 10/12/20 15:00 Alprazolam (Xanax) 0.5 mg BID PO 10/14/20 09:00 10/16/20 22:00 DC 10/16/20 21:05 Alprazolam (Xanax) 0.5 mg DAILY PO 10/17/20 09:00 10/19/20 10:00 DC 10/19/20 08:19 Diphenhydramine HCl (Benadryl) 25 mg PRN Q6HRS PRN PO ITCHING, 1ST CHOICE 10/14/20 07:45 10/23/20 15:22 Gabapentin (Neurontin) 200 mg BIDWBKFT/CHERYL PO 10/16/20 08:00 10/23/20 12:12 Oxycodone HCl (OxyCONTIN) 20 mg Q12HR PO 10/15/20 21:00 10/23/20 20:45 Hydroxyzine HCl (Atarax) 25 mg PRN Q6HRS PRN PO ITCHING 10/16/20 11:45 UNV Docusate Sodium (Colace) 100 mg PRN DAILY PRN PO constipation 10/16/20 12:00 Polyethylene Glycol (miraLAX) 17 gm PRN DAILY PRN PO constipation 10/16/20 12:00 10/21/20 13:13 Bupropion HCl (Wellbutrin Xl) 450 mg DAILY PO 10/19/20 09:00 10/23/20 08:39 Trazodone HCl (Desyrel) 100 mg PRN QHS PRN PO insomnia 10/20/20 20:30 10/21/20 21:45 I have reviewed the current psychotropics carefully including drug interactions. Risk benefit ratio favors no change other than as noted in my dictated progress note. Diagnosis: Problems: (1) Anxiety disorder, unspecified (2) Bipolar disorder, curr episode mixed, severe, with psychotic features (3) Mild cognitive impairment PAMELA RAMOS MD Oct 23, 2020 22:05
[2020-10-24] MEDS: diphenhydrAMINE HCL 25 MG CAPSULE PO PRN (02:24)
[2020-10-24] MEDS: oxyCODONE/APAP 5/325 1 TAB TABLET PO PRN (02:25)
[2020-10-24] MEDS: LEVOTHYROXINE 100 MCG TABLET PO SCH (02:25)
[2020-10-24 06:30] VITALS: BP 120/67
[2020-10-24] MEDS: NYSTATIN TOPICAL POWDER 15GM BOTTLE. TP SCH (08:28)
[2020-10-24 08:29] VITALS: BP 120/67
[2020-10-24] MEDS: metFORMIN 500 MG TABLET PO SCH (08:29)
[2020-10-24] MEDS: PROPRANOLOL 10 MG TABLET. PO SCH (08:29)
[2020-10-24] MEDS: buPROPion XL 300 MG TAB.ER.24H. PO SCH (08:29)
[2020-10-24] MEDS: GABAPENTIN 100 MG CAPSULE. PO SCH (08:30)
[2020-10-24] MEDS: oxyCODONE ER 20 MG TAB.ER.12H PO SCH (08:30)
[2020-10-24] MEDS: APIXABAN 5 MG TABLET. PO SCH (08:30)
[2020-10-24] MEDS: TOPIRAMATE 100 MG TABLET. PO SCH (08:31)
[2020-10-24] MEDS: hydrOXYzine PAMOATE 25 MG CAPSULE PO PRN (08:31)
[2020-10-24] MEDS: POTASSIUM CHLORIDE 20 MEQ TABLET.ER. PO SCH (08:31)
[2020-10-24] MEDS: SPIRONOLACTONE 25 MG TABLET PO SCH (08:31)
[2020-10-24] MEDS: MULTIVITAMIN with MINERAL TABLET. PO SCH (08:32)
[2020-10-24] MEDS: MAGNESIUM OXIDE 400 MG TABLET PO SCH (08:32)
[2020-10-24] MEDS: ZIPRASIDONE 80 MG CAPSULE. PO SCH (08:32)
[2020-10-24] MEDS: LIDOCAINE (700MG/PATCH) PATCH. TP SCH (08:32)
[2020-10-24] MEDS: CHOLECALCIFEROL (VITAMIN D3) 1,000 UNIT TABLET PO SCH (08:32)
--- NOTE | 2020-10-24 09:20 | NUR ---
ZAIN returned call to Kamila at [facility] who had a few medication questions. SW let her know that Gulshan RN, would be able to talk to her as medications are not in SW scope of practice. ZAIN did question transportation time and Kamila did not know that time. She would call back after their morning meeting and let SW know.
[2020-10-24] MEDS ORDERED: hydrOXYzine PAMOATE 25 MG CAPSULE PO PRN (10:45)
--- NOTE | 2020-10-24 11:30 | NUR ---
Transition Record was faxed to follow-up provider with the following elements: Reason for admission, procedures, tests, principal diagnosis, pending studies, patient instructions, 30/11 contact information for unit, phone number to obtain pending test results, plan for follow-up care, physician follow-up, advanced directive information, and medication list with dose, duration and instructions. This information was included in the following documents: History and physical, lab results, study results, progress notes, social work planning form, DC instruction form, patient visit summary, and medication reconciliation form. Date & time record faxed: 01:47 24 October 2020 Record faxed to: [facility] care and rehab Record discussed with/ report given to: GENNY Vegas at [facility]
--- NOTE | 2020-10-25 08:30 | PDOC ---
Exam Note: [place] Note: This note is a late entry for 10/23/2020 covers elements not covered in my initial note. Subjective: The patient was seen individually in the evening of 10/23/2020 with Sunil ROYAL, discussed and reviewed the chart. The patient slept 5 hours previous night. The patient denies active suicidal ideation. Review of Systems: Ambulation impaired in wheelchair. Complains of some itching. No CV, , pulmonary, eye, ENT system symptoms on review. Mental Status Exam: The patient is oriented to herself and situation. Speech low in rate and rhythm, low in volume. Abstraction fair. Computation impaired. Language function intact. No active suicidal ideation. Laboratory Data: Reviewed. Impression: Bipolar disorder depressed with psychotic features. Anxiety disorder unspecified. Impulse control disorder unspecified. Plan: No change from initial note. Assessment: Vital Signs/I&O: Vital Signs Date Time Temp Pulse Resp B/P (MAP) Pulse Ox O2 Delivery O2 Flow Rate FiO2 10/24/20 08:30 18 99 Room Air 10/24/20 08:29 75 120/67 10/24/20 06:30 97.3 I & O 10/24/20 10/24/20 10/25/20 15:00 23:00 07:00 Intake Total 360 ml Balance 360 ml Current Medications: Meds: Current Medications Medications (Trade) Dose Ordered Sig/Mathieu Route PRN Reason Start Time Stop Time Status Last Admin Dose Admin Oxycodone/ Acetaminophen (Percocet 5/325) 1 tab 1X ONCE PO 09/26/20 15:00 09/26/20 15:01 DC 09/26/20 15:25 Morphine Sulfate (Morphine 4mg Syringe) 4 mg 1X ONCE IV 09/26/20 19:45 09/26/20 19:46 DC 09/26/20 19:44 Diphenhydramine HCl (Benadryl) 25 mg 1X ONCE IVP 09/26/20 19:45 09/26/20 19:46 DC 09/26/20 19:47 Diphenhydramine HCl (Benadryl) 50 mg STK-MED ONCE .ROUTE 09/26/20 19:41 09/26/20 19:42 DC Fentanyl Citrate (Fentanyl 2ml Vial) 75 mcg 1X ONCE IVP 09/27/20 00:15 09/27/20 00:21 DC 09/27/20 00:17 Diphenhydramine HCl (Benadryl) 50 mg 1X ONCE IVP 09/27/20 01:00 09/27/20 01:01 DC 09/27/20 00:40 Acetaminophen (Tylenol) 650 mg PRN Q6HRS PRN PO MILD PAIN / TEMP > 100.3'F 09/27/20 01:30 09/28/20 07:34 DC Al Hydroxide/Mg Hydroxide (Mylanta Plus Xs) 15 ml PRN AFTMEALHC PRN PO 2ND CHOICE DYSPEPSIA 09/27/20 01:30 10/24/20 13:24 DC 10/12/20 12:30 Magnesium Hydroxide (Milk Of Magnesia) 2,400 mg PRN QHS PRN PO 1st choice CONSTIPATION 09/27/20 01:30 10/24/20 13:24 DC 10/20/20 20:18 Acetaminophen (Tylenol) 500 mg PRN Q8HRS PRN PO mild PAIN 09/27/20 01:45 10/24/20 13:24 DC 10/13/20 18:22 Calcium Carbonate/ Glycine (Tums) 500 mg PRN Q3HRS PRN PO 1ST CHOICE DYSPEPSIA 09/27/20 02:30 10/24/20 13:24 DC Glucose (Insta-Glucose) 15 gm PRN Q1HR PRN PO LOW BLOOD SUGAR, 1ST CHOICE 09/27/20 01:45 10/24/20 13:24 DC Docusate Sodium (Colace) 100 mg DAILY PO 09/27/20 09:00 10/16/20 11:53 DC 10/13/20 08:27 Gabapentin (Neurontin) 100 mg BIDWBKFT/CHERYL PO 09/27/20 08:00 10/15/20 17:37 DC 10/15/20 11:53 Gabapentin (Neurontin) 300 mg HS PO 09/27/20 21:00 10/24/20 13:24 DC 10/23/20 20:44 Levothyroxine Sodium (Synthroid) 100 mcg DAILY06 PO 09/27/20 06:00 09/28/20 03:07 DC 09/27/20 05:52 Lidocaine (Lidoderm) 1 patch DAILY TP 09/27/20 09:00 10/24/20 13:24 DC 10/24/20 08:32 Loperamide HCl (Imodium) 2 mg PRN Q6HRS PRN PO DIARRHEA 09/27/20 01:45 10/24/20 13:24 DC 10/16/20 09:20 Magnesium Oxide (Magnesium Oxide) 400 mg DAILY PO 09/27/20 09:00 10/24/20 13:24 DC 10/24/20 08:32 Metformin HCl (Glucophage) 500 mg DAILY PO 09/27/20 09:00 10/24/20 13:24 DC 10/24/20 08:29 Metolazone (Zaroxolyn) 2.5 mg QMWF PO 09/27/20 16:00 10/24/20 13:24 DC 10/21/20 16:25 Oxycodone HCl (Roxicodone) 5 mg TID PO 09/27/20 09:00 09/27/20 03:06 DC Oxycodone/ Acetaminophen (Percocet 5/325) 1 tab PRN Q6HRS PRN PO MOD-SEV PAIN 09/27/20 01:45 10/24/20 13:24 DC 10/24/20 02:25 Polyethylene Glycol (miraLAX) 17 gm DAILY PO 09/27/20 09:00 10/16/20 11:53 DC 10/13/20 08:28 Potassium Chloride (Klor-Con) 40 meq BID PO 09/27/20 09:00 09/27/20 03:06 DC Propranolol HCl (Inderal) 20 mg BID92 PO 09/27/20 09:00 10/24/20 13:24 DC 10/24/20 08:29 Sennosides (Senna) 17.2 mg PRN Q12HR PRN PO 2nd choice CONSTIPATION 09/27/20 01:45 10/24/20 13:24 DC 10/21/20 21:46 Sennosides (Senna) 8.6 mg HS PO 09/27/20 21:00 10/24/20 13:24 DC 10/23/20 20:45 Spironolactone (Aldactone) 25 mg BID PO 09/27/20 09:00 10/24/20 13:24 DC 10/24/20 08:31 Topiramate (Topamax) 100 mg BID PO 09/27/20 09:00 10/24/20 13:24 DC 10/24/20 08:31 Vitamin D (Vitamin D3) 1,000 unit DAILY PO 09/27/20 09:00 10/24/20 13:24 DC 10/24/20 08:32 Fluticasone Propionate (Flonase) 2 spray HS NS 09/27/20 21:00 10/24/20 13:24 DC 10/23/20 21:00 Glucagon (Glucagen Kit) 1 mg 1X PRN PRN IM LOW BLOOD SUGAR, 2ND CHOICE 09/27/20 02:45 10/24/20 13:24 DC Non-Formulary Medication (Mag Hydrox/Al Hydrox/Simeth (Alum-Mag Hydroxide-Simeth Liq)) 30 ml Q4HRS PRN PO INDIGESTION 09/27/20 01:45 09/27/20 02:34 DC Multivitamins/ Calcium (Thera-M Plus) 1 tab DAILY PO 09/27/20 09:00 10/24/20 13:24 DC 10/24/20 08:32 Multi-Ingredient Ointment (Analgesic [place]) 1 mello PRN Q4HRS PRN TP MUSCLE PAIN 09/27/20 02:45 10/24/20 13:24 DC Hydroxyzine Pamoate (Vistaril) 25 mg PRN Q6HRS PRN PO ITCHING, 2ND CHOICE 09/27/20 02:15 10/24/20 10:45 DC 10/24/20 08:31 Ropinirole HCl (Requip) 1 mg HS PO 09/27/20 21:00 10/24/20 13:24 DC 10/23/20 20:45 Ziprasidone (Geodon) 60 mg BID PO 09/27/20 09:00 10/01/20 16:52 DC 10/01/20 08:17 Alprazolam (Xanax) 0.5 mg TID PO 09/27/20 09:00 09/27/20 03:06 DC Paroxetine HCl (Paxil) 50 mg DAILY PO 09/27/20 09:00 09/30/20 13:56 DC 09/30/20 08:24 Miscellaneous (Lidoderm Patch Removal) 1 ea QHS MC 09/27/20 21:00 10/24/20 13:24 DC 10/23/20 21:00 Alprazolam (Xanax) 0.5 mg TID PO 09/27/20 03:15 10/13/20 22:00 DC 10/13/20 19:53 Oxycodone HCl (Roxicodone) 5 mg TID PO 09/27/20 03:15 10/11/20 17:27 DC 10/11/20 14:27 Potassium Chloride (Klor-Con) 40 meq BID PO 09/27/20 03:15 10/24/20 13:24 DC 10/24/20 08:31 Levothyroxine Sodium (Synthroid) 100 mcg DAILY06 PO 09/28/20 06:00 10/24/20 13:24 DC 10/24/20 02:25 Duloxetine HCl (Cymbalta) 30 mg DAILY PO 10/01/20 09:00 10/02/20 21:01 DC 10/02/20 08:42 Duloxetine HCl (Cymbalta) 60 mg DAILY PO 10/03/20 09:00 10/17/20 19:31 DC 10/17/20 08:27 Nystatin (Nystop) 1 mello BID TP 09/30/20 21:00 10/24/20 13:24 DC 10/24/20 08:28 Ziprasidone (Geodon) 80 mg BID PO 10/02/20 09:00 10/24/20 13:24 DC 10/24/20 08:32 Ziprasidone (Geodon) 60 mg BID PO 10/01/20 21:00 10/01/20 21:01 DC 10/01/20 20:24 Cyproheptadine HCl (Periactin) 2 mg HS PO 10/02/20 21:00 10/24/20 13:24 DC 10/23/20 20:46 Bupropion HCl (Wellbutrin Xl) 150 mg DAILY PO 10/06/20 09:00 10/10/20 18:30 DC 10/10/20 08:49 Lamotrigine (LaMICtal) 25 mg HS PO 10/08/20 21:00 10/10/20 22:00 DC 10/10/20 21:03 Lamotrigine (LaMICtal) 50 mg HS PO 10/11/20 21:00 10/13/20 22:00 DC 10/13/20 19:54 Lamotrigine (LaMICtal) 75 mg HS PO 10/14/20 21:00 10/24/20 13:24 DC 10/23/20 20:46 Bupropion HCl (Wellbutrin Xl) 300 mg DAILY PO 10/11/20 09:00 10/18/20 17:42 DC 10/18/20 08:12 Apixaban (Eliquis) 10 mg BID PO 10/10/20 22:00 10/16/20 21:59 DC 10/16/20 21:04 Apixaban (Eliquis) 5 mg BID PO 10/17/20 09:00 10/24/20 13:24 DC 10/24/20 08:30 Oxycodone HCl (OxyCONTIN) 10 mg Q12HR PO 10/11/20 21:00 10/15/20 17:38 DC 10/15/20 07:22 Simethicone (Gas-X) 80 mg PRN AFTMEALHC PRN PO GAS / BLOATING 10/12/20 13:45 10/24/20 13:24 DC 10/12/20 15:00 Alprazolam (Xanax) 0.5 mg BID PO 10/14/20 09:00 10/16/20 22:00 DC 10/16/20 21:05 Alprazolam (Xanax) 0.5 mg DAILY PO 10/17/20 09:00 10/19/20 10:00 DC 10/19/20 08:19 Diphenhydramine HCl (Benadryl) 25 mg PRN Q6HRS PRN PO ITCHING, 1ST CHOICE 10/14/20 07:45 10/24/20 13:24 DC 10/24/20 02:24 Gabapentin (Neurontin) 200 mg BIDWBKFT/CHERYL PO 10/16/20 08:00 10/24/20 13:24 DC 10/24/20 08:30 Oxycodone HCl (OxyCONTIN) 20 mg Q12HR PO 10/15/20 21:00 10/24/20 13:24 DC 10/24/20 08:30 Hydroxyzine HCl (Atarax) 25 mg PRN Q6HRS PRN PO ITCHING 10/16/20 11:45 UNV Docusate Sodium (Colace) 100 mg PRN DAILY PRN PO constipation 10/16/20 12:00 10/24/20 13:24 DC Polyethylene Glycol (miraLAX) 17 gm PRN DAILY PRN PO constipation 10/16/20 12:00 10/24/20 13:24 DC 10/21/20 13:13 Bupropion HCl (Wellbutrin Xl) 450 mg DAILY PO 10/19/20 09:00 10/24/20 13:24 DC 10/24/20 08:29 Trazodone HCl (Desyrel) 100 mg PRN QHS PRN PO insomnia 10/20/20 20:30 10/24/20 13:24 DC 10/21/20 21:45 Hydroxyzine Pamoate (Vistaril) 25 mg PRN Q2HRS PRN PO ITCHING 10/24/20 10:45 10/24/20 13:24 DC 10/24/20 11:30 Current Medications Medications (Trade) Dose Ordered Sig/Mathieu Route PRN Reason Start Time Stop Time Status Last Admin Dose Admin Hydroxyzine Pamoate (Vistaril) 25 mg PRN Q2HRS PRN PO ITCHING 10/24/20 10:45 10/24/20 13:24 DC 10/24/20 11:30 I have reviewed the current psychotropics carefully including drug interactions. Risk benefit ratio favors no change other than as noted in my dictated progress note. Diagnosis: Problems: (1) Anxiety disorder, unspecified (2) Bipolar disorder, curr episode mixed, severe, with psychotic features (3) Mild cognitive impairment PAMELA RAMOS MD Oct 25, 2020 08:30
--- NOTE | 2020-10-26 23:40 | DS ---
DATE OF DISCHARGE: 10/24/2020 DISCHARGE SUMMARY AND PSYCHIATRIC PROGRESS NOTE. This is a late entry, 10/24/2020, covers the elements not covered in my initial note. REASON FOR ADMISSION: Please refer to the admission history for details. Briefly, the patient is a 64-year-old female referred to us from the [facility] [place] on account of an acute exacerbation of her bipolar disorder with psychotic features. She has been yelling, having active visual questionable auditory hallucinations, seeing beach balls everywhere. She was name calling, belligerent, marked paranoia and had failed outpatient psychiatric interventions. Behaviors were disruptive, unmanageable at the facility, resulting in this referral. SIGNIFICANT FINDINGS AND CLINICAL COURSE: Following admission, the patient was seen daily individually by myself from a psychiatric standpoint. Medical followup with Dr. Otero/Dr. Álvarez. The patient was extremely paranoid, agitated, noncompliant initially. Adjustments were made in her psychotropics and she seemed to respond to a combination of Geodon 80 mg b.i.d., Neurontin 200 mg twice a day and 300 mg at bedtime, Topamax 100 mg b.i.d., Requip 1 mg at bedtime, Periactin 2 mg at bedtime, Wellbutrin-XL 450 mg a day, Lamictal 75 mg at bedtime, Vistaril p.r.n., trazodone 100 mg at bedtime p.r.n., may repeat x1. Prior to discharge on 10/24/2020, review of systems, ambulation impaired. No CV, , pulmonary, eye, ENT system symptoms on review. MENTAL STATUS EXAMINATION: The patient is oriented to herself, situation. Speech moderate latency, more coherent and forthcoming as compared to previously. Abstraction fair. Computation impaired. Language function intact. Attention span short. Mood and affect was improved. No suicidal ideation at discharge. CONDITION ON DISCHARGE: Improved. FINAL DIAGNOSES: Bipolar disorder, mixed with psychotic features, in partial remission; anxiety disorder, unspecified; impulse control disorder, unspecified. Rest unchanged from admission. DISCHARGE MEDICATIONS: Please refer to the MRAD. DISCHARGE INSTRUCTIONS: [facility] Time for discharge day management greater than [address]: Charlette TID: [id number]
== END 2020-10-24 11:30 | DRG 885 ==
LOC: ER 14:02 → GEROPSY 09-27 01:00
PROVIDERS: ADMIT Psychiatry & Neurology Psychiatry; ATTEND Psychiatry & Neurology Psychiatry
DX: F31.64 Bipolar disorder, current episode mixed, severe, with psychotic features (principal); R45.851 Suicidal ideations; E03.9 Hypothyroidism, unspecified; E11.9 Type 2 diabetes mellitus without complications; E66.9 Obesity, unspecified; Z68.33 Body mass index [BMI] 33.0-33.9, adult; F12.90 Cannabis use, unspecified, uncomplicated; F41.1 Generalized anxiety disorder; F63.9 Impulse disorder, unspecified; G31.84 Mild cognitive impairment of uncertain or unknown etiology; G89.29 Other chronic pain; I25.2 Old myocardial infarction; K21.9 Gastro-esophageal reflux disease without esophagitis; M48.00 Spinal stenosis, site unspecified; M54.10 Radiculopathy, site unspecified; F10.20 Alcohol dependence, uncomplicated; Z20.822 Contact with and (suspected) exposure to COVID-19; Z79.899 Other long term (current) drug therapy; Z80.3 Family history of malignant neoplasm of breast; Z82.41 Family history of sudden cardiac death; Z82.49 Family history of ischemic heart disease and other diseases of the circulatory system; Z89.511 Acquired absence of right leg below knee; Z90.49 Acquired absence of other specified parts of digestive tract; Z91.19 Patient's noncompliance with other medical treatment and regimen; Z99.3 Dependence on wheelchair; Z90.710 Acquired absence of both cervix and uterus
CPT/HCPCS: 36415; 71045; 80048; 80053; 80061; 81001; 82306; 82607; 82947; 83036; 83540; 83550; 83690; 83735; 83880; 84436; 84443; 84480; 84484; 85025; 85379; 86592; 87086; 87426; 93005; 93971; 96374; 96375; J1200; J2270; J3010; Q0163; Q0177; U0003; 97530; 99285-25

== ENCOUNTER 2020-10-26 17:15 | Emergency (ER) | payer MEDICARE, OTHER ==
[~2020-10-26] VITALS: Ht 176.5 cm; Wt 104.9 kg
[~2020-10-26 17:15] MED LIST changes: +ACET500T68 PO; +APIX5TAB3 PO; +BUPR150T15 PO; +CALC500T31 PO; +CHOL10004 PO; +CYPR4TAB31 PO; +DEXT38GE2 PO; +DIPH25CA23 PO; +DIPH25TA24 PO; +DOCU100C28 PO; +GABA-585 PO; +GABA-586 PO; +GLUC1KIT IM; +HYDR25CA PO; +HYDR25TA PO; +LAMO25TA5 PO; +LEVO100T5 PO; +LOPE-101 PO; +MAGN24003 PO; +METF500T16 PO; +METH57CR17 TP; +MULT-114 PO; +NYST60PO TP; +OXYC1TAB15 PO; +OXYC20TA42 PO; +OXYC5TAB4 PO; +PARO25TA4 PO; +POTA20TA4 PO; +ROPI1TAB4 PO; +SIME80TA14 PO; +SPIR25TA5 PO; +TRAZ-125 PO; +TROL35.4 TP
--- NOTE | 2020-10-26 18:34 | PHYS DOC ---
Past History Past Medical History: Anxiety, Bipolar, Diabetes, Hypertension, Hypothyroid, Other Additional Past Medical Histor: COVID IN 04/28, MDD Past Surgical History: , Hysterectomy, Other Additional Past Surgical Histo: R BKA, CTR BILAT Smoking: Less than 1pk/day Alcohol Use: None Drug Use: None General Adult EDM: Chief Complaint: LOWER EXT PAIN HPI: HPI: Patient is a 64 year old FEMALE who presents with hx of suicidal ideation, threatening suicide because they would not let her sit around naked. Pt. states her diaper was too tight. Pt. threaten to cut her wrist with razor blade. Pt. now states she was just threatening suicide. Patient is a resident of [facility]. Since February 11, 2016. The pt. has been previously evaluated for depression at our senior adult psych. Patient has past medical history of diabetes and diabetic neuropathy, hypertensive heart disease, major depressive disorder, bipolar disorder, hypothyroidism, coagulopathy requiring long-term use of anticoagulants, A. fib, chronic low back pain, anxiety disorder, repeated falls, gait disorder, urinary tract infections, lack coordination, ambulation below the right knee and ankle surgery, chronic pain, fibromyalgia, generalized muscle deconditioning, has had COVID-19. GERD, dyspepsia, chronic pain, and multiple complaints of med intolerances and allergies. Pt. primary is Dr Hernandez. Patient is also followed with Dr. Patel in the past. Review of Systems: Review of Systems: Constitutional: Denies fever or chills Eyes: Denies change in visual acuity HENT: Denies nasal congestion or sore throat Respiratory: Denies cough or shortness of breath Cardiovascular: Denies chest pain or edema GI: Denies abdominal pain, nausea, vomiting, bloody stools or diarrhea : Denies dysuria Musculoskeletal: Complains of right hip and low back pain Integument: Denies rash Neurologic: Denies headache, focal weakness or sensory changes Endocrine: Denies polyuria or polydipsia Lymphatic: Denies swollen glands Psychiatric: Denies depression or anxiety. Patient admits to threatening suicide but states she is not suicidal now Family History: Family History: Not currently available by patient but reportedly per record father in a motorcycle accident age 41 mother at 64 due to breast and bone cancer, 4 brothers who are all healthy 3 daughters son are all healthy older brother age 56 from cardiac arrest Current Medications: Current Meds: See nursing for home meds Allergies: Allergies: Allergies Coded Allergies Type Severity Reaction Last Updated Verified Penicillins Allergy Intermediate Hives 10/26/20 Yes Sulfa (Sulfonamide Antibiotics) Allergy Intermediate 10/26/20 Yes aripiprazole Allergy Intermediate 10/26/20 Yes aspirin Allergy Intermediate 10/26/20 Yes atorvastatin Allergy Intermediate 10/26/20 Yes bupropion Allergy Intermediate 10/26/20 Yes celecoxib Allergy Intermediate 11/06/14 Yes cetirizine Allergy Intermediate 11/06/14 Yes divalproex sodium Allergy Intermediate 11/06/14 Yes hydrochlorothiazide Allergy Intermediate 11/06/14 Yes hydrocodone Allergy Intermediate 11/06/14 Yes irbesartan Allergy Intermediate 11/06/14 Yes iron Allergy Intermediate 11/06/14 Yes metaxalone Allergy Intermediate 11/06/14 Yes montelukast Allergy Intermediate 11/06/14 Yes pravastatin Allergy Intermediate 11/06/14 Yes risperidone Allergy Intermediate 11/06/14 Yes rofecoxib Allergy Intermediate 11/06/14 Yes venlafaxine Allergy Intermediate 11/06/14 Yes Physical Exam: PE: Constitutional: Acute emotional distress, angry, agitated, yelling, demanding and persistently argumentative. Non-toxic appearance. [] HENT: Normocephalic, atraumatic, bilateral external ears normal, oropharynx moist, no oral exudates, nose normal. [] Eyes: PERRLA, EOMI, conjunctiva normal, no discharge. [] Neck: Normal range of motion, no tenderness, supple, no stridor. More than 17 inches circumference Cardiovascular: Irregular heart rate irregular rhythm, no murmur, PMI to left. Monitor shows a bradycardia rate and 50s to 66 and overall morphology of A. fib. Lungs & Thorax: Bilateral breath sounds equal apex with scattered wheezes and some basilar crackles auscultation [] Abdomen: Bowel sounds normal, soft, no tenderness, no masses, no pulsatile masses. Distended. Morbidly obese. Old surgical scars. Skin: Warm, dry, no erythema, no rash. Poor turgor Back: Lower lumbar tenderness, no CVA tenderness. [] Extremities: No tenderness, no cyanosis, no clubbing, ROM intact, ankle edema. [] Below the knee amputation right. Scars on wrist. Complains of right hip pain. No cording appreciated Neurologic: Alert and oriented X 3, moves extremities on request, has decreased distal sensory in left foot, no new focal deficits noted per penitentiary and patient. Psychologic: Affect argumentative, demanding, yelling,, judgement obviously impaired, memory deficits,, mood agitated. Admits to threatening suicide Current Patient Data: Vital Signs: Vital Signs Date Time Temp Pulse Resp B/P (MAP) Pulse Ox O2 Delivery O2 Flow Rate FiO2 10/26/20 17:20 99.2 78 16 153/81 (105) 98 Room Air EKG: EKG: My interpretation EKG shows a bradycardia 54 bpm. Irregular rhythm and with no obvious confirmed P wave appears to be A. fib with leftward axis. [] Radiology/Procedures: Radiology/Procedures: [][address] [address] IMAGING REPORT Signed PATIENT: JADA DAWSON ACCOUNT: [id number] : 1955 LOCATION: ER AGE: 64 SEX: F EXAM STATUS: REG ER ORD. PHYSICIAN: RASHIDA KNAPP MD REASON: back and hip pain PROCEDURE: CT PELVIS WO CONTRAST EXAMINATION: CT PELVIS WO, CT LUMBAR SPINE WO CLINICAL HISTORY: Back and hip pain TECHNIQUE: Spiral, high resolution axial images were obtained from the thoracolumbar junction to the sacrum with sagittal and coronal planar reconstructions. CT Dose Reduction Employed: One or more of the following individualized dose reduction techniques were utilized for this examination: 1. Automated exposure control 2. Adjustment of the mA and/or kV according to patient size 3. Use of iterative reconstruction technique. COMPARISON: CT L-spine 01/05/2019 FINDINGS: L-SPINE: Alignment: Levoconvex curvature and hyperlordosis of the lumbar spine, possibly positional. Osseous Structures: No evidence of acute fracture. Grade 1 L2-3 anterolisthesis, likely degenerative. Degenerative Changes: Moderate posterior degenerative disc disease at T12-L1 and L1-2. Mild/moderate degenerative disc disease in the remainder of the lumbar spine. Moderate to severe facet arthropathy in the lower lumbar spine. Mild to moderate multilevel neural foraminal narrowing. Multilevel osseous neural foraminal narrowing, greatest at L5-S1. Soft Tissues: Paraspinal soft tissues unremarkable. Partially visualized gastric lap band. Cholecystectomy. Arterial atherosclerotic calcification without aneurysm. PELVIS: Sfhs-he-[id number] axial joint space narrowing in the bilateral hips with subchondral cysts. Pubic symphysis and SI joints within normal limits. No acute fracture. Moderate rectosigmoid stool, possible mild impaction. Sigmoid diverticulosis without evidence of acute diverticulitis. Small ventral hernia containing mesenteric fat and a loop of nonobstructed small bowel. IMPRESSION: No evidence of acute osseous abnormality involving the lumbar spine or pelvis. Multilevel degenerative findings of the lumbar spine as described. [id number]-ya-[id number] degenerative changes bilateral hips. Moderate rectosigmoid stool, correlate for possible impaction. Small ventral hernia containing a loop of nondilated small bowel. Electronically signed by: Alonzo Alonso DO (10/27/2020 2:57 AM) [facility] DICTATED AND SIGNED BY: ALONZO ALONSO DO DATE: 10/27/206 CC: FATOUMATA PATEL MD; RASHIDA KNAPP MD ~MTH0 0 Heart Score: C/O Chest Pain: N/A HEART Score for Chest Pain: HEART Score for Chest Pain Response (Comments) Value History Moderately Suspicious 1 ECG Nonspecific Repolarizatio 1 Age >45 - < 65 1 Risk Factors 1 or 2 Risk Factors 1 Troponin < Normal Limit 0 Total 4 Risk Factors: Risk Factors: DM, Current or recent (<one month) smoker, HTN, HLP, family history of CAD, obesity. Risk Scores: Score 0 - 3: 2.5% MACE over next 6 weeks - Discharge Home Score 4 - 6: 20.3% MACE over next 6 weeks - Admit for Clinical Observation Score 7 - 10: 72.7% MACE over next 6 weeks - Early Invasive Strategies Course & Med Decision Making: Course & Med Decision Making Pertinent Labs and Imaging studies reviewed. (See chart for details) See psych evaluation for details. Patient is demands behavior felt to be somewhat manipulative. Palpation at low risk for suicide. [facility] with [facility] for antibiotics Cipro for UTI. Patient have primary review ED work-up. Patient return if any concerns. Impression: 1. Hx. of Suicidal Threats at NH 2. Urinary tract infection 3. Dementia 4. Mild dehydration BUN 27 creatinine 1.2 5. Glucose 123 6. Afib.- Rate Controlled [] Dragaruelio Disclaimer: Dragon Disclaimer: This electronic medical record was generated, in whole or in part, using a voice recognition dictation system. Departure Departure: Referrals: FATOUMATA PATEL MD (PCP) Scripts Ciprofloxacin (CIPRO) 500 Mg/5 Ml [place]..rec 500 MG PO BID for uti for 7 Days, MISC Prov: RASHIDA KNAPP MD 10/27/20 Nelly Disclaimer This chart was dictated in whole or in part using Voice Recognition software in a busy, high-work load, and often noisy Emergency Department environment. It may contain unintended and wholly unrecognized errors or omissions. RASHIDA KNAPP MD Oct 26, 2020 18:34
[2020-10-26] MEDS ORDERED: IV RINGERS SOLUTION,LACTATED 1,000 ML IV SCH (19:00)
--- NOTE | 2020-10-26 19:36 | EKG ---
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
[2020-10-26 20:02] LABS: BASO # 0.1 x10^3/uL (0.0-0.2); BASO % 1 % (0-3); EOS # 0.2 x10^3/uL (0.0-0.7); EOS % 2 % (0-3); HEMATOCRIT 42.6 % (36.0-47.0); HEMOGLOBIN 14.3 g/dL (12.0-15.5); LYMPH # 2.8 x10^3/uL (1.0-4.8); LYMPH % 32 % (24-48); MEAN CORPUSCULAR HEMOGLOBIN 32 pg (25-35); MEAN CORPUSCULAR HGB CONC 34 g/dL (31-37); MEAN CORPUSCULAR VOLUME 95 fL (79-100); MONO # 0.7 x10^3/uL (0.0-1.1); MONO % 8 % (0-9); NEUT # 5.1 x10^3uL (1.8-7.7); NEUT % 57 % (31-73); PLATELET COUNT 345 x10^3/uL (140-400); RED BLOOD COUNT 4.47 x10^6/uL (3.50-5.40); RED CELL DISTRIBUTION WIDTH 13.2 % (11.5-14.5); WHITE BLOOD COUNT 8.9 x10^3/uL (4.0-11.0)
[2020-10-26 20:08] LABS: BARBITURATES NEG (NEG); BENZODIAZEPINES NEG (NEG); CANNABINOIDS NEG (NEG); COCAINE NEG (NEG); METHADONE NEG (NEG); OPIATES NEG (NEG); PHENCYCLIDINE NEG (NEG)
[2020-10-26 20:10] LABS: BILIRUBIN,URINE NEG (NEG); CLARITY,URINE HAZY; COLOR,URINE YELLOW; GLUCOSE,URINE NEG (NEG); NITRITE,URINE POS (NEG)
[2020-10-26 20:11] LABS: CALCIUM 10.2 mg/dL (8.5-10.1); GFR 55.8; POTASSIUM 3.8 mmol/L (3.5-5.1)
[2020-10-26 20:11] LABS: RBC,URINE RARE /HPF (0-2)
[2020-10-26 20:12] LABS: BACTERIA,URINE FEW /HPF (0-FEW)
[2020-10-26 20:13] LABS: AMPHETAMINE/METHAMPHETAMINE NEG (NEG)
[2020-10-26 20:24] LABS: ALBUMIN 3.6 g/dL (3.4-5.0); DIRECT BILIRUBIN 0.1 mg/dL (0.0-0.2); MAGNESIUM 2.1 mg/dL (1.8-2.4); TOTAL BILIRUBIN 0.4 mg/dL (0.2-1.0); TOTAL PROTEIN 8.2 g/dL (6.4-8.2)
[2020-10-26] MEDS ORDERED: oxyCODONE/APAP 5/325 1 TAB TABLET PO ONE (22:30)
[2020-10-27] MEDS ORDERED: oxyCODONE ER 20 MG TAB.ER.12H PO ONE ×2 (00:20→00:30)
[2020-10-27] MEDS ORDERED: CIPR500S2 PO (02:13)
[2020-10-27] MEDS ORDERED: CIPROFLOXACIN HCL 500 MG TABLET PO ONE (02:30)
--- NOTE | 2020-10-27 02:59 | RAD ---
EXAMINATION: CT PELVIS WO, CT LUMBAR SPINE WO CLINICAL HISTORY: Back and hip pain TECHNIQUE: Spiral, high resolution axial images were obtained from the thoracolumbar junction to the sacrum with sagittal and coronal planar reconstructions. CT Dose Reduction Employed: One or more of the following individualized dose reduction techniques wer e utilized for this examination: 1. Automated exposure control 2. Adjustment of the mA and/or kV ac cording to patient size 3. Use of iterative reconstruction technique. COMPARISON: CT L-spine 01/05/2019 FINDINGS: L-SPINE: Alignment: Levoconvex curvature and hyperlordosis of the lumbar spine, possibly positional. Osseous Structures: No evidence of acute fracture. Grade 1 L2-3 anterolisthesis, likely degenerative. Degenerative Changes: Moderate posterior degenerative disc disease at T12-L1 and L1-2. Mild/moderate degenerative disc disease in the remainder of the lumbar spine. Moderate to severe facet arthropathy in the lower lumbar spine. Mild to moderate multilevel neural foraminal narrowing. Multilevel osseous neural foraminal narrowing, greatest at L5-S1. Soft Tissues: Paraspinal soft tissues unremarkable. Partially visualized gastric lap band. Cholecyste ctomy. Arterial atherosclerotic calcification without aneurysm. PELVIS: Qhpf-hu-tjdgluxc axial joint space narrowing in the bilateral hips with subchondral cysts. Pubic symp hysis and SI joints within normal limits. No acute fracture. Moderate rectosigmoid stool, possible mild impaction. Sigmoid diverticulosis without evidence of acut e diverticulitis. Small ventral hernia containing mesenteric fat and a loop of nonobstructed small primitivo wel. IMPRESSION: No evidence of acute osseous abnormality involving the lumbar spine or pelvis. Multilevel degenerative findings of the lumbar spine as described. Kqwv-cu-yqtskkup degenerative changes bilateral hips. Moderate rectosigmoid stool, correlate for possible impaction. Small ventral hernia containing a loop of nondilated small bowel. Electronically signed by: Alonzo Moreno DO (10/27/2020 2:57 AM) [facility]
[2020-10-27 03:30] VITALS: BP 134/80
[2020-10-27] MEDS ORDERED: LORazepam 1 MG TABLET ONE (03:43)
[2020-10-27] MEDS ORDERED: LORazepam 1 MG TABLET PO ONE (04:00)
--- NOTE | 2020-10-27 05:07 | RAD ---
EXAMINATION: XR CHEST 1V CLINICAL HISTORY: Cough EXAM DATE/TIME: 10/26/2020 12:57 AM COMPARISON: 09/26/2020 FINDINGS: Lines, Tubes, and Devices: None. Cardiomediastinal Silhouette: Normal heart size. Aortic atherosclerotic calcification. Lungs and Pleura: No evidence of focal airspace consolidation or pleural effusion. Pulmonary vasculat ure unremarkable. Bones and Soft Tissues: Degenerative changes of the thoracic spine. IMPRESSION: No evidence of acute cardiopulmonary abnormality or significant interval change. Electronically signed by: Alonzo Moreno DO (10/27/2020 5:04 AM) [facility]
== END 2020-10-27 03:56 ==
LOC: ER 17:15
DX: R45.851 Suicidal ideations (principal); N39.0 Urinary tract infection, site not specified; E86.0 Dehydration; F17.200 Nicotine dependence, unspecified, uncomplicated; F03.90 Unspecified dementia, unspecified severity, without behavioral disturbance, psychotic disturbance, mood disturbance, and anxiety; E11.9 Type 2 diabetes mellitus without complications; I10 Essential (primary) hypertension; I48.91 Unspecified atrial fibrillation; Z88.0 Allergy status to penicillin; Z88.2 Allergy status to sulfonamides; Z88.6 Allergy status to analgesic agent; Z88.8 Allergy status to other drugs, medicaments and biological substances; Z90.710 Acquired absence of both cervix and uterus; Z79.899 Other long term (current) drug therapy
CPT/HCPCS: 36415; 71045; 72131; 72192; 80048; 80076; 80307; 81001; 82550; 83690; 83735; 83880; 84443; 84484; 85025; 87086; 93005; 96360; 96361; 99285; J7120